=== PATIENT | male | born 1935 | race Caucasian/White ===

== ENCOUNTER 2016-12-09 14:03 | Emergency (ER) | payer MEDICARE ==
[2016-12-09 14:51] LABS: Basophils # (A) 0.1 k/uL (0-0.2); Basophils % (A) 1 %; CH 32.3; CHCM 35.8; Eosinophils # (A) 0.3 k/uL (0-0.7); Eosinophils % (A) 3 %; HCT 46.5 % (39.0-53.0); HDW 2.78; HGB 15.8 gm/dL (13.0-17.5); Luc # (Auto) 0.21; Luc % (Auto) 2; Lymphocytes # (A) 1.5 k/uL (1.0-4.8); Lymphocytes % (A) 16 %; MCH 30.8 pg (25.0-35.0); MCHC 33.9 g/dL (31.0-37.0); MCV 90.8 fL (80.0-100.0); Mean Platelet Volume 7.4; Monocytes # (A) 0.5 k/uL (0-1.0); Monocytes % (A) 5 %; Neutrophils # (A) 6.6 k/uL (1.3-7.7); Neutrophils % (A) 71 %; RBC 5.12 m/uL (4.30-5.90); RDW 14.8 % (11.5-15.5); WBC 9.3 k/uL (3.8-10.6)
--- NOTE | 2016-12-09 15:04 | ED ---
General Adult HPI - General Chief complaint: Urogenital Stated complaint: blood in urine-sent by [employer] Time Seen by Provider: 12/09/16 14:11 Source: patient, RN notes reviewed, old records reviewed Mode of arrival: ambulatory Limitations: no limitations - History of Present Illness Initial comments: 81-year-old male with history of hypertension and remote history of CVA presents with hematuria. Patient reports that over the past 12 hours he had significant hematuria and blood clots. He has had no trouble urinating. Denies significant pain. Does have some mild dysuria. Denies abdominal pain. Denies nausea vomiting or diarrhea. Patient has had intermittent hematuria over the last 1 year. He has been seen by urology for this. Normally his urine is just blood tinged and resolved spontaneously. Today there was more significant bleeding with clots. He was seen at urgent care and sent to the emergency department for further evaluation. Patient denies fever or chills. He is on aspirin and Plavix. - Related Data Home Medications Medication Instructions Recorded Confirmed Aspirin EC [Ecotrin] 81 mg PO DAILY 04/11/14 12/09/16 Clopidogrel [Plavix] 75 mg PO DAILY 04/11/14 12/09/16 Levothyroxine Sodium [Synthroid] 88 mcg PO DAILY 04/11/14 12/09/16 Losartan/Hydrochlorothiazide 1 tab PO DAILY 04/11/14 12/09/16 [Losartan-Hctz 100-25 mg Tab] amLODIPine [Norvasc] 5 mg PO DAILY 04/11/14 12/09/16 Allergies Allergy/AdvReac Type Severity Reaction Status Date / Time No Known Allergies Allergy Verified 12/09/16 14:40 Review of Systems ROS Statement: Those systems with pertinent positive or pertinent negative responses have been documented in the HPI. ROS Other: All systems not noted in ROS Statement are negative. Past Medical History Past Medical History: CVA/TIA, GERD/Reflux, Hypertension, Osteoarthritis (OA), Thyroid Disorder Additional Past Medical History / Comment(s): HX OF CVA-NO WEAKNESS OR PARALYSIS , LEFT INGUINAL HERNIA History of Any Multi-Drug Resistant Organisms: None Reported Past Surgical History: Hernia Repair Additional Past Surgical History / Comment(s): REJI CATARACTS, RT ING. HERNIA. HIATAL HERNIA REPAIR (03/14/2014). Past Anesthesia/Blood Transfusion Reactions: No Reported Reaction Past Psychological History: No Psychological Hx Reported Smoking Status: Never smoker Past Alcohol Use History: None Reported Past Drug Use History: None Reported - Past Family History Mother Family Medical History: Cancer Additional Family Medical History / Comment(s): THROAT Sister(s) Family Medical History: Cancer Additional Family Medical History / Comment(s): STOMACH CANCER General Exam Limitations: no limitations General appearance: alert, in no apparent distress Head exam: Present: atraumatic, normocephalic Eye exam: Present: normal appearance, PERRL ENT exam: Present: normal exam, mucous membranes moist Neck exam: Present: normal inspection. Absent: tenderness, meningismus Respiratory exam: Present: normal lung sounds bilaterally. Absent: respiratory distress Cardiovascular Exam: Present: regular rate, normal rhythm GI/Abdominal exam: Present: soft. Absent: distended, tenderness Extremities exam: Present: normal inspection, normal capillary refill. Absent: pedal edema Back exam: Present: normal inspection, full ROM Neurological exam: Present: alert, oriented X3, CN II-XII intact. Absent: motor sensory deficit Psychiatric exam: Present: normal affect, normal mood Skin exam: Present: warm, dry, intact. Absent: cyanosis, diaphoretic Course Vital Signs 12/09/16 12/09/16 14:07 15:25 Temperature 97.0 F L 97.5 F L Pulse Rate 63 62 Respiratory 18 18 Rate Blood Pressure 189/92 174/84 O2 Sat by Pulse 98 97 Oximetry - Reevaluation(s) Reevaluation #1: 12/09/16 15:43 Patient remains asymptomatic on emergency department. Continues to have blood tinged urine, no clots in his urine. Medical Decision Making - Medical Decision Making 81-year-old male presenting with hematuria. Patient did report having significant amount of blood clot seizure. No difficulty voiding. Laboratory studies reveal stable hemoglobin, normal kidney function. Ultrasound is obtained as previous CT showed probable renal cyst. This is confirmed on ultrasound, there is additional nonobstructing kidney stone. Patient has no pain. Vital signs are stable. He will follow-up with his urologist as an outpatient. Diagnosis: Renal cyst, renal stone, hematuria - Lab Data Result diagrams: 12/09/16 14:30 12/09/16 14:30 Lab Results 12/09/16 12/09/16 12/09/16 Range/Units 14:23 14:30 14:30 WBC 9.3 (3.8-10.6) k/uL RBC 5.12 (4.30-5.90) m/uL Hgb 15.8 (13.0-17.5) gm/dL Hct 46.5 (39.0-53.0) % MCV 90.8 (80.0-100.0) fL MCH 30.8 (25.0-35.0) pg MCHC 33.9 (31.0-37.0) g/dL RDW 14.8 (11.5-15.5) % Plt Count 276 (150-450) k/uL Neutrophils % 71 % Lymphocytes % 16 % Monocytes % 5 % Eosinophils % 3 % Basophils % 1 % Neutrophils # 6.6 (1.3-7.7) k/uL Lymphocytes # 1.5 (1.0-4.8) k/uL Monocytes # 0.5 (0-1.0) k/uL Eosinophils # 0.3 (0-0.7) k/uL Basophils # 0.1 (0-0.2) k/uL PT (9.0-12.0) sec INR (<1.2) APTT (22.0-30.0) sec Sodium (137-145) mmol/L Potassium (3.5-5.1) mmol/L Chloride (98-107) mmol/L Carbon Dioxide (22-30) mmol/L Anion Gap mmol/L BUN (9-20) mg/dL Creatinine (0.66-1.25) mg/dL Est GFR (MDRD) Af Amer (>60 ml/min/1.73 sqM) Est GFR (MDRD) Non-Af (>60 ml/min/1.73 sqM) Glucose (74-99) mg/dL Calcium (8.4-10.2) mg/dL Total Bilirubin (0.2-1.3) mg/dL AST (17-59) U/L ALT (21-72) U/L Alkaline Phosphatase (38-126) U/L Total Protein (6.3-8.2) g/dL Albumin (3.5-5.0) g/dL Urine Color Red Urine Appearance Cloudy (Clear) Urine pH 7.0 (5.0-8.0) Ur Specific [place] 1.009 (1.001-1.035) Urine Protein 2+ H (Negative) Urine Glucose (UA) Negative (Negative) Urine Ketones Negative (Negative) Urine Blood Large H (Negative) Urine Nitrite Negative (Negative) Urine Bilirubin Negative (Negative) Urine Urobilinogen <2.0 (<2.0) mg/dL Ur Leukocyte Esterase Moderate H (Negative) Urine RBC >182 H (0-5) /hpf Urine WBC 20 H (0-5) /hpf Blood Type A Positive Blood Type Recheck CABO Indicated Antibody Screen NEGATIVE Spec Expiration Date 12/12/2016 - 232912/09/16 12/09/16 Range/Units 14:30 14:30 WBC (3.8-10.6) k/uL RBC (4.30-5.90) m/uL Hgb (13.0-17.5) gm/dL Hct (39.0-53.0) % MCV (80.0-100.0) fL MCH (25.0-35.0) pg MCHC (31.0-37.0) g/dL RDW (11.5-15.5) % Plt Count (150-450) k/uL Neutrophils % % Lymphocytes % % Monocytes % % Eosinophils % % Basophils % % Neutrophils # (1.3-7.7) k/uL Lymphocytes # (1.0-4.8) k/uL Monocytes # (0-1.0) k/uL Eosinophils # (0-0.7) k/uL Basophils # (0-0.2) k/uL PT 10.8 (9.0-12.0) sec INR 1.1 (<1.2) APTT 26.1 (22.0-30.0) sec Sodium 140 (137-145) mmol/L Potassium 4.0 (3.5-5.1) mmol/L Chloride 104 (98-107) mmol/L Carbon Dioxide 25 (22-30) mmol/L Anion Gap 11 mmol/L BUN 13 (9-20) mg/dL Creatinine 0.79 (0.66-1.25) mg/dL Est GFR (MDRD) Af Amer >60 (>60 ml/min/1.73 sqM) Est GFR (MDRD) Non-Af >60 (>60 ml/min/1.73 sqM) Glucose 82 (74-99) mg/dL Calcium 9.3 (8.4-10.2) mg/dL Total Bilirubin 0.7 (0.2-1.3) mg/dL AST 36 (17-59) U/L ALT 29 (21-72) U/L Alkaline Phosphatase 59 (38-126) U/L Total Protein 7.3 (6.3-8.2) g/dL Albumin 4.5 (3.5-5.0) g/dL Urine Color Urine Appearance (Clear) Urine pH (5.0-8.0) Ur Specific [place] (1.001-1.035) Urine Protein (Negative) Urine Glucose (UA) (Negative) Urine Ketones (Negative) Urine Blood (Negative) Urine Nitrite (Negative) Urine Bilirubin (Negative) Urine Urobilinogen (<2.0) mg/dL Ur Leukocyte Esterase (Negative) Urine RBC (0-5) /hpf Urine WBC (0-5) /hpf Blood Type Blood Type Recheck Antibody Screen Spec Expiration Date Disposition Clinical Impression: Hematuria, Renal cyst Disposition: HOME SELF-CARE Condition: Stable Instructions: Hematuria (ED) Referrals: Rock Bryant III, MD [Primary Care Provider] - 1-2 days Papa Whelan MD [STAFF PHYSICIAN] - 1-2 days Time of Disposition: 15:46
[2016-12-09 15:06] LABS: INR 1.1 (<1.2); Partial Thromboplastin Time 26.1 sec (22.0-30.0); Prothrombin Time 10.8 sec (9.0-12.0)
[2016-12-09 15:07] LABS: ALT 29 U/L (21-72); AST 36 U/L (17-59); Alkaline Phosphatase 59 U/L (38-126); Anion Gap 11 mmol/L; Blood Urea Nitrogen 13 mg/dL (9-20); Calcium 9.3 mg/dL (8.4-10.2); Carbon Dioxide 25 mmol/L (22-30); Chloride 104 mmol/L (98-107); Glucose 82 mg/dL (74-99); Non-African American GFR(MDRD) >60 (>60 ml/min/1.73 sqM); Sodium 140 mmol/L (137-145); Total Bilirubin 0.7 mg/dL (0.2-1.3); Total Protein 7.3 g/dL (6.3-8.2)
[2016-12-09 15:12] LABS: Appearance,Urine Cloudy (Clear); Bilirubin,Urine Negative (Negative); Glucose,Urine (UA) Negative (Negative); Ketones,Urine Negative (Negative); Leukocyte Esterase,Urine Moderate (Negative); Nitrite,Urine Negative (Negative); Particle Count 23870; Protein,Urine 2+ (Negative); RBC,Urine >182 /hpf (0-5); Specific Gravity,Urine 1.009 (1.001-1.035); UA Billing (MACRO vs. MICRO) MICRO; Urobilinogen,Urine <2.0 mg/dL (<2.0); WBC,Urine 20 /hpf (0-5)
--- NOTE | 2016-12-09 15:34 | US ---
EXAMINATION TYPE: US kidneys/renal and bladder DATE OF EXAM: 12/09/2016 COMPARISON: NONE CLINICAL HISTORY: Pain, significant macrohematuria, with clots. EXAM MEASUREMENTS: Right Kidney: 11.3 x 5.3 x 5.0 cm Left Kidney: 11.7 x 5.5 x 5.1 cm Right Kidney: No hydronephrosis or masses seen Left Kidney: echogenic foci, nonobstructing renal stone, measuring 0.8 x 0.6cm, probable cyst measur ing 2.1 x 3.1 x 2.7cm Bladder: wnl IMPRESSION: 1. obstructing left renal stone. 2. Left renal cyst, probably simple. Follow-up can be performed.
[2016-12-09 16:01] VITALS: BP 145/66; PULSE 80; RESP 20; TEMP 98.2
== END 2016-12-09 16:01 | disposition home or self-care (01) ==
LOC: EC 14:03
DX: N28.1 Cyst of kidney, acquired (principal); N20.0 Calculus of kidney; I10 Essential (primary) hypertension; M19.90 Unspecified osteoarthritis, unspecified site; E07.9 Disorder of thyroid, unspecified; Z86.73 Personal history of transient ischemic attack (TIA), and cerebral infarction without residual deficits; Z79.02 Long term (current) use of antithrombotics/antiplatelets; Z79.82 Long term (current) use of aspirin; Z79.899 Other long term (current) drug therapy
CPT/HCPCS: 36415; 76770; 80053; 81001; 85025; 85610; 85730; 86850; 86900; 86901; 87086; 99284

== ENCOUNTER 2017-02-12 12:38 | Inpatient (IN) | payer MEDICARE ==
[2017-02-12] MEDS ORDERED: SODIUM CHLORIDE 0.9% 1,000 ML IV STA (13:02)
[2017-02-12] MEDS ORDERED: DILTIAZEM 125 MG in SODIUM CHLORIDE 0.9% 100 ML IV STA (13:04)
--- NOTE | 2017-02-12 13:06 | ED ---
General Adult HPI - General Chief complaint: Neuro Symptoms/Deficit Stated complaint: Numbness in Legs, Headache Time Seen by Provider: 02/12/17 12:50 Source: patient, RN notes reviewed Mode of arrival: wheelchair Limitations: no limitations - History of Present Illness Initial comments: This is a 81-year-old male with a history of CVA in the past who states he developed a frontal headache today and it was achy and radiated down to the back was head neck and bilateral leg numbness and felt wobbly when he try to walk he notices diastolic blood pressure was 140 he also notices heart rate was 140 he has no history of A. fib or palpitations. He denies any fevers chills nausea vomiting sweats any blurry vision. No focal weakness. He was noted upon arrival to have what appeared to be atrial fibrillation with a rapid ventricular response the patient states this is new to him. - Related Data Home Medications Medication Instructions Recorded Confirmed Aspirin EC [Ecotrin] 162 mg PO HS 04/11/14 02/12/17 Clopidogrel [Plavix] 75 mg PO DAILY 04/11/14 02/12/17 amLODIPine [Norvasc] 5 mg PO DAILY 04/11/14 02/12/17 Aspirin 325 mg PO ONCE 02/12/17 02/12/17 Levothyroxine Sodium [Synthroid] 100 mcg PO DAILY 02/12/17 02/12/17 Allergies Allergy/AdvReac Type Severity Reaction Status Date / Time No Known Allergies Allergy Verified 02/12/17 13:53 Review of Systems ROS Statement: Those systems with pertinent positive or pertinent negative responses have been documented in the HPI. ROS Other: All systems not noted in ROS Statement are negative. Past Medical History Past Medical History: CVA/TIA, GERD/Reflux, Hypertension, Osteoarthritis (OA), Thyroid Disorder Additional Past Medical History / Comment(s): HX OF CVA-NO WEAKNESS OR PARALYSIS , LEFT INGUINAL HERNIA History of Any Multi-Drug Resistant Organisms: None Reported Past Surgical History: Hernia Repair Additional Past Surgical History / Comment(s): REJI CATARACTS, RT ING. HERNIA. HIATAL HERNIA REPAIR (03/14/2014). Past Anesthesia/Blood Transfusion Reactions: No Reported Reaction Past Psychological History: No Psychological Hx Reported Smoking Status: Never smoker Past Alcohol Use History: None Reported Past Drug Use History: None Reported - Past Family History Mother Family Medical History: Cancer Additional Family Medical History / Comment(s): THROAT Sister(s) Family Medical History: Cancer Additional Family Medical History / Comment(s): STOMACH CANCER General Exam - General Exam Comments Initial Comments: This is a well-developed well-nourished awake alert oriented 3 male Limitations: no limitations General appearance: alert, in no apparent distress Head exam: Present: atraumatic, normocephalic, normal inspection Eye exam: Present: normal appearance, PERRL, EOMI. Absent: scleral icterus, conjunctival injection, periorbital swelling ENT exam: Present: normal exam, mucous membranes moist Neck exam: Present: normal inspection. Absent: tenderness, meningismus, lymphadenopathy Respiratory exam: Present: normal lung sounds bilaterally. Absent: respiratory distress, wheezes, rales, rhonchi, stridor Cardiovascular Exam: Present: tachycardia, irregular rhythm, normal heart sounds. Absent: systolic murmur, diastolic murmur, rubs, gallop, clicks GI/Abdominal exam: Present: soft, normal bowel sounds. Absent: distended, tenderness, guarding, rebound, rigid Extremities exam: Present: normal inspection, full ROM, normal capillary refill. Absent: tenderness, pedal edema, joint swelling, calf tenderness Back exam: Present: normal inspection Neurological exam: Present: alert, oriented X3, CN II-XII intact Psychiatric exam: Present: normal affect, normal mood Skin exam: Present: warm, dry, intact, normal color. Absent: rash Course Vital Signs 02/12/17 02/12/17 02/12/17 12:41 13:16 13:58 Temperature 96.9 F L Pulse Rate 64 135 H Pulse Rate [ 140 H Radial] Respiratory 18 20 Rate Blood Pressure 134/90 159/86 O2 Sat by Pulse 97 94 L Oximetry - Reevaluation(s) Reevaluation #1: 02/12/17 14:14 Evaluation patient finds him unchanged he denies any more headache he denies actually feeling any palpitations also heart rate still variable. EKG Findings - EKG Results: EKG: interpreted by GLORIA (Atrial fibrillation with rapid ventricular response rate of 128 QRS 120 daily since QTC at 284/414 left exodeviation poor R-wave progression nonspecific ST T-wave configuration.) Medical Decision Making - Medical Decision Making I did discuss [employer] the patient and his daughter as well as with Dr. Barton. Patient be admitted for evaluation of new onset atrial fibrillation. He will be anticoagulated. He is on a Cardizem drip. - Lab Data Result diagrams: 02/12/17 13:00 02/12/17 13:00 Lab Results 02/12/17 02/12/17 02/12/17 Range/Units 13:00 13:00 13:00 WBC 10.8 H (3.8-10.6) k/uL RBC 5.28 (4.30-5.90) m/uL Hgb 15.9 (13.0-17.5) gm/dL Hct 48.9 (39.0-53.0) % MCV 92.7 (80.0-100.0) fL MCH 30.1 (25.0-35.0) pg MCHC 32.4 (31.0-37.0) g/dL RDW 15.4 (11.5-15.5) % Plt Count 305 (150-450) k/uL Neutrophils % 66 % Lymphocytes % 22 % Monocytes % 7 % Eosinophils % 2 % Basophils % 1 % Neutrophils # 7.2 (1.3-7.7) k/uL Lymphocytes # 2.4 (1.0-4.8) k/uL Monocytes # 0.8 (0-1.0) k/uL Eosinophils # 0.2 (0-0.7) k/uL Basophils # 0.1 (0-0.2) k/uL PT (9.0-12.0) sec INR (<1.2) APTT (22.0-30.0) sec Sodium 143 (137-145) mmol/L Potassium 3.6 (3.5-5.1) mmol/L Chloride 104 (98-107) mmol/L Carbon Dioxide 27 (22-30) mmol/L Anion Gap 12 mmol/L BUN 23 H (9-20) mg/dL Creatinine 0.85 (0.66-1.25) mg/dL Est GFR (MDRD) Af Amer >60 (>60 ml/min/1.73 sqM) Est GFR (MDRD) Non-Af >60 (>60 ml/min/1.73 sqM) Glucose 85 (74-99) mg/dL POC Glucose (mg/dL) (75-99) mg/dL POC Glu Receiving Operator ID Calcium 9.7 (8.4-10.2) mg/dL Magnesium 1.9 (1.6-2.3) mg/dL Total Bilirubin 0.8 (0.2-1.3) mg/dL AST 39 (17-59) U/L ALT 30 (21-72) U/L Alkaline Phosphatase 58 (38-126) U/L Total Creatine Kinase 153 (55-170) U/L CK-MB (CK-2) 4.6 H* (0.0-2.4) ng/mL CK-MB (CK-2) Rel Index 3.0 Troponin I <0.012 (0.000-0.034) ng/mL Total Protein 7.7 (6.3-8.2) g/dL Albumin 4.4 (3.5-5.0) g/dL TSH 2.660 (0.465-4.680) mIU/L 02/12/17 02/12/17 Range/Units 13:00 13:04 WBC (3.8-10.6) k/uL RBC (4.30-5.90) m/uL Hgb (13.0-17.5) gm/dL Hct (39.0-53.0) % MCV (80.0-100.0) fL MCH (25.0-35.0) pg MCHC (31.0-37.0) g/dL RDW (11.5-15.5) % Plt Count (150-450) k/uL Neutrophils % % Lymphocytes % % Monocytes % % Eosinophils % % Basophils % % Neutrophils # (1.3-7.7) k/uL Lymphocytes # (1.0-4.8) k/uL Monocytes # (0-1.0) k/uL Eosinophils # (0-0.7) k/uL Basophils # (0-0.2) k/uL PT 11.2 (9.0-12.0) sec INR 1.1 (<1.2) APTT 25.2 (22.0-30.0) sec Sodium (137-145) mmol/L Potassium (3.5-5.1) mmol/L Chloride (98-107) mmol/L Carbon Dioxide (22-30) mmol/L Anion Gap mmol/L BUN (9-20) mg/dL Creatinine (0.66-1.25) mg/dL Est GFR (MDRD) Af Amer (>60 ml/min/1.73 sqM) Est GFR (MDRD) Non-Af (>60 ml/min/1.73 sqM) Glucose (74-99) mg/dL POC Glucose (mg/dL) 82 (75-99) mg/dL POC Glu Receiving Operator ID Tessa Alvarez Calcium (8.4-10.2) mg/dL Magnesium (1.6-2.3) mg/dL Total Bilirubin (0.2-1.3) mg/dL AST (17-59) U/L ALT (21-72) U/L Alkaline Phosphatase (38-126) U/L Total Creatine Kinase (55-170) U/L CK-MB (CK-2) (0.0-2.4) ng/mL CK-MB (CK-2) Rel Index Troponin I (0.000-0.034) ng/mL Total Protein (6.3-8.2) g/dL Albumin (3.5-5.0) g/dL TSH (0.465-4.680) mIU/L - Radiology Data Radiology results: report reviewed (I did review the imaging and reports no acute findings.), image reviewed Critical Care Time Critical Care Time: Yes Critical Care Time: 33 minutes of critical care time which includes initial presentation with history physical labs x-rays reevaluation patient response to therapy discuss with the patient family members discussion with the admitting physician. Neck mentation the above order writing. Disposition Clinical Impression: Rapid atrial fibrillation, Weakness Disposition: ADMITTED IP TO THIS [facility] Condition: Stable Referrals: Rock Bryant III, MD [Primary Care Provider] - 1-2 days
[2017-02-12 13:08] LABS: Glucose,Whole Blood 82 mg/dL (75-99)
[2017-02-12 13:23] LABS: Basophils # (A) 0.1 k/uL (0-0.2); Basophils % (A) 1 %; CH 30.6; CHCM 33.3; Eosinophils # (A) 0.2 k/uL (0-0.7); Eosinophils % (A) 2 %; HCT 48.9 % (39.0-53.0); HDW 2.52; HGB 15.9 gm/dL (13.0-17.5); Luc # (Auto) 0.17; Luc % (Auto) 2; Lymphocytes # (A) 2.4 k/uL (1.0-4.8); Lymphocytes % (A) 22 %; MCH 30.1 pg (25.0-35.0); MCHC 32.4 g/dL (31.0-37.0); MCV 92.7 fL (80.0-100.0); Mean Platelet Volume 7.2; Monocytes # (A) 0.8 k/uL (0-1.0); Monocytes % (A) 7 %; Neutrophils # (A) 7.2 k/uL (1.3-7.7); Neutrophils % (A) 66 %; RBC 5.28 m/uL (4.30-5.90); RDW 15.4 % (11.5-15.5); WBC 10.8 k/uL (3.8-10.6); WBC (Perox) 10.38
--- NOTE | 2017-02-12 13:23 | XR ---
EXAMINATION TYPE: XR chest 2V DATE OF EXAM: 02/12/2017 COMPARISON: 08/04/2011 INDICATION: Dysrhythmia numbness in legs headache with history of CVA TECHNIQUE: Frontal and lateral views of the chest are obtained. FINDINGS: The heart size is normal. The pulmonary vasculature is normal. The lungs are clear. IMPRESSION: 1. No acute pulmonary process.
[2017-02-12 13:30] LABS: INR 1.1 (<1.2); Partial Thromboplastin Time 25.2 sec (22.0-30.0); Prothrombin Time 11.2 sec (9.0-12.0)
[2017-02-12 13:31] LABS: ALT 30 U/L (21-72); AST 39 U/L (17-59); Alkaline Phosphatase 58 U/L (38-126); Anion Gap 12 mmol/L; Blood Urea Nitrogen 23 mg/dL (9-20); Calcium 9.7 mg/dL (8.4-10.2); Carbon Dioxide 27 mmol/L (22-30); Chloride 104 mmol/L (98-107); Glucose 85 mg/dL (74-99); Magnesium 1.9 mg/dL (1.6-2.3); Non-African American GFR(MDRD) >60 (>60 ml/min/1.73 sqM); Potassium 3.6 mmol/L (3.5-5.1); Sodium 143 mmol/L (137-145); Total Bilirubin 0.8 mg/dL (0.2-1.3); Total Protein 7.7 g/dL (6.3-8.2)
[2017-02-12 13:45] LABS: Creatine Kinase 153 U/L (55-170)
--- NOTE | 2017-02-12 13:45 | CT ---
EXAMINATION TYPE: CT brain wo con DATE OF EXAM: 02/12/2017 COMPARISON: 08/04/2011 HISTORY: Patient complains of headache. CT DLP: 782.6 mGycm. Automated Exposure Control for Dose Reduction was Utilized. TECHNIQUE: CT scan of the head is performed without contrast. FINDINGS: There is no acute intracranial hemorrhage or midline shift identified. There is diffuse v entricular and sulcal prominence consistent with diffuse age-related cerebral atrophy. There is low- attenuation in the periventricular white matter consistent with chronic small vessel ischemic change. The globes are intact and the visualized sinuses are clear. IMPRESSION: No acute intracranial hemorrhage or midline shift. There is diffuse age-related cerebra l atrophy and chronic small vessel ischemic change noted.
[2017-02-12 13:57] LABS: Troponin I <0.012 ng/mL (0.000-0.034)
[2017-02-12 14:00] LABS: Creatine Kinase MB 4.6 ng/mL (0.0-2.4)
[2017-02-12] MEDS ORDERED: NALOXONE 0.4 MG/ML 1 ML VIAL IV PRN (14:17)
[2017-02-12] MEDS ORDERED: HEPARIN SODIUM,PORCINE 5,000 UNIT/ML 1 ML VIAL IV ONE (14:47)
[2017-02-12] MEDS ORDERED: HEPARIN SODIUM,PORCINE/D5W PMX 25,000 UNIT in DEXTROSE/WATER 1 500ML.BAG IV SCH (15:00)
[2017-02-12] MEDS: SODIUM CHLORIDE 0.9% 1,000 ML IV SCH (15:17)
[2017-02-12] MEDS ORDERED: ASPIRIN 81 MG PO SCH (21:00)
--- NOTE | 2017-02-13 00:08 | P.HPIM ---
History of Present Illness H&P Date: 02/12/17 Chief Complaint: Headache and bilateral numbness in the legs Patient is a 81-year-old male with a known history of CVA with no residual weakness, hypothyroidism, hypertension and GERD came to the hospital with complaints of frontal headache today and it was achy and radiated down to the back was head neck and bilateral leg numbness and felt wobbly when he try to walk. he notices diastolic blood pressure was 140 he also notices heart rate was 140. he has no history of A. fib or palpitations. He denies any fevers chills nausea vomiting sweats any blurry vision. No focal weakness. He was noted upon arrival to have what appeared to be atrial fibrillation with a rapid ventricular response the patient states this is new to him. No complaints of chest pain or short of breath. Patient denied any palpitations. Denied any dizziness. Patient felt some imbalance. Patient follows with Dr. Norton and had EKG and echocardiogram done about 4 months back Chest x-ray showed no acute coronary process EKG showed atrial fibrillation with rapid ventricular rate Troponin [address] head showed no acute intracranial process. age related atrophic changes. Review of Systems Constitutional: Patient denies any fever or chills . No generalized weakness or weight loss. Abdomen: Patient denied nausea vomiting and diarrhea and abdominal pain. Cardiovascular: Patient denies any chest pain or short of breath no palpitations. Respiratory: patient denied any cough is from production. No shortness of breath Neurologic: Patient did have headache and numbness of the legs and imbalance Musculoskeletal: Patient denies any complaints of joint swelling or deformity. Skin: Negative Psychiatric: Negative Endocrine: No heat or cold intolerance. No recent weight gain. Genitourinary: No dysuria or hematuria. All other 14 point ROS negative except the above Past Medical History Past Medical History: CVA/TIA, GERD/Reflux, Hypertension, Myocardial Infarction ([place]), Osteoarthritis (OA), Pneumonia, Thyroid Disorder Additional Past Medical History / Comment(s): 02-12-17 new onset afib,pt is rt side dominant,past tia, reji ing hernias(had sx), palpitations,bronchitis, fall from truck few years ago"injured cord in neck and had large scalp laceration". Last Myocardial Infarction Date:: unk History of Any Multi-Drug Resistant Organisms: None Reported Past Surgical History: Hernia Repair, Tonsillectomy Additional Past Surgical History / Comment(s): REJI CATARACTS, reji ING. HERNIA. HIATAL HERNIA REPAIR (03/14/2014).skin cancer (basal and squamous cell), colonoscopy, reji carpal tunnel release, rt upper thigh inury has plastic insert. Past Anesthesia/Blood Transfusion Reactions: No Reported Reaction Smoking Status: Never smoker - Past Family History Mother Family Medical History: Cancer Additional Family Medical History / Comment(s): THROAT Sister(s) Family Medical History: Cancer Additional Family Medical History / Comment(s): STOMACH CANCER Medications and Allergies Home Medications Medication Instructions Recorded Confirmed Type Aspirin EC [Ecotrin] 162 mg PO HS 04/11/14 02/12/17 History Clopidogrel [Plavix] 75 mg PO DAILY 04/11/14 02/12/17 History amLODIPine [Norvasc] 5 mg PO DAILY 04/11/14 02/12/17 History Aspirin 325 mg PO ONCE 02/12/17 02/12/17 History Levothyroxine Sodium [Synthroid] 100 mcg PO DAILY 02/12/17 02/12/17 History Allergies Allergy/AdvReac Type Severity Reaction Status Date / Time No Known Allergies Allergy Verified 02/12/17 13:53 Physical Exam Vitals: Vital Signs Temp Pulse Pulse Resp BP BP Pulse Ox 02/12/17 16:00 97.0 F L 85 18 135/77 95 02/12/17 15:37 97.6 F 02/12/17 15:18 99 18 114/75 95 02/12/17 14:59 96 18 104/75 95 02/12/17 13:58 135 H 20 159/86 94 L 02/12/17 13:16 140 H 02/12/17 12:41 96.9 F L 64 18 134/90 97 Intake and Output 02/12/17 02/12/17 02/12/17 06:59 14:59 22:59 Intake Total 100 Balance 100 Intake: Amount of Fluid Infused ( 100 ml) Other: Weight 81.647 kg Patient Weight 02/13/17 06:59 Weight 81.647 kg PHYSICAL EXAMINATION: Patient is lying in the bed comfortably, no acute distress, awake alert and oriented.. HEENT: Normocephalic. Neck is supple. Pupils reactive. Nostrils clear. Oral cavity is moist. Ears reveal no drainage. Neck reveals no JVD, carotid bruits, or thyromegaly. CHEST EXAMINATION: Trachea is central. Symmetrical expansion. Lung vickers clear to auscultation and percussion. CARDIAC: Normal S1, S2 with no gallops. No murmurs ABDOMEN: Soft. Bowel sounds normal. No organomegaly. No abdominal bruits. Extremities: reveal no edema. No clubbing or cyanosis Neurologically awake, alert, oriented x3 with well-coordinated movements. No focal deficits noted Skin: No rash or skin lesions. Psychiatric: Operative. Nonsuicidal Musculoskeletal: No joint swelling or deformity. Normal range of motion. Results CBC & Chem 7: 02/12/17 13:00 02/12/17 13:00 Labs: Abnormal Lab Results - Last 24 Hours (Table) 02/12/17 02/12/17 02/12/17 Range/Units 13:00 13:00 13:00 WBC 10.8 H (3.8-10.6) k/uL BUN 23 H (9-20) mg/dL CK-MB (CK-2) 4.6 H* (0.0-2.4) ng/mL Assessment and Plan Assessment: #1 new onset atrial fibrillation with rapid ventricular rate. #2 history of CVA with no residual weakness. #3 hypertension, # 4 hyperlipidemia #5 hypothyroidism Plan: Patient will be continued on Cardizem drip and also on heparin IV. We will continue the telemetry monitoring. James aquino was consulted. Will continue with aspirin and possibly stop Plavix and follow closely. Further recommendations based on the clinical course. Time with Patient: Greater than 30
[2017-02-13] MEDS: LEVOTHYROXINE 100 MCG TAB PO SCH (06:17)
[2017-02-13] MEDS: amLODIPine 5 MG TAB PO SCH (08:56)
[2017-02-13] MEDS ORDERED: CLOPIDOGREL 75 MG TAB PO SCH (09:00)
[2017-02-13] MEDS: SODIUM CHLORIDE 0.9% 1,000 ML IV SCH (11:05)
[2017-02-13] MEDS: METOPROLOL TARTRATE 12.5 MG TAB PO SCH ×2 (11:25→20:53)
[2017-02-13] MEDS: APIXABAN 2.5 MG TABLET PO SCH ×2 (11:25→20:53)
[2017-02-13] MEDS ORDERED: PROPAFENONE 225 MG TAB PO STA (11:46)
--- NOTE | 2017-02-13 13:14 | CONS ---
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 He sees Dr. Norton in the outpatient setting. He does not have any history of obstructive CAD and in fact, a cardiac cath a few years ago revealed no evidence of any significant CAD. He has a normal ejection fraction that was performed as recently as November of this year. This gentleman apparently had an episode of what he describes as a splitting headache and felt some throbbing in his head and he also felt somewhat dizzy and lightheaded. The frontal headache seemed to be bothering him quite a bit and then he took his blood pressure was found to have a higher diastolic number and his heart rate was in the 140s and he came into the hospital. After arrival, he was found to be in atrial fibrillation at a rate of nearly 130 per minute with underlying IVCD and with this, he was placed on a Cardizem drip and converted to sinus rhythm but has been going back and forth. However, he is asymptomatic with the rate coming down. Denies any chest pain, stable shortness of breath with activity. He has no symptoms at the time of my evaluation. On examination, he had some irregular rhythm and he is back in atrial fib at a rate of 90-100 per minute. PAST MEDICAL HISTORY: 1. Hypertension. 2. Hypercholesterolemia. 3. No obstructive CAD based on a cardiac cath in 2009. 4. Echocardiogram from November of this year revealed ejection fraction of 55% with left atrial enlargement and moderate aortic regurgitation with mildly elevated PA pressures. This echo was performed in our office. MEDICATIONS: At home include aspirin 162 mg daily. Clopidogrel 75 mg daily, Norvasc 5 mg daily and levothyroxine 100 mcg daily. ALLERGIES: None. This patient about 2 months ago developed some hematuria, went and saw his primary care physician, Dr. Bryant and subsequently went on to be evaluated by Dr. Whelan who performed a cystoscopy and told him that there were some cysts in the bladder but no evidence of any other issues. He stopped Plavix and was only taking aspirin for a while. 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 PHYSICAL EXAMINATION: Blood pressure is 130/70, pulse rate is about 90, irregular. HEENT: Unremarkable. Fundus was not examined by me. Neck is supple. There is no JVD. I do not hear any carotid bruit. There is no thyromegaly. Heart exam reveals S1, S2 with irregularity in rhythm. There is a short systolic murmur audible at the base of the heart. A soft diastolic murmur is also audible. Lungs revealed decent air entry. Abdomen is soft, nontender. Lower extremities reveal palpable pulses. No edema. Central nervous system is grossly within normal limits. EKG on arrival revealed atrial fib, rapid rate, nonspecific IVCD and isolated PVCs. IMPRESSION: 1. Paroxysmal symptomatic atrial fibrillation. 2. Hypertension. 3. Hyperlipidemia. 4. Previous history of cerebrovascular accident in good recovery. 5. History of bladder cysts and hematuria 2 months ago. RECOMMENDATIONS: After due discussion I am recommending that we will use Eliquis, but in view of his bladder cyst and hematuria, I will go at a lower dose of 2.5 mg b.i.d. I will use beta essence for rate control. Given the fact he has no significant CAD, we will try a high dose of Rythmol of 400 mg to see if he will convert to sinus rhythm. If he is back in sinus rhythm, we will let him go home this evening or if the rate is controlled, he can be discharged. I discussed my thoughts in detail with the patient. Thank you very much for the consult. CAN / JAYLEN: [id number] /
--- NOTE | 2017-02-13 22:32 | P.PN ---
Subjective Progress Note Date: 02/13/17 Principal diagnosis: Atrial fibrillation with rapid ventricular rate Patient is a 81-year-old male with a known history of CVA with no residual weakness, hypothyroidism, hypertension and GERD came to the hospital with complaints of frontal headache today and it was achy and radiated down to the back was head neck and bilateral leg numbness and felt wobbly when he try to walk. he notices diastolic blood pressure was 140 he also notices heart rate was 140. he has no history of A. fib or palpitations. He denies any fevers chills nausea vomiting sweats any blurry vision. No focal weakness. He was noted upon arrival to have what appeared to be atrial fibrillation with a rapid ventricular response the patient states this is new to him. No complaints of chest pain or short of breath. Patient denied any palpitations. Denied any dizziness. Patient felt some imbalance. Patient follows with Dr. Norton and had EKG and echocardiogram done about 4 months back Chest x-ray showed no acute coronary process EKG showed atrial fibrillation with rapid ventricular rate Troponin [address] head showed no acute intracranial process. age related atrophic changes. 02/13/2017 Patient denied any complaints of chest pain or shortness of breath. Patient is going back and forth of atrial fibrillation. Patient was started on propafenone as per cardiology recommendations. Otherwise patient will be recorded on beta essence and anticoagulation. No other acute overnight issues. Current medications reviewed. Objective - Vital Signs Vital signs: Vital Signs Temp 97.2 F L 02/13/17 16:00 Pulse 71 02/13/17 16:00 Resp 18 02/13/17 16:00 BP 120/71 02/13/17 16:00 Pulse Ox 97 02/13/17 16:00 Intake & Output 02/13/17 02/13/17 02/14/17 06:59 18:59 06:59 Intake Total 511.15 827 Output Total 500 100 Balance . 727 Weight 83.1 kg Intake: Intake, IV Titration 111.15 125 Amount Diltiazem 125 mg In 25 Sodium Chloride 0.9% 100 ml @ 5 MG/HR 5 mls/hr IV .Q24H [facility] Rx#:[id number] Heparin Sodium,Porcine/ 111.15 D5w Pmx 25,000 unit In Dextrose/Water 1 500ml. bag @ 12 UNITS/KG/HR 19. 59 mls/hr IV .Q24H [facility] Rx #:[id number] Sodium Chloride 0.9% 1, 100 000 ml @ 20 mls/hr IV . Q24H [facility] Rx#:[id number] Oral 400 702 Output: Urine 500 100 Other: # Voids 1 1 - Exam PHYSICAL EXAMINATION: Patient is lying in the bed comfortably, no acute distress, awake alert and oriented.. HEENT: Normocephalic. Neck is supple. Pupils reactive. Nostrils clear. Oral cavity is moist. Ears reveal no drainage. Neck reveals no JVD, carotid bruits, or thyromegaly. CHEST EXAMINATION: Trachea is central. Symmetrical expansion. Lung vickers clear to auscultation and percussion. CARDIAC: Normal S1, S2 with no gallops. No murmurs ABDOMEN: Soft. Bowel sounds normal. No organomegaly. No abdominal bruits. Extremities: reveal no edema. No clubbing or cyanosis Neurologically awake, alert, oriented x3 with well-coordinated movements. No focal deficits noted Skin: No rash or skin lesions. Psychiatric: Cooperative. Nonsuicidal Musculoskeletal: No joint swelling or deformity. Normal range of motion. - Labs CBC & Chem 7: 02/12/17 13:00 02/12/17 13:00 Labs: Abnormal Lab Results - Last 24 Hours (Table) 02/13/17 Range/Units 03:24 APTT 48.6 H (22.0-30.0) sec Assessment and Plan Assessment: #1 new onset atrial fibrillation with rapid ventricular rate. Paroxysmal #2 history of CVA with no residual weakness. #3 hypertension, # 4 hyperlipidemia #5 hypothyroidism Plan: Patient is currently off Cardizem drip. Patient was started on propafenone for chemical conversion. Started on anticoagulation in the form of eliquis. Cardiology is following. Discontinued aspirin and Plavix.. Further recommendations based on the clinical course.
[2017-02-14] MEDS: LEVOTHYROXINE 100 MCG TAB PO SCH (06:23)
[2017-02-14] MEDS: METOPROLOL TARTRATE 12.5 MG TAB PO SCH (08:13)
[2017-02-14] MEDS: APIXABAN 2.5 MG TABLET PO SCH (08:13)
[2017-02-14] MEDS: amLODIPine 5 MG TAB PO SCH (08:13)
[2017-02-14] MEDS: SODIUM CHLORIDE 0.9% 1,000 ML IV SCH (08:14)
[2017-02-14] MEDS ORDERED: APIXABAN 2.5 MG TABLET PO ONE (10:00)
[2017-02-14] MEDS ORDERED: METOPROLOL TARTRATE 12.5 MG TAB PO ONE (10:00)
--- NOTE | 2017-02-14 12:47 | PN ---
PROGRESS NOTE Mr. Singleton remains in atrial fib. Rate control is suboptimal. Did not sleep well. Complains of feeling tired. I will increase beta essence for rate control. I tried Rythmol without success. Will give him 150 mg t.i.d. of Rythmol, increase Lopressor and continue Eliquis, but at a higher dose of 5 mg b.i.d. He has not had any hematuria. His rate control is optimal. He can be discharged today. Otherwise, hopefully tomorrow. MMODL / IJN: [id number] /
[2017-02-14] MEDS: PROPAFENONE 150 MG TAB PO SCH ×2 (15:16→20:23)
[2017-02-14] MEDS: METOPROLOL TARTRATE 50 MG TAB PO SCH (20:23)
[2017-02-14] MEDS: APIXABAN 5 MG TAB PO SCH (20:23)
--- NOTE | 2017-02-14 21:47 | P.PN ---
Subjective Progress Note Date: 02/14/17 Principal diagnosis: Atrial fibrillation with rapid ventricular rate Patient is a 81-year-old male with a known history of CVA with no residual weakness, hypothyroidism, hypertension and GERD came to the hospital with complaints of frontal headache today and it was achy and radiated down to the back was head neck and bilateral leg numbness and felt wobbly when he try to walk. he notices diastolic blood pressure was 140 he also notices heart rate was 140. he has no history of A. fib or palpitations. He denies any fevers chills nausea vomiting sweats any blurry vision. No focal weakness. He was noted upon arrival to have what appeared to be atrial fibrillation with a rapid ventricular response the patient states this is new to him. No complaints of chest pain or short of breath. Patient denied any palpitations. Denied any dizziness. Patient felt some imbalance. Patient follows with Dr. Norton and had EKG and echocardiogram done about 4 months back Chest x-ray showed no acute coronary process EKG showed atrial fibrillation with rapid ventricular rate Troponin [address] head showed no acute intracranial process. age related atrophic changes. 02/13/2017 Patient denied any complaints of chest pain or shortness of breath. Patient is going back and forth of atrial fibrillation. Patient was started on propafenone as per cardiology recommendations. Otherwise patient will be recorded on beta essence and anticoagulation. No other acute overnight issues. 02/14/2017 Patient denied any complaints of chest pain or shortness of breath. Heart rate is still elevated. Beta essence dose has been increased today. Otherwise patient denied any nausea vomiting or abdominal pain. No fever no chills. No other acute overnight issues. Current medications reviewed. Objective - Vital Signs Vital signs: Vital Signs Temp 97.1 F L 02/14/17 16:00 Pulse 104 H 02/14/17 16:00 Resp 18 02/14/17 16:00 BP 132/83 02/14/17 16:00 Pulse Ox 97 02/14/17 16:00 Intake & Output 02/14/17 02/14/17 02/15/17 06:59 18:59 06:59 Intake Total 100 804 Output Total 125 Balance -25 804 Weight 83.6 kg Intake: Oral 100 804 Output: Urine 125 Other: # Voids 1 2 - Exam PHYSICAL EXAMINATION: Patient is lying in the bed comfortably, no acute distress, awake alert and oriented.. HEENT: Normocephalic. Neck is supple. Pupils reactive. Nostrils clear. Oral cavity is moist. Ears reveal no drainage. Neck reveals no JVD, carotid bruits, or thyromegaly. CHEST EXAMINATION: Trachea is central. Symmetrical expansion. Lung vickers clear to auscultation and percussion. CARDIAC: Normal S1, S2 with no gallops. No murmurs ABDOMEN: Soft. Bowel sounds normal. No organomegaly. No abdominal bruits. Extremities: reveal no edema. No clubbing or cyanosis Neurologically awake, alert, oriented x3 with well-coordinated movements. No focal deficits noted Skin: No rash or skin lesions. Psychiatric: Cooperative. Nonsuicidal Musculoskeletal: No joint swelling or deformity. Normal range of motion. - Labs CBC & Chem 7: 02/12/17 13:00 02/12/17 13:00 Assessment and Plan Assessment: #1 new onset atrial fibrillation with rapid ventricular rate. Paroxysmal #2 history of CVA with no residual weakness. #3 hypertension, # 4 hyperlipidemia #5 hypothyroidism Plan: Patient is currently off Cardizem drip. Patient was started on propafenone for chemical conversion. Started on anticoagulation in the form of eliquis. Increase beta essence dose to better controlled heart rate. Cardiology is following. Discontinued aspirin and Plavix.. Further recommendations based on the clinical course.
[2017-02-15] MEDS ORDERED: MELATONIN 3 MG TABLET PO PRN (00:41)
[2017-02-15] MEDS: LEVOTHYROXINE 100 MCG TAB PO SCH (06:08)
[2017-02-15] MEDS: PROPAFENONE 150 MG TAB PO SCH (08:39)
[2017-02-15] MEDS: amLODIPine 5 MG TAB PO SCH (08:39)
[2017-02-15] MEDS: SODIUM CHLORIDE 0.9% 1,000 ML IV SCH (08:40)
[2017-02-15] MEDS: METOPROLOL TARTRATE 50 MG TAB PO SCH (08:40)
[2017-02-15] MEDS: APIXABAN 5 MG TAB PO SCH (08:40)
[2017-02-15] MEDS ORDERED: hydrALAZINE HCL 25 MG TAB PO SCH (10:30)
[2017-02-15] MEDS ORDERED: AMIODARONE 200 MG TAB PO SCH (10:30)
[2017-02-15 11:00] VITALS: RESP 18
[2017-02-15 13:52] VITALS: BP 123/81; PULSE 109; TEMP 96.8
--- NOTE | 2017-02-15 14:33 | P.PN ---
Subjective Progress Note Date: 02/15/17 This is an 81-year-old gentleman with history of hypertension, hypothyroidism, prior CVA, who follows with Dr. Gao in the outpatient setting. Patient presented to the hospital with symptoms of dizziness and lightheaded with associated headache. He was found to be in atrial fibrillation with a rapid ventricular response. He was seen in consultation by Dr. Duke Sears over the weekend and initiated on Rythmol. Continues to be in atrial fibrillation with intermittent moderately rapid ventricular response. He is quite eager to be discharged home, he is currently on Eliquis for anticoagulation. Patient did undergo cardiac catheterization a few years ago with no evidence of coronary artery disease, he has a normal ejection fraction by echo performed in November. Objective - Vital Signs Vital signs: Vital Signs Temp 96.8 F L 02/15/17 12:00 Pulse 109 H 02/15/17 12:00 Resp 18 02/15/17 12:00 BP 123/81 02/15/17 12:00 Pulse Ox 97 02/15/17 12:00 Intake & Output 02/14/17 02/15/17 02/15/17 18:59 06:59 18:59 Intake Total 804 120 100 Output Total 250 Balance 804 -130 100 Weight 83.5 kg Intake: Oral 804 120 100 Output: Urine 250 Other: Voiding Method Toilet Toilet # Voids 2 - Exam PHYSICAL EXAMINATION: HEENT: Head is atraumatic, normocephalic. Pupils equal, round. Neck is supple. There is no elevated jugular venous pressure. HEART EXAMINATION: Heart S1 and S2 irregularly irregular a systolic murmur is heard. CHEST EXAMINATION: Lungs are clear to auscultation and precussion. No chest wall tenderness is noted on palpation or with deep breathing. ABDOMEN: Soft, nontender. Bowel sounds are heard. No organomegaly noted. EXTREMITIES: 2+ peripheral pulses with no evidence of peripheral edema and no calf tenderness noted. NEUROLOGIC patient is awake, alert and oriented -3. . - Labs CBC & Chem 7: 02/12/17 13:00 02/12/17 13:00 Assessment and Plan Plan: Assessment and Plan #1 atrial fibrillation with rapid ventricular response, paroxysmal #2 hypertension #3 hyperlipidemia #4 prior CVA # 5 history of bladder cyst with temperature in 2 months ago Plan We will discontinue the patient's Norvasc, discontinue Rythmol, continue metoprolol tartrate 50 mg one tablet by mouth twice a day. We will also start the patient on amiodarone 400 mg one tablet by mouth twice a day continue that dose for one week then decrease to 200 3 times a day, for one week then we will decrease to 200 twice a day. We will also add hydralazine 25 mg one tablet by mouth twice a day to his medication regime and continue his Eliquis. A follow- up appointment will be made with Dr. Norton in the office post discharge. DNP note has been reviewed, I agree with a documented findings and plan of care. Patient was seen and examined.
--- NOTE | 2017-02-15 23:28 | P.DS ---
Providers Date of admission: 02/12/17 14:24 Expected date of discharge: 02/15/17 Attending physician: Srikanth Barton Consults: 02/12/17 14:18 Consult Physician Routine Consulting Provider: Paulie Lemons Consult Reason/Comments: New-onset rapid atrial fibrillation Do you want consulting provider notified?: Yes Primary care physician: Rock [facility] Hospital Course: Discharge diagnosis #1 new onset atrial fibrillation with rapid ventricular rate. Paroxysmal #2 history of CVA with no residual weakness. #3 hypertension, # 4 hyperlipidemia #5 hypothyroidism Hospital course Patient is a 81-year-old male with a known history of CVA with no residual weakness, hypothyroidism, hypertension and GERD came to the hospital with complaints of frontal headache today and it was achy and radiated down to the back was head neck and bilateral leg numbness and felt wobbly when he try to walk. he notices diastolic blood pressure was 140 he also notices heart rate was 140. he has no history of A. fib or palpitations. He denies any fevers chills nausea vomiting sweats any blurry vision. No focal weakness. He was noted upon arrival to have what appeared to be atrial fibrillation with a rapid ventricular response the patient states this is new to him. No complaints of chest pain or short of breath. Patient denied any palpitations. Denied any dizziness. Patient felt some imbalance. Patient follows with Dr. Norton and had EKG and echocardiogram done about 4 months back Chest x-ray showed no acute coronary process EKG showed atrial fibrillation with rapid ventricular rate Troponin [address] head showed no acute intracranial process. age related atrophic changes. 02/13/2017 Patient denied any complaints of chest pain or shortness of breath. Patient is going back and forth of atrial fibrillation. Patient was started on propafenone as per cardiology recommendations. Otherwise patient will be recorded on beta essence and anticoagulation. No other acute overnight issues. 02/14/2017 Patient denied any complaints of chest pain or shortness of breath. Heart rate is still elevated. Beta essence dose has been increased today. Otherwise patient denied any nausea vomiting or abdominal pain. No fever no chills. No other acute overnight issues. 02/15/2017 Patient denied any new complaints today. Patient was started on amiodarone and propafenone has been discontinued. Patient is being discharged home today. Beta essence dose increased for better heart rate control Patient was on Cardizem drip. Patient was started on propafenone for chemical conversion. But patient was still having paroxysmal A. fib. Patient was started on amiodarone and increase dose of beta essence. Started on anticoagulation in the form of eliquis. Cardiology followed the patient. Otherwise patient is to be discharged home and follow-up as an outpatient in the cardiology clinic as well as primary care physician in next 3-5 days. Patient is stable to be discharged home. Discharge physical examination was done Patient Condition at Discharge: Stable Plan - Discharge Summary Discharge Rx Participant: No New Discharge Prescriptions: New Amiodarone [Cordarone] 400 mg PO BID #120 tab Apixaban [Eliquis] 5 mg PO BID #60 tab hydrALAZINE HCL [Apresoline] 25 mg PO BID #60 tab Metoprolol Tartrate [Lopressor] 50 mg PO BID #60 tab Continue Levothyroxine Sodium [Synthroid] 100 mcg PO DAILY Discontinued Aspirin EC [Ecotrin] 162 mg PO HS amLODIPine [Norvasc] 5 mg PO DAILY Clopidogrel [Plavix] 75 mg PO DAILY Aspirin 325 mg PO ONCE Discharge Medication List Levothyroxine Sodium [Synthroid] 100 mcg PO DAILY 02/12/17 [History] Amiodarone [Cordarone] 400 mg PO BID #120 tab 02/15/17 [Rx] Apixaban [Eliquis] 5 mg PO BID #60 tab 02/15/17 [Rx] Metoprolol Tartrate [Lopressor] 50 mg PO BID #60 tab 02/15/17 [Rx] hydrALAZINE HCL [Apresoline] 25 mg PO BID #60 tab 02/15/17 [Rx] Follow up Appointment(s)/Referral(s): Rock Bryant III, MD [Primary Care Provider] - 02/17/17 11:00 am Chidi Norton MD [STAFF PHYSICIAN] - 03/02/17 11:00 am Patient Instructions/Handouts: A-fib (Atrial Fibrillation) (DC) Activity/Diet/Wound Care/Special Instructions: Pt has 30 day free supply of eliquis filled in [facility]-pts copay will be $122/month- pt instructed to 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 Discharge Disposition: HOME SELF-CARE
== END 2017-02-15 16:24 | disposition home or self-care (01) | DRG 310 ==
LOC: EC 12:38 → 6SEL 14:24
PROVIDERS: ADMIT Internal Medicine; ATTEND Internal Medicine
DX: I48.0 Paroxysmal atrial fibrillation (principal); I11.9 Hypertensive heart disease without heart failure; I35.1 Nonrheumatic aortic (valve) insufficiency; E03.9 Hypothyroidism, unspecified; E78.00 Pure hypercholesterolemia, unspecified; E78.5 Hyperlipidemia, unspecified; I25.2 Old myocardial infarction; K21.9 Gastro-esophageal reflux disease without esophagitis; Z79.01 Long term (current) use of anticoagulants; Z79.02 Long term (current) use of antithrombotics/antiplatelets; Z79.82 Long term (current) use of aspirin; Z79.899 Other long term (current) drug therapy; Z80.0 Family history of malignant neoplasm of digestive organs; Z85.828 Personal history of other malignant neoplasm of skin; Z86.73 Personal history of transient ischemic attack (TIA), and cerebral infarction without residual deficits
CPT/HCPCS: 36415; 70450; 71020; 80053; 82550; 82553; 83735; 84443; 84484; 85025; 85610; 85730; 93005; 96365; 96366; 96368; 96376; 99291

== ENCOUNTER 2018-05-06 11:19 | Inpatient (IN) | payer MEDICARE ==
[2018-05-06] MEDS ORDERED: SODIUM CHLORIDE 0.9% 500 ML 500 ML IV STA (11:44)
[2018-05-06] MEDS ORDERED: HEPARIN SODIUM,PORCINE 5,000 UNIT/ML 1 ML VIAL IV ONE (11:47)
[2018-05-06] MEDS ORDERED: HEPARIN SODIUM,PORCINE 5,000 UNIT/ML 1 ML VIAL IV PRN (11:47)
--- NOTE | 2018-05-06 11:52 | ED ---
General Adult HPI - General Chief complaint: Shortness of Breath Stated complaint: poss cva, poss chf Time Seen by Provider: 05/06/18 11:34 Source: patient, family Mode of arrival: wheelchair Limitations: no limitations, physical limitation - Related Data Home Medications Medication Instructions Recorded Confirmed Levothyroxine Sodium [Synthroid] 100 mcg PO DAILY 02/12/17 05/06/18 Aspirin EC [Ecotrin Low Dose] 81 mg PO DAILY 05/06/18 05/06/18 Atenolol [Tenormin] 12.5 mg PO DAILY 05/06/18 05/06/18 Clopidogrel [Plavix] 75 mg PO DAILY 05/06/18 05/06/18 DULoxetine HCL [Cymbalta] 20 mg PO DAILY 05/06/18 05/06/18 Losartan/Hydrochlorothiazide 1 tab PO DAILY 05/06/18 05/06/18 [Losartan-Hctz 100-25 mg Tab] Multivitamins, Thera [Multivitamin 1 tab PO DAILY 05/06/18 05/06/18 (formulary)] Polyethylene Glycol 3350 [Miralax] 17 gm PO DAILY PRN 05/06/18 05/06/18 Pregabalin [Lyrica] 50 mg PO HS 05/06/18 05/06/18 Rivaroxaban [Xarelto] 20 mg PO DAILY 05/06/18 05/06/18 amLODIPine [Norvasc] 5 mg PO DAILY 05/06/18 05/06/18 Allergies Allergy/AdvReac Type Severity Reaction Status Date / Time No Known Allergies Allergy Verified 05/06/18 12:22 Review of Systems ROS Statement: Those systems with pertinent positive or pertinent negative responses have been documented in the HPI. ROS Other: All systems not noted in ROS Statement are negative. Past Medical History Past Medical History: CVA/TIA, GERD/Reflux, Hypertension, Myocardial Infarction ([place]), Osteoarthritis (OA), Pneumonia, Thyroid Disorder Additional Past Medical History / Comment(s): 02-12-17 new onset afib,pt is rt side dominant,past tia, reji ing hernias(had sx), palpitations,bronchitis, fall from truck few years ago"injured cord in neck and had large scalp laceration". Last Myocardial Infarction Date:: unk History of Any Multi-Drug Resistant Organisms: None Reported Past Surgical History: Hernia Repair, Tonsillectomy Additional Past Surgical History / Comment(s): REJI CATARACTS, reji ING. HERNIA. HIATAL HERNIA REPAIR (03/14/2014).skin cancer (basal and squamous cell), colonoscopy, reji carpal tunnel release, rt upper thigh inury has plastic insert. Past Anesthesia/Blood Transfusion Reactions: No Reported Reaction Past Psychological History: No Psychological Hx Reported Smoking Status: Never smoker Past Alcohol Use History: None Reported Past Drug Use History: None Reported - Past Family History Mother Family Medical History: Cancer Additional Family Medical History / Comment(s): THROAT Sister(s) Family Medical History: Cancer Additional Family Medical History / Comment(s): STOMACH CANCER General Exam Limitations: no limitations, physical limitation Course Vital Signs 05/06/18 05/06/18 05/06/18 11:24 11:42 11:45 Temperature 97.7 F Pulse Rate 103 H 103 H Respiratory 22 22 20 Rate Blood Pressure 112/72 109/92 O2 Sat by Pulse 98 97 Oximetry 05/06/18 12:40 Temperature Pulse Rate 100 Respiratory 22 Rate Blood Pressure 122/89 O2 Sat by Pulse 96 Oximetry Medical Decision Making - Medical Decision Making Dictation was produced using [employer] dictation software. please excuse any grammatical, word or spelling errors. Chief Complaint: 82-year-old male presents with structure for PCP to come to the emergency department for A. fib. History of Present Illness: Seen at his primary care doctor's office yesterday. Patient was complaining of several days of generalized weakness. Patient was seen here in the emergency department several months ago where he was diagnosed with atrial fibrillation. Patient was anticoagulated. He took a request for approximately 3 days however he stopped. As the medication was too expensive. He seen his PCP is office yesterday and they wanted him to come to the emergency department for A. fib without any anticoagulation. Patient states he' s feels generally weak. He was given 1 dose of Xarelto yesterday and went home. Patient did not want come to the emergency department because he didn't feel he needed to. He received multiple calls from his PCPs office to come to the emergency department. Finally he decided to come in. Patient states he feels generalized weakness for the past several days. Denies any nausea vomiting. No chest pain. No asymmetrical neuro deficits. The ROS documented in this emergency department record has been reviewed and confirmed by me. Those systems with pertinent positive or negative responses have been documented in the HPI. All other systems are other negative and/or noncontributory. PHYSICAL EXAM: General Impression: Alert and oriented x3, not in acute distress HEENT: Normocephalic atraumatic, extra-ocular movements intact, pupils equal and reactive to light bilaterally, mucous membranes moist. Cardiovascular: Irregularly irregular rhythm Chest: Lungs clear to auscultation bilaterally, no rhonchi, no wheeze, no rales Abdomen: Bowel sounds present, abdomen soft, non-tender, non-distended, no organomegaly Musculoskeletal: Pulses present and equal in all extremities, no peripheral edema Motor: no focal deficits noted Neurological: CN II-XII grossly intact, no focal motor or sensory deficits noted Skin: Intact with no visualized rashes Psych: Normal affect and mood ED course: 82-year-old male presents with atrial fibrillation not on anticoagulation. As upon arrival shows heart rate of 103. Rest of vital signs within acceptable limits. Patient was diagnosed with A. fib several years ago however has not been eliquis due to cost. Patient did recent CVA dose of Xarelto yesterday. Patient started on heparin drip.Laboratory evaluation obtained. CBC, coag panel, metabolic panel is unremarkable. Cardiac enzymes negative. BNP is 1900. Patient reevaluated and found to be in stable condition. Patient be started on his home beta essence medication. Cardiology consultation. EKG interpretation: Ventricular rate 124, A. fib with RVR, QRS 1:30, QTC 474. No TN prolongation, no QTC prolongation, no ST or T-wave changes noted. - Lab Data Result diagrams: 05/06/18 11:43 05/06/18 11:43 Lab Results 05/06/18 05/06/18 05/06/18 Range/Units 11:32 11:43 11:43 WBC 8.1 (3.8-10.6) k/uL RBC 4.70 (4.30-5.90) m/uL Hgb 14.4 (13.0-17.5) gm/dL Hct 43.9 (39.0-53.0) % MCV 93.5 (80.0-100.0) fL MCH 30.7 (25.0-35.0) pg MCHC 32.8 (31.0-37.0) g/dL RDW 14.6 (11.5-15.5) % Plt Count 268 (150-450) k/uL Neutrophils % 76 % Lymphocytes % 14 % Monocytes % 5 % Eosinophils % 3 % Basophils % 1 % Neutrophils # 6.2 (1.3-7.7) k/uL Lymphocytes # 1.2 (1.0-4.8) k/uL Monocytes # 0.4 (0-1.0) k/uL Eosinophils # 0.2 (0-0.7) k/uL Basophils # 0.1 (0-0.2) k/uL PT (9.0-12.0) sec INR (<1.2) APTT (22.0-30.0) sec Sodium (137-145) mmol/L Potassium (3.5-5.1) mmol/L Chloride (98-107) mmol/L Carbon Dioxide (22-30) mmol/L Anion Gap mmol/L BUN (9-20) mg/dL Creatinine (0.66-1.25) mg/dL Est GFR (CKD-EPI)AfAm (>60 ml/min/1.73 sqM) Est GFR (CKD-EPI)NonAf (>60 ml/min/1.73 sqM) Glucose (74-99) mg/dL POC Glucose (mg/dL) 155 H (75-99) mg/dL POC Glu Facility Operations Manager Manav Donato Calcium (8.4-10.2) mg/dL Magnesium (1.6-2.3) mg/dL Total Bilirubin (0.2-1.3) mg/dL AST (17-59) U/L ALT (21-72) U/L Alkaline Phosphatase (38-126) U/L Total Creatine Kinase 151 (55-170) U/L CK-MB (CK-2) 4.1 H (0.0-2.4) ng/mL CK-MB (CK-2) Rel Index 2.7 Troponin I 0.012 (0.000-0.034) ng/mL NT-Pro-B Natriuret Pep pg/mL Total Protein (6.3-8.2) g/dL Albumin (3.5-5.0) g/dL 05/06/18 05/06/18 05/06/18 Range/Units 11:43 11:43 11:43 WBC (3.8-10.6) k/uL RBC (4.30-5.90) m/uL Hgb (13.0-17.5) gm/dL Hct (39.0-53.0) % MCV (80.0-100.0) fL MCH (25.0-35.0) pg MCHC (31.0-37.0) g/dL RDW (11.5-15.5) % Plt Count (150-450) k/uL Neutrophils % % Lymphocytes % % Monocytes % % Eosinophils % % Basophils % % Neutrophils # (1.3-7.7) k/uL Lymphocytes # (1.0-4.8) k/uL Monocytes # (0-1.0) k/uL Eosinophils # (0-0.7) k/uL Basophils # (0-0.2) k/uL PT 15.1 H (9.0-12.0) sec INR 1.5 H (<1.2) APTT 36.0 H (22.0-30.0) sec Sodium 138 (137-145) mmol/L Potassium 4.0 (3.5-5.1) mmol/L Chloride 104 (98-107) mmol/L Carbon Dioxide 25 (22-30) mmol/L Anion Gap 9 mmol/L BUN 18 (9-20) mg/dL Creatinine 0.97 (0.66-1.25) mg/dL Est GFR (CKD-EPI)AfAm 84 (>60 ml/min/1.73 sqM) Est GFR (CKD-EPI)NonAf 73 (>60 ml/min/1.73 sqM) Glucose 152 H (74-99) mg/dL POC Glucose (mg/dL) (75-99) mg/dL POC Glu Facility Operations Manager ID Calcium 9.0 (8.4-10.2) mg/dL Magnesium 1.8 (1.6-2.3) mg/dL Total Bilirubin 1.3 (0.2-1.3) mg/dL AST 41 (17-59) U/L ALT 24 (21-72) U/L Alkaline Phosphatase 51 (38-126) U/L Total Creatine Kinase (55-170) U/L CK-MB (CK-2) (0.0-2.4) ng/mL CK-MB (CK-2) Rel Index Troponin I (0.000-0.034) ng/mL NT-Pro-B Natriuret Pep 1900 pg/mL Total Protein 6.8 (6.3-8.2) g/dL Albumin 4.0 (3.5-5.0) g/dL Disposition Clinical Impression: Afib Disposition: ADMITTED IP TO THIS HOSP Condition: Fair Referrals: Rock Bryant III, MD [Primary Care Provider] - 1-2 days Decision Time: 12:57
[2018-05-06] MEDS: HEPARIN SOD,PORK IN 0.45% NACL 25,000 UNIT in 0.45% NACL 1 250ML.BAG IV SCH (12:00)
--- NOTE | 2018-05-06 12:02 | XR ---
EXAMINATION TYPE: XR chest 2V DATE OF EXAM: 05/06/2018 COMPARISON: 02/12/2017 HISTORY: 82-year-old male difficulty breathing TECHNIQUE: AP and lateral views FINDINGS: Heart mildly enlarged, increased from 02/12/2017. Redemonstrated is elongation/ectasia of the thoraci c aorta. Diffuse interstitial prominence. Some strandy atelectasis at the lung bases. Trace effusions difficult to exclude on the lateral view. IMPRESSION: Cardiomegaly and interstitial changes, correlate for possible mild pulmonary vascular congestion. Tra ce effusions difficult to exclude.
[2018-05-06 12:03] LABS: Basophils # (A) 0.1 k/uL (0-0.2); Basophils % (A) 1 %; Eosinophils # (A) 0.2 k/uL (0-0.7); Eosinophils % (A) 3 %; HCT 43.9 % (39.0-53.0); HGB 14.4 gm/dL (13.0-17.5); Lymphocytes # (A) 1.2 k/uL (1.0-4.8); Lymphocytes % (A) 14 %; MCH 30.7 pg (25.0-35.0); MCHC 32.8 g/dL (31.0-37.0); MCV 93.5 fL (80.0-100.0); Mean Platelet Volume 7.4; Monocytes # (A) 0.4 k/uL (0-1.0); Monocytes % (A) 5 %; Neutrophils # (A) 6.2 k/uL (1.3-7.7); Neutrophils % (A) 76 %; Platelet Count 268 k/uL (150-450); RDW 14.6 % (11.5-15.5); WBC 8.1 k/uL (3.8-10.6)
[2018-05-06 12:12] LABS: Magnesium 1.8 mg/dL (1.6-2.3); Total Bilirubin 1.3 mg/dL (0.2-1.3); Total Protein 6.8 g/dL (6.3-8.2)
[2018-05-06 12:17] LABS: INR 1.5 (<1.2); Prothrombin Time 15.1 sec (9.0-12.0)
[2018-05-06 12:44] LABS: Creatine Kinase MB 4.1 ng/mL (0.0-2.4); Troponin I 0.012 ng/mL (0.000-0.034)
[2018-05-06 12:49] LABS: Glucose,Whole Blood 155 mg/dL (75-99)
[2018-05-06] MEDS ORDERED: NALOXONE 0.4 MG/ML 1 ML VIAL IV PRN (12:57)
[2018-05-06 14:55] VITALS: BMI 27.6
[2018-05-06] MEDS ORDERED: POLYETHYLENE GLYCOL 3350 17 GM POWD.PACK PO PRN (15:29)
--- NOTE | 2018-05-06 15:43 | P.HPIM ---
History of Present Illness 82-year-old pleasant gentleman the came to ER with compensative lightheadedness chest pressure like sensation palpitations and fatigue. Patient has these symptoms going on for about a week or more patient was once asked to go to ER and didn't come to year. Patient was seen in Dr. Bryant his primary care physician's office, he advised patient to go to ER for atrial fibrillation at the patient is inclined to go to the ER because of which he was given a free coupon for prescription of Xarelto and atenolol and was subsequently sent home. As patient is not feeling well in his overall clinical condition continued to worsen patient came to ER. Patient is in atrial fibrillation rapid ventricular rate. Patient was started on IV heparin for anti-correlation was held. In the past patient was given Eliquis and he was unable to afford it because of which he stopped taking it. Patient denied any history of coronary artery disease denied any history of congestive heart failure patient denied any orthopnea proximal nocturnal dyspnea. Patient does have hypothyroidism does take levothyroxine will obtain TSH. Labetalol 12.5 mg which will be discontinued and will be started on 20 mg of metoprolol as his blood pressure is borderline and if her heart rate is not controlled patient was started on Cardizem intravenous at that time. Review of Systems REVIEW OF SYSTEMS: CONSTITUTIONAL: No fever. HEENT: No recent visual problems or hearing problems. Denied any sore throat. CARDIOVASCULAR: No orthopnea, PND, no palpitations, no syncope. PULMONARY: No shortness of breath, no cough, no hemoptysis. GASTROINTESTINAL: No diarrhea, no nausea, no vomiting, no abdominal pain. NEUROLOGICAL: No headaches, no weakness, no numbness. HEMATOLOGICAL: Denies any bleeding or petechiae. GENITOURINARY: Denies any burning micturition, frequency, or urgency. MUSCULOSKELETAL/RHEUMATOLOGICAL: Denies any joint pain, swelling, or any muscle pain. ENDOCRINE: Denies any polyuria or polydipsia. The rest of the 14-point review of systems is negative. Past Medical History Past Medical History: Atrial Fibrillation, Cancer, CVA/TIA, GERD/Reflux, Hypertension, Myocardial Infarction ([place]), Osteoarthritis (OA), Pneumonia, Thyroid Disorder Additional Past Medical History / Comment(s): TIA possible CVA per pt, TN-per EKG, bronchitis, hypothyroid, past fall with cervical spinal cord injury and scalp injury, skin cancer with removals Last Myocardial Infarction Date:: unk History of Any Multi-Drug Resistant Organisms: None Reported Past Surgical History: Hernia Repair, Orthopedic Surgery, Tonsillectomy Additional Past Surgical History / Comment(s): Bilateral cataract removal, arely inguinal hernia repair, hiatal hernia surgery, 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 Past Anesthesia/Blood Transfusion Reactions: No Reported Reaction Smoking Status: Never smoker - Past Family History Father Family Medical History: Liver Disease Additional Family Medical History / Comment(s): Father was a drinker and had liver cirrhosis from which he of at the age of 52yrs. Mother Family Medical History: Cancer Additional Family Medical History / Comment(s): Mother had throat cancer and of this at the age of 87yrs. Sister(s) Family Medical History: Cancer Additional Family Medical History / Comment(s): STOMACH CANCER Medications and Allergies Home Medications Medication Instructions Recorded Confirmed Type Levothyroxine Sodium [Synthroid] 100 mcg PO DAILY 02/12/17 05/06/18 History Aspirin EC [Ecotrin Low Dose] 81 mg PO DAILY 05/06/18 05/06/18 History Atenolol [Tenormin] 12.5 mg PO DAILY 05/06/18 05/06/18 History Clopidogrel [Plavix] 75 mg PO DAILY 05/06/18 05/06/18 History DULoxetine HCL [Cymbalta] 20 mg PO DAILY 05/06/18 05/06/18 History Losartan/Hydrochlorothiazide 1 tab PO DAILY 05/06/18 05/06/18 History [Losartan-Hctz 100-25 mg Tab] Multivitamins, Thera [Multivitamin 1 tab PO DAILY 05/06/18 05/06/18 History (formulary)] Polyethylene Glycol 3350 [Miralax] 17 gm PO DAILY PRN 05/06/18 05/06/18 History Pregabalin [Lyrica] 50 mg PO HS 05/06/18 05/06/18 History Rivaroxaban [Xarelto] 20 mg PO DAILY 05/06/18 05/06/18 History amLODIPine [Norvasc] 5 mg PO DAILY 05/06/18 05/06/18 History Allergies Allergy/AdvReac Type Severity Reaction Status Date / Time No Known Allergies Allergy Verified 05/06/18 12:22 Physical Exam Vitals: Vital Signs Temp Pulse Resp BP Pulse Ox 05/06/18 15:09 97.9 F 112 H 22 112/58 96 05/06/18 13:43 112 H 20 05/06/18 12:40 100 22 122/89 96 05/06/18 11:45 103 H 20 109/92 97 05/06/18 11:42 22 05/06/18 11:24 97.7 F 103 H 22 112/72 98 Intake and Output 05/06/18 05/06/18 05/06/18 06:59 14:59 22:59 Other: Weight 87.271 kg PHYSICAL EXAMINATION: GENERAL: The patient is alert and oriented x3, not in any acute distress. Well developed, well nourished. HEENT: Pupils are round and equally reacting to light. EOMI. No scleral icterus. No conjunctival pallor. Normocephalic, atraumatic. No pharyngeal erythema. No thyromegaly. CARDIOVASCULAR: S1 and S2 present. No murmurs, rubs, or gallops. Irregularly irregular rhythm PULMONARY: Chest is clear to auscultation, no wheezing or crackles. ABDOMEN: Soft, nontender, nondistended, normoactive bowel sounds. No palpable organomegaly. MUSCULOSKELETAL: No joint swelling or deformity. EXTREMITIES: No cyanosis, clubbing, or pedal edema. NEUROLOGICAL: Gross neurological examination did not reveal any focal deficits. SKIN: No rashes. Results CBC & Chem 7: 05/06/18 11:43 05/06/18 11:43 Labs: Abnormal Lab Results - Last 24 Hours (Table) 05/06/18 05/06/18 05/06/18 Range/Units 11:32 11:43 11:43 PT (9.0-12.0) sec INR (<1.2) APTT (22.0-30.0) sec Glucose 152 H (74-99) mg/dL POC Glucose (mg/dL) 155 H (75-99) mg/dL CK-MB (CK-2) 4.1 H (0.0-2.4) ng/mL 05/06/18 Range/Units 11:43 PT 15.1 H (9.0-12.0) sec INR 1.5 H (<1.2) APTT 36.0 H (22.0-30.0) sec Glucose (74-99) mg/dL POC Glucose (mg/dL) (75-99) mg/dL CK-MB (CK-2) (0.0-2.4) ng/mL Thrombosis Risk Factor Assmnt - Choose All That Apply Any of the Below Risk Factors Present?: Yes Each Factor Represents 1 point: Obesity (BMI >25) Other Risk Factors: Yes Each Risk Factor Represents 2 Points: Malignancy Each Risk Factor Represents 3 Points: Age 75 years or older Other congenital or acquired thrombophilia - If yes, enter type in comment: No Thrombosis Risk Factor Assessment Total Risk Factor Score: 6 Thrombosis Risk Factor Assessment Level: High Risk Assessment and Plan Plan: -Atrial fibrillation with rapid ventricular rate: Beta essence as mentioned above hold off on atenolol, patient was started on metoprolol, continue with IV heparin, will check co-pay for both Eliquis and Xarelto tomorrow. Echocardiogram Will be obtained and cardiology was consulted chest pressure is secondary to atrial fibrillation fatigue and lightheadedness is secondary to atrial fibrillation. Patient doesn't have any history of coronary artery disease may not require antiplatelet therapy. -History of cerebrovascular accident in the past -Hypertension patient bit hypotensive, hold off on other antidepressants medications. -Gastroesophageal reflux disease -Hypothyroidism continue with levothyroxine will obtain TSH
[2018-05-06] MEDS ORDERED: METOPROLOL TARTRATE 50 MG TAB PO STA (16:12)
[2018-05-06] MEDS: METOPROLOL TARTRATE 25 MG TAB PO SCH ×2 (16:17→21:27)
[2018-05-06] MEDS: SODIUM CHLORIDE 0.9% 1,000 ML IV SCH (18:26)
[2018-05-06] MEDS: PREGABALIN 50 MG CAP PO SCH (21:27)
[2018-05-07] MEDS: LEVOTHYROXINE 100 MCG TAB PO SCH (06:20)
--- NOTE | 2018-05-07 08:14 | P.CRDCN ---
History of Present Illness Consult date: 05/07/18 Requesting physician: Nereyda Guzmán Consult reason: atrial fibrillation Chief complaint: Weakness, shortness of breath History of present illness: This is a pleasant 82-year-old gentleman with history of hypertension , hypothyroidism, paroxysmal atrial fibrillation, prior CVA, nonobstructive coronary artery disease by prior cardiac catheterization performed in 2009, presents to the hospital on this occasion with symptoms of progressive weakness with associated lightheadedness, abdominal discomfort, and shortness of breath. Patient states he's also been noticing intermittent chest pressure and heaviness. Patient has a known history of paroxysmal atrial fibrillation, he states that he had not been taking his Eliquis regularly because he felt that most of the symptoms were secondary to that. He also states that because of the cost of the Eliquis he did not want to take it. Patient then was recently seen in his primary care doctor's office, he was started on xarelto and states that he took one dose prior to admission here. His main complaint this morning at the time of my examination assessment feels quite short of breath. Chest x-ray on admission shows cardiomegaly and interstitial changes, correlate for possible mild pulmonary vascular congestion. Trace effusions or difficulty. EKG shows atrial fibrillation with a left bundle-branch block pattern. Subsequent EKG shows atrial fibrillation with moderately rapid ventricular response. Blood pressure 125/80 with a heart rate in the 90s, 91% on 2 L of oxygen. White blood cell count 8.1, hemoglobin 14.4, platelet count 268. Sodium 138, potassium 4.0, BUN 18 and creatinine 0.9. Troponin 0.012, BNP level 1900, magnesium 1.8. TSH 4.1 Past Medical History Past Medical History: Atrial Fibrillation, Cancer, CVA/TIA, GERD/Reflux, Hypertension, Myocardial Infarction (OR), Osteoarthritis (OA), Pneumonia, Thyroid Disorder Additional Past Medical History / Comment(s): TIA possible CVA per pt, OR-per EKG, bronchitis, hypothyroid, past fall with cervical spinal cord injury and scalp injury, skin cancer with removals Last Myocardial Infarction Date:: unk History of Any Multi-Drug Resistant Organisms: None Reported Past Surgical History: Hernia Repair, Orthopedic Surgery, Tonsillectomy Additional Past Surgical History / Comment(s): Bilateral cataract removal, arely inguinal hernia repair, hiatal hernia surgery, 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 Past Anesthesia/Blood Transfusion Reactions: No Reported Reaction Smoking Status: Never smoker - Past Family History Father Family Medical History: Liver Disease Additional Family Medical History / Comment(s): Father was a drinker and had liver cirrhosis from which he of at the age of 52yrs. Mother Family Medical History: Cancer Additional Family Medical History / Comment(s): Mother had throat cancer and of this at the age of 87yrs. Sister(s) Family Medical History: Cancer Additional Family Medical History / Comment(s): STOMACH CANCER Medications and Allergies Home Medications Medication Instructions Recorded Confirmed Type Levothyroxine Sodium [Synthroid] 100 mcg PO DAILY 02/12/17 05/06/18 History Aspirin EC [Ecotrin Low Dose] 81 mg PO DAILY 05/06/18 05/06/18 History Atenolol [Tenormin] 12.5 mg PO DAILY 05/06/18 05/06/18 History Clopidogrel [Plavix] 75 mg PO DAILY 05/06/18 05/06/18 History DULoxetine HCL [Cymbalta] 20 mg PO DAILY 05/06/18 05/06/18 History Losartan/Hydrochlorothiazide 1 tab PO DAILY 05/06/18 05/06/18 History [Losartan-Hctz 100-25 mg Tab] Multivitamins, Thera [Multivitamin 1 tab PO DAILY 05/06/18 05/06/18 History (formulary)] Polyethylene Glycol 3350 [Miralax] 17 gm PO DAILY PRN 05/06/18 05/06/18 History Pregabalin [Lyrica] 50 mg PO HS 05/06/18 05/06/18 History Rivaroxaban [Xarelto] 20 mg PO DAILY 05/06/18 05/06/18 History amLODIPine [Norvasc] 5 mg PO DAILY 05/06/18 05/06/18 History Allergies Allergy/AdvReac Type Severity Reaction Status Date / Time No Known Allergies Allergy Verified 05/06/18 12:22 Physical Exam Vitals: Vital Signs Temp Pulse Pulse Resp BP BP Pulse Ox 05/07/18 03:50 97.5 F L 96 18 125/85 91 L 05/07/18 00:00 111 H 20 136/91 93 L 05/06/18 20:00 98.1 F 129 H 18 133/99 98 05/06/18 18:30 97.5 F L 98 20 134/89 98 05/06/18 16:18 112 H 20 117/90 98 05/06/18 15:09 97.9 F 112 H 22 112/58 96 05/06/18 13:43 112 H 20 05/06/18 12:40 100 22 122/89 96 05/06/18 11:45 103 H 20 109/92 97 05/06/18 11:42 22 05/06/18 11:24 97.7 F 103 H 22 112/72 98 Intake and Output 05/06/18 05/07/18 05/07/18 22:59 06:59 14:59 Intake Total 675.757 600 Balance 675.757 600 Intake: Intake, IV Titration 75.757 Amount Heparin Sod,Pork in 0.45% 75.757 NaCl 25,000 unit In 0.45 % NaCl 1 250ml.bag @ 11. 45 UNITS/KG/HR 9.99 mls/ hr IV .Q24H [facility] Rx#: [id number] Oral 600 Blood Product 600 Other: Voiding Method Urinal Urinal PHYSICAL EXAMINATION: GENERAL: 82-year-old gentleman in no acute distress at the time of my examination HEENT: Head is atraumatic, normocephalic. Pupils equal, round. Sclera anicteric. Conjunctiva are clear. Mucous membranes of the mouth are moist. Neck is supple. There is elevated jugular venous pressure. No carotid bruit is heard. HEART EXAMINATION: Heart S1 and S2 irregularly irregular a systolic murmur is heard. CHEST EXAMINATION: Lungs reveal rales to bilateral bases with diminished air entry to the bases. ABDOMEN: Soft, nontender. Bowel sounds are heard. No organomegaly noted. EXTREMITIES: 2+ peripheral pulses with trace evidence of peripheral edema and no calf tenderness noted. NEUROLOGIC patient is awake, alert and oriented 3 . . Results 05/06/18 11:43 05/06/18 11:43 Cardiac Enzymes 05/06/18 05/06/18 Range/Units 11:43 11:43 AST 41 (17-59) U/L CK-MB (CK-2) 4.1 H (0.0-2.4) ng/mL Troponin I 0.012 (0.000-0.034) ng/mL Coagulation 05/06/18 05/06/18 05/07/18 Range/Units 11:43 18:32 00:46 PT 15.1 H (9.0-12.0) sec APTT 36.0 H 78.3 H 58.5 H (22.0-30.0) sec CBC 05/06/18 Range/Units 11:43 WBC 8.1 (3.8-10.6) k/uL RBC 4.70 (4.30-5.90) m/uL Hgb 14.4 (13.0-17.5) gm/dL Hct 43.9 (39.0-53.0) % Plt Count 268 (150-450) k/uL Comprehensive Metabolic Panel 05/06/18 Range/Units 11:43 Sodium 138 (137-145) mmol/L Potassium 4.0 (3.5-5.1) mmol/L Chloride 104 (98-107) mmol/L Carbon Dioxide 25 (22-30) mmol/L BUN 18 (9-20) mg/dL Creatinine 0.97 (0.66-1.25) mg/dL Glucose 152 H (74-99) mg/dL Calcium 9.0 (8.4-10.2) mg/dL AST 41 (17-59) U/L ALT 24 (21-72) U/L Alkaline Phosphatase 51 (38-126) U/L Total Protein 6.8 (6.3-8.2) g/dL Albumin 4.0 (3.5-5.0) g/dL Current Medications Generic Name Dose Route Start Last Admin Trade Name Freq PRN Reason Stop Dose Admin Clopidogrel Bisulfate 75 mg 05/07/18 09:00 Plavix PO DAILY [facility] Duloxetine HCl 20 mg 05/07/18 09:00 Cymbalta PO DAILY [facility] Heparin Sodium (Porcine) 0 unit 05/06/18 11:47 Heparin IV PER PROTOCOL PRN Low PTT Protocol Heparin Sodium/Sodium Chloride 250 mls @ 9.99 mls/hr 05/06/18 12:00 05/06/18 19:35 25,000 unit/ Sodium Chloride IV 9.45 units/kg/hr .Q24H [facility] 8.24 mls/hr Titration Protocol 11.45 UNITS/KG/HR Sodium Chloride 1,000 mls @ 20 mls/hr 05/06/18 13:00 05/06/18 18:26 Saline 0.9% IV 20 mls/hr .Q24H [facility] Administration Levothyroxine Sodium 100 mcg 05/07/18 06:30 05/07/18 06:20 Synthroid PO 100 mcg DAILY@0630 [facility] Administration Metoprolol Tartrate 25 mg 05/06/18 15:31 05/06/18 21:27 Lopressor PO 25 mg BID [facility] Administration Naloxone HCl 0.2 mg 05/06/18 12:57 Narcan IV Q2M PRN Opioid Reversal Pantoprazole Sodium 40 mg 05/07/18 09:00 Protonix IV DAILY [facility] Polyethylene Glycol 17 gm 05/06/18 15:29 Miralax PO DAILY PRN Constipation Pregabalin 50 mg 05/06/18 21:00 05/06/18 21:27 Lyrica PO 50 mg HS [facility] Administration Intake and Output 05/06/18 05/07/18 05/07/18 22:59 06:59 14:59 Intake Total 675.757 600 Balance 675.757 600 Intake: Intake, IV Titration 75.757 Amount Heparin Sod,Pork in 0.45% 75.757 NaCl 25,000 unit In 0.45 % NaCl 1 250ml.bag @ 11. 45 UNITS/KG/HR 9.99 mls/ hr IV .Q24H [facility] Rx#: [id number] Oral 600 Blood Product 600 Other: Voiding Method Urinal Urinal 05/06/18 11:43 05/06/18 11:43 EKG Interpretations (text) EKG shows atrial fibrillation with moderately rapid ventricular response Assessment and Plan Plan: Assessment and plan #1 atrial fibrillation with rapid ventricular response, paroxysmal, patient has a known history of atrial fibrillation. He did stop taking his Eliquis at home and was recently started on xarelto. #2 shortness of breath, secondary to A. fib with RVR, mild congestive heart failure, LV function unknown. Could be exacerbated by A. fib. #3 hypertension #4 hyperlipidemia #5 prior CVA #6 nonobstructive coronary artery disease by prior cardiac catheterization performed 9 years ago. Plan Patient is currently on IV heparin, we will have case management look into his coverage for one of the newer anticoagulants, in the meantime we will continue metoprolol. Initiate IV Lasix. Monitor intake and output along with daily weights and daily lytes BUN and creatinine. Echocardiogram with Doppler study. Resume losartan. Further recommendations to follow. DNP note has been reviewed, I agree with a documented findings and plan of care. Patient was seen and examined.
[2018-05-07 08:25] LABS: HCT 44.8 % (39.0-53.0); HGB 14.4 gm/dL (13.0-17.5); MCH 31.2 pg (25.0-35.0); MCHC 32.1 g/dL (31.0-37.0); MCV 97.2 fL (80.0-100.0); Mean Platelet Volume 6.9; Platelet Count 255 k/uL (150-450); RBC 4.61 m/uL (4.30-5.90); RDW 14.6 % (11.5-15.5); WBC 6.5 k/uL (3.8-10.6)
[2018-05-07 08:32] LABS: Calcium 8.9 mg/dL (8.4-10.2); Magnesium 1.8 mg/dL (1.6-2.3)
[2018-05-07] MEDS: METOPROLOL TARTRATE 25 MG TAB PO SCH (08:43)
[2018-05-07] MEDS: DULoxetine HCL 20 MG CAPSULE.DR PO SCH (08:44)
[2018-05-07] MEDS ORDERED: PANTOPRAZOLE 40 MG/10 ML VIAL IV SCH (09:00)
[2018-05-07] MEDS ORDERED: ATENOLOL 12.5 MG TAB PO SCH (09:00)
[2018-05-07] MEDS ORDERED: CLOPIDOGREL 75 MG TAB PO SCH (09:00)
[2018-05-07] MEDS: FUROSEMIDE 10 MG/ML 2 ML VIAL IV SCH ×2 (10:29→19:38)
--- NOTE | 2018-05-07 10:37 | P.PN ---
Subjective 82-year-old gentleman was admitted with the atrial fibrillation with rapid and regular rate patient does have crackles on exam chest x-ray showing pulmonary edema patient was started on IV Lasix which will be continued. Constitutional: Denied any fatigue denied any fever. Cardio vascular: denied any chest pain, palpitations Gastrointestinal denied any nausea vomiting Pulmonary: Denied any shortness of breath cough Neurologic denied any new focal deficits All inpatient medications were reviewed and appropriate changes in these medications as dictated in the interval history and assessment and plan. Objective - Vital Signs Vital signs: Vital Signs Temp 97.5 F L 05/07/18 03:50 Pulse 65 05/07/18 08:00 Resp 20 05/07/18 08:00 BP 135/90 05/07/18 08:00 Pulse Ox 96 05/07/18 08:00 Intake & Output 05/06/18 05/07/18 05/07/18 18:59 06:59 18:59 Intake Total 1275.757 Balance 1275.757 Weight 87.271 kg Intake: Intake, IV Titration 75.757 Amount Heparin Sod,Pork in 0.45% 75.757 NaCl 25,000 unit In 0.45 % NaCl 1 250ml.bag @ 11. 45 UNITS/KG/HR 9.99 mls/ hr IV .Q24H [facility] Rx#: [id number] Oral 600 Blood Product 600 Other: Voiding Method Urinal - Exam PHYSICAL EXAMINATION: GENERAL: The patient is alert and oriented x3, not in any acute distress. Well developed, well nourished. HEENT: Pupils are round and equally reacting to light. EOMI. No scleral icterus. No conjunctival pallor. Normocephalic, atraumatic. No pharyngeal erythema. No thyromegaly. CARDIOVASCULAR: S1 and S2 present. No murmurs, rubs, or gallops. Elevated JVD PULMONARY: She does have bibasilar crackles ABDOMEN: Soft, nontender, nondistended, normoactive bowel sounds. No palpable organomegaly. MUSCULOSKELETAL: No joint swelling or deformity. EXTREMITIES: No cyanosis, clubbing, or pedal edema. NEUROLOGICAL: Gross neurological examination did not reveal any focal deficits. SKIN: No rashes. - Labs CBC & Chem 7: 05/07/18 06:55 05/07/18 06:55 Labs: Abnormal Lab Results - Last 24 Hours (Table) 05/06/18 05/06/18 05/06/18 Range/Units 11:32 11:43 11:43 PT (9.0-12.0) sec INR (<1.2) APTT (22.0-30.0) sec BUN (9-20) mg/dL Glucose 152 H (74-99) mg/dL POC Glucose (mg/dL) 155 H (75-99) mg/dL CK-MB (CK-2) 4.1 H (0.0-2.4) ng/mL 05/06/18 05/06/18 05/07/18 Range/Units 11:43 18:32 00:46 PT 15.1 H (9.0-12.0) sec INR 1.5 H (<1.2) APTT 36.0 H 78.3 H 58.5 H (22.0-30.0) sec BUN (9-20) mg/dL Glucose (74-99) mg/dL POC Glucose (mg/dL) (75-99) mg/dL CK-MB (CK-2) (0.0-2.4) ng/mL 05/07/18 Range/Units 06:55 PT (9.0-12.0) sec INR (<1.2) APTT (22.0-30.0) sec BUN 21 H (9-20) mg/dL Glucose (74-99) mg/dL POC Glucose (mg/dL) (75-99) mg/dL CK-MB (CK-2) (0.0-2.4) ng/mL Assessment and Plan Plan: -Atrial fibrillation with rapid ventricular rate: Beta essence as mentioned above hold off on atenolol, patient was started on metoprolol, continue with IV heparin, will check co-pay for both Eliquis and Xarelto today. Echocardiogram Will be obtained and cardiology was consulted chest pressure is secondary to atrial fibrillation fatigue and lightheadedness is secondary to atrial fibrillation. Patient doesn't have any history of coronary artery disease may not require antiplatelet therapy. Patient's symptoms completely resolved at this time -congestive heart failure: Ejection fraction is unknown patient is is in acute exacerbation of pulmonary edema can related to atrial fibrillation -History of cerebrovascular accident in the past -Hypertension patient bit hypotensive, hold off on other antidepressants medications. -Gastroesophageal reflux disease -Hypothyroidism continue with levothyroxine, TSH is within normal limits
--- NOTE | 2018-05-07 16:07 | ECHOF ---
Referral Reason:chf MEASUREMENTS -------- HEIGHT: 180.3 cm WEIGHT: 87.1 kg BP: RVIDd: 2.5 cm (< 3.3) IVSd: 1.6 cm (0.6 - 1.1) LVIDd: 4.6 cm (3.9 - 5.3) LVPWd: 1.6 cm (0.6 - 1.1) IVSs: 2.4 cm LVIDs: 2.0 cm LVPWs: 2.3 cm LAESV Index (A-L): 36.15 ml/m Ao Diam: 2.8 cm (2.0 - 3.7) AV Cusp: 1.7 cm (1.5 - 2.6) LA Diam: 4.0 cm (2.7 - 3.8) MV EXCURSION: 14.924 mm (> 18.000) MV EF SLOPE: 59 mm/s (70 - 150) EPSS: 0.9 cm AR PHT: 720 ms RAP: 5.00 mmHg RVSP: 29.78 mmHg FINDINGS -------- Atrial fibrillation. This was a technically adequate study. The left ventricular size is normal. There is moderate concentric left ventricular hypertrophy. T here is mild global hypokinesis of LV . Overall left ventricular systolic function is mildly impair ed with, an EF between 45 - 50 %. The right ventricle is normal in size. LA is moderately dilated 34-39 ml/m2 The right atrium is normal in size. Aortic valve is trileaflet and is mildly thickened. There is mild aortic regurgitation. Mild mitral annular calcification present. [id number] mitral regurgitation is present. Mild tricuspid regurgitation present. There is no evidence of pulmonary hypertension. The right v entricular systolic pressure, as measured by Doppler, is 29.78mmHg. There is no pulmonic regurgitation present. The aortic root size is normal. Normal inferior vena cava with normal inspiratory collapse consistent with estimated right atrial pre ssure of 5 mmHg. There is no pericardial effusion. CONCLUSIONS -------- 1. Atrial fibrillation. 2. This was a technically adequate study. 3. The left ventricular size is normal. 4. There is moderate concentric left ventricular hypertrophy. 5. There is mild global hypokinesis of LV . 6. Overall left ventricular systolic function is mildly impaired with, an EF between 45 - 50 %. 7. LA is moderately dilated 34-39 ml/m2 8. Aortic valve is trileaflet and is mildly thickened. 9. There is mild aortic regurgitation. 10. Mild mitral annular calcification present. 11. Ubtj-ug-mbshlzhl mitral regurgitation is present. 12. Mild tricuspid regurgitation present. 13. There is no evidence of pulmonary hypertension. 14. The aortic root size is normal. 15. Normal inferior vena cava with normal inspiratory collapse consistent with estimated right atrial pressure of 5 mmHg. 16. There is no pericardial effusion. FOOT PIECE ASSEMBLER: Fatimah Vuong RDCS
[2018-05-07] MEDS ORDERED: ACETAMINOPHEN TAB 325 MG TAB PO PRN (17:09)
[2018-05-07] MEDS: HEPARIN SOD,PORK IN 0.45% NACL 25,000 UNIT in 0.45% NACL 1 250ML.BAG IV SCH (17:10)
[2018-05-07] MEDS: ACETAMINOPHEN TAB 325 MG TAB PO PRN ×2 (17:33→22:34)
[2018-05-07] MEDS: SODIUM CHLORIDE 0.9% 1,000 ML IV SCH (19:38)
[2018-05-07] MEDS: METOPROLOL TARTRATE 50 MG TAB PO SCH (19:38)
[2018-05-07] MEDS: PREGABALIN 50 MG CAP PO SCH (19:39)
[2018-05-08 03:41] VITALS: RESP 20
[2018-05-08] MEDS: LEVOTHYROXINE 100 MCG TAB PO SCH (05:37)
[2018-05-08 07:33] LABS: Calcium 8.8 mg/dL (8.4-10.2); Potassium 3.7 mmol/L (3.5-5.1)
[2018-05-08] MEDS: METOPROLOL TARTRATE 50 MG TAB PO SCH (08:14)
[2018-05-08] MEDS: DULoxetine HCL 20 MG CAPSULE.DR PO SCH (08:15)
[2018-05-08] MEDS: FUROSEMIDE 10 MG/ML 2 ML VIAL IV SCH (08:15)
[2018-05-08] MEDS ORDERED: PANTOPRAZOLE 40 MG TABLET PO SCH (09:00)
[2018-05-08] MEDS ORDERED: POTASSIUM CHLORIDE ER 20 MEQ TAB.ER PO STA (09:13)
--- NOTE | 2018-05-08 10:09 | P.DS ---
Providers Date of admission: 05/06/18 12:57 Attending physician: Nereyda Guzmán Consults: 05/06/18 12:51 Consult Physician Routine Consulting Provider: Shawn Sears Consult Reason/Comments: afib rvr Do you want consulting provider notified?: Yes Primary care physician: Rock Kevin [facility] Course: 82-year-old gentleman was admitted with the atrial fibrillation with rapid and regular rate patient does have crackles on exam chest x-ray showing pulmonary edema patient was started on IV Lasix which will be continued. 05/08/2018 Patient's CHF is better on clinical exam patient had EF of 45-50%. Patient will be discharged on low-dose of lisinopril Lasix metoprolol and patient will continue Xarelto which was given by his primary care physician and will give him 1 more month of free Xeralto, after that patient is willing to pay co-pay of $120 for either Eliquis or Xarelto. PHYSICAL EXAMINATION: GENERAL: The patient is alert and oriented x3, not in any acute distress. Well developed, well nourished. HEENT: Pupils are round and equally reacting to light. EOMI. No scleral icterus. No conjunctival pallor. Normocephalic, atraumatic. No pharyngeal erythema. No thyromegaly. CARDIOVASCULAR: S1 and S2 present. No murmurs, rubs, or gallops. PULMONARY: Chest is clear to auscultation, no wheezing or crackles. ABDOMEN: Soft, nontender, nondistended, normoactive bowel sounds. No palpable organomegaly. MUSCULOSKELETAL: No joint swelling or deformity. EXTREMITIES: No cyanosis, clubbing, or pedal edema. NEUROLOGICAL: Gross neurological examination did not reveal any focal deficits. SKIN: No rashes. Assessment and Plan Plan: -Atrial fibrillation with rapid ventricular rate: presently rate controlled -congestive heart failure: Edi systolic dysfunction with acute exacerbation he of around 45-50% -History of cerebrovascular accident in the past -Hypertension patient bit hypotensive, hold off on other antidepressants medications. -Gastroesophageal reflux disease -Hypothyroidism continue with levothyroxine, TSH is within normal limits Patient Condition at Discharge: Fair Plan - Discharge Summary Discharge Rx Participant: No New Discharge Prescriptions: New Metoprolol Tartrate [Lopressor] 50 mg PO BID #60 tab Furosemide [Lasix] 20 mg PO BID #60 tab Lisinopril [Zestril] 5 mg PO DAILY #30 tab Potassium Chloride 10 meq PO DAILY #30 capsule.er Continue Levothyroxine Sodium [Synthroid] 100 mcg PO DAILY Multivitamins, Thera [Multivitamin (formulary)] 1 tab PO DAILY Polyethylene Glycol 3350 [Miralax] 17 gm PO DAILY PRN PRN Reason: Constipation Pregabalin [Lyrica] 50 mg PO HS Rivaroxaban [Xarelto] 20 mg PO DAILY DULoxetine HCL [Cymbalta] 20 mg PO DAILY Discontinued amLODIPine [Norvasc] 5 mg PO DAILY Aspirin EC [Ecotrin Low Dose] 81 mg PO DAILY Clopidogrel [Plavix] 75 mg PO DAILY Losartan/Hydrochlorothiazide [Losartan-Hctz 100-25 mg Tab] 1 tab PO DAILY Atenolol [Tenormin] 12.5 mg PO DAILY Discharge Medication List Levothyroxine Sodium [Synthroid] 100 mcg PO DAILY 02/12/17 [History] DULoxetine HCL [Cymbalta] 20 mg PO DAILY 05/06/18 [History] Multivitamins, Thera [Multivitamin (formulary)] 1 tab PO DAILY 05/06/18 [History ] Polyethylene Glycol 3350 [Miralax] 17 gm PO DAILY PRN 05/06/18 [History] Pregabalin [Lyrica] 50 mg PO HS 05/06/18 [History] Rivaroxaban [Xarelto] 20 mg PO DAILY 05/06/18 [History] Metoprolol Tartrate [Lopressor] 50 mg PO BID #60 tab 05/07/18 [Rx] Furosemide [Lasix] 20 mg PO BID #60 tab 05/08/18 [Rx] Lisinopril [Zestril] 5 mg PO DAILY #30 tab 05/08/18 [Rx] Potassium Chloride 10 meq PO DAILY #30 capsule.er 05/08/18 [Rx] Follow up Appointment(s)/Referral(s): Rock Bryant III, MD [Primary Care Provider] - 3 Days Activity/Diet/Wound Care/Special Instructions: free 30 day supply of xarelto filled in [facility], pts copay before his deductible is met will be $117/mo Discharge Disposition: HOME SELF-CARE
[2018-05-08 11:54] VITALS: BP 132/87; PULSE 85; TEMP 96.9
[2018-05-08] MEDS ORDERED: RIVAROXABAN 20 MG TAB PO STA (12:14)
--- NOTE | 2018-05-08 13:14 | P.PN ---
Subjective Progress Note Date: 05/08/18 Principal diagnosis: Atrial fibrillation with RVR This pleasant 82-year-old gentleman with a history of hypertension, hypothyroidism, paroxysmal atrial fibrillation, prior CVA, nonobstructive coronary artery disease by prior cardiac catheterization performed in 2009. Patient presented to the emergency department on this occasion with symptoms of progressive weakness with associated lightheadedness, abdominal discomfort and shortness of breath. He had also been noticing intermittent chest pressure and heaviness. He has a known history of paroxysmal atrial fibrillation and recently was not taking his anticoagulant regularly because he felt that most of the symptoms were secondary to that. Also was having issues with contrast of the Eliquis. Sensory on admission showed cardiomegaly with interstitial changes. EKG showed atrial fibrillation with left bundle branch block pattern. With subsequent EKG showing atrial fibrillation with moderately rapid ventricular response. He was started on IV heparin and was found to be average for Xarelto. He has been up ambulating without any issues morning. Vital signs are stable. 2-D echo with Doppler showed mild global hypokinesis of the LV, mildly impaired LV systolic function with an ejection fraction between 45-50 %, mild AR, [id number] MR and mild TR. Objective - Vital Signs Vital signs: Vital Signs Temp 96.9 F L 05/08/18 11:52 Pulse 85 05/08/18 11:52 Resp 20 05/08/18 11:52 BP 132/87 05/08/18 11:52 Pulse Ox 92 L 05/08/18 11:52 Intake & Output 05/07/18 05/08/18 05/08/18 18:59 06:59 18:59 Intake Total 829.843 180 Output Total 225 300 Balance 604.843 -120 Weight 86.9 kg Intake: IV 65.6 Heparin Sod,Pork in 0.45% 65.6 NaCl 25,000 unit In 0.45 % NaCl 1 250ml.bag @ 11. 45 UNITS/KG/HR 9.99 mls/ hr IV .Q24H [facility] Rx#: [id number] Intake, IV Titration 334.243 Amount Heparin Sod,Pork in 0.45% 174.243 NaCl 25,000 unit In 0.45 % NaCl 1 250ml.bag @ 11. 45 UNITS/KG/HR 9.99 mls/ hr IV .Q24H [facility] Rx#: [id number] Sodium Chloride 0.9% 1, 160 000 ml @ 20 mls/hr IV . Q24H [facility] Rx#:[id number] Oral 430 180 Output: Urine 225 300 Other: Voiding Method Urinal # Voids 1 1 - Exam GENERAL: 82-year-old gentleman in no acute distress at the time of my examination HEENT: Head is atraumatic, normocephalic. Pupils equal, round. Sclera anicteric. Conjunctiva are clear. Mucous membranes of the mouth are moist. Neck is supple. There is elevated jugular venous pressure. No carotid bruit is heard. HEART EXAMINATION: Heart S1 and S2 irregularly irregular a systolic murmur is heard. CHEST EXAMINATION: Lungs are clear to auscultate with diminished air entry bilateral bases. ABDOMEN: Soft, nontender. Bowel sounds are heard. No organomegaly noted. EXTREMITIES: 2+ peripheral pulses with no evidence of peripheral edema and no calf tenderness noted. NEUROLOGIC patient is awake, alert and oriented 3 . - Labs CBC & Chem 7: 05/07/18 06:55 05/08/18 06:43 Labs: Abnormal Lab Results - Last 24 Hours (Table) 05/08/18 05/08/18 Range/Units 01:33 06:43 APTT 47.9 H (22.0-30.0) sec BUN 22 H (9-20) mg/dL Glucose 114 H (74-99) mg/dL Assessment and Plan Assessment: #1 paroxysmal atrial fibrillation #2 shortness of breath, secondary to atrial fibrillation with rapid ventricular response, mild acute systolic congestive heart failure with mildly Impaired LV systolic function with ejection fraction of 45-50%, likely exacerbated by atrial fibrillation #3 hypertension #4 hyperlipidemia #5 prior CVA #6 nonobstructive coronary artery disease Plan: From cardiology's perspective, we will start the patient on Xarelto. Patient is stable for discharge home today. He will follow-up as an outpatient with his primary hydrostatic tubing tester. CLEANING SUPERVISOR note has been reviewed, I agree with a documented findings and plan of care. Patient was seen and examined.
== END 2018-05-08 13:30 | disposition home or self-care (01) | DRG 308 ==
LOC: EC 11:19 → 3SCARD 12:57
PROVIDERS: ADMIT Internal Medicine; ATTEND Internal Medicine
DX: I48.0 Paroxysmal atrial fibrillation (principal); I50.21 Acute systolic (congestive) heart failure; I11.0 Hypertensive heart disease with heart failure; I95.9 Hypotension, unspecified; I44.7 Left bundle-branch block, unspecified; E03.9 Hypothyroidism, unspecified; I25.10 Atherosclerotic heart disease of native coronary artery without angina pectoris; E78.5 Hyperlipidemia, unspecified; I25.2 Old myocardial infarction; K21.9 Gastro-esophageal reflux disease without esophagitis; M19.90 Unspecified osteoarthritis, unspecified site; Z79.82 Long term (current) use of aspirin; Z79.02 Long term (current) use of antithrombotics/antiplatelets; Z79.890 Hormone replacement therapy; Z79.01 Long term (current) use of anticoagulants; Z79.899 Other long term (current) drug therapy; Z86.73 Personal history of transient ischemic attack (TIA), and cerebral infarction without residual deficits; Z91.81 History of falling; Z87.01 Personal history of pneumonia (recurrent); Z87.828 Personal history of other (healed) physical injury and trauma; Z98.42 Cataract extraction status, left eye; Z98.41 Cataract extraction status, right eye; Z98.890 Other specified postprocedural states; Z85.828 Personal history of other malignant neoplasm of skin; Z80.0 Family history of malignant neoplasm of digestive organs; Z80.8 Family history of malignant neoplasm of other organs or systems; Z83.79 Family history of other diseases of the digestive system; Z81.1 Family history of alcohol abuse and dependence
CPT/HCPCS: 36415; 71046; 80048; 80053; 82550; 82553; 83735; 83880; 84443; 84484; 85025; 85027; 85610; 85730; 93005; 93306; 96365; 96366; 96376; 99285

== ENCOUNTER 2018-05-15 00:12 | Inpatient (IN) | payer MEDICARE ==
[2018-05-15 00:27] LABS: Glucose,Whole Blood 116 mg/dL (75-99)
[2018-05-15] MEDS ORDERED: DILTIAZEM DRIP BOLUS FROM BAG 1 MG SOLN IV ONE (00:29)
[2018-05-15] MEDS ORDERED: DILTIAZEM 125 MG in SODIUM CHLORIDE 0.9% 100 ML IV SCH (00:30)
--- NOTE | 2018-05-15 00:36 | ED ---
SOB HPI - General Chief Complaint: Chest Pain Stated Complaint: Weakness, Chest Pain Time Seen by Provider: 05/15/18 00:22 Source: family Mode of arrival: wheelchair Limitations: altered mental status, physical limitation - History of Present Illness Initial Comments: This patient is an 82-year-old man presenting with complaint of dyspnea as well as chest pressure. The patient states that symptoms have been going on since she left the hospital on Wednesday. He had been admitted in for similar symptoms a couple of days prior. Patient states that he been told that his atrial fibrillation had been the cause. He had been discharged and started new of anticoagulant, he has been taking the Xarelto as directed. I in addition to the above symptoms, he has noted some blood in the urine. Patient denies any bloody or tarry stools MD Complaint: shortness of breath, chest pain Onset/Timin -: days(s) Severity: moderate Quality: other (Pressure) Consistency: constant Improves With: nothing Worsens With: nothing Known History Of: congestive heart failure, other (Atrial fibrillation) Associated Symptoms: other (Leg swelling, hematuria) Treatments Prior to Arrival: none - Related Data Home Oxygen Therapy: No Home Medications Medication Instructions Recorded Confirmed Levothyroxine Sodium [Synthroid] 100 mcg PO DAILY 02/12/17 05/06/18 DULoxetine HCL [Cymbalta] 20 mg PO DAILY 05/06/18 05/06/18 Multivitamins, Thera [Multivitamin 1 tab PO DAILY 05/06/18 05/06/18 (formulary)] Polyethylene Glycol 3350 [Miralax] 17 gm PO DAILY PRN 05/06/18 05/06/18 Pregabalin [Lyrica] 50 mg PO HS 05/06/18 05/06/18 Rivaroxaban [Xarelto] 20 mg PO DAILY 05/06/18 05/06/18 Previous Rx's Medication Instructions Recorded Metoprolol Tartrate [Lopressor] 50 mg PO BID #60 tab 05/07/18 Furosemide [Lasix] 20 mg PO BID #60 tab 05/08/18 Lisinopril [Zestril] 5 mg PO DAILY #30 tab 05/08/18 Potassium Chloride 10 meq PO DAILY #30 capsule.er 05/08/18 Allergies Allergy/AdvReac Type Severity Reaction Status Date / Time No Known Allergies Allergy Verified 05/15/18 00:24 Review of Systems ROS Statement: Those systems with pertinent positive or pertinent negative responses have been documented in the HPI. ROS Other: All systems not noted in ROS Statement are negative. Constitutional: Reports: weakness (Generalized). Denies: fever, chills Respiratory: Reports: cough (Nonproductive), dyspnea. Denies: hemoptysis Cardiovascular: Reports: chest pain, palpitations, orthopnea, edema. Denies: syncope Gastrointestinal: Denies: abdominal pain, vomiting, diarrhea, melena, hematochezia Genitourinary: Reports: hematuria. Denies: dysuria, frequency Musculoskeletal: Denies: back pain Skin: Denies: rash Neurological: Denies: headache, weakness, numbness Past Medical History Past Medical History: Atrial Fibrillation, Cancer, CVA/TIA, GERD/Reflux, Hypertension, Myocardial Infarction (NV), Osteoarthritis (OA), Pneumonia, Thyroid Disorder Additional Past Medical History / Comment(s): TIA possible CVA per pt, NV-per EKG, bronchitis, hypothyroid, past fall with cervical spinal cord injury and scalp injury, skin cancer with removals Last Myocardial Infarction Date:: unk History of Any Multi-Drug Resistant Organisms: None Reported Past Surgical History: Hernia Repair, Orthopedic Surgery, Tonsillectomy Additional Past Surgical History / Comment(s): Bilateral cataract removal, arely inguinal hernia repair, hiatal hernia surgery, 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 Past Anesthesia/Blood Transfusion Reactions: No Reported Reaction Past Psychological History: No Psychological Hx Reported Smoking Status: Never smoker Past Alcohol Use History: None Reported Past Drug Use History: None Reported - Past Family History Father Family Medical History: Liver Disease Additional Family Medical History / Comment(s): Father was a drinker and had liver cirrhosis from which he of at the age of 52yrs. Mother Family Medical History: Cancer Additional Family Medical History / Comment(s): Mother had throat cancer and of this at the age of 87yrs. Sister(s) Family Medical History: Cancer Additional Family Medical History / Comment(s): STOMACH CANCER General Exam Limitations: altered mental status, physical limitation General appearance: alert, in distress (Patient in mild respiratory distress) Head exam: Present: atraumatic, normocephalic Eye exam: Present: normal appearance. Absent: scleral icterus, conjunctival injection ENT exam: Present: normal oropharynx Neck exam: Present: normal inspection Respiratory exam: Present: respiratory distress, rales (Bilateral bases). Absent: wheezes, rhonchi, stridor Cardiovascular Exam: Present: tachycardia, irregular rhythm, normal heart sounds. Absent: systolic murmur, diastolic murmur, rubs, gallop GI/Abdominal exam: Present: soft. Absent: distended, tenderness, guarding, rebound, mass Extremities exam: Present: normal inspection, normal capillary refill, pedal edema (Patient has mild edema at the ankles bilaterally). Absent: calf tenderness Back exam: Present: normal inspection. Absent: CVA tenderness (R), CVA tenderness (L) Neurological exam: Present: alert Skin exam: Present: warm, dry, intact, normal color Course Vital Signs 05/15/18 05/15/18 05/15/18 00:18 00:26 00:37 Temperature 97.5 F L Pulse Rate 101 H 115 H Respiratory 22 22 Rate Blood Pressure 151/131 152/129 O2 Sat by Pulse 86 L 98 96 Oximetry 05/15/18 05/15/18 01:05 01:30 Temperature Pulse Rate 70 84 Respiratory 20 20 Rate Blood Pressure 124/112 130/118 O2 Sat by Pulse 99 96 Oximetry Medical Decision Making - Lab Data Result diagrams: 05/15/18 00:20 05/15/18 00:20 Lab Results 05/15/18 05/15/18 05/15/18 Range/Units 00:20 00:20 00:20 WBC 7.5 (3.8-10.6) k/uL RBC 4.93 (4.30-5.90) m/uL Hgb 15.3 (13.0-17.5) gm/dL Hct 47.8 (39.0-53.0) % MCV 97.0 (80.0-100.0) fL MCH 31.1 (25.0-35.0) pg MCHC 32.0 (31.0-37.0) g/dL RDW 15.0 (11.5-15.5) % Plt Count 250 (150-450) k/uL Neutrophils % 67 % Lymphocytes % 19 % Monocytes % 7 % Eosinophils % 3 % Basophils % 2 % Neutrophils # 5.1 (1.3-7.7) k/uL Lymphocytes # 1.5 (1.0-4.8) k/uL Monocytes # 0.5 (0-1.0) k/uL Eosinophils # 0.2 (0-0.7) k/uL Basophils # 0.1 (0-0.2) k/uL PT (9.0-12.0) sec INR (<1.2) APTT (22.0-30.0) sec Sodium 139 (137-145) mmol/L Potassium 4.4 (3.5-5.1) mmol/L Chloride 105 (98-107) mmol/L Carbon Dioxide 21 L (22-30) mmol/L Anion Gap 13 mmol/L BUN 26 H (9-20) mg/dL Creatinine 1.18 (0.66-1.25) mg/dL Est GFR (CKD-EPI)AfAm 66 (>60 ml/min/1.73 sqM) Est GFR (CKD-EPI)NonAf 57 (>60 ml/min/1.73 sqM) Glucose 119 H (74-99) mg/dL POC Glucose (mg/dL) (75-99) mg/dL POC Glu Quality Assurance Intern ID Calcium 9.2 (8.4-10.2) mg/dL Magnesium 2.2 (1.6-2.3) mg/dL Total Bilirubin 0.9 (0.2-1.3) mg/dL AST 48 (17-59) U/L ALT 28 (21-72) U/L Alkaline Phosphatase 57 (38-126) U/L Total Creatine Kinase 126 (55-170) U/L CK-MB (CK-2) 4.7 H (0.0-2.4) ng/mL CK-MB (CK-2) Rel Index 3.7 Troponin I <0.012 (0.000-0.034) ng/mL NT-Pro-B Natriuret Pep pg/mL Total Protein 7.1 (6.3-8.2) g/dL Albumin 4.2 (3.5-5.0) g/dL 05/15/18 05/15/18 05/15/18 Range/Units 00:20 00:20 00:23 WBC (3.8-10.6) k/uL RBC (4.30-5.90) m/uL Hgb (13.0-17.5) gm/dL Hct (39.0-53.0) % MCV (80.0-100.0) fL MCH (25.0-35.0) pg MCHC (31.0-37.0) g/dL RDW (11.5-15.5) % Plt Count (150-450) k/uL Neutrophils % % Lymphocytes % % Monocytes % % Eosinophils % % Basophils % % Neutrophils # (1.3-7.7) k/uL Lymphocytes # (1.0-4.8) k/uL Monocytes # (0-1.0) k/uL Eosinophils # (0-0.7) k/uL Basophils # (0-0.2) k/uL PT 16.1 H (9.0-12.0) sec INR 1.6 H (<1.2) APTT 34.1 H (22.0-30.0) sec Sodium (137-145) mmol/L Potassium (3.5-5.1) mmol/L Chloride (98-107) mmol/L Carbon Dioxide (22-30) mmol/L Anion Gap mmol/L BUN (9-20) mg/dL Creatinine (0.66-1.25) mg/dL Est GFR (CKD-EPI)AfAm (>60 ml/min/1.73 sqM) Est GFR (CKD-EPI)NonAf (>60 ml/min/1.73 sqM) Glucose (74-99) mg/dL POC Glucose (mg/dL) 116 H (75-99) mg/dL POC Glu Quality Assurance Intern ID Kayli Walls Calcium (8.4-10.2) mg/dL Magnesium (1.6-2.3) mg/dL Total Bilirubin (0.2-1.3) mg/dL AST (17-59) U/L ALT (21-72) U/L Alkaline Phosphatase (38-126) U/L Total Creatine Kinase (55-170) U/L CK-MB (CK-2) (0.0-2.4) ng/mL CK-MB (CK-2) Rel Index Troponin I (0.000-0.034) ng/mL NT-Pro-B Natriuret Pep 3600 pg/mL Total Protein (6.3-8.2) g/dL Albumin (3.5-5.0) g/dL - EKG Data -: EKG Interpreted by Me EKG shows normal: axis (Left axis deviation), intervals (QRS duration 130 ms, prolonged. QTc 511 ms.), QRS complexes (ALLERGIES left bundle-branch block pattern which appears old.) Rate: tachycardia (Rate approximately 108 bpm) When compared to previous EKG there are: other (Similar previous EKG) Interpretation: other (Underlying rhythm appears to be atrial fibrillation.) Critical Care Time Critical Care Time: Yes (35 minutes) Disposition Clinical Impression: Rapid atrial fibrillation, Acute exacerbation of CHF (congestive heart failure) Disposition: ADMITTED IP TO THIS [facility] Condition: Serious Referrals: Rock Bryant III, MD [Primary Care Provider] - 1-2 days
[2018-05-15 01:10] LABS: Albumin 4.2 g/dL (3.5-5.0); Calcium 9.2 mg/dL (8.4-10.2); Magnesium 2.2 mg/dL (1.6-2.3); Potassium 4.4 mmol/L (3.5-5.1); Total Bilirubin 0.9 mg/dL (0.2-1.3); Total Protein 7.1 g/dL (6.3-8.2)
--- NOTE | 2018-05-15 01:13 | XR ---
EXAM: XR Chest, 1 View CLINICAL HISTORY: ITS.REASON XR Reason: dyspnea TECHNIQUE: Frontal view of the chest. COMPARISON: Chest x-ray 05/06/18 IMPRESSION: Cardiomegaly. Increased patchy opacities in the lower lobes bilaterally, likely representing worsening edema. There is also underlying bibasilar atelectasis.
[2018-05-15 01:20] LABS: INR 1.6 (<1.2); Partial Thromboplastin Time 34.1 sec (22.0-30.0); Prothrombin Time 16.1 sec (9.0-12.0)
[2018-05-15] MEDS ORDERED: NITROGLYCERIN-D5W PMX 50 MG in DEXTROSE/WATER 1 250ML.BAG IV ONE (01:20)
[2018-05-15] MEDS ORDERED: FUROSEMIDE 10 MG/ML 4 ML VIAL IV STA (01:21)
[2018-05-15] MEDS ORDERED: MORPHINE SULFATE 4 MG/ML SYRINGE IV STA (01:25)
[2018-05-15 01:28] LABS: Creatine Kinase 126 U/L (55-170)
[2018-05-15 01:42] LABS: Creatine Kinase MB 4.7 ng/mL (0.0-2.4); Troponin I <0.012 ng/mL (0.000-0.034)
[2018-05-15 01:45] LABS: Basophils # (A) 0.1 k/uL (0-0.2); Basophils % (A) 2 %; Eosinophils # (A) 0.2 k/uL (0-0.7); Eosinophils % (A) 3 %; HCT 47.8 % (39.0-53.0); HGB 15.3 gm/dL (13.0-17.5); Lymphocytes # (A) 1.5 k/uL (1.0-4.8); Lymphocytes % (A) 19 %; MCH 31.1 pg (25.0-35.0); Mean Platelet Volume 7.2; Monocytes # (A) 0.5 k/uL (0-1.0); Monocytes % (A) 7 %; Neutrophils # (A) 5.1 k/uL (1.3-7.7); Neutrophils % (A) 67 %; Platelet Count 250 k/uL (150-450); RBC 4.93 m/uL (4.30-5.90); WBC 7.5 k/uL (3.8-10.6)
[2018-05-15] MEDS ORDERED: POLYETHYLENE GLYCOL 3350 17 GM POWD.PACK PO PRN (02:50)
[2018-05-15 03:24] LABS: Appearance,Urine Cloudy (Clear); Bacteria,Urine Rare /hpf; Bilirubin,Urine Negative (Negative); Blood,Urine Large (Negative); Budding Yeast,Urine Many /hpf; Color,Urine Light Red; Glucose,Urine (UA) Negative (Negative); Hyaline Casts,Urine 15 /lpf (0-2); Ketones,Urine Negative (Negative); Leukocyte Esterase,Urine Negative (Negative); Mucus,Urine Occasional /hpf; Nitrite,Urine Negative (Negative); PH, Urine 5.5 (5.0-8.0); Protein,Urine 1+ (Negative); RBC,Urine >182 /hpf (0-5); Specific Gravity,Urine 1.013 (1.001-1.035); Urobilinogen,Urine <2.0 mg/dL (<2.0); WBC,Urine 5 /hpf (0-5)
[2018-05-15 03:59] VITALS: BMI 27.3
[2018-05-15] MEDS: NITROGLYCERIN OINT 1 INCH/GM PACKET TOPICAL SCH ×4 (04:03→23:06)
[2018-05-15] MEDS ORDERED: ACETAMINOPHEN TAB 325 MG TAB PO PRN (04:08)
[2018-05-15] MEDS: LEVOTHYROXINE 100 MCG TAB PO SCH (06:24)
[2018-05-15 07:44] LABS: Creatine Kinase MB 3.4 ng/mL (0.0-2.4); Troponin I <0.012 ng/mL (0.000-0.034)
[2018-05-15] MEDS: METOPROLOL TARTRATE 50 MG TAB PO SCH ×2 (09:38→19:58)
[2018-05-15] MEDS: POTASSIUM CHLORIDE ER 10 MEQ TAB.ER.PRT PO SCH (09:39)
[2018-05-15] MEDS: DULoxetine HCL 20 MG CAPSULE.DR PO SCH (09:39)
[2018-05-15] MEDS: MULTIVITAMINS, THERA 1 EACH TAB PO SCH (09:39)
[2018-05-15] MEDS: LISINOPRIL 5 MG TAB PO SCH (09:39)
[2018-05-15] MEDS: FUROSEMIDE 10 MG/ML 2 ML VIAL IV SCH ×2 (09:39→19:59)
[2018-05-15] MEDS: RIVAROXABAN 20 MG TAB PO SCH (09:42)
--- NOTE | 2018-05-15 11:31 | P.CRDCN ---
History of Present Illness Consult date: 05/15/18 Requesting physician: Arsen Vega Reason for Consult (text): Judi. 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 Was recently discharged from the hospital at which time he was admitted with atrial fibrillation with rapid ventricular response. He presented to the hospital this admission with complaints of worsening shortness of breath, orthopnea and lower extremity edema. He also noticed some abdominal distention. On presentation EKG showed atrial fibrillation with a heart rate of 108. Chest x-ray showed cardiomegaly with increased patchy opacities in the lower lobes bilaterally, likely representing worsening edema as well as underlying bibasilar atelectasis. The patient's NT proBNP was 3600 and was previously 1900 and last admission. Other labs show potassium of 4.4, BUN 26, creatinine 1.18 and troponins negative 2. In speaking with the patient, he admits to not taking his second daily dose of Lasix and was therefore only taking 20 mg daily. He says he was taking all of his other medications as prescribed. His blood pressure has been elevated this admission. He has been a Cardizem drip at 5 mg an hour with currently controlled heart rate in the 70s and 80s. He is currently on Lasix 20 mg IV twice a day, lisinopril 5 mg by mouth daily, metoprolol tartrate 50 mg by mouth twice a day and Xarelto. Overall, patient is feeling somewhat better. He is breathing easier and has noticed improvement in his edema and abdominal distention. Past Medical History Past Medical History: Atrial Fibrillation, Cancer, CVA/TIA, GERD/Reflux, Hypertension, Myocardial Infarction (ID), Osteoarthritis (OA), Pneumonia, Thyroid Disorder Additional Past Medical History / Comment(s): TIA possible CVA per pt, ID-per EKG, bronchitis, hypothyroid, past fall with cervical spinal cord injury and scalp injury, skin cancer with removals Last Myocardial Infarction Date:: unk History of Any Multi-Drug Resistant Organisms: None Reported Past Surgical History: Hernia Repair, Orthopedic Surgery, Tonsillectomy Additional Past Surgical History / Comment(s): Bilateral cataract removal, arely inguinal hernia repair, hiatal hernia surgery, 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 Past Anesthesia/Blood Transfusion Reactions: No Reported Reaction Past Psychological History: No Psychological Hx Reported Additional Psychological History / Comment(s): Pt states he has been using a cane the past week. Pt lives w/ in single level home that has 2 porch steps. Has life alert necklace. 1 pet dog. no medical equipment, no home care services. no service. 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 Smoking Status: Never smoker Past Alcohol Use History: None Reported Past Drug Use History: None Reported - Past Family History Father Family Medical History: Liver Disease Additional Family Medical History / Comment(s): Father was a drinker and had liver cirrhosis from which he of at the age of 52yrs. Mother Family Medical History: Cancer Additional Family Medical History / Comment(s): Mother had throat cancer and of this at the age of 87yrs. Sister(s) Family Medical History: Cancer Additional Family Medical History / Comment(s): STOMACH CANCER Medications and Allergies Home Medications Medication Instructions Recorded Confirmed Type Levothyroxine Sodium [Synthroid] 100 mcg PO DAILY 02/12/17 05/15/18 History DULoxetine HCL [Cymbalta] 20 mg PO DAILY 05/06/18 05/15/18 History Multivitamins, Thera [Multivitamin 1 tab PO DAILY 05/06/18 05/15/18 History (formulary)] Polyethylene Glycol 3350 [Miralax] 17 gm PO DAILY PRN 05/06/18 05/15/18 History Pregabalin [Lyrica] 50 mg PO HS 05/06/18 05/15/18 History Rivaroxaban [Xarelto] 20 mg PO DAILY 05/06/18 05/15/18 History Metoprolol Tartrate [Lopressor] 50 mg PO BID #60 tab 05/07/18 05/15/18 Rx Furosemide [Lasix] 20 mg PO BID #60 tab 05/08/18 05/15/18 Rx Lisinopril [Zestril] 5 mg PO DAILY #30 tab 05/08/18 05/15/18 Rx Potassium Chloride 10 meq PO DAILY #30 capsule.er 05/08/18 05/15/18 Rx Allergies Allergy/AdvReac Type Severity Reaction Status Date / Time No Known Allergies Allergy Verified 05/15/18 08:20 Physical Exam Vitals: Vital Signs Temp Pulse Pulse Resp BP BP Pulse Ox 05/15/18 07:49 97.5 F L 104 H 20 132/89 96 05/15/18 06:13 136/91 05/15/18 04:00 100 18 163/106 05/15/18 03:20 97.4 F L 85 18 149/109 94 L 05/15/18 03:16 97.4 F L 85 18 149/109 94 L 05/15/18 03:02 97.5 F L 124 H 22 194/120 93 L 05/15/18 02:00 87 18 149/109 95 05/15/18 01:30 84 20 130/118 96 05/15/18 01:05 70 20 124/112 99 05/15/18 00:37 115 H 22 152/129 96 05/15/18 00:26 98 05/15/18 00:18 97.5 F L 101 H 22 151/131 86 L Intake and Output 05/14/18 05/15/18 05/15/18 22:59 06:59 14:59 Intake Total 360 Output Total 1225 200 Balance -1225 160 Intake: Oral 360 Output: Urine 1225 200 Other: Voiding Method Urinal Urinal Weight 86.863 kg PHYSICAL EXAMINATION: HEENT: [Head is atraumatic, normocephalic. Pupils equal, round. Neck is supple. There is no elevated jugular venous pressure.] HEART EXAMINATION: [Heart sounds irregularly irregular, S1 and S2 with a systolic murmur.] CHEST EXAMINATION:[ Lungs reveal faint crackles at bilateral bases. No chest wall tenderness is noted on palpation or with deep breathing.] ABDOMEN: [ Soft, nontender. Bowel sounds are heard. No organomegaly noted]. EXTREMITIES:[ 2+ peripheral pulses with evidence of trace to 1+ peripheral edema and no calf tenderness noted]. NEUROLOGIC [patient is awake, alert and oriented x3.] . Results 05/15/18 00:20 05/15/18 00:20 Cardiac Enzymes 05/15/18 05/15/18 05/15/18 Range/Units 00:20 00:20 05:55 AST 48 (17-59) U/L CK-MB (CK-2) 4.7 H 3.4 H (0.0-2.4) ng/mL Troponin I <0.012 <0.012 (0.000-0.034) ng/mL Coagulation 05/15/18 Range/Units 00:20 PT 16.1 H (9.0-12.0) sec APTT 34.1 H (22.0-30.0) sec CBC 05/15/18 Range/Units 00:20 WBC 7.5 (3.8-10.6) k/uL RBC 4.93 (4.30-5.90) m/uL Hgb 15.3 (13.0-17.5) gm/dL Hct 47.8 (39.0-53.0) % Plt Count 250 (150-450) k/uL Comprehensive Metabolic Panel 05/15/18 Range/Units 00:20 Sodium 139 (137-145) mmol/L Potassium 4.4 (3.5-5.1) mmol/L Chloride 105 (98-107) mmol/L Carbon Dioxide 21 L (22-30) mmol/L BUN 26 H (9-20) mg/dL Creatinine 1.18 (0.66-1.25) mg/dL Glucose 119 H (74-99) mg/dL Calcium 9.2 (8.4-10.2) mg/dL AST 48 (17-59) U/L ALT 28 (21-72) U/L Alkaline Phosphatase 57 (38-126) U/L Total Protein 7.1 (6.3-8.2) g/dL Albumin 4.2 (3.5-5.0) g/dL Current Medications Generic Name Dose Route Start Last Admin Trade Name Freq PRN Reason Stop Dose Admin Acetaminophen 650 mg 05/15/18 04:08 05/15/18 04:17 Tylenol Tab PO 650 mg Q6HR PRN Administration Fever and/ or Pain Duloxetine HCl 20 mg 05/15/18 09:00 05/15/18 09:39 Cymbalta PO 20 mg DAILY GLENNA Administration Furosemide 20 mg 05/15/18 09:00 05/15/18 09:39 Lasix IV 20 mg BID GLENNA Administration Diltiazem HCl 125 mg/ Sodium 125 mls @ 5 mls/hr 05/15/18 00:30 05/15/18 00:53 Chloride IV 5 mg/hr .Q24H GLENNA 5 mls/hr Administration 5 MG/HR Levothyroxine Sodium 100 mcg 05/15/18 06:30 05/15/18 06:24 Synthroid PO 100 mcg DAILY@0630 GLENNA Administration Lisinopril 5 mg 05/15/18 09:00 05/15/18 09:39 Zestril PO 5 mg DAILY GLENNA Administration Metoprolol Tartrate 50 mg 05/15/18 09:00 05/15/18 09:38 Lopressor PO 50 mg BID GLENNA Administration Multivitamins 1 each 05/15/18 12:00 05/15/18 09:39 Theragran PO 1 each DAILY@1200 GLENNA Administration Nitroglycerin 0.5 inch 05/15/18 06:00 05/15/18 04:03 Nitro-Bid Oint TOPICAL 0.5 inch Q6HR GLENNA Administration Polyethylene Glycol 17 gm 05/15/18 02:50 Miralax PO DAILY PRN Constipation Potassium Chloride 10 meq 05/15/18 09:00 05/15/18 09:39 K-Dur 10 PO 10 meq DAILY GLENNA Administration Pregabalin 50 mg 05/15/18 21:00 Lyrica PO HS GLENNA Rivaroxaban 20 mg 05/15/18 09:00 05/15/18 09:42 Xarelto PO 20 mg DAILY GLENNA Administration Sodium Chloride 10 ml 05/15/18 09:00 05/15/18 09:40 Saline Flush IV 10 ml BID GLENNA Administration Intake and Output 05/14/18 05/15/18 05/15/18 22:59 06:59 14:59 Intake Total 360 Output Total 1225 200 Balance -1225 160 Intake: Oral 360 Output: Urine 1225 200 Other: Voiding Method Urinal Urinal Weight 86.863 kg 05/15/18 00:20 05/15/18 00:20 Assessment and Plan Assessment: #1 acute on chronic systolic congestive heart failure #2 persistent atrial fibrillation with poorly controlled ventricular response #3 hypertension #4 hyperlipidemia #5 hypothyroidism, recent TSH normal #6 prior CVA #7 nonobstructive CAD by catheterization performed 9 years ago Plan: From cardiology's perspective, we will discontinue IV cardizem drip. Continue IV lasix for 24 hours. Monitor renal function, electrolytes, daily weights and intake & output. Further recommendations to follow. 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 Patient was seen and examined.
--- NOTE | 2018-05-15 11:42 | P.HPIM ---
History of Present Illness Chief Complaint: Chest pain and shortness of breath This is a very pleasant 82-year-old gentleman past medical history significant for hypertension, hypothyroidism, A. fib on anti-coagulation comes into the ER for above-mentioned complaints. The patient says that last night he suddenly started having heaviness in the chest and was not able to breathe. He does came into the ER for further urology management. Patient otherwise does not complain of any racing heart, no cough, no abdominal pain, no nausea and vomiting, no diarrhea no constipation, no tingling numbness of any of the extremities, and additional rest. Patient was recently discharged from the hospital after been admitted for A. fib. He was on anticoagulation. Next ER course-his temperature was 97.5 pulse 101 blood pressure 151/131 and he was satting 86% on room air. Labwork was done which showed WBC 7.5 hemoglobin 15.3 platelets 250 INR 1.6 sodium 139 potassium 4.4 bun 26 creatinine 1.18 GFR 57 troponin 0.012 chest x-rays done showed worsening pulmonary edema. Patient was thus admitted to the hospitalist service for further evaluation and management. Review of Systems All systems: negative Past Medical History Past Medical History: Atrial Fibrillation, Cancer, CVA/TIA, GERD/Reflux, Hypertension, Myocardial Infarction (AK), Osteoarthritis (OA), Pneumonia, Thyroid Disorder Additional Past Medical History / Comment(s): TIA possible CVA per pt, AK-per EKG, bronchitis, hypothyroid, past fall with cervical spinal cord injury and scalp injury, skin cancer with removals Last Myocardial Infarction Date:: unk History of Any Multi-Drug Resistant Organisms: None Reported Past Surgical History: Hernia Repair, Orthopedic Surgery, Tonsillectomy Additional Past Surgical History / Comment(s): Bilateral cataract removal, arely inguinal hernia repair, hiatal hernia surgery, 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 Past Anesthesia/Blood Transfusion Reactions: No Reported Reaction Past Psychological History: No Psychological Hx Reported Additional Psychological History / Comment(s): Pt states he has been using a cane the past week. Pt lives w/ in single level home that has 2 porch steps. Has life alert necklace. 1 pet dog. no medical equipment, no home care services. no service. 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 Smoking Status: Never smoker Past Alcohol Use History: None Reported Past Drug Use History: None Reported - Past Family History Father Family Medical History: Liver Disease Additional Family Medical History / Comment(s): Father was a drinker and had liver cirrhosis from which he of at the age of 52yrs. Mother Family Medical History: Cancer Additional Family Medical History / Comment(s): Mother had throat cancer and of this at the age of 87yrs. Sister(s) Family Medical History: Cancer Additional Family Medical History / Comment(s): STOMACH CANCER Medications and Allergies Home Medications Medication Instructions Recorded Confirmed Type Levothyroxine Sodium [Synthroid] 100 mcg PO DAILY 02/12/17 05/15/18 History DULoxetine HCL [Cymbalta] 20 mg PO DAILY 05/06/18 05/15/18 History Multivitamins, Thera [Multivitamin 1 tab PO DAILY 05/06/18 05/15/18 History (formulary)] Polyethylene Glycol 3350 [Miralax] 17 gm PO DAILY PRN 05/06/18 05/15/18 History Pregabalin [Lyrica] 50 mg PO HS 05/06/18 05/15/18 History Rivaroxaban [Xarelto] 20 mg PO DAILY 05/06/18 05/15/18 History Metoprolol Tartrate [Lopressor] 50 mg PO BID #60 tab 05/07/18 05/15/18 Rx Furosemide [Lasix] 20 mg PO BID #60 tab 05/08/18 05/15/18 Rx Lisinopril [Zestril] 5 mg PO DAILY #30 tab 05/08/18 05/15/18 Rx Potassium Chloride 10 meq PO DAILY #30 capsule.er 05/08/18 05/15/18 Rx Allergies Allergy/AdvReac Type Severity Reaction Status Date / Time No Known Allergies Allergy Verified 05/15/18 08:20 Physical Exam Vitals: Vital Signs Temp Pulse Pulse Resp BP BP Pulse Ox 05/15/18 07:49 97.5 F L 104 H 20 132/89 96 05/15/18 06:13 136/91 05/15/18 04:00 100 18 163/106 05/15/18 03:20 97.4 F L 85 18 149/109 94 L 05/15/18 03:16 97.4 F L 85 18 149/109 94 L 05/15/18 03:02 97.5 F L 124 H 22 194/120 93 L 05/15/18 02:00 87 18 149/109 95 05/15/18 01:30 84 20 130/118 96 05/15/18 01:05 70 20 124/112 99 05/15/18 00:37 115 H 22 152/129 96 05/15/18 00:26 98 05/15/18 00:18 97.5 F L 101 H 22 151/131 86 L Intake and Output 05/14/18 05/15/18 05/15/18 22:59 06:59 14:59 Intake Total 360 Output Total 1225 200 Balance -1225 160 Intake: Oral 360 Output: Urine 1225 200 Other: Voiding Method Urinal Urinal Weight 86.863 kg On exam, alert and oriented x3. HEENT: Conjunctivae normal. eyes normal. NECK: No JVD. No thyroid enlargement. No LNs CARDIOVASCULAR: S1, S2 muffled. No murmur RESPIRATION: Breath sounds diminished in the bases. No rhonchi or crackles. No bronchial breathing. ABDOMEN: Soft, nontender . No guarding. no masses palpable. No ascites, No hepatosplenomegaly.Bowel sounds heard. LEGS: Trace pitting edema NERVOUS SYSTEM: Cranial N 2-12 grossly normal. Moves all 4 limbs. No focal deficits. No sensory deficit. No signs of cerebellar dysfucntion. Skin: no ulcer no rash Results CBC & Chem 7: 05/15/18 00:20 05/15/18 00:20 Labs: Abnormal Lab Results - Last 24 Hours (Table) 05/15/18 05/15/18 05/15/18 Range/Units 00:20 00:20 00:20 PT 16.1 H (9.0-12.0) sec INR 1.6 H (<1.2) APTT 34.1 H (22.0-30.0) sec Carbon Dioxide 21 L (22-30) mmol/L BUN 26 H (9-20) mg/dL Glucose 119 H (74-99) mg/dL POC Glucose (mg/dL) (75-99) mg/dL CK-MB (CK-2) 4.7 H (0.0-2.4) ng/mL Urine Protein (Negative) Urine Blood (Negative) Urine RBC (0-5) /hpf Urine Bacteria (None) /hpf Hyaline Casts (0-2) /lpf Urine Mucus (None) /hpf Urine Yeast (Budding) (None) /hpf 05/15/18 05/15/18 05/15/18 Range/Units 00:23 01:59 05:55 PT (9.0-12.0) sec INR (<1.2) APTT (22.0-30.0) sec Carbon Dioxide (22-30) mmol/L BUN (9-20) mg/dL Glucose (74-99) mg/dL POC Glucose (mg/dL) 116 H (75-99) mg/dL CK-MB (CK-2) 3.4 H (0.0-2.4) ng/mL Urine Protein 1+ H (Negative) Urine Blood Large H (Negative) Urine RBC >182 H (0-5) /hpf Urine Bacteria Rare H (None) /hpf Hyaline Casts 15 H (0-2) /lpf Urine Mucus Occasional H (None) /hpf Urine Yeast (Budding) Many H (None) /hpf Thrombosis Risk Factor Assmnt - Choose All That Apply Any of the Below Risk Factors Present?: Yes Each Factor Represents 1 point: Medical pt on bed rest, Obesity (BMI >25), Swollen legs (current) Other Risk Factors: Yes Each Risk Factor Represents 3 Points: Age 75 years or older Other congenital or acquired thrombophilia - If yes, enter type in comment: No Thrombosis Risk Factor Assessment Total Risk Factor Score: 6 Thrombosis Risk Factor Assessment Level: High Risk Assessment and Plan Plan: Assessment - Chest pain need to rule out the cause - Acute systolic CHF exacerbation - A. fib with RVR - History of hypertension - History of hyperlipidemia - History of CAD. Plan - Patient is admitted to [facility] with telemetry - We'll continue the patient's home medications - We'll continue the Lasix IV - Cardizem for DC'd - DVT and GI prophylaxis - We'll order for lab work in the morning - Expected length of stay: 2 midnights - Patient is full code Time with Patient: Greater than 30
[2018-05-15 16:40] LABS: Creatine Kinase MB 3.3 ng/mL (0.0-2.4); Troponin I <0.012 ng/mL (0.000-0.034)
[2018-05-15] MEDS ORDERED: PREGABALIN 50 MG CAP PO SCH (21:00)
[2018-05-16 06:14] VITALS: RESP 16
[2018-05-16 06:37] LABS: HCT 45.2 % (39.0-53.0); HGB 14.5 gm/dL (13.0-17.5); MCH 30.5 pg (25.0-35.0); MCV 95.4 fL (80.0-100.0); Mean Platelet Volume 7.3; Platelet Count 241 k/uL (150-450); RBC 4.74 m/uL (4.30-5.90); RDW 14.7 % (11.5-15.5); WBC 7.5 k/uL (3.8-10.6)
[2018-05-16] MEDS: LEVOTHYROXINE 100 MCG TAB PO SCH (06:37)
[2018-05-16] MEDS: NITROGLYCERIN OINT 1 INCH/GM PACKET TOPICAL SCH ×2 (06:39→11:59)
[2018-05-16 06:45] LABS: Calcium 9.1 mg/dL (8.4-10.2)
[2018-05-16] MEDS: METOPROLOL TARTRATE 50 MG TAB PO SCH (08:09)
[2018-05-16] MEDS: FUROSEMIDE 10 MG/ML 2 ML VIAL IV SCH (08:09)
[2018-05-16] MEDS: POTASSIUM CHLORIDE ER 10 MEQ TAB.ER.PRT PO SCH (08:09)
[2018-05-16] MEDS: RIVAROXABAN 20 MG TAB PO SCH (08:09)
[2018-05-16] MEDS: LISINOPRIL 5 MG TAB PO SCH (08:09)
[2018-05-16] MEDS: DULoxetine HCL 20 MG CAPSULE.DR PO SCH (08:09)
--- NOTE | 2018-05-16 09:13 | P.PN ---
Subjective This is a pleasant 82 years old male with past medical history of GERD, hypertension, coronary artery disease, hypothyroidism, atrial fibrillation on anticoagulation. He presents with signs symptoms of acute systolic congestive heart failure. Patient is on diuretics since been followed by cardiology team. Also patient complains from recurrent hematuria. He had hematuria on presentation but no dysuria. Patient states that he has history of hematuria and his he has been evaluated by his urologist Dr. Whelan, discussed visit was about 4-5 months ago when he had the hematuria, workup revealed cysts in his bladder as per patient and he is supposed to go see Dr. Whelan this coming week but he is not sure which day of the week his appointment is and he will check it out. However patient states that his hematuria is improving now and his urine is pink-colored only. Patient follow up with his outbound sales professional Dr. Norton as an outpatient. Patient is with no leukocytosis. And his BMP was unremarkable. He is euvolemic currently compared to on admission Objective - Vital Signs Vital signs: Vital Signs Temp 97.4 F L 05/16/18 07:47 Pulse 118 H 05/16/18 07:47 Resp 16 05/16/18 07:47 BP 131/105 05/16/18 07:47 Pulse Ox 95 05/16/18 07:47 Intake & Output 05/15/18 05/16/18 05/16/18 18:59 06:59 18:59 Intake Total 720 240 Output Total 200 200 Balance 520 -200 240 Weight 84.9 kg Intake: Oral 720 240 Output: Urine 200 200 Other: Voiding Method Urinal Toilet # Voids 1 - Exam GENERAL: The patient is alert and oriented x3, not in any acute distress. Well developed, well nourished. HEENT: Pupils are round and equally reacting to light. EOMI. No scleral icterus. No conjunctival pallor. Normocephalic, atraumatic. No pharyngeal erythema. No thyromegaly. CARDIOVASCULAR: S1 and S2 present. No murmurs, rubs, or gallops. -PULMONARY: Chest is clear to auscultation, no wheezing . Bilateral basal crepitation, more in the right side. ABDOMEN: Soft, nontender, nondistended, normoactive bowel sounds. No palpable organomegaly. MUSCULOSKELETAL: No joint swelling or deformity. EXTREMITIES: No cyanosis, clubbing, or pedal edema. NEUROLOGICAL: Gross neurological examination did not reveal any focal deficits. SKIN: No rashes. - Labs CBC & Chem 7: 05/16/18 05:37 05/16/18 05:37 Labs: Abnormal Lab Results - Last 24 Hours (Table) 05/15/18 05/16/18 Range/Units 15:03 05:37 Carbon Dioxide 33 H (22-30) mmol/L BUN 24 H (9-20) mg/dL CK-MB (CK-2) 3.3 H (0.0-2.4) ng/mL Assessment and Plan Assessment: Acute systolic congestive heart failure History of recurrent hematuria. Patient supposed to follow up with his urologist Dr. Whelan upon discharge History of chronic atrial fibrillation on anticoagulation. Rate is controlled History of coronary artery disease. History of CVA/TIA History of GERD Essential hypertension History of hypothyroidism Plan: This is a pleasant 82 years old male who presents with heart failure. Continue with diuretic. Cardiology following the patient. Patient fluid status is improving towards more euvolemic.Labs and medication were reviewed.. Continue same treatment. Continue with symptomatic treatment. Resume home medication. Monitor lytes and vitals. DVT and GI prophylaxis. Further recommendations of the clinical course of the patient DVT prophylaxis: xarelto GI Prophylaxis: Pepcid PT/OT: Pending Prognosis is guarded
[2018-05-16 10:58] VITALS: TEMP 97.6
[2018-05-16] MEDS: MULTIVITAMINS, THERA 1 EACH TAB PO SCH (11:59)
--- NOTE | 2018-05-16 15:29 | P.PN ---
Subjective Progress Note Date: 05/16/18 This is a pleasant 82-year-old gentleman with history of hypertension, hypothyroidism, persistent atrial fibrillation, prior CVA, nonobstructive CAD by prior cardiac catheterization performed in 2009. Was recently discharged from the hospital at which time he was admitted with atrial fibrillation with rapid ventricular response. He presented to the hospital this admission with complaints of worsening shortness of breath, orthopnea and lower extremity edema. Patient was seen and examined this morning, continues to be in atrial fibrillation with a controlled ventricular response. He is quite eager to be discharged home today as he has a at home who needs him to care for her. From our perspective he should be able to be discharged home. We'll make him a follow-up appointment to see Dr. Gao in the office post discharge. Objective - Vital Signs Vital signs: Vital Signs Temp 97.6 F 05/16/18 10:56 Pulse 112 H 05/16/18 10:56 Resp 16 05/16/18 10:56 BP 136/100 05/16/18 10:56 Pulse Ox 97 05/16/18 10:56 Intake & Output 05/15/18 05/16/18 05/16/18 18:59 06:59 18:59 Intake Total 720 480 Output Total 200 200 Balance 520 -200 480 Weight 84.9 kg Intake: Oral 720 480 Output: Urine 200 200 Other: Voiding Method Urinal Toilet # Voids 1 - Exam PHYSICAL EXAMINATION: HEENT: [Head is atraumatic, normocephalic. Pupils equal, round. Neck is supple. There is no elevated jugular venous pressure.] HEART EXAMINATION: [Heart sounds irregularly irregular, S1 and S2 with a systolic murmur.] CHEST EXAMINATION:[ Lungs reveal faint crackles at bilateral bases. No chest wall tenderness is noted on palpation or with deep breathing.] ABDOMEN: [ Soft, nontender. Bowel sounds are heard. No organomegaly noted]. EXTREMITIES:[ 2+ peripheral pulses with evidence of trace to 1+ peripheral edema and no calf tenderness noted]. NEUROLOGIC [patient is awake, alert and oriented x3.] . - Labs CBC & Chem 7: 05/16/18 05:37 05/16/18 05:37 Labs: Abnormal Lab Results - Last 24 Hours (Table) 05/15/18 05/16/18 Range/Units 15:03 05:37 Carbon Dioxide 33 H (22-30) mmol/L BUN 24 H (9-20) mg/dL CK-MB (CK-2) 3.3 H (0.0-2.4) ng/mL Assessment and Plan Plan: Assessment: #1 acute on chronic systolic congestive heart failure #2 persistent atrial fibrillation with poorly controlled ventricular response #3 hypertension #4 hyperlipidemia #5 hypothyroidism, recent TSH normal #6 prior CVA #7 nonobstructive CAD by catheterization performed 9 years ago Plan We will discontinue the IV Lasix, change advisor to oral diuretics. From our perspective he may be able to be discharged once cleared by primary. We'll make a follow-up appointment for him to see Dr. Gao in the office post discharge. DNP note has been reviewed, I agree with a documented findings and plan of care. Patient was seen and examined.
[2018-05-16] MEDS ORDERED: FUROSEMIDE 20 MG TAB PO SCH (16:00)
[2018-05-16 17:43] VITALS: BP 138/98; PULSE 108
[2018-05-16] MEDS ORDERED: FAMOTIDINE 20 MG/2 ML VIAL IV SCH (21:00)
[2018-05-16] MEDS ORDERED: FAMOTIDINE 20 MG TAB PO SCH (21:00)
== END 2018-05-16 18:15 | disposition home or self-care (01) | DRG 292 ==
LOC: EC 00:12 → 3SCARD 02:53
PROVIDERS: ADMIT Hospitalist; ATTEND Hospitalist
DX: I11.0 Hypertensive heart disease with heart failure (principal); I48.1 Persistent atrial fibrillation; J98.11 Atelectasis; N02.9 Recurrent and persistent hematuria with unspecified morphologic changes; E03.9 Hypothyroidism, unspecified; E78.5 Hyperlipidemia, unspecified; I25.10 Atherosclerotic heart disease of native coronary artery without angina pectoris; I25.2 Old myocardial infarction; I48.2 Chronic atrial fibrillation; I50.23 Acute on chronic systolic (congestive) heart failure; K21.9 Gastro-esophageal reflux disease without esophagitis; Z79.01 Long term (current) use of anticoagulants; Z79.890 Hormone replacement therapy; Z79.899 Other long term (current) drug therapy; Z80.0 Family history of malignant neoplasm of digestive organs; Z80.8 Family history of malignant neoplasm of other organs or systems; Z85.828 Personal history of other malignant neoplasm of skin; Z86.73 Personal history of transient ischemic attack (TIA), and cerebral infarction without residual deficits; Z98.42 Cataract extraction status, left eye; Z98.41 Cataract extraction status, right eye
CPT/HCPCS: 36415; 71045; 80048; 80053; 81001; 82550; 82553; 83735; 83880; 84484; 85025; 85027; 85610; 85730; 93005; 96365; 96366; 96374; 96375; 96376; 99291

== ENCOUNTER 2018-05-19 00:04 | Inpatient (IN) | payer MEDICARE ==
[2018-05-19] MEDS ORDERED: FUROSEMIDE 10 MG/ML 4 ML VIAL IV STA ×2 (00:52→11:13)
[2018-05-19] MEDS ORDERED: NITROGLYCERIN OINT 1 INCH/GM PACKET TOPICAL STA (00:52)
--- NOTE | 2018-05-19 00:59 | ED ---
SOB HPI - General Chief Complaint: Shortness of Breath Stated Complaint: Chest Pain/ZEFERINO/CHF Time Seen by Provider: 05/19/18 00:15 Source: patient Mode of arrival: wheelchair Limitations: no limitations - History of Present Illness Initial Comments: This patient is an 82-year-old man who presents to be evaluated for dyspnea. Patient relates she had been in the hospital over the weekend and was released on Wednesday, after an episode of atrial fibrillation with rapid rate. Patient states that he had done well for approximately one day and then over the course of today has had shortness of breath. Patient relates that he was supposed to have an appointment in the morning with his physician to arrange home oxygen. MD Complaint: shortness of breath Onset/Timin -: days(s) Severity: moderate Consistency: constant Improves With: nothing Worsens With: lying flat, exertion Known History Of: congestive heart failure Treatments Prior to Arrival: none - Related Data Home Oxygen Therapy: No Home Medications Medication Instructions Recorded Confirmed Levothyroxine Sodium [Synthroid] 100 mcg PO DAILY 02/12/17 05/19/18 Multivitamins, Thera [Multivitamin 1 tab PO DAILY 05/06/18 05/19/18 (formulary)] Rivaroxaban [Xarelto] 20 mg PO DAILY 05/06/18 05/19/18 Previous Rx's Medication Instructions Recorded Metoprolol Tartrate [Lopressor] 50 mg PO BID #60 tab 05/07/18 Potassium Chloride 10 meq PO DAILY #30 capsule.er 05/08/18 Famotidine [Pepcid] 20 mg PO BID #60 tab 05/16/18 DULoxetine HCL [Cymbalta] 20 mg PO DAILY capsule. 05/24/18 Furosemide [Lasix] 40 mg PO BID@0900,1600 #60 tab 05/24/18 Nitroglycerin Sl Tabs [Nitrostat] 0.4 mg SUBLINGUAL Q5M PRN tab 05/24/18 Sacubitril/Valsartan [Entresto 24 1 each PO BID #60 tablet 05/24/18 mg-26 mg Tablet] Allergies Allergy/AdvReac Type Severity Reaction Status Date / Time No Known Allergies Allergy Verified 05/19/18 08:39 Review of Systems ROS Statement: Those systems with pertinent positive or pertinent negative responses have been documented in the HPI. ROS Other: All systems not noted in ROS Statement are negative. Constitutional: Reports: weakness (Generalized). Denies: fever, chills Respiratory: Reports: dyspnea. Denies: cough, wheezes, hemoptysis Cardiovascular: Reports: dyspnea on exertion, orthopnea. 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 Past Anesthesia/Blood Transfusion Reactions: No Reported Reaction Past Psychological History: No Psychological Hx Reported Smoking Status: Never smoker Past Alcohol Use History: None Reported Past Drug Use History: None Reported - Past Family History Father Family Medical History: Liver Disease Additional Family Medical History / Comment(s): Father was a drinker and had liver cirrhosis from which he of at the age of 52yrs. Mother Family Medical History: Cancer Additional Family Medical History / Comment(s): Mother had throat cancer and of this at the age of 87yrs. Sister(s) Family Medical History: Cancer Additional Family Medical History / Comment(s): STOMACH CANCER General Exam Limitations: no limitations General appearance: alert, in no apparent distress Head exam: Present: atraumatic, normocephalic Eye exam: Present: normal appearance ENT exam: Present: normal oropharynx Respiratory exam: Present: normal lung sounds bilaterally. Absent: respiratory distress, wheezes, rales, rhonchi, stridor Cardiovascular Exam: Present: regular rate (Heart rate 96 of my exam), irregular rhythm, normal heart sounds. Absent: systolic murmur, diastolic murmur, rubs, gallop GI/Abdominal exam: Present: soft. Absent: distended, tenderness, guarding, rebound, mass Extremities exam: Present: normal inspection, normal capillary refill. Absent: pedal edema, calf tenderness Back exam: Present: normal inspection. Absent: CVA tenderness (R), CVA tenderness (L) Neurological exam: Present: alert Skin exam: Present: warm, dry, intact, normal color. Absent: rash Course Vital Signs 05/19/18 05/19/18 05/19/18 00:15 02:41 03:34 Temperature 98.2 F Pulse Rate 46 L 109 H 110 H Respiratory 20 18 18 Rate Blood Pressure 123/82 131/102 108/89 O2 Sat by Pulse 97 98 98 Oximetry Medical Decision Making - Medical Decision Making This patient is an 82-year-old man presenting with dyspnea. He continues to have atrial fibrillation with periods in which his heart rate goes to the high 130s and he becomes very dyspneic with a respiratory rate approaching 30. Given the vital signs are patient is given Cardizem bolus and IV Cardizem and admitted to have rate control. - Lab Data Result diagrams: 05/20/18 06:04 05/23/18 14:27 Lab Results 05/19/18 05/19/18 05/19/18 Range/Units 01:00 01:00 01:00 WBC 7.4 (3.8-10.6) k/uL RBC 4.82 (4.30-5.90) m/uL Hgb 15.0 (13.0-17.5) gm/dL Hct 46.0 (39.0-53.0) % MCV 95.4 (80.0-100.0) fL MCH 31.1 (25.0-35.0) pg MCHC 32.6 (31.0-37.0) g/dL RDW 14.8 (11.5-15.5) % Plt Count 232 (150-450) k/uL Neutrophils % 73 % Lymphocytes % 17 % Monocytes % 6 % Eosinophils % 2 % Basophils % 1 % Neutrophils # 5.4 (1.3-7.7) k/uL Lymphocytes # 1.3 (1.0-4.8) k/uL Monocytes # 0.4 (0-1.0) k/uL Eosinophils # 0.2 (0-0.7) k/uL Basophils # 0.1 (0-0.2) k/uL PT (9.0-12.0) sec INR (<1.2) APTT (22.0-30.0) sec Sodium 137 (137-145) mmol/L Potassium 3.8 (3.5-5.1) mmol/L Chloride 100 (98-107) mmol/L Carbon Dioxide 26 (22-30) mmol/L Anion Gap 11 mmol/L BUN 23 H (9-20) mg/dL Creatinine 0.95 (0.66-1.25) mg/dL Est GFR (CKD-EPI)AfAm 86 (>60 ml/min/1.73 sqM) Est GFR (CKD-EPI)NonAf 75 (>60 ml/min/1.73 sqM) Glucose 135 H (74-99) mg/dL Calcium 9.1 (8.4-10.2) mg/dL Total Bilirubin 1.5 H (0.2-1.3) mg/dL AST 54 (17-59) U/L ALT 35 (21-72) U/L Alkaline Phosphatase 52 (38-126) U/L Total Creatine Kinase 95 (55-170) U/L CK-MB (CK-2) 4.1 H (0.0-2.4) ng/mL CK-MB (CK-2) Rel Index 4.3 Troponin I <0.012 (0.000-0.034) ng/mL NT-Pro-B Natriuret Pep pg/mL Total Protein 6.7 (6.3-8.2) g/dL Albumin 3.8 (3.5-5.0) g/dL Triglycerides (<150) mg/dL Cholesterol (<200) mg/dL LDL Cholesterol, Calc (0-99) mg/dL HDL Cholesterol (40-60) mg/dL Urine Color Urine Appearance (Clear) Urine pH (5.0-8.0) Ur Specific [place] (1.001-1.035) Urine Protein (Negative) Urine Glucose (UA) (Negative) Urine Ketones (Negative) Urine Blood (Negative) Urine Nitrite (Negative) Urine Bilirubin (Negative) Urine Urobilinogen (<2.0) mg/dL Ur Leukocyte Esterase (Negative) Urine RBC (0-5) /hpf Urine WBC (0-5) /hpf 05/19/18 05/19/18 05/19/18 Range/Units 01:00 01:00 02:21 WBC (3.8-10.6) k/uL RBC (4.30-5.90) m/uL Hgb (13.0-17.5) gm/dL Hct (39.0-53.0) % MCV (80.0-100.0) fL MCH (25.0-35.0) pg MCHC (31.0-37.0) g/dL RDW (11.5-15.5) % Plt Count (150-450) k/uL Neutrophils % % Lymphocytes % % Monocytes % % Eosinophils % % Basophils % % Neutrophils # (1.3-7.7) k/uL Lymphocytes # (1.0-4.8) k/uL Monocytes # (0-1.0) k/uL Eosinophils # (0-0.7) k/uL Basophils # (0-0.2) k/uL PT 18.4 H (9.0-12.0) sec INR 1.9 H (<1.2) APTT 37.1 H (22.0-30.0) sec Sodium (137-145) mmol/L Potassium (3.5-5.1) mmol/L Chloride (98-107) mmol/L Carbon Dioxide (22-30) mmol/L Anion Gap mmol/L BUN (9-20) mg/dL Creatinine (0.66-1.25) mg/dL Est GFR (CKD-EPI)AfAm (>60 ml/min/1.73 sqM) Est GFR (CKD-EPI)NonAf (>60 ml/min/1.73 sqM) Glucose (74-99) mg/dL Calcium (8.4-10.2) mg/dL Total Bilirubin (0.2-1.3) mg/dL AST (17-59) U/L ALT (21-72) U/L Alkaline Phosphatase (38-126) U/L Total Creatine Kinase (55-170) U/L CK-MB (CK-2) (0.0-2.4) ng/mL CK-MB (CK-2) Rel Index Troponin I (0.000-0.034) ng/mL NT-Pro-B Natriuret Pep 4300 pg/mL Total Protein (6.3-8.2) g/dL Albumin (3.5-5.0) g/dL Triglycerides (<150) mg/dL Cholesterol (<200) mg/dL LDL Cholesterol, Calc (0-99) mg/dL HDL Cholesterol (40-60) mg/dL Urine Color Red Urine Appearance Clear (Clear) Urine pH 6.0 (5.0-8.0) Ur Specific [place] 1.014 (1.001-1.035) Urine Protein 1+ H (Negative) Urine Glucose (UA) Negative (Negative) Urine Ketones Negative (Negative) Urine Blood Large H (Negative) Urine Nitrite Negative (Negative) Urine Bilirubin Negative (Negative) Urine Urobilinogen <2.0 (<2.0) mg/dL Ur Leukocyte Esterase Trace H (Negative) Urine RBC >182 H (0-5) /hpf Urine WBC >182 H (0-5) /hpf 05/19/18 05/19/18 05/20/18 Range/Units 06:12 13:57 06:04 WBC (3.8-10.6) k/uL RBC (4.30-5.90) m/uL Hgb (13.0-17.5) gm/dL Hct (39.0-53.0) % MCV (80.0-100.0) fL MCH (25.0-35.0) pg MCHC (31.0-37.0) g/dL RDW (11.5-15.5) % Plt Count (150-450) k/uL Neutrophils % % Lymphocytes % % Monocytes % % Eosinophils % % Basophils % % Neutrophils # (1.3-7.7) k/uL Lymphocytes # (1.0-4.8) k/uL Monocytes # (0-1.0) k/uL Eosinophils # (0-0.7) k/uL Basophils # (0-0.2) k/uL PT (9.0-12.0) sec INR (<1.2) APTT (22.0-30.0) sec Sodium 138 (137-145) mmol/L Potassium 3.9 (3.5-5.1) mmol/L Chloride 97 L (98-107) mmol/L Carbon Dioxide 30 (22-30) mmol/L Anion Gap 11 mmol/L BUN 21 H (9-20) mg/dL Creatinine 1.02 (0.66-1.25) mg/dL Est GFR (CKD-EPI)AfAm 79 (>60 ml/min/1.73 sqM) Est GFR (CKD-EPI)NonAf 68 (>60 ml/min/1.73 sqM) Glucose 108 H (74-99) mg/dL Calcium 9.3 (8.4-10.2) mg/dL Total Bilirubin 1.6 H (0.2-1.3) mg/dL AST 55 (17-59) U/L ALT 36 (21-72) U/L Alkaline Phosphatase 54 (38-126) U/L Total Creatine Kinase 83 99 (55-170) U/L CK-MB (CK-2) 3.4 H 3.6 H (0.0-2.4) ng/mL CK-MB (CK-2) Rel Index 4.1 3.6 Troponin I <0.012 <0.012 (0.000-0.034) ng/mL NT-Pro-B Natriuret Pep pg/mL Total Protein 7.1 (6.3-8.2) g/dL Albumin 4.1 (3.5-5.0) g/dL Triglycerides 93 (<150) mg/dL Cholesterol 109 (<200) mg/dL LDL Cholesterol, Calc 63 (0-99) mg/dL HDL Cholesterol 27 L (40-60) mg/dL Urine Color Urine Appearance (Clear) Urine pH (5.0-8.0) Ur Specific [place] (1.001-1.035) Urine Protein (Negative) Urine Glucose (UA) (Negative) Urine Ketones (Negative) Urine Blood (Negative) Urine Nitrite (Negative) Urine Bilirubin (Negative) Urine Urobilinogen (<2.0) mg/dL Ur Leukocyte Esterase (Negative) Urine RBC (0-5) /hpf Urine WBC (0-5) /hpf 05/20/18 Range/Units 06:04 WBC 9.8 (3.8-10.6) k/uL RBC 5.11 (4.30-5.90) m/uL Hgb 15.9 (13.0-17.5) gm/dL Hct 48.7 (39.0-53.0) % MCV 95.3 (80.0-100.0) fL MCH 31.1 (25.0-35.0) pg MCHC 32.6 (31.0-37.0) g/dL RDW 14.7 (11.5-15.5) % Plt Count 259 (150-450) k/uL Neutrophils % 73 % Lymphocytes % 17 % Monocytes % 6 % Eosinophils % 2 % Basophils % 1 % Neutrophils # 7.1 (1.3-7.7) k/uL Lymphocytes # 1.7 (1.0-4.8) k/uL Monocytes # 0.6 (0-1.0) k/uL Eosinophils # 0.2 (0-0.7) k/uL Basophils # 0.1 (0-0.2) k/uL PT (9.0-12.0) sec INR (<1.2) APTT (22.0-30.0) sec Sodium (137-145) mmol/L Potassium (3.5-5.1) mmol/L Chloride (98-107) mmol/L Carbon Dioxide (22-30) mmol/L Anion Gap mmol/L BUN (9-20) mg/dL Creatinine (0.66-1.25) mg/dL Est GFR (CKD-EPI)AfAm (>60 ml/min/1.73 sqM) Est GFR (CKD-EPI)NonAf (>60 ml/min/1.73 sqM) Glucose (74-99) mg/dL Calcium (8.4-10.2) mg/dL Total Bilirubin (0.2-1.3) mg/dL AST (17-59) U/L ALT (21-72) U/L Alkaline Phosphatase (38-126) U/L Total Creatine Kinase (55-170) U/L CK-MB (CK-2) (0.0-2.4) ng/mL CK-MB (CK-2) Rel Index Troponin I (0.000-0.034) ng/mL NT-Pro-B Natriuret Pep pg/mL Total Protein (6.3-8.2) g/dL Albumin (3.5-5.0) g/dL Triglycerides (<150) mg/dL Cholesterol (<200) mg/dL LDL Cholesterol, Calc (0-99) mg/dL HDL Cholesterol (40-60) mg/dL Urine Color Urine Appearance (Clear) Urine pH (5.0-8.0) Ur Specific [place] (1.001-1.035) Urine Protein (Negative) Urine Glucose (UA) (Negative) Urine Ketones (Negative) Urine Blood (Negative) Urine Nitrite (Negative) Urine Bilirubin (Negative) Urine Urobilinogen (<2.0) mg/dL Ur Leukocyte Esterase (Negative) Urine RBC (0-5) /hpf Urine WBC (0-5) /hpf - EKG Data -: EKG Interpreted by Or EKG shows normal: axis (Left axis deviation), intervals (QRS duration 126 ms, consistent with left bundle branch block. QTC 494 ms, normal), QRS complexes ( Left bundle branch Block pattern) Interpretation: other (There is atrial fibrillation with a rate of approximately 93 bpm) Critical Care Time Critical Care Time: Yes (30 minutes) Disposition Clinical Impression: Rapid atrial fibrillation, Weakness Disposition: ADMITTED IP TO THIS [facility] Condition: Stable Is patient prescribed a controlled substance at d/c from ED?: No
[2018-05-19 01:12] LABS: Basophils # (A) 0.1 k/uL (0-0.2); Basophils % (A) 1 %; Eosinophils # (A) 0.2 k/uL (0-0.7); Eosinophils % (A) 2 %; Lymphocytes # (A) 1.3 k/uL (1.0-4.8); Lymphocytes % (A) 17 %; MCH 31.1 pg (25.0-35.0); MCHC 32.6 g/dL (31.0-37.0); MCV 95.4 fL (80.0-100.0); Mean Platelet Volume 7.4; Monocytes # (A) 0.4 k/uL (0-1.0); Monocytes % (A) 6 %; Neutrophils # (A) 5.4 k/uL (1.3-7.7); Neutrophils % (A) 73 %; Platelet Count 232 k/uL (150-450); RBC 4.82 m/uL (4.30-5.90); RDW 14.8 % (11.5-15.5); WBC 7.4 k/uL (3.8-10.6)
[2018-05-19 01:20] LABS: INR 1.9 (<1.2); Partial Thromboplastin Time 37.1 sec (22.0-30.0); Prothrombin Time 18.4 sec (9.0-12.0)
[2018-05-19 01:21] LABS: Albumin 3.8 g/dL (3.5-5.0); Calcium 9.1 mg/dL (8.4-10.2); Potassium 3.8 mmol/L (3.5-5.1); Total Bilirubin 1.5 mg/dL (0.2-1.3); Total Protein 6.7 g/dL (6.3-8.2)
--- NOTE | 2018-05-19 01:33 | XR ---
EXAM: XR Chest, 1 View CLINICAL HISTORY: ITS.REASON XR Reason: dyspnea TECHNIQUE: Frontal view of the chest. COMPARISON: Chest radiograph on 05/06/2018 FINDINGS: Hardware: None. Lungs/pleura: Bibasilar opacities may represent atelectasis versus pneumonia. Possible small left pleural effusion. Stable mild elevation of the right hemidiaphragm. Pulmonary vasculature congestion. Heart/mediastinum: Stable mild enlargement of the cardiac silhouette. Soft tissues: Unremarkable. Bones: No acute fracture. Degenerative changes of the acromioclavicular joints and spine. Upper abdomen: Normal. IMPRESSION: Bibasilar opacities may represent atelectasis versus pneumonia. Possible small left pleural effusion. Pulmonary vasculature congestion.
[2018-05-19 01:35] LABS: Creatine Kinase 95 U/L (55-170)
[2018-05-19 01:48] LABS: Creatine Kinase MB 4.1 ng/mL (0.0-2.4); Troponin I <0.012 ng/mL (0.000-0.034)
[2018-05-19] MEDS ORDERED: HYDROcodone/APAP 5-325MG 1 EACH TAB PO STA (02:22)
[2018-05-19 02:36] LABS: Appearance,Urine Clear (Clear); Bilirubin,Urine Negative (Negative); Blood,Urine Large (Negative); Color,Urine Red; Glucose,Urine (UA) Negative (Negative); Ketones,Urine Negative (Negative); Leukocyte Esterase,Urine Trace (Negative); Nitrite,Urine Negative (Negative); Protein,Urine 1+ (Negative); RBC,Urine >182 /hpf (0-5); Specific Gravity,Urine 1.014 (1.001-1.035); Urobilinogen,Urine <2.0 mg/dL (<2.0); WBC,Urine >182 /hpf (0-5)
[2018-05-19] MEDS ORDERED: LISINOPRIL 2.5 MG TAB PO STA (02:56)
[2018-05-19] MEDS ORDERED: METOPROLOL TARTRATE 50 MG TAB PO STA (02:56)
[2018-05-19] MEDS ORDERED: NITROGLYCERIN SL TABS 0.4 MG TAB SUBLINGUAL PRN (04:15)
[2018-05-19] MEDS ORDERED: DILTIAZEM DRIP BOLUS FROM BAG 1 MG SOLN IV ONE (04:17)
[2018-05-19] MEDS ORDERED: DILTIAZEM 125 MG in SODIUM CHLORIDE 0.9% 100 ML IV SCH (04:30)
[2018-05-19] MEDS: LEVOTHYROXINE 100 MCG TAB PO SCH (05:27)
[2018-05-19 06:53] LABS: Creatine Kinase 83 U/L (55-170)
[2018-05-19 07:06] LABS: Creatine Kinase MB 3.4 ng/mL (0.0-2.4); Troponin I <0.012 ng/mL (0.000-0.034)
[2018-05-19] MEDS: POTASSIUM CHLORIDE ER 10 MEQ TAB.ER.PRT PO SCH (09:09)
[2018-05-19] MEDS: METOPROLOL TARTRATE 50 MG TAB PO SCH ×2 (09:09→20:42)
[2018-05-19] MEDS: FAMOTIDINE 20 MG TAB PO SCH ×2 (09:09→20:41)
[2018-05-19] MEDS: FUROSEMIDE 20 MG TAB PO SCH ×2 (09:09→20:41)
[2018-05-19] MEDS: DULoxetine HCL 20 MG CAPSULE.DR PO SCH (09:09)
[2018-05-19] MEDS: LISINOPRIL 5 MG TAB PO SCH (09:09)
[2018-05-19] MEDS: RIVAROXABAN 20 MG TAB PO SCH (11:15)
[2018-05-19] MEDS: MULTIVITAMINS, THERA 1 EACH TAB PO SCH (11:15)
--- NOTE | 2018-05-19 11:18 | P.HPIM ---
History of Present Illness this is a pleasant 82 years old male with past medical history of atrial fibrillation, TIA with possible stroke, coronary artery disease, GERD, hypertension, hypothyroidism,status post cervical spinal cord injury secondary to a fall.has been admitted recently and discharge few days ago for atrial fibrillation with rapid ventricular rateafter his been evaluated by aviation electrician.this time patient presents with dyspnea of 2 days' duration with same problem of atrial fibrillation with RVR going as high as 130s as per documentation with respect rate approaching 30. Patient was started already on Cardizem. Also patient complaining of frombilateral leg swelling. He has pain all over his legs abdomen some chest pressure and headache but no back pain. Patient starting diet well with no diarrhea or change in bowel habits. No nausea vomiting. Abdominal examination is benign with no tenderness. Patient however still complaining from hematuria and he supposed to follow up with Dr. Whelan next week. Vitas looks stable. CBC and BMP were unremarkable. Bilirubin is 1.5.urine analysis is suspicious for infection. Your urine culture is sent.chest x-ray showing bilateral vascular congestion and possible small left pleural effusion. Bilateral basilar opacity, suspicious for atelectasis versus pneumonia.aviation electrician team has been consulted in the emergency room. Review of Systems CONSTITUTIONAL: No fever, no malaise, no fatigue. HEENT: No recent visual problems or hearing problems. Denied any sore throat. CARDIOVASCULAR: No orthopnea, PND, no palpitations, no syncope. PULMONARY: No shortness of breath, no cough, no hemoptysis. GASTROINTESTINAL: No diarrhea, no nausea, no vomiting, no abdominal pain. Normoactive bowel sounds. NEUROLOGICAL: No headaches, no weakness, no numbness. HEMATOLOGICAL: Denies any bleeding or petechiae. GENITOURINARY: Denies any burning micturition, frequency, or urgency. MUSCULOSKELETAL/RHEUMATOLOGICAL: Denies any joint pain, swelling, or any muscle pain. ENDOCRINE: Denies any polyuria or polydipsia. Past Medical History Past Medical History: Atrial Fibrillation, Cancer, CVA/TIA, GERD/Reflux, Hypertension, Myocardial Infarction (CT), Osteoarthritis (OA), Pneumonia, Thyroid Disorder Additional Past Medical History / Comment(s): TIA possible CVA per pt, CT-per EKG, bronchitis, hypothyroid, past fall with cervical spinal cord injury and scalp injury, skin cancer with removals Last Myocardial Infarction Date:: unk History of Any Multi-Drug Resistant Organisms: None Reported Past Surgical History: Hernia Repair, Orthopedic Surgery, Tonsillectomy Additional Past Surgical History / Comment(s): Bilateral cataract removal, arely inguinal hernia repair, hiatal hernia surgery, 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 Past Anesthesia/Blood Transfusion Reactions: No Reported Reaction Past Psychological History: No Psychological Hx Reported Smoking Status: Never smoker Past Alcohol Use History: None Reported Past Drug Use History: None Reported - Past Family History Father Family Medical History: Liver Disease Additional Family Medical History / Comment(s): Father was a drinker and had liver cirrhosis from which he of at the age of 52yrs. Mother Family Medical History: Cancer Additional Family Medical History / Comment(s): Mother had throat cancer and of this at the age of 87yrs. Sister(s) Family Medical History: Cancer Additional Family Medical History / Comment(s): STOMACH CANCER Medications and Allergies Home Medications Medication Instructions Recorded Confirmed Type Levothyroxine Sodium [Synthroid] 100 mcg PO DAILY 02/12/17 05/19/18 History Multivitamins, Thera [Multivitamin 1 tab PO DAILY 05/06/18 05/19/18 History (formulary)] Rivaroxaban [Xarelto] 20 mg PO DAILY 05/06/18 05/19/18 History Metoprolol Tartrate [Lopressor] 50 mg PO BID #60 tab 05/07/18 05/19/18 Rx Furosemide [Lasix] 20 mg PO BID #60 tab 05/08/18 05/19/18 Rx Lisinopril [Zestril] 5 mg PO DAILY #30 tab 05/08/18 05/19/18 Rx Potassium Chloride 10 meq PO DAILY #30 capsule.er 05/08/18 05/19/18 Rx Famotidine [Pepcid] 20 mg PO BID #60 tab 05/16/18 05/19/18 Rx Allergies Allergy/AdvReac Type Severity Reaction Status Date / Time No Known Allergies Allergy Verified 05/19/18 08:39 Physical Exam Vitals: Vital Signs Temp Pulse Pulse Resp BP BP Pulse Ox 05/19/18 05:47 98 F 84 18 125/91 94 L 05/19/18 05:04 98.2 F 85 18 138/89 98 05/19/18 03:34 110 H 18 108/89 98 05/19/18 02:41 109 H 18 131/102 98 05/19/18 00:15 98.2 F 46 L 20 123/82 97 Intake and Output 05/18/18 05/19/18 05/19/18 22:59 06:59 14:59 Intake Total 5 Output Total 600 Balance -595 Intake: IV 5 Diltiazem 125 mg In 5 Sodium Chloride 0.9% 100 ml @ 5 MG/HR 5 mls/hr IV .Q24H [facility] Rx#:[id number] Output: Urine 600 Other: Voiding Method Toilet Weight 86.8 kg GENERAL: The patient is alert and oriented x3, not in any acute distress. Well developed, well nourished. HEENT: Pupils are round and equally reacting to light. EOMI. No scleral icterus. No conjunctival pallor. Normocephalic, atraumatic. No pharyngeal erythema. No thyromegaly. CARDIOVASCULAR: S1 and S2 present. No murmurs, rubs, or gallops. -PULMONARY: Chest is clear to auscultation, bilateral basal crackles. ABDOMEN: Soft, nontender, nondistended, normoactive bowel sounds. No palpable organomegaly. MUSCULOSKELETAL: No joint swelling or deformity. EXTREMITIES: No cyanosis, clubbing, or pedal edema. NEUROLOGICAL: Gross neurological examination did not reveal any focal deficits. SKIN: No rashes. Results CBC & Chem 7: 05/19/18 01:00 05/19/18 01:00 Labs: Abnormal Lab Results - Last 24 Hours (Table) 05/19/18 05/19/18 05/19/18 Range/Units 01:00 01:00 01:00 PT 18.4 H (9.0-12.0) sec INR 1.9 H (<1.2) APTT 37.1 H (22.0-30.0) sec BUN 23 H (9-20) mg/dL Glucose 135 H (74-99) mg/dL Total Bilirubin 1.5 H (0.2-1.3) mg/dL CK-MB (CK-2) 4.1 H (0.0-2.4) ng/mL Urine Protein (Negative) Urine Blood (Negative) Ur Leukocyte Esterase (Negative) Urine RBC (0-5) /hpf Urine WBC (0-5) /hpf 05/19/18 05/19/18 Range/Units 02:21 06:12 PT (9.0-12.0) sec INR (<1.2) APTT (22.0-30.0) sec BUN (9-20) mg/dL Glucose (74-99) mg/dL Total Bilirubin (0.2-1.3) mg/dL CK-MB (CK-2) 3.4 H (0.0-2.4) ng/mL Urine Protein 1+ H (Negative) Urine Blood Large H (Negative) Ur Leukocyte Esterase Trace H (Negative) Urine RBC >182 H (0-5) /hpf Urine WBC >182 H (0-5) /hpf Thrombosis Risk Factor Assmnt - Choose All That Apply Any of the Below Risk Factors Present?: Yes Each Factor Represents 1 point: Obesity (BMI >25), Swollen legs (current) Each Risk Factor Represents 3 Points: Age 75 years or older Thrombosis Risk Factor Assessment Total Risk Factor Score: 5 Thrombosis Risk Factor Assessment Level: High Risk Assessment and Plan Assessment: possible Acute systolic congestive heart failure History of recurrent hematuria. Patient supposed to follow up with his urologist Dr. Whelan upon discharge recurrent chronic atrial fibrillation with RVR, on anticoagulation. Rate is controlled myalgia with dry cough. History of coronary artery disease. History of CVA/TIA History of GERD Essential hypertension History of hypothyroidism Plan: This is a pleasant 82 years old male who presents with heart failure A. fib with RVR. Continue with diuretic. Cardiology R consulted and will be following the patient. also check influenza, pain management, will call Dr. Whelan his urologist for his hematuria. .Labs and medication were reviewed.. Continue same treatment. Continue with symptomatic treatment. Resume home medication. Monitor lytes and vitals. DVT and GI prophylaxis. Further recommendations of the clinical course of the patient DVT prophylaxis: xarelto GI Prophylaxis: Pepcid Prognosis is guarded
--- NOTE | 2018-05-19 11:20 | P.CRDCN ---
History of Present Illness Consult date: 05/19/18 Requesting physician: Jaspal E Sheet Consult reason: shortness of breath Chief complaint: Shortness of breath History of present illness: Oliver is a pleasant 82-year-old gentleman with known history of hypertension, hypothyroidism, persistent chronic atrial fibrillation, prior CVA , nonobstructive CAD by prior cardiac catheterization performed in 2009. This is the third admission for the patient within the past month, was admitted with atrial fibrillation and mild congestive cardiac failure. He again comes to the hospital on this occasion with symptoms of shortness of breath with lower extremity edema. Patient does live at home with his who has had a prior stroke. Chest x-ray on admission here shows some bibasilar opacities which may represent atelectasis versus pneumonia. Possible small left pleural effusion, pulmonary vascular congestion. EKG on arrival here showed atrial fibrillation with a moderately rapid ventricular response, heart rate in the 90s. Blood pressure on arrival here 108/80, heart rate in the 80s, white blood cell count is normal, hemoglobin 15, platelet count 232. INR 1.9, sodium 137, potassium 3.8, BUN 23, creatinine 0.9. Magnesium level 2.2, total bilirubin 1.5. Troponins were negative 3. BNP level 4300. At the time of my examination this morning, he is complaining of some mild shortness of breath. Currently on IV Cardizem drip at 5 mg per hour. We will discontinue the IV Cardizem drip today. Give the patient another dose of IV Lasix now. Past Medical History Past Medical History: Atrial Fibrillation, Cancer, CVA/TIA, GERD/Reflux, Hypertension, Myocardial Infarction ([place]), Osteoarthritis ([place]), Pneumonia, Thyroid Disorder Additional Past Medical History / Comment(s): TIA possible CVA per pt, [place]-per EKG, bronchitis, hypothyroid, past fall with cervical spinal cord injury and scalp injury, skin cancer with removals Last Myocardial Infarction Date:: unk History of Any Multi-Drug Resistant Organisms: None Reported Past Surgical History: Hernia Repair, Orthopedic Surgery, Tonsillectomy Additional Past Surgical History / Comment(s): Bilateral cataract removal, arely inguinal hernia repair, hiatal hernia surgery, 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 Past Anesthesia/Blood Transfusion Reactions: No Reported Reaction Past Psychological History: No Psychological Hx Reported Smoking Status: Never smoker Past Alcohol Use History: None Reported Past Drug Use History: None Reported - Past Family History Father Family Medical History: Liver Disease Additional Family Medical History / Comment(s): Father was a drinker and had liver cirrhosis from which he of at the age of 52yrs. Mother Family Medical History: Cancer Additional Family Medical History / Comment(s): Mother had throat cancer and of this at the age of 87yrs. Sister(s) Family Medical History: Cancer Additional Family Medical History / Comment(s): STOMACH CANCER Medications and Allergies Home Medications Medication Instructions Recorded Confirmed Type Levothyroxine Sodium [Synthroid] 100 mcg PO DAILY 02/12/17 05/19/18 History Multivitamins, Thera [Multivitamin 1 tab PO DAILY 05/06/18 05/19/18 History (formulary)] Rivaroxaban [Xarelto] 20 mg PO DAILY 05/06/18 05/19/18 History Metoprolol Tartrate [Lopressor] 50 mg PO BID #60 tab 05/07/18 05/19/18 Rx Furosemide [Lasix] 20 mg PO BID #60 tab 05/08/18 05/19/18 Rx Lisinopril [Zestril] 5 mg PO DAILY #30 tab 05/08/18 05/19/18 Rx Potassium Chloride 10 meq PO DAILY #30 capsule.er 05/08/18 05/19/18 Rx Famotidine [Pepcid] 20 mg PO BID #60 tab 05/16/18 05/19/18 Rx Allergies Allergy/AdvReac Type Severity Reaction Status Date / Time No Known Allergies Allergy Verified 05/19/18 08:39 Physical Exam Vitals: Vital Signs Temp Pulse Pulse Resp BP BP Pulse Ox 05/19/18 05:47 98 F 84 18 125/91 94 L 05/19/18 05:04 98.2 F 85 18 138/89 98 05/19/18 03:34 110 H 18 108/89 98 05/19/18 02:41 109 H 18 131/102 98 05/19/18 00:15 98.2 F 46 L 20 123/82 97 Intake and Output 05/18/18 05/19/18 05/19/18 22:59 06:59 14:59 Intake Total 5 Output Total 600 Balance -595 Intake: IV 5 Diltiazem 125 mg In 5 Sodium Chloride 0.9% 100 ml @ 5 MG/HR 5 mls/hr IV .Q24H [facility] Rx#:[id number] Output: Urine 600 Other: Voiding Method Toilet Weight 86.8 kg PHYSICAL EXAMINATION: HEENT: [Head is atraumatic, normocephalic. Pupils equal, round. Neck is supple. There is no elevated jugular venous pressure.] HEART EXAMINATION: [Heart sounds irregularly irregular, S1 and S2 with a systolic murmur.] CHEST EXAMINATION:[ Lungs reveal faint crackles at bilateral bases. No chest wall tenderness is noted on palpation or with deep breathing.] ABDOMEN: [ Soft, nontender. Bowel sounds are heard. No organomegaly noted]. EXTREMITIES:[ 2+ peripheral pulses with evidence of 1+ peripheral edema and no calf tenderness noted]. NEUROLOGIC [patient is awake, alert and oriented x3.] Results 05/19/18 01:00 05/19/18 01:00 Cardiac Enzymes 05/19/18 05/19/18 05/19/18 Range/Units 01:00 01:00 06:12 AST 54 (17-59) U/L CK-MB (CK-2) 4.1 H 3.4 H (0.0-2.4) ng/mL Troponin I <0.012 <0.012 (0.000-0.034) ng/mL Coagulation 05/19/18 Range/Units 01:00 PT 18.4 H (9.0-12.0) sec APTT 37.1 H (22.0-30.0) sec CBC 05/19/18 Range/Units 01:00 WBC 7.4 (3.8-10.6) k/uL RBC 4.82 (4.30-5.90) m/uL Hgb 15.0 (13.0-17.5) gm/dL Hct 46.0 (39.0-53.0) % Plt Count 232 (150-450) k/uL Comprehensive Metabolic Panel 05/19/18 Range/Units 01:00 Sodium 137 (137-145) mmol/L Potassium 3.8 (3.5-5.1) mmol/L Chloride 100 (98-107) mmol/L Carbon Dioxide 26 (22-30) mmol/L BUN 23 H (9-20) mg/dL Creatinine 0.95 (0.66-1.25) mg/dL Glucose 135 H (74-99) mg/dL Calcium 9.1 (8.4-10.2) mg/dL AST 54 (17-59) U/L ALT 35 (21-72) U/L Alkaline Phosphatase 52 (38-126) U/L Total Protein 6.7 (6.3-8.2) g/dL Albumin 3.8 (3.5-5.0) g/dL Current Medications Generic Name Dose Route Start Last Admin Trade Name Freq PRN Reason Stop Dose Admin Duloxetine HCl 20 mg 05/19/18 09:00 05/19/18 09:09 Cymbalta PO 20 mg DAILY [facility] Administration Famotidine 20 mg 05/19/18 09:00 05/19/18 09:09 Pepcid PO 20 mg BID [facility] Administration Furosemide 20 mg 05/19/18 09:00 05/19/18 09:09 Lasix PO 20 mg BID [facility] Administration Diltiazem HCl 125 mg/ Sodium 125 mls @ 5 mls/hr 05/19/18 04:30 05/19/18 04:27 Chloride IV 5 mg/hr .Q24H [facility] 5 mls/hr Administration 5 MG/HR Levothyroxine Sodium 100 mcg 05/19/18 06:30 05/19/18 05:27 Synthroid PO 100 mcg DAILY@0630 [facility] Administration Lisinopril 5 mg 05/19/18 09:00 05/19/18 09:09 Zestril PO 5 mg DAILY [facility] Administration Metoprolol Tartrate 50 mg 05/19/18 09:00 05/19/18 09:09 Lopressor PO 50 mg BID [facility] Administration Multivitamins 1 each 05/19/18 12:00 Theragran PO DAILY@1200 [facility] Nitroglycerin 0.4 mg 05/19/18 04:15 Nitrostat SUBLINGUAL Q5M PRN Chest Pain Polyethylene Glycol 17 gm 05/19/18 04:17 Miralax PO DAILY PRN Constipation Potassium Chloride 10 meq 05/19/18 09:00 05/19/18 09:09 K-Dur 10 PO 10 meq DAILY [facility] Administration Pregabalin 50 mg 05/19/18 21:00 Lyrica PO HS [facility] Rivaroxaban 20 mg 05/19/18 09:00 Xarelto PO DAILY [facility] Intake and Output 05/18/18 05/19/18 05/19/18 22:59 06:59 14:59 Intake Total 5 Output Total 600 Balance -595 Intake: IV 5 Diltiazem 125 mg In 5 Sodium Chloride 0.9% 100 ml @ 5 MG/HR 5 mls/hr IV .Q24H [facility] Rx#:[id number] Output: Urine 600 Other: Voiding Method Toilet Weight 86.8 kg 05/19/18 01:00 05/19/18 01:00 EKG Interpretations (text) EKG shows atrial fibrillation with moderately rapid ventricular response Assessment and Plan Plan: Assessment: #1 acute on chronic systolic congestive heart failure #2 persistent atrial fibrillation with mildly rapid ventricular response #3 hypertension #4 hyperlipidemia #5 hypothyroidism, recent TSH normal #6 prior CVA #7 nonobstructive CAD by catheterization performed 9 years ago Plan Patient just recently underwent an echocardiogram with Doppler study on May 07 which revealed an ejection fraction of 45-50% with mild to moderate mitral regurg we'll discontinue the IV Cardizem, and beta essence 50 mg twice a day, increase the dose of Lasix 40 mg by mouth twice a day at home and give the patient an additional IV dose. Further recommendations to follow. DNP note has been reviewed, I agree with a documented findings and plan of care. Patient was seen and examined.
[2018-05-19 14:39] LABS: Creatine Kinase 99 U/L (55-170)
[2018-05-19 14:52] LABS: Creatine Kinase MB 3.6 ng/mL (0.0-2.4); Troponin I <0.012 ng/mL (0.000-0.034)
[2018-05-19] MEDS: FUROSEMIDE 40 MG TAB PO SCH (18:02)
[2018-05-19] MEDS: PREGABALIN 50 MG CAP PO SCH (20:42)
[2018-05-20] MEDS: LEVOTHYROXINE 100 MCG TAB PO SCH (06:13)
[2018-05-20 06:53] LABS: Basophils # (A) 0.1 k/uL (0-0.2); Basophils % (A) 1 %; Eosinophils # (A) 0.2 k/uL (0-0.7); Eosinophils % (A) 2 %; HCT 48.7 % (39.0-53.0); HGB 15.9 gm/dL (13.0-17.5); Lymphocytes # (A) 1.7 k/uL (1.0-4.8); Lymphocytes % (A) 17 %; MCH 31.1 pg (25.0-35.0); MCHC 32.6 g/dL (31.0-37.0); MCV 95.3 fL (80.0-100.0); Mean Platelet Volume 6.9; Monocytes # (A) 0.6 k/uL (0-1.0); Monocytes % (A) 6 %; Neutrophils # (A) 7.1 k/uL (1.3-7.7); Neutrophils % (A) 73 %; Platelet Count 259 k/uL (150-450); RBC 5.11 m/uL (4.30-5.90); RDW 14.7 % (11.5-15.5); WBC 9.8 k/uL (3.8-10.6)
[2018-05-20 07:08] LABS: Albumin 4.1 g/dL (3.5-5.0); Calcium 9.3 mg/dL (8.4-10.2); Potassium 3.9 mmol/L (3.5-5.1); Total Bilirubin 1.6 mg/dL (0.2-1.3); Total Protein 7.1 g/dL (6.3-8.2)
[2018-05-20] MEDS: RIVAROXABAN 20 MG TAB PO SCH (08:13)
[2018-05-20] MEDS: FAMOTIDINE 20 MG TAB PO SCH ×2 (08:13→20:39)
[2018-05-20] MEDS: DULoxetine HCL 20 MG CAPSULE.DR PO SCH (08:13)
[2018-05-20] MEDS: FUROSEMIDE 40 MG TAB PO SCH ×2 (08:14→15:44)
[2018-05-20] MEDS: LISINOPRIL 5 MG TAB PO SCH (08:14)
[2018-05-20] MEDS: POTASSIUM CHLORIDE ER 10 MEQ TAB.ER.PRT PO SCH (08:14)
[2018-05-20] MEDS: MULTIVITAMINS, THERA 1 EACH TAB PO SCH (08:14)
[2018-05-20] MEDS: METOPROLOL TARTRATE 50 MG TAB PO SCH ×2 (08:14→20:39)
--- NOTE | 2018-05-20 11:47 | P.PN ---
Subjective this is a pleasant 82 years old male with past medical history of atrial fibrillation, TIA with possible stroke, coronary artery disease, GERD, hypertension, hypothyroidism,status post cervical spinal cord injury secondary to a fall.has been admitted recently and discharge few days ago for atrial fibrillation with rapid ventricular rateafter his been evaluated by program supervisor.this time patient presents with dyspnea of 2 days' duration with same problem of atrial fibrillation with RVR going as high as 130s as per documentation with respect rate approaching 30. Patient was started already on Cardizem. Also patient complaining of frombilateral leg swelling. He has pain all over his legs abdomen some chest pressure and headache but no back pain. Patient starting diet well with no diarrhea or change in bowel habits. No nausea vomiting. Abdominal examination is benign with no tenderness. Patient however still complaining from hematuria and he supposed to follow up with Dr. Whelan next week. Vitas looks stable. CBC and BMP were unremarkable. Bilirubin is 1.5.urine analysis is suspicious for infection. Your urine culture is sent.chest x-ray showing bilateral vascular congestion and possible small left pleural effusion. Bilateral basilar opacity, suspicious for atelectasis versus pneumonia.program supervisor team has been consulted in the emergency room. 05/20/2018 Patient continued to have dyspnea, he has difficulty finishing his sentences due to breathing difficulty. He has bilateral leg swelling. Blood pressure 143 /94 and dressed of Vitoss looks stable. Labs looked unremarkable including BMP and liver enzymes. Bilirubin 1.6. Patient still have T colored urine hematuria urine culture has been sent. Consult has been placed for urologist. Patient remains on Lasix and xarelto. Cardiology consult is appreciated CONSTITUTIONAL: No fever, no malaise, no fatigue. HEENT: No recent visual problems or hearing problems. Denied any sore throat. CARDIOVASCULAR: No orthopnea, PND, no palpitations, no syncope. PULMONARY: No shortness of breath, no cough, no hemoptysis. GASTROINTESTINAL: No diarrhea, no nausea, no vomiting, no abdominal pain. Normoactive bowel sounds. NEUROLOGICAL: No headaches, no weakness, no numbness. HEMATOLOGICAL: Denies any bleeding or petechiae. GENITOURINARY: Denies any burning micturition, frequency, or urgency. MUSCULOSKELETAL/RHEUMATOLOGICAL: Denies any joint pain, swelling, or any muscle pain. ENDOCRINE: Denies any polyuria or polydipsia. Medication: Cymbalta, Pepcid, Lasix, Synthroid, lisinopril, Lopressor, multivitamin, nitroglycerin, MiraLAX, potassium chloride, Lyrica, Xarelto. Objective - Vital Signs Vital signs: Vital Signs Temp 97.6 F 05/20/18 07:45 Pulse 80 05/20/18 07:45 Resp 18 05/20/18 07:45 BP 143/94 05/20/18 07:45 Pulse Ox 96 05/20/18 07:45 Intake & Output 05/19/18 05/20/18 05/20/18 18:59 06:59 18:59 Intake Total 20 280 Output Total 150 1050 Balance -150 -1030 280 Weight 82 kg Intake: IV 20 0.9% NS 10 mL FLUSH 20 Oral 280 Output: Urine 150 1050 Other: Voiding Method Toilet Toilet Toilet # Voids 2 - Exam GENERAL: The patient is alert and oriented x3, not in any acute distress. Well developed, well nourished. HEENT: Pupils are round and equally reacting to light. EOMI. No scleral icterus. No conjunctival pallor. Normocephalic, atraumatic. No pharyngeal erythema. No thyromegaly. CARDIOVASCULAR: S1 and S2 present. No murmurs, rubs, or gallops. -PULMONARY: Chest is clear to auscultation, bilateral basal crackles. ABDOMEN: Soft, nontender, nondistended, normoactive bowel sounds. No palpable organomegaly. MUSCULOSKELETAL: No joint swelling or deformity. EXTREMITIES: No cyanosis, clubbing, or pedal edema. NEUROLOGICAL: Gross neurological examination did not reveal any focal deficits. SKIN: No rashes. - Labs CBC & Chem 7: 05/20/18 06:04 05/20/18 06:04 Labs: Abnormal Lab Results - Last 24 Hours (Table) 05/19/18 05/20/18 Range/Units 13:57 06:04 Chloride 97 L (98-107) mmol/L BUN 21 H (9-20) mg/dL Glucose 108 H (74-99) mg/dL Total Bilirubin 1.6 H (0.2-1.3) mg/dL CK-MB (CK-2) 3.6 H (0.0-2.4) ng/mL HDL Cholesterol 27 L (40-60) mg/dL Microbiology - Last 24 Hours (Table) 05/19/18 14:45 Urine Culture - Preliminary Urine,Voided Assessment and Plan Assessment: possible Acute systolic congestive heart failure History of recurrent hematuria. Patient supposed to follow up with his urologist Dr. Whelan upon discharge recurrent chronic atrial fibrillation with RVR, on anticoagulation. Rate is controlled myalgia with dry cough. History of coronary artery disease. History of CVA/TIA History of GERD Essential hypertension History of hypothyroidism Plan: This is a pleasant 82 years old male who presents with heart failure A. fib with RVR. Continue with diuretic. Cardiology R consulted and will be following the patient. also check influenza, pain management, will call Dr. Whelan his urologist for his hematuria. .Labs and medication were reviewed.. Continue same treatment. Continue with symptomatic treatment. Resume home medication. Monitor lytes and vitals. DVT and GI prophylaxis. Further recommendations of the clinical course of the patient DVT prophylaxis: xarelto GI Prophylaxis: Pepcid Prognosis is guarded
--- NOTE | 2018-05-20 14:45 | PN ---
PROGRESS NOTE Mr. Singleton is an 82-year-old male who presented with symptoms of progressive dyspnea. He has a known history of atrial fibrillation, mild coronary artery disease, prior history of stroke. The patient is feeling better today. His breathing is better. He is denying any symptoms of chest pain. He denies any dizziness or palpitation. He denies any nausea. He feels stronger there. He continues to be at this time on Duloxetine, Pepcid, Lasix 40 mg orally twice a day, lisinopril 5 mg daily, metoprolol tartrate 50 mg twice a day, Xarelto 20 mg daily. PHYSICAL EXAMINATION: Blood pressure 145/90 with a heart in 90s. LUNGS: Clear. Heart irregularly irregular S1, S2. No S3 with systolic murmur. ABDOMEN: Soft, nontender. EXTREMITIES: Trace edema. He has lost 4 kg since admission. His BUN and creatinine today are 21 and 1.02, potassium 3.9. Hemoglobin of 15.9. IMPRESSION: 1. Congestive heart failure, improved. 2. Chronic persistent atrial fibrillation anticoagulated. 3. Hypertension. 4. Hyperlipidemia. 5. History of stroke. RECOMMENDATIONS: From the cardiac standpoint, we will continue present therapy. He has a known history of mildly impaired left ventricular systolic function. His ventricular response is stable. He will continue on the oral diuretic. If he is stable, I would expect he may be able to be discharged home in the next 24 to 48 hours. We will continue to follow his renal function. MMODL / IJN: [id number] /
[2018-05-20] MEDS: PREGABALIN 50 MG CAP PO SCH (20:39)
[2018-05-20] MEDS: POLYETHYLENE GLYCOL 3350 17 GM POWD.PACK PO PRN (20:54)
[2018-05-21 06:30] LABS: Albumin 3.6 g/dL (3.5-5.0); Bilirubin, Delta 0.2 mg/dL (0.0-0.2); Bilirubin,Unconjugated 0.8 mg/dL (0.0-1.1); Potassium 3.7 mmol/L (3.5-5.1); Total Protein 6.4 g/dL (6.3-8.2)
[2018-05-21] MEDS: LEVOTHYROXINE 100 MCG TAB PO SCH (06:31)
[2018-05-21] MEDS: METOPROLOL TARTRATE 50 MG TAB PO SCH ×2 (07:48→20:14)
[2018-05-21] MEDS: FAMOTIDINE 20 MG TAB PO SCH ×2 (07:48→20:14)
[2018-05-21] MEDS: RIVAROXABAN 20 MG TAB PO SCH (07:48)
[2018-05-21] MEDS: POTASSIUM CHLORIDE ER 10 MEQ TAB.ER.PRT PO SCH (07:48)
[2018-05-21] MEDS: LISINOPRIL 5 MG TAB PO SCH (07:48)
[2018-05-21] MEDS: DULoxetine HCL 20 MG CAPSULE.DR PO SCH (07:48)
[2018-05-21] MEDS: FUROSEMIDE 40 MG TAB PO SCH ×2 (07:49→16:09)
--- NOTE | 2018-05-21 09:48 | P.GSCN ---
History of Present Illness Consult date: 05/21/18 Reason for Consult: Gross hematuria Requesting physician: Jaspal E Sheet History of present illness: The patient is an 82-year-old white male who has been in and out of the hospital this month with atrial fibrillation. He reports a 2 week history of gross painless hematuria, which she states is improving. He previously experienced significant urinary frequency, which is also improving. He was evaluated by Dr. Whelan in 2017 for hematuria. That evaluation consisted of a computed tomography scan, which revealed bilateral simple renal cysts, and urine cytology, which was negative. Cystoscopy showed evidence of BPH, which was presumed to be the source of the bleeding. Review of Systems - Constitutional Denies chills, Denies fever - Gastrointestinal Denies nausea, Denies vomiting - Genitourinary Reports hematuria, Reports urinary frequency, Denies dysuria, Denies flank pain Past Medical History Past Medical History: Atrial Fibrillation, Cancer, CVA/TIA, GERD/Reflux, Hypertension, Myocardial Infarction ([place]), Osteoarthritis ([place]), Pneumonia, Thyroid Disorder Additional Past Medical History / Comment(s): TIA possible CVA per pt, [place]-per EKG, bronchitis, hypothyroid, past fall with cervical spinal cord injury and scalp injury, skin cancer with removals Last Myocardial Infarction Date:: unk History of Any Multi-Drug Resistant Organisms: None Reported Past Surgical History: Hernia Repair, Orthopedic Surgery, Tonsillectomy Additional Past Surgical History / Comment(s): Bilateral cataract removal, arely inguinal hernia repair, hiatal hernia surgery, 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 Past Anesthesia/Blood Transfusion Reactions: No Reported Reaction Past Psychological History: No Psychological Hx Reported Smoking Status: Never smoker Past Alcohol Use History: None Reported Past Drug Use History: None Reported - Past Family History Father Family Medical History: Liver Disease Additional Family Medical History / Comment(s): Father was a drinker and had liver cirrhosis from which he of at the age of 52yrs. Mother Family Medical History: Cancer Additional Family Medical History / Comment(s): Mother had throat cancer and of this at the age of 87yrs. Sister(s) Family Medical History: Cancer Additional Family Medical History / Comment(s): STOMACH CANCER Medications and Allergies Home Medications Medication Instructions Recorded Confirmed Type Levothyroxine Sodium [Synthroid] 100 mcg PO DAILY 02/12/17 05/19/18 History Multivitamins, Thera [Multivitamin 1 tab PO DAILY 05/06/18 05/19/18 History (formulary)] Rivaroxaban [Xarelto] 20 mg PO DAILY 05/06/18 05/19/18 History Metoprolol Tartrate [Lopressor] 50 mg PO BID #60 tab 05/07/18 05/19/18 Rx Furosemide [Lasix] 20 mg PO BID #60 tab 05/08/18 05/19/18 Rx Lisinopril [Zestril] 5 mg PO DAILY #30 tab 05/08/18 05/19/18 Rx Potassium Chloride 10 meq PO DAILY #30 capsule.er 05/08/18 05/19/18 Rx Famotidine [Pepcid] 20 mg PO BID #60 tab 05/16/18 05/19/18 Rx Allergies Allergy/AdvReac Type Severity Reaction Status Date / Time No Known Allergies Allergy Verified 05/19/18 08:39 Surgical - Exam Vital Signs Temp Pulse Resp BP Pulse Ox 98.2 F 46 L 20 123/82 97 05/19/18 00:15 05/19/18 00:15 05/19/18 00:15 05/19/18 00:15 05/19/18 00:15 - General well developed, well nourished, no distress - Respiratory normal respiratory effort - Abdomen Abdomen: soft, non tender, no guarding, no rigid, no rebound - Genitourinary normal penis with no external lesions, testicles non-tender - Rectum Rectum: normal sphincter tone, no masses, other (Prostate mildly enlarged and smooth) - Psychiatric oriented to time, oriented to person, oriented to place, speech is normal, memory intact Results - Labs 05/20/18 06:04 05/21/18 05:58 Abnormal Lab Results - Last 24 Hours (Table) 05/21/18 Range/Units 05:58 Carbon Dioxide 31 H (22-30) mmol/L BUN 24 H (9-20) mg/dL Glucose 111 H (74-99) mg/dL Microbiology - Last 24 Hours (Table) 05/19/18 14:45 Urine Culture - Final Urine,Voided Diabetes panel 05/21/18 Range/Units 05:58 Sodium 138 (137-145) mmol/L Potassium 3.7 (3.5-5.1) mmol/L Chloride 98 (98-107) mmol/L Carbon Dioxide 31 H (22-30) mmol/L BUN 24 H (9-20) mg/dL Creatinine 1.01 (0.66-1.25) mg/dL Glucose 111 H (74-99) mg/dL Calcium 9.0 (8.4-10.2) mg/dL AST 49 (17-59) U/L ALT 38 (21-72) U/L Alkaline Phosphatase 48 (38-126) U/L Total Protein 6.4 (6.3-8.2) g/dL Albumin 3.6 (3.5-5.0) g/dL Calcium panel 05/21/18 Range/Units 05:58 Calcium 9.0 (8.4-10.2) mg/dL Albumin 3.6 (3.5-5.0) g/dL Pituitary panel 05/21/18 Range/Units 05:58 Sodium 138 (137-145) mmol/L Potassium 3.7 (3.5-5.1) mmol/L Chloride 98 (98-107) mmol/L Carbon Dioxide 31 H (22-30) mmol/L BUN 24 H (9-20) mg/dL Creatinine 1.01 (0.66-1.25) mg/dL Glucose 111 H (74-99) mg/dL Calcium 9.0 (8.4-10.2) mg/dL Adrenal panel 05/21/18 Range/Units 05:58 Sodium 138 (137-145) mmol/L Potassium 3.7 (3.5-5.1) mmol/L Chloride 98 (98-107) mmol/L Carbon Dioxide 31 H (22-30) mmol/L BUN 24 H (9-20) mg/dL Creatinine 1.01 (0.66-1.25) mg/dL Glucose 111 H (74-99) mg/dL Calcium 9.0 (8.4-10.2) mg/dL Total Bilirubin 1.0 (0.2-1.3) mg/dL AST 49 (17-59) U/L ALT 38 (21-72) U/L Alkaline Phosphatase 48 (38-126) U/L Total Protein 6.4 (6.3-8.2) g/dL Albumin 3.6 (3.5-5.0) g/dL Assessment and Plan (1) Gross hematuria Current Visit: Yes Status: Acute Code(s): R31.0 - GROSS HEMATURIA SNOMED Code(s): 056556637 Plan: The cause of Mr. Singleton's recurrent gross painless hematuria is unclear. As stated, evaluation in 2017 suggested that BPH was the source of the hematuria. This is of course exacerbated by the fact that he takes anticoagulants. In view of the urinary frequency, bladder scan will be utilized to check a postvoid residual. Assuming this is normal, Mr. Singleton can be discharged home from a urologic standpoint and follow up with Dr. Whelan later this month, as he has an appointment already scheduled. Please notify me if I can be of any further assistance.
--- NOTE | 2018-05-21 12:28 | P.PN ---
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 This is the third admission for the patient within the past month, was admitted with atrial fibrillation and mild congestive cardiac failure. He again comes to the hospital on this occasion with symptoms of shortness of breath with lower extremity edema. Patient does live at home with his who has had a prior stroke. Chest x-ray on admission here shows some bibasilar opacities which may represent atelectasis versus pneumonia. Possible small left pleural effusion, pulmonary vascular congestion. EKG on arrival here showed atrial fibrillation with a moderately rapid ventricular response, heart rate in the 90s. Blood pressure on arrival here 108/80, heart rate in the 80s, white blood cell count is normal, hemoglobin 15, platelet count 232. INR 1.9, sodium 137, potassium 3.8, BUN 23, creatinine 0.9. Magnesium level 2.2, total bilirubin 1.5. Troponins were negative 3. BNP level 4300. At the time of my examination this morning, he is complaining of some mild shortness of breath. Currently on IV Cardizem drip at 5 mg per hour. We will discontinue the IV Cardizem drip today. Give the patient another dose of IV Lasix now. 05/21/2018 Patient was seen and examined this morning, overall he is feeling better, his breathing is stable. We will discontinue his lisinopril, start the patient on Entresto from tomorrow evening. Patient is currently on oral diuretics. Blood pressure 132/80 this morning with a heart rate in the 80s. Objective - Vital Signs Vital signs: Vital Signs Temp 96.7 F L 05/21/18 08:00 Pulse 85 05/21/18 08:00 Resp 20 05/21/18 08:00 BP 147/100 05/21/18 08:00 Pulse Ox 96 05/21/18 08:00 Intake & Output 05/20/18 05/21/18 05/21/18 18:59 06:59 18:59 Intake Total 760 325 240 Output Total 300 Balance 760 25 240 Weight 81.5 kg Intake: Oral 760 325 240 Output: Urine 300 Other: Voiding Method Toilet Toilet Toilet # Voids 3 1 - Exam PHYSICAL EXAMINATION: HEENT: [Head is atraumatic, normocephalic. Pupils equal, round. Neck is supple. There is no elevated jugular venous pressure.] HEART EXAMINATION: [Heart sounds irregularly irregular, S1 and S2 with a systolic murmur.] CHEST EXAMINATION:[ Lungs reveal faint crackles at bilateral bases. No chest wall tenderness is noted on palpation or with deep breathing.] ABDOMEN: [ Soft, nontender. Bowel sounds are heard. No organomegaly noted]. EXTREMITIES:[ 2+ peripheral pulses with evidence of trace peripheral edema and no calf tenderness noted]. NEUROLOGIC [patient is awake, alert and oriented x3.] - Labs CBC & Chem 7: 05/20/18 06:04 05/21/18 05:58 Labs: Abnormal Lab Results - Last 24 Hours (Table) 05/21/18 Range/Units 05:58 Carbon Dioxide 31 H (22-30) mmol/L BUN 24 H (9-20) mg/dL Glucose 111 H (74-99) mg/dL Microbiology - Last 24 Hours (Table) 05/19/18 14:45 Urine Culture - Final Urine,Voided Assessment and Plan Plan: Assessment: #1 acute on chronic systolic congestive heart failure #2 persistent atrial fibrillation with mildly rapid ventricular response #3 hypertension #4 hyperlipidemia #5 hypothyroidism, recent TSH normal #6 prior CVA #7 nonobstructive CAD by catheterization performed 9 years ago Plan We will discontinue the LAMBERT inhibitor, from tomorrow evening start the patient on Entresto. Continue the rest of his medications. DNP note has been reviewed, I agree with a documented findings and plan of care. Patient was seen and examined.
--- NOTE | 2018-05-21 14:47 | XR ---
EXAMINATION TYPE: XR chest 2V DATE OF EXAM: 05/21/2018 COMPARISON: 05/19/2018 HISTORY: Heart failure short of breath TECHNIQUE: Frontal and lateral views of the chest are obtained. FINDINGS: Heart size is normal. Thoracic aorta is atheromatous. There is no heart failure. There is slight blunting of the costophrenic angles. Bony thorax is intact. IMPRESSION: Very small pleural effusions. No heart failure seen. There is clearing of the pulmonary congestion compared to last exam.
--- NOTE | 2018-05-21 19:06 | P.PN ---
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 Patient was started already on Cardizem. Also patient complaining of frombilateral leg swelling. He has pain all over his legs abdomen some chest pressure and headache but no back pain. Patient starting diet well with no diarrhea or change in bowel habits. No nausea vomiting. Abdominal examination is benign with no tenderness. Patient however still complaining from hematuria and he supposed to follow up with Dr. Whelan next week. Vitas looks stable. CBC and BMP were unremarkable. Bilirubin is 1.5.urine analysis is suspicious for infection. Your urine culture is sent.chest x-ray showing bilateral vascular congestion and possible small left pleural effusion. Bilateral basilar opacity, suspicious for atelectasis versus pneumonia.middleware administrator team has been consulted in the emergency room. 05/20/2018 Patient continued to have dyspnea, he has difficulty finishing his sentences due to breathing difficulty. He has bilateral leg swelling. Blood pressure 143 /94 and dressed of Vitoss looks stable. Labs looked unremarkable including BMP and liver enzymes. Bilirubin 1.6. Patient still have T colored urine hematuria urine culture has been sent. Consult has been placed for urologist. Patient remains on Lasix and xarelto. Cardiology consult is appreciated and they switch his lisinopril and replace it with Entresto. Continue with Lasix 05/21/2018 Patient remains in the cartilage team are following him closely CONSTITUTIONAL: No fever, no malaise, no fatigue. HEENT: No recent visual problems or hearing problems. Denied any sore throat. CARDIOVASCULAR: No orthopnea, PND, no palpitations, no syncope. PULMONARY: No shortness of breath, no cough, no hemoptysis. GASTROINTESTINAL: No diarrhea, no nausea, no vomiting, no abdominal pain. Normoactive bowel sounds. NEUROLOGICAL: No headaches, no weakness, no numbness. HEMATOLOGICAL: Denies any bleeding or petechiae. GENITOURINARY: Denies any burning micturition, frequency, or urgency. MUSCULOSKELETAL/RHEUMATOLOGICAL: Denies any joint pain, swelling, or any muscle pain. ENDOCRINE: Denies any polyuria or polydipsia. Medication: Cymbalta, Pepcid, Lasix, Synthroid, lisinopril, Lopressor, multivitamin, nitroglycerin, MiraLAX, potassium chloride, Lyrica, Xarelto. Objective - Vital Signs Vital signs: Vital Signs Temp 96.5 F L 05/21/18 16:00 Pulse 80 05/21/18 16:00 Resp 20 05/21/18 16:00 BP 135/100 05/21/18 16:00 Pulse Ox 97 05/21/18 16:00 Intake & Output 05/21/18 05/21/18 05/22/18 06:59 18:59 06:59 Intake Total 325 460 Output Total 300 Balance 25 460 Weight 81.5 kg Intake: Oral 325 460 Output: Urine 300 Other: Voiding Method Toilet Toilet # Voids 1 3 - Exam GENERAL: The patient is alert and oriented x3, not in any acute distress. Well developed, well nourished. HEENT: Pupils are round and equally reacting to light. EOMI. No scleral icterus. No conjunctival pallor. Normocephalic, atraumatic. No pharyngeal erythema. No thyromegaly. CARDIOVASCULAR: S1 and S2 present. No murmurs, rubs, or gallops. -PULMONARY: Chest is clear to auscultation, bilateral basal crackles. ABDOMEN: Soft, nontender, nondistended, normoactive bowel sounds. No palpable organomegaly. MUSCULOSKELETAL: No joint swelling or deformity. EXTREMITIES: No cyanosis, clubbing, or pedal edema. NEUROLOGICAL: Gross neurological examination did not reveal any focal deficits. SKIN: No rashes. - Labs CBC & Chem 7: 05/20/18 06:04 05/21/18 05:58 Labs: Abnormal Lab Results - Last 24 Hours (Table) 05/21/18 Range/Units 05:58 Carbon Dioxide 31 H (22-30) mmol/L BUN 24 H (9-20) mg/dL Glucose 111 H (74-99) mg/dL Microbiology - Last 24 Hours (Table) 05/19/18 14:45 Urine Culture - Final Urine,Voided Assessment and Plan Assessment: possible Acute systolic congestive heart failure History of recurrent hematuria. Patient supposed to follow up with his urologist Dr. Whelan upon discharge recurrent chronic atrial fibrillation with RVR, on anticoagulation. Rate is controlled myalgia with dry cough. History of coronary artery disease. History of CVA/TIA History of GERD Essential hypertension History of hypothyroidism Plan: This is a pleasant 82 years old male who presents with heart failure A. fib with RVR. Continue with diuretic. Cardiology R consulted and will be following the patient. also check influenza, pain management, will call Dr. Whelan his urologist for his hematuria. .Labs and medication were reviewed.. Continue same treatment. Continue with symptomatic treatment. Resume home medication. Monitor lytes and vitals. DVT and GI prophylaxis. Further recommendations of the clinical course of the patient DVT prophylaxis: xarelto GI Prophylaxis: Pepcid Prognosis is guarded
[2018-05-21] MEDS: PREGABALIN 50 MG CAP PO SCH (20:14)
[2018-05-21] MEDS: POLYETHYLENE GLYCOL 3350 17 GM POWD.PACK PO PRN (20:14)
[2018-05-22] MEDS: LEVOTHYROXINE 100 MCG TAB PO SCH (06:35)
[2018-05-22] MEDS: POTASSIUM CHLORIDE ER 10 MEQ TAB.ER.PRT PO SCH (08:28)
[2018-05-22] MEDS: METOPROLOL TARTRATE 50 MG TAB PO SCH ×2 (08:28→22:15)
[2018-05-22] MEDS: RIVAROXABAN 20 MG TAB PO SCH (08:28)
[2018-05-22] MEDS: FUROSEMIDE 40 MG TAB PO SCH ×2 (08:28→17:46)
[2018-05-22] MEDS: FAMOTIDINE 20 MG TAB PO SCH ×2 (08:28→22:18)
[2018-05-22] MEDS: DULoxetine HCL 20 MG CAPSULE.DR PO SCH (11:24)
[2018-05-22] MEDS ORDERED: BISACODYL 5 MG TABLET.DR PO PRN (16:34)
[2018-05-22] MEDS: SACUBITRIL/VALSARTAN 24 MG-26 MG TABLET PO SCH (22:15)
[2018-05-22] MEDS: ACETAMINOPHEN TAB 325 MG TAB PO PRN (22:15)
[2018-05-22] MEDS: PREGABALIN 50 MG CAP PO SCH (22:15)
--- NOTE | 2018-05-22 23:29 | P.PN ---
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 Patient was started already on Cardizem. Also patient complaining of frombilateral leg swelling. He has pain all over his legs abdomen some chest pressure and headache but no back pain. Patient starting diet well with no diarrhea or change in bowel habits. No nausea vomiting. Abdominal examination is benign with no tenderness. Patient however still complaining from hematuria and he supposed to follow up with Dr. Whelan next week. Vitas looks stable. CBC and BMP were unremarkable. Bilirubin is 1.5.urine analysis is suspicious for infection. Your urine culture is sent.chest x-ray showing bilateral vascular congestion and possible small left pleural effusion. Bilateral basilar opacity, suspicious for atelectasis versus pneumonia.tennis camp instructor team has been consulted in the emergency room. 05/20/2018 Patient continued to have dyspnea, he has difficulty finishing his sentences due to breathing difficulty. He has bilateral leg swelling. Blood pressure 143 /94 and dressed of Vitoss looks stable. Labs looked unremarkable including BMP and liver enzymes. Bilirubin 1.6. Patient still have T colored urine hematuria urine culture has been sent. Consult has been placed for urologist. Patient remains on Lasix and xarelto. Cardiology consult is appreciated and they switch his lisinopril and replace it with Entresto. Continue with Lasix 05/21/2018 Patient remains in the cartdiology team are following him closely 05/22/18 pt was started on Entresto and his lasix was increased from 20 mg to 40 mg BID, we will check BMP possible dc in 24/48 hours cardiology team are following him pt has less dyspnea and leg swelling CONSTITUTIONAL: No fever, no malaise, no fatigue. HEENT: No recent visual problems or hearing problems. Denied any sore throat. CARDIOVASCULAR: No orthopnea, PND, no palpitations, no syncope. PULMONARY: No shortness of breath, no cough, no hemoptysis. GASTROINTESTINAL: No diarrhea, no nausea, no vomiting, no abdominal pain. Normoactive bowel sounds. NEUROLOGICAL: No headaches, no weakness, no numbness. HEMATOLOGICAL: Denies any bleeding or petechiae. GENITOURINARY: Denies any burning micturition, frequency, or urgency. MUSCULOSKELETAL/RHEUMATOLOGICAL: Denies any joint pain, swelling, or any muscle pain. ENDOCRINE: Denies any polyuria or polydipsia. Medication: Cymbalta, Pepcid, Lasix, Synthroid, lisinopril, Lopressor, multivitamin, nitroglycerin, MiraLAX, potassium chloride, Lyrica, Xarelto. Objective - Vital Signs Vital signs: Vital Signs Temp 97.5 F L 05/22/18 16:00 Pulse 87 05/22/18 16:00 Resp 18 05/22/18 16:00 BP 129/98 05/22/18 16:00 Pulse Ox 95 05/22/18 16:00 Intake & Output 05/22/18 05/22/18 05/23/18 06:59 18:59 06:59 Intake Total 500 240 120 Balance 500 240 120 Weight 82.6 kg Intake: Oral 500 240 120 Other: Voiding Method Toilet Toilet # Voids 1 3 1 # Bowel Movements 0 - Exam GENERAL: The patient is alert and oriented x3, not in any acute distress. Well developed, well nourished. HEENT: Pupils are round and equally reacting to light. EOMI. No scleral icterus. No conjunctival pallor. Normocephalic, atraumatic. No pharyngeal erythema. No thyromegaly. CARDIOVASCULAR: S1 and S2 present. No murmurs, rubs, or gallops. -PULMONARY: Chest is clear to auscultation, bilateral basal crackles. ABDOMEN: Soft, nontender, nondistended, normoactive bowel sounds. No palpable organomegaly. MUSCULOSKELETAL: No joint swelling or deformity. EXTREMITIES: No cyanosis, clubbing, or pedal edema. NEUROLOGICAL: Gross neurological examination did not reveal any focal deficits. SKIN: No rashes. - Labs CBC & Chem 7: 05/20/18 06:04 05/21/18 05:58 Assessment and Plan Assessment: possible Acute systolic congestive heart failure History of recurrent hematuria. Patient supposed to follow up with his urologist Dr. Whelan upon discharge recurrent chronic atrial fibrillation with RVR, on anticoagulation. Rate is controlled myalgia with dry cough. History of coronary artery disease. History of CVA/TIA History of GERD Essential hypertension History of hypothyroidism Plan: This is a pleasant 82 years old male who presents with heart failure A. fib with RVR. Continue with diuretic. Cardiology R consulted and will be following the patient. also check influenza, pain management, will call Dr. Whelan his urologist for his hematuria. .Labs and medication were reviewed.. Continue same treatment. Continue with symptomatic treatment. Resume home medication. Monitor lytes and vitals. DVT and GI prophylaxis. Further recommendations of the clinical course of the patient DVT prophylaxis: xarelto GI Prophylaxis: Pepcid Prognosis is guarded
[2018-05-23] MEDS: LEVOTHYROXINE 100 MCG TAB PO SCH (07:01)
[2018-05-23] MEDS: SACUBITRIL/VALSARTAN 24 MG-26 MG TABLET PO SCH ×2 (08:41→22:07)
[2018-05-23] MEDS: DULoxetine HCL 20 MG CAPSULE.DR PO SCH (08:41)
[2018-05-23] MEDS: RIVAROXABAN 20 MG TAB PO SCH (08:41)
[2018-05-23] MEDS: FAMOTIDINE 20 MG TAB PO SCH ×2 (08:42→22:07)
[2018-05-23] MEDS: POTASSIUM CHLORIDE ER 10 MEQ TAB.ER.PRT PO SCH (08:42)
[2018-05-23] MEDS: FUROSEMIDE 40 MG TAB PO SCH ×2 (08:42→15:25)
[2018-05-23] MEDS: METOPROLOL TARTRATE 50 MG TAB PO SCH ×2 (08:42→22:07)
[2018-05-23 09:42] VITALS: RESP 18
--- NOTE | 2018-05-23 13:16 | P.PN ---
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 Patient was started already on Cardizem. Also patient complaining of frombilateral leg swelling. He has pain all over his legs abdomen some chest pressure and headache but no back pain. Patient starting diet well with no diarrhea or change in bowel habits. No nausea vomiting. Abdominal examination is benign with no tenderness. Patient however still complaining from hematuria and he supposed to follow up with Dr. Whelan next week. Vitas looks stable. CBC and BMP were unremarkable. Bilirubin is 1.5.urine analysis is suspicious for infection. Your urine culture is sent.chest x-ray showing bilateral vascular congestion and possible small left pleural effusion. Bilateral basilar opacity, suspicious for atelectasis versus pneumonia.clinical specialty rep team has been consulted in the emergency room. 05/20/2018 Patient continued to have dyspnea, he has difficulty finishing his sentences due to breathing difficulty. He has bilateral leg swelling. Blood pressure 143 /94 and dressed of Vitoss looks stable. Labs looked unremarkable including BMP and liver enzymes. Bilirubin 1.6. Patient still have T colored urine hematuria urine culture has been sent. Consult has been placed for urologist. Patient remains on Lasix and xarelto. Cardiology consult is appreciated and they switch his lisinopril and replace it with Entresto. Continue with Lasix 05/21/2018 Patient remains in the cartdiology team are following him closely 05/22/18 pt was started on Entresto and his lasix was increased from 20 mg to 40 mg BID, we will check BMP possible dc in 24/48 hours cardiology team are following him pt has less dyspnea and leg swelling 05/23/2018 Patient doing well at dressed with no dyspnea or pain. However he still didn't comment tachycardic at 130 bpm while with exertion. Cardiology team R following the patient and ingesting his medication. So discharge was held today. We'll check basic metabolic panel for him. Patient continue on Xarelto Discharge plan 24 hours Objective - Vital Signs Vital signs: Vital Signs Temp 97.6 F 05/23/18 12:00 Pulse 65 05/23/18 12:00 Resp 18 05/23/18 12:00 BP 106/73 05/23/18 12:00 Pulse Ox 100 05/23/18 12:00 Intake & Output 05/22/18 05/23/18 05/23/18 18:59 06:59 18:59 Intake Total 240 120 480 Output Total 600 0 Balance 240 -480 480 Weight 82.6 kg 81.8 kg Intake: Oral 240 120 480 Output: Urine 600 Stool 0 Other: Voiding Method Toilet Toilet Toilet # Voids 3 1 1 # Bowel Movements 0 0 - Exam GENERAL: The patient is alert and oriented x3, not in any acute distress. Well developed, well nourished. HEENT: Pupils are round and equally reacting to light. EOMI. No scleral icterus. No conjunctival pallor. Normocephalic, atraumatic. No pharyngeal erythema. No thyromegaly. CARDIOVASCULAR: S1 and S2 present. No murmurs, rubs, or gallops. -PULMONARY: Chest is clear to auscultation, bilateral basal crackles. ABDOMEN: Soft, nontender, nondistended, normoactive bowel sounds. No palpable organomegaly. MUSCULOSKELETAL: No joint swelling or deformity. EXTREMITIES: No cyanosis, clubbing, or pedal edema. NEUROLOGICAL: Gross neurological examination did not reveal any focal deficits. SKIN: No rashes. - Labs CBC & Chem 7: 05/20/18 06:04 05/21/18 05:58 Assessment and Plan Assessment: possible Acute systolic congestive heart failure History of recurrent hematuria. Patient supposed to follow up with his urologist Dr. Whelan upon discharge recurrent chronic atrial fibrillation with RVR, on anticoagulation. Rate is controlled myalgia with dry cough. History of coronary artery disease. History of CVA/TIA History of GERD Essential hypertension History of hypothyroidism Plan: This is a pleasant 82 years old male who presents with heart failure A. fib with RVR. Continue with diuretic. Cardiology R consulted and will be following the patient. also check influenza, pain management, will call Dr. Whelan his urologist for his hematuria. .Labs and medication were reviewed.. Continue same treatment. Continue with symptomatic treatment. Resume home medication. Monitor lytes and vitals. DVT and GI prophylaxis. Further recommendations of the clinical course of the patient DVT prophylaxis: xarelto GI Prophylaxis: Pepcid Prognosis is guarded
--- NOTE | 2018-05-23 15:06 | P.PN ---
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 This is the third admission for the patient within the past month, was admitted with atrial fibrillation and mild congestive cardiac failure. He again comes to the hospital on this occasion with symptoms of shortness of breath with lower extremity edema. Patient does live at home with his who has had a prior stroke. Chest x-ray on admission here shows some bibasilar opacities which may represent atelectasis versus pneumonia. Possible small left pleural effusion, pulmonary vascular congestion. EKG on arrival here showed atrial fibrillation with a moderately rapid ventricular response, heart rate in the 90s. Blood pressure on arrival here 108/80, heart rate in the 80s, white blood cell count is normal, hemoglobin 15, platelet count 232. INR 1.9, sodium 137, potassium 3.8, BUN 23, creatinine 0.9. Magnesium level 2.2, total bilirubin 1.5. Troponins were negative 3. BNP level 4300. At the time of my examination this morning, he is complaining of some mild shortness of breath. Currently on IV Cardizem drip at 5 mg per hour. We will discontinue the IV Cardizem drip today. Give the patient another dose of IV Lasix now. 05/21/2018 Patient was seen and examined this morning, overall he is feeling better, his breathing is stable. We will discontinue his lisinopril, start the patient on Entresto from tomorrow evening. Patient is currently on oral diuretics. Blood pressure 132/80 this morning with a heart rate in the 80s. 05/22/2018 Patient seen and examined this morning, overall doing well. Hemodynamically stable. Objective - Vital Signs Vital signs: Vital Signs Temp 97.6 F 05/23/18 12:00 Pulse 65 05/23/18 12:00 Resp 18 05/23/18 12:00 BP 106/73 05/23/18 12:00 Pulse Ox 100 05/23/18 12:00 Intake & Output 05/22/18 05/23/18 05/23/18 18:59 06:59 18:59 Intake Total 240 120 480 Output Total 600 0 Balance 240 -480 480 Weight 82.6 kg 81.8 kg Intake: Oral 240 120 480 Output: Urine 600 Stool 0 Other: Voiding Method Toilet Toilet Toilet # Voids 3 1 1 # Bowel Movements 0 0 - Exam PHYSICAL EXAMINATION: HEENT: [Head is atraumatic, normocephalic. Pupils equal, round. Neck is supple. There is no elevated jugular venous pressure.] HEART EXAMINATION: [Heart sounds irregularly irregular, S1 and S2 with a systolic murmur.] CHEST EXAMINATION:[ Lungs reveal faint crackles at bilateral bases. No chest wall tenderness is noted on palpation or with deep breathing.] ABDOMEN: [ Soft, nontender. Bowel sounds are heard. No organomegaly noted]. EXTREMITIES:[ 2+ peripheral pulses with evidence of trace peripheral edema and no calf tenderness noted]. NEUROLOGIC [patient is awake, alert and oriented x3.] - Labs CBC & Chem 7: 05/20/18 06:04 05/21/18 05:58 Assessment and Plan Plan: Assessment: #1 acute on chronic systolic congestive heart failure #2 persistent atrial fibrillation with mildly rapid ventricular response #3 hypertension #4 hyperlipidemia #5 hypothyroidism, recent TSH normal #6 prior CVA #7 nonobstructive CAD by catheterization performed 9 years ago Plan Patient will get his first dose of interest oh this evening, anticipating possible discharge home in the morning if stable. DNP note has been reviewed, I agree with a documented findings and plan of care. Patient was seen and examined.
[2018-05-23 15:13] LABS: Potassium 3.9 mmol/L (3.5-5.1)
--- NOTE | 2018-05-23 16:13 | P.PN ---
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 This is the third admission for the patient within the past month, was admitted with atrial fibrillation and mild congestive cardiac failure. He again comes to the hospital on this occasion with symptoms of shortness of breath with lower extremity edema. Patient does live at home with his who has had a prior stroke. Chest x-ray on admission here shows some bibasilar opacities which may represent atelectasis versus pneumonia. Possible small left pleural effusion, pulmonary vascular congestion. EKG on arrival here showed atrial fibrillation with a moderately rapid ventricular response, heart rate in the 90s. Blood pressure on arrival here 108/80, heart rate in the 80s, white blood cell count is normal, hemoglobin 15, platelet count 232. INR 1.9, sodium 137, potassium 3.8, BUN 23, creatinine 0.9. Magnesium level 2.2, total bilirubin 1.5. Troponins were negative 3. BNP level 4300. At the time of my examination this morning, he is complaining of some mild shortness of breath. Currently on IV Cardizem drip at 5 mg per hour. We will discontinue the IV Cardizem drip today. Give the patient another dose of IV Lasix now. 05/21/2018 Patient was seen and examined this morning, overall he is feeling better, his breathing is stable. We will discontinue his lisinopril, start the patient on Entresto from tomorrow evening. Patient is currently on oral diuretics. Blood pressure 132/80 this morning with a heart rate in the 80s. 05/22/2018 Patient seen and examined this morning, overall doing well. Hemodynamically stable. 03/22/2019 Patient seen and examined this morning, seems to be tolerating the Entresto well , blood pressure is stable. Anticipating discharge home today. Objective - Vital Signs Vital signs: Vital Signs Temp 96.7 F L 05/23/18 15:47 Pulse 60 05/23/18 15:57 Resp 18 05/23/18 15:57 BP 105/65 05/23/18 15:47 Pulse Ox 94 L 05/23/18 15:47 Intake & Output 05/22/18 05/23/1805/23/19 18:59 06:59 18:59 Intake Total 240 120 480 Output Total 600 0 Balance 240 -480 480 Weight 82.6 kg 81.8 kg Intake: Oral 240 120 480 Output: Urine 600 Stool 0 Other: Voiding Method Toilet Toilet Toilet # Voids 3 1 1 # Bowel Movements 0 0 - Exam PHYSICAL EXAMINATION: HEENT: [Head is atraumatic, normocephalic. Pupils equal, round. Neck is supple. There is no elevated jugular venous pressure.] HEART EXAMINATION: [Heart sounds irregularly irregular, S1 and S2 with a systolic murmur.] CHEST EXAMINATION:[ Lungs reveal faint crackles at bilateral bases. No chest wall tenderness is noted on palpation or with deep breathing.] ABDOMEN: [ Soft, nontender. Bowel sounds are heard. No organomegaly noted]. EXTREMITIES:[ 2+ peripheral pulses with evidence of trace peripheral edema and no calf tenderness noted]. NEUROLOGIC [patient is awake, alert and oriented x3.] - Labs CBC & Chem 7: 05/20/18 06:04 05/23/18 14:27 Labs: Abnormal Lab Results - Last 24 Hours (Table) 05/23/18 Range/Units 14:27 Chloride 97 L (98-107) mmol/L Carbon Dioxide 34 H (22-30) mmol/L BUN 22 H (9-20) mg/dL Glucose 132 H (74-99) mg/dL Assessment and Plan Plan: Assessment: #1 acute on chronic systolic congestive heart failure #2 persistent atrial fibrillation with mildly rapid ventricular response #3 hypertension #4 hyperlipidemia #5 hypothyroidism, recent TSH normal #6 prior CVA #7 nonobstructive CAD by catheterization performed 9 years ago Plan From cardiology's perspective, patient may be able to be discharged home once cleared by primary. We will make him a follow-up appointment in the office post discharge. DNP note has been reviewed, I agree with a documented findings and plan of care. Patient was seen and examined.
[2018-05-23] MEDS: PREGABALIN 50 MG CAP PO SCH (22:07)
[2018-05-24] MEDS: LEVOTHYROXINE 100 MCG TAB PO SCH (06:45)
[2018-05-24] MEDS: POTASSIUM CHLORIDE ER 10 MEQ TAB.ER.PRT PO SCH (08:41)
[2018-05-24] MEDS: FUROSEMIDE 40 MG TAB PO SCH (08:41)
[2018-05-24] MEDS: SACUBITRIL/VALSARTAN 24 MG-26 MG TABLET PO SCH (08:41)
[2018-05-24] MEDS: DULoxetine HCL 20 MG CAPSULE.DR PO SCH (08:41)
[2018-05-24] MEDS: RIVAROXABAN 20 MG TAB PO SCH (08:41)
[2018-05-24] MEDS: FAMOTIDINE 20 MG TAB PO SCH (08:42)
[2018-05-24] MEDS: METOPROLOL TARTRATE 50 MG TAB PO SCH (08:42)
[2018-05-24] MEDS: ACETAMINOPHEN TAB 325 MG TAB PO PRN (10:01)
[2018-05-24 10:07] VITALS: BP 123/79; PULSE 116; TEMP 97
== END 2018-05-24 10:08 | disposition home or self-care (01) | DRG 292 ==
LOC: EC 00:04 → 3SCARD 04:31 → OBSVTOIN 05-20 14:10
PROVIDERS: ADMIT Hospitalist; ATTEND Hospitalist
DX: I11.0 Hypertensive heart disease with heart failure (principal); I48.1 Persistent atrial fibrillation; N02.9 Recurrent and persistent hematuria with unspecified morphologic changes; I50.23 Acute on chronic systolic (congestive) heart failure; E03.9 Hypothyroidism, unspecified; E78.5 Hyperlipidemia, unspecified; I25.10 Atherosclerotic heart disease of native coronary artery without angina pectoris; I25.2 Old myocardial infarction; K21.9 Gastro-esophageal reflux disease without esophagitis; N40.1 Benign prostatic hyperplasia with lower urinary tract symptoms; M19.90 Unspecified osteoarthritis, unspecified site; Z79.01 Long term (current) use of anticoagulants; Z79.890 Hormone replacement therapy; Z79.899 Other long term (current) drug therapy; Z85.828 Personal history of other malignant neoplasm of skin; Z86.73 Personal history of transient ischemic attack (TIA), and cerebral infarction without residual deficits; Z87.01 Personal history of pneumonia (recurrent); Z98.42 Cataract extraction status, left eye; Z98.41 Cataract extraction status, right eye; Z96.1 Presence of intraocular lens; Z80.0 Family history of malignant neoplasm of digestive organs; Z80.8 Family history of malignant neoplasm of other organs or systems; Z83.79 Family history of other diseases of the digestive system
CPT/HCPCS: 36415; 71045; 71046; 80048; 80053; 80061; 80076; 81001; 82550; 82553; 83880; 84484; 85025; 85610; 85730; 87086; 93005; 94760; 96365; 96375; 96376; 99285

== ENCOUNTER 2018-08-18 13:10 | Emergency (ER) | payer MEDICARE ==
--- NOTE | 2018-08-18 13:28 | ED ---
General Adult HPI - General Stated complaint: syncopal episode Time Seen by Provider: 08/18/18 13:12 Source: patient, EMS, RN notes reviewed, old records reviewed Mode of arrival: EMS - History of Present Illness Initial comments: 83-year-old male presents with suspected syncopal episode. Patient was outside doing some yard work, found by son on a bench unconscious. Patient recalls laying his head down on the bandage. Does not report any injury or pain complaints time my evaluation. He has history of cardiomyopathy currently evaluating implantable defibrillator. He is instructed to wear a LifeVest but has not been wearing this As he states it irritates his skin. Denies any preceding chest pain or palpitations. He is currently anticoagulated with history of atrial fibrillation. No nausea vomiting. No diarrhea. No fever or chills. No chest pain or dyspnea. Patient has no complaints time my evaluation. - Related Data Home Medications Medication Instructions Recorded Confirmed Levothyroxine Sodium [Synthroid] 100 mcg PO DAILY 02/12/17 08/18/18 Multivitamins, Thera [Multivitamin 1 tab PO DAILY 05/06/18 08/18/18 (formulary)] Rivaroxaban [Xarelto] 20 mg PO DAILY 05/06/18 08/18/18 Atorvastatin [Lipitor] 40 mg PO DAILY 08/18/18 08/18/18 Cholecalciferol [Vitamin D3 (25 5,000 unit PO DAILY 08/18/18 08/18/18 Mcg = 1000 Iu)] Clopidogrel Bisulfate [Plavix] 75 mg PO DAILY 08/18/18 08/18/18 Digoxin [Lanoxin] 125 mcg PO DAILY 08/18/18 08/18/18 Finasteride [Proscar] 5 mg PO DAILY 08/18/18 08/18/18 Furosemide [Lasix] 20 mg PO DAILY 08/18/18 08/18/18 Metoprolol Succinate (ER) [Toprol 100 mg PO DAILY 08/18/18 08/18/18 Xl] Pantoprazole [Protonix] 40 mg PO DAILY 08/18/18 08/18/18 Sacubitril/Valsartan [Entresto 24 1 tab PO BID 08/18/18 08/18/18 mg-26 mg Tablet] Tamsulosin HCl [Flomax] 0.4 mg PO DAILY 08/18/18 08/18/18 Ticagrelor [Brilinta] 90 mg PO BID 08/18/18 08/18/18 Triamcinolone 0.1% Cream [Kenalog 1 applic TOPICAL BID PRN 08/18/18 08/18/18 0.1% Cream] Allergies Allergy/AdvReac Type Severity Reaction Status Date / Time No Known Allergies Allergy Verified 08/18/18 14:12 Review of Systems ROS Statement: Those systems with pertinent positive or pertinent negative responses have been documented in the HPI. ROS Other: All systems not noted in ROS Statement are negative. Past Medical History Past Medical History: Atrial Fibrillation, Cancer, CVA/TIA, GERD/Reflux, Hypertension, Myocardial Infarction (ND), Osteoarthritis (OA), Thyroid Disorder Additional Past Medical History / Comment(s): TIA possible CVA per pt, ND-per EKG, bronchitis, hypothyroid, skin cancer with removals Last Myocardial Infarction Date:: unk History of Any Multi-Drug Resistant Organisms: None Reported Past Surgical History: Hernia Repair, Orthopedic Surgery, Tonsillectomy Additional Past Surgical History / Comment(s): Bilateral cataract removal, arely inguinal hernia repair, hiatal hernia surgery, 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 Past Anesthesia/Blood Transfusion Reactions: No Reported Reaction Past Psychological History: No Psychological Hx Reported Smoking Status: Never smoker Past Alcohol Use History: None Reported Past Drug Use History: None Reported - Past Family History Father Family Medical History: Liver Disease Additional Family Medical History / Comment(s): Father was a drinker and had liver cirrhosis from which he of at the age of 52yrs. Mother Family Medical History: Cancer Additional Family Medical History / Comment(s): Mother had throat cancer and of this at the age of 87yrs. Sister(s) Family Medical History: Cancer Additional Family Medical History / Comment(s): STOMACH CANCER General Exam General appearance: alert, in no apparent distress Head exam: Present: atraumatic, normocephalic Eye exam: Present: normal appearance, PERRL ENT exam: Present: normal exam Neck exam: Present: normal inspection. Absent: tenderness, meningismus Respiratory exam: Present: normal lung sounds bilaterally. Absent: respiratory distress, wheezes, rales Cardiovascular Exam: Present: regular rate, irregular rhythm GI/Abdominal exam: Present: soft. Absent: distended, tenderness, guarding Extremities exam: Present: normal inspection, normal capillary refill. Absent: pedal edema Neurological exam: Present: alert, oriented X3, CN II-XII intact. Absent: motor sensory deficit Psychiatric exam: Present: normal affect, normal mood Skin exam: Present: warm, dry, intact. Absent: cyanosis, diaphoretic Course Vital Signs 08/18/18 13:17 Temperature 97.4 F L Pulse Rate 62 Respiratory 18 Rate Blood Pressure 115/78 O2 Sat by Pulse 97 Oximetry EKG Findings - EKG Comments: EKG Findings:: EKG: Atrial fibrillation with PVC, rate of 73, left axis deviation, left bundle branch block, QRS duration 122, QTC 462 Medical Decision Making - Medical Decision Making 83-year-old male presenting with likely syncopal episode patient has significant cardiac history including cardiomyopathy and is been instructed to wear a LifeVest. He was not wearing this. He was awake and alert time my evaluation. He was in atrial fibrillation, stable vitals otherwise. Patient's has normal CBC, normal CMP, troponin is negative. Urinalysis is hemorrhagic patient states he has history of this and follows with urology. Chest x-ray is obtained, negative for acute cardiopulmonary disease, head CT negative for intracranial hemorrhage or mass effect. I did have a long discussion with the patient regarding his presentation and the need to wear his LifeVest. I prefers patient be discussed with cardiology to see however he declines. He will LifeVest on when he gets home. He is eager for discharge. His son and daughter at bedside and they are agreeable. - Lab Data Result diagrams: 08/18/18 13:25 08/18/18 13:25 Lab Results 08/18/18 08/18/18 08/18/18 Range/Units 13:25 13:25 13:25 WBC 7.2 (3.8-10.6) k/uL RBC 4.75 (4.30-5.90) m/uL Hgb 13.9 (13.0-17.5) gm/dL Hct 44.4 (39.0-53.0) % MCV 93.5 (80.0-100.0) fL MCH 29.2 (25.0-35.0) pg MCHC 31.3 (31.0-37.0) g/dL RDW 14.6 (11.5-15.5) % Plt Count 245 (150-450) k/uL Neutrophils % 70 % Lymphocytes % 17 % Monocytes % 6 % Eosinophils % 5 % Basophils % 1 % Neutrophils # 5.0 (1.3-7.7) k/uL Lymphocytes # 1.2 (1.0-4.8) k/uL Monocytes # 0.4 (0-1.0) k/uL Eosinophils # 0.3 (0-0.7) k/uL Basophils # 0.1 (0-0.2) k/uL PT 12.9 H (9.0-12.0) sec INR 1.3 H (<1.2) APTT 25.2 (22.0-30.0) sec Sodium 139 (137-145) mmol/L Potassium 3.9 (3.5-5.1) mmol/L Chloride 107 (98-107) mmol/L Carbon Dioxide 27 (22-30) mmol/L Anion Gap 5 mmol/L BUN 16 (9-20) mg/dL Creatinine 0.97 (0.66-1.25) mg/dL Est GFR (CKD-EPI)AfAm 84 (>60 ml/min/1.73 sqM) Est GFR (CKD-EPI)NonAf 73 (>60 ml/min/1.73 sqM) Glucose 122 H (74-99) mg/dL Calcium 8.8 (8.4-10.2) mg/dL Magnesium 1.8 (1.6-2.3) mg/dL Total Bilirubin 0.9 (0.2-1.3) mg/dL AST 38 (17-59) U/L ALT 21 (21-72) U/L Alkaline Phosphatase 47 (38-126) U/L Troponin I (0.000-0.034) ng/mL Total Protein 5.9 L (6.3-8.2) g/dL Albumin 3.4 L (3.5-5.0) g/dL Urine Color Urine Appearance (Clear) Urine pH (5.0-8.0) Ur Specific Chelsea (1.001-1.035) Urine Protein (Negative) Urine Glucose (UA) (Negative) Urine Ketones (Negative) Urine Blood (Negative) Urine Nitrite (Negative) Urine Bilirubin (Negative) Urine Urobilinogen (<2.0) mg/dL Ur Leukocyte Esterase (Negative) Urine RBC (0-5) /hpf Urine WBC (0-5) /hpf Urine Bacteria (None) /hpf Hyaline Casts (0-2) /lpf Urine Mucus (None) /hpf 08/18/18 08/18/18 Range/Units 13:25 14:32 WBC (3.8-10.6) k/uL RBC (4.30-5.90) m/uL Hgb (13.0-17.5) gm/dL Hct (39.0-53.0) % MCV (80.0-100.0) fL MCH (25.0-35.0) pg MCHC (31.0-37.0) g/dL RDW (11.5-15.5) % Plt Count (150-450) k/uL Neutrophils % % Lymphocytes % % Monocytes % % Eosinophils % % Basophils % % Neutrophils # (1.3-7.7) k/uL Lymphocytes # (1.0-4.8) k/uL Monocytes # (0-1.0) k/uL Eosinophils # (0-0.7) k/uL Basophils # (0-0.2) k/uL PT (9.0-12.0) sec INR (<1.2) APTT (22.0-30.0) sec Sodium (137-145) mmol/L Potassium (3.5-5.1) mmol/L Chloride (98-107) mmol/L Carbon Dioxide (22-30) mmol/L Anion Gap mmol/L BUN (9-20) mg/dL Creatinine (0.66-1.25) mg/dL Est GFR (CKD-EPI)AfAm (>60 ml/min/1.73 sqM) Est GFR (CKD-EPI)NonAf (>60 ml/min/1.73 sqM) Glucose (74-99) mg/dL Calcium (8.4-10.2) mg/dL Magnesium (1.6-2.3) mg/dL Total Bilirubin (0.2-1.3) mg/dL AST (17-59) U/L ALT (21-72) U/L Alkaline Phosphatase (38-126) U/L Troponin I <0.012 (0.000-0.034) ng/mL Total Protein (6.3-8.2) g/dL Albumin (3.5-5.0) g/dL Urine Color Dark Brown Urine Appearance Cloudy (Clear) Urine pH 5.5 (5.0-8.0) Ur Specific Chelsea 1.025 (1.001-1.035) Urine Protein 2+ H (Negative) Urine Glucose (UA) Negative (Negative) Urine Ketones Negative (Negative) Urine Blood Large H (Negative) Urine Nitrite Negative (Negative) Urine Bilirubin Negative (Negative) Urine Urobilinogen <2.0 (<2.0) mg/dL Ur Leukocyte Esterase Small H (Negative) Urine RBC >182 H (0-5) /hpf Urine WBC 11 H (0-5) /hpf Urine Bacteria Few H (None) /hpf Hyaline Casts 86 H (0-2) /lpf Urine Mucus Many H (None) /hpf Disposition Clinical Impression: Syncope Disposition: HOME SELF-CARE Condition: Fair Instructions (If sedation given, give patient instructions): Syncope (ED) Additional Instructions: 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
[2018-08-18 13:36] LABS: Basophils # (A) 0.1 k/uL (0-0.2); Basophils % (A) 1 %; Eosinophils # (A) 0.3 k/uL (0-0.7); Eosinophils % (A) 5 %; HCT 44.4 % (39.0-53.0); HGB 13.9 gm/dL (13.0-17.5); Lymphocytes # (A) 1.2 k/uL (1.0-4.8); Lymphocytes % (A) 17 %; MCH 29.2 pg (25.0-35.0); MCHC 31.3 g/dL (31.0-37.0); MCV 93.5 fL (80.0-100.0); Monocytes # (A) 0.4 k/uL (0-1.0); Monocytes % (A) 6 %; Neutrophils % (A) 70 %; Platelet Count 245 k/uL (150-450); RBC 4.75 m/uL (4.30-5.90); RDW 14.6 % (11.5-15.5); WBC 7.2 k/uL (3.8-10.6)
[2018-08-18 13:45] LABS: Albumin 3.4 g/dL (3.5-5.0); Calcium 8.8 mg/dL (8.4-10.2); Magnesium 1.8 mg/dL (1.6-2.3); Potassium 3.9 mmol/L (3.5-5.1); Total Bilirubin 0.9 mg/dL (0.2-1.3); Total Protein 5.9 g/dL (6.3-8.2)
[2018-08-18 13:51] LABS: INR 1.3 (<1.2); Partial Thromboplastin Time 25.2 sec (22.0-30.0); Prothrombin Time 12.9 sec (9.0-12.0)
--- NOTE | 2018-08-18 14:19 | XR ---
EXAMINATION TYPE: XR chest 2V DATE OF EXAM: 08/18/2018 COMPARISON: 05/21/2018 TECHNIQUE: Frontal view of the chest is submitted. HISTORY: Syncope FINDINGS: The lungs are clear and there is no pneumothorax, pleural effusion, or focal pneumonia. Arthropathy of the shoulders. No overt failure. IMPRESSION: 1. No acute process.
--- NOTE | 2018-08-18 14:59 | CT ---
EXAMINATION TYPE: CT brain wo con DATE OF EXAM: 08/18/2018 COMPARISON: 02/12/2017 HISTORY: 83-year-old male near syncopal episode today. Weakness and dizziness TECHNIQUE: Examination was done in axial plane without intravenous contrast. Coronal and sagittal r econstructions performed. CT DLP: 1099.4 mGycm Automated exposure control for dose reduction was used. FINDINGS: There is no evidence of acute intracranial hemorrhage, acute ischemic changes, mass, mass-effect, or extra-axial fluid collection. There is no effacement of cerebral sulci or basal subarachnoid cister ns. There is no hydrocephalus. There is no midline shift. Zuleta-white matter distinction is preserv ed. Mild to moderate generalized supratentorial volume loss. Moderate patchy and confluent white matter h ypodensities in both cerebral hemispheres. Minimal benign basal ganglionic calcifications. Assess for calcifications of the carotid siphons. Trace mucosal thickening ethmoid air cells. Mastoid air cells well pneumatized. IMPRESSION: Mild generalized atrophy in moderate changes of chronic small vessel ischemic disease. No acute intra cranial abnormality seen.
[2018-08-18 15:18] LABS: Appearance,Urine Cloudy (Clear); Bacteria,Urine Few /hpf; Bilirubin,Urine Negative (Negative); Blood,Urine Large (Negative); Color,Urine Dark Brown; Glucose,Urine (UA) Negative (Negative); Hyaline Casts,Urine 86 /lpf (0-2); Ketones,Urine Negative (Negative); Leukocyte Esterase,Urine Small (Negative); Mucus,Urine Many /hpf; Nitrite,Urine Negative (Negative); PH, Urine 5.5 (5.0-8.0); Protein,Urine 2+ (Negative); RBC,Urine >182 /hpf (0-5); Specific Gravity,Urine 1.025 (1.001-1.035); Urobilinogen,Urine <2.0 mg/dL (<2.0); WBC,Urine 11 /hpf (0-5)
[2018-08-18 16:25] VITALS: RESP 16; TEMP 98
[2018-08-18 16:26] VITALS: BP 143/96; PULSE 70
== END 2018-08-18 16:00 | disposition home or self-care (01) ==
LOC: EC 13:10
DX: R55 Syncope and collapse (principal); I48.91 Unspecified atrial fibrillation; K21.9 Gastro-esophageal reflux disease without esophagitis; I25.2 Old myocardial infarction; E03.9 Hypothyroidism, unspecified; I11.9 Hypertensive heart disease without heart failure; I43 Cardiomyopathy in diseases classified elsewhere; Z85.828 Personal history of other malignant neoplasm of skin; Z86.73 Personal history of transient ischemic attack (TIA), and cerebral infarction without residual deficits; Z95.810 Presence of automatic (implantable) cardiac defibrillator; Z53.29 Procedure and treatment not carried out because of patient's decision for other reasons; Z79.890 Hormone replacement therapy; Z79.01 Long term (current) use of anticoagulants; Z79.02 Long term (current) use of antithrombotics/antiplatelets; Z79.899 Other long term (current) drug therapy
CPT/HCPCS: 36415; 70450; 71046; 80053; 81001; 83735; 84484; 85025; 85610; 85730; 93005; 99285

== ENCOUNTER → 2018-10-14 | Outpatient (CLI) | payer MEDICARE ==
--- NOTE | 2018-10-14 15:53 | FL ---
EXAMINATION TYPE: FL barium swallow DATE OF EXAM: 10/14/2018 CLINICAL HISTORY: Gastroesophageal reflux disease. History of blood clots with coughing. History of N issan fundoplication is reported. TECHNIQUE: A double contrast esophagram is performed utilizing air and barium. Fluoroscopy time: 1 minute 21 seconds. Images: 16 FINDINGS: Esophagus appears somewhat patulous. No intraluminal or extramural defect is evident. At th e gastroesophageal junction there is a patulous appearance. The contrast stream then narrows through what is presumed to be the Hussain fundoplication. No significant hesitancy passing through this regio n is evident. IMPRESSION: 1. Patulous esophagus with a prior Hussain fundoplication. There is narrowing through the gastroesopha geal junction without significant hesitancy or stenosis.
== END | disposition home or self-care (01) ==
LOC: RADUSWWP 10:50
PROVIDERS: ATTEND Surgery
DX: K21.9 Gastro-esophageal reflux disease without esophagitis (principal)
CPT/HCPCS: 74220

== ENCOUNTER 2019-05-08 10:14 | Day surgery (SDC) | payer MEDICARE ==
[~2019-05-08 10:14] MED LIST: LACTATED RINGERS 1,000 ML IV SCH; LIDOCAINE 1% 20 ML VIAL (10MG/ML) FOR IV START INTRADERMA PRN
[2019-05-08 10:47] VITALS: TEMP 97.5
[2019-05-08] MEDS ORDERED: LIDOCAINE 1% INJ 10MG/ML (20 ML MDV) ONE (11:34)
[2019-05-08] MEDS ORDERED: PROPOFOL 10 MG/ML 20 ML VIAL IV ONE (11:34)
--- NOTE | 2019-05-08 11:38 | P.GSHP ---
History of Present Illness H&P Date: 05/08/19 Chief Complaint: Dysphagia, upper GI bleed This 83-year-old male who presents today for EGD. He's had issues with progressive dysphagia. He is also had a upper GI bleed right vomited up a clot. Past Medical History Past Medical History: Atrial Fibrillation, Cancer, CVA/TIA, GERD/Reflux, Hypertension, Myocardial Infarction (CT), Osteoarthritis (OA), Thyroid Disorder Additional Past Medical History / Comment(s): DYSPHAGIA. 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 Mother Family Medical History: Cancer Additional Family Medical History / Comment(s): Mother had throat cancer and of this at the age of 87yrs. Sister(s) Family Medical History: Cancer Additional Family Medical History / Comment(s): STOMACH CANCER Medications and Allergies Home Medications Medication Instructions Recorded Confirmed Type Levothyroxine Sodium [Synthroid] 100 mcg PO QAM 02/12/17 05/08/19 History Rivaroxaban [Xarelto] 20 mg PO DAILY 05/06/18 05/08/19 History Clopidogrel Bisulfate [Plavix] 75 mg PO DAILY 08/18/18 05/08/19 History Furosemide [Lasix] 20 mg PO DAILY PRN 08/18/18 05/08/19 History Sacubitril/Valsartan [Entresto 24 1 tab PO BID 08/18/18 05/08/19 History mg-26 mg Tablet] Triamcinolone 0.1% Cream [Kenalog 1 applic TOPICAL BID PRN 08/18/18 05/08/19 History 0.1% Cream] Metoprolol Succinate (ER) [Toprol 50 mg PO QAM 05/05/19 05/08/19 History XL] Allergies Allergy/AdvReac Type Severity Reaction Status Date / Time No Known Allergies Allergy Verified 05/08/19 10:40 Surgical - Exam Vital Signs Temp Pulse Resp BP Pulse Ox 97.5 F L 82 16 158/102 98 05/08/19 10:41 05/08/19 10:41 05/08/19 10:41 05/08/19 10:41 05/08/19 10:41 - General well developed, well nourished, no distress - Eyes PERRL - ENT normal pinna - Neck no masses - Respiratory normal expansion - Cardiovascular Rhythm: regular - Abdomen Abdomen: soft, non tender Assessment and Plan Assessment: GERD, upper GI bleed. We'll perform EGD.
--- NOTE | 2019-05-08 11:50 | P.OP ---
Date of Procedure: 05/08/19 Preoperative Diagnosis: Dysphagia Postoperative Diagnosis: Antral gastritis Possible slipped fundoplication Procedure(s) Performed: EGD Anesthesia: MAC Surgeon: Edwar Seymour Pathology: other (Antrum) Condition: stable Disposition: PACU Description of Procedure: Patient's placed on the endoscopy table lateral position. He received IV sedation. The gastroscope placed oropharynx passed in the esophagus and into the stomach. Scope was then placed through the pylorus. The first and second portion of the duodenum appeared normal. Scope was then brought back the antrum and this was mildly inflamed. A biopsies performed. Scope was unretroflexed. It appeared that the fundoplication wrap was just below the GE junction. Scope was then brought back and the proximal stomach was visualized. The GE junction was at 40 cm. The distal esophagus appeared normal. The proximal esophagus. Normal. Scope was withdrawn for patient.
[2019-05-08 12:08] VITALS: BP 155/97
[2019-05-08 12:20] VITALS: PULSE 93; RESP 18
== END 2019-05-08 13:06 | disposition home or self-care (01) ==
LOC: ORWHC2ENDO 10:14
PROVIDERS: ATTEND Surgery
DX: K29.50 Unspecified chronic gastritis without bleeding (principal); K92.2 Gastrointestinal hemorrhage, unspecified; R13.10 Dysphagia, unspecified; I10 Essential (primary) hypertension; E03.9 Hypothyroidism, unspecified; K21.9 Gastro-esophageal reflux disease without esophagitis; I48.91 Unspecified atrial fibrillation; Z86.73 Personal history of transient ischemic attack (TIA), and cerebral infarction without residual deficits; Z80.8 Family history of malignant neoplasm of other organs or systems; I25.2 Old myocardial infarction; M19.90 Unspecified osteoarthritis, unspecified site; Z85.828 Personal history of other malignant neoplasm of skin; Z98.42 Cataract extraction status, left eye; Z98.41 Cataract extraction status, right eye; Z79.01 Long term (current) use of anticoagulants; Z79.02 Long term (current) use of antithrombotics/antiplatelets; Z79.890 Hormone replacement therapy; Z79.899 Other long term (current) drug therapy
CPT/HCPCS: 88305; 43239; J2001; J2704

== ENCOUNTER → 2020-05-23 | Outpatient (CLI) | payer MEDICARE ==
--- NOTE | 2020-06-28 10:17 | EM ---
This is a report on 30 day event monitor and patient wore the monitor for only 16 days. Baseline EKG showed atrial fibrillation with average heart rate in the range of 80-90. Patient had occasional fast response with rates up to 140. Occasional PVCs are noted. No sustained ventricular arrhythmias are noted. No bloody episodes or pauses noted . No symptoms reported. Final impression #1. Baseline rhythm is atrial fibrillation with heart rate mostly in the range of 80-90 with occasional tachycardia episodes up to 138. #2. No bradyarrhythmias or pauses. #3. Occasional PVCs. #4. No symptoms reported MTDD
== END | disposition home or self-care (01) ==
LOC: RADECHMAIN 12:16
PROVIDERS: ATTEND Family Medicine
DX: I48.91 Unspecified atrial fibrillation (principal)
CPT/HCPCS: 93270

== ENCOUNTER → 2020-05-30 | Outpatient (CLI) | payer MEDICARE ==
--- NOTE | 2020-05-30 12:34 | ECHOF ---
Referral Reason:I42.0 cardiomyopathy MEASUREMENTS -------- HEIGHT: 177.8 cm WEIGHT: 77.1 kg BP: 119/79 RVIDd: 2.4 cm (< 3.3) IVSd: 1.5 cm (0.6 - 1.1) LVIDd: 4.7 cm (3.9 - 5.3) LVPWd: 1.5 cm (0.6 - 1.1) IVSs: 1.8 cm LVIDs: 3.9 cm LVPWs: 1.7 cm LA Diam: 4.6 cm (2.7 - 3.8) LAESV Index (A-L): 62.34 ml/m Ao Diam: 3.5 cm (2.0 - 3.7) AV Cusp: 1.5 cm (1.5 - 2.6) MV EXCURSION: 17.766 mm (> 18.000) MV EF SLOPE: 79 mm/s (70 - 150) EPSS: 1.1 cm AV maxP.96 mmHg AV meanP.13 mmHg AR PHT: 792 ms RAP: 5.00 mmHg RVSP: 27.95 mmHg FINDINGS -------- Atrial fibrillation. This was a technically good study. The left ventricular size is normal. There is moderate concentric left ventricular hypertrophy. O verall left ventricular systolic function is moderate-severely impaired with, an EF between 30 - 35 % . The right ventricle is normal in size. LA is severely dilated >40 ml/m2 The right atrium is normal in size. Interatrial and interventricular septum intact. There is mild to moderate aortic valve sclerosis. There is moderate aortic regurgitation. There i s mild aortic stenosis present. Peak/mean gradient across the Aortic Valve is 11.96mmHg / 6.13mmHg. The mitral valve leaflets are mildly thickened. Mild mitral annular calcification present. Mild m itral regurgitation is present. Mild tricuspid regurgitation present. Right ventricular systolic pressure is normal at < 35 mmHg. Trace/mild (physiologic) pulmonic regurgitation. The aortic root size is normal. Normal inferior vena cava with normal inspiratory collapse consistent with estimated right atrial pre ssure of 5 mmHg. There is no pericardial effusion. CONCLUSIONS -------- 1. The left ventricular size is normal. 2. There is moderate concentric left ventricular hypertrophy. 3. Overall left ventricular systolic function is moderate-severely impaired with, an EF between 30 - 35 %. 4. LA is severely dilated >40 ml/m2 5. There is mild to moderate aortic valve sclerosis. 6. There is moderate aortic regurgitation. 7. There is mild aortic stenosis present. 8. Peak/mean gradient across the Aortic Valve is 11.96mmHg / 6.13mmHg. 9. The mitral valve leaflets are mildly thickened. 10. Mild mitral annular calcification present. 11. Mild mitral regurgitation is present. 12. Mild tricuspid regurgitation present. 13. Trace/mild (physiologic) pulmonic regurgitation. 14. There is no pericardial effusion. CELLOPHANE WRAPPING EXAMINER: ARELIS Cary
== END | disposition home or self-care (01) ==
LOC: RADECHMAIN 11:24
PROVIDERS: ATTEND Internal Medicine
DX: I42.0 Dilated cardiomyopathy (principal); I48.91 Unspecified atrial fibrillation
CPT/HCPCS: 93306

== ENCOUNTER 2020-10-11 12:18 | Observation (INO) | payer MEDICARE ==
[2020-10-11] MEDS ORDERED: SODIUM CHLORIDE 0.9% 500 ML 500 ML IV STA (12:30)
--- NOTE | 2020-10-11 12:32 | ED ---
General Adult HPI - General Stated complaint: syncope Time Seen by Provider: 10/11/20 12:20 Source: patient, RN notes reviewed, old records reviewed - History of Present Illness Initial comments: This is an 85-year-old male who presents emergency department after having had 3 syncopal episodes in the doctor's office. Patient stated he felt dizzy in the office and then passed out and onto more other occasions he passed out as well. Patient came to feeling back to his baseline each time. Patient denies any headache patient denies any lightheadedness or dizziness currently. Patient denies any chest pain palpitations difficulty breathing shortness of breath per patient denies any recent fever chills or cough. Patient denies any history of anemia. Patient denies any black or bloody stools. Patient denies any edema to his legs. - Related Data Home Medications Medication Instructions Recorded Confirmed Levothyroxine Sodium [Synthroid] 100 mcg PO QAM 02/12/17 10/11/20 Sacubitril/Valsartan [Entresto 24 1 tab PO BID 08/18/18 10/11/20 mg-26 mg Tablet] Triamcinolone 0.1% Cream [Kenalog 1 applic TOPICAL BID PRN 08/18/18 10/11/20 0.1% Cream] Metoprolol Succinate (ER) [Toprol 50 mg PO Q48H 05/05/19 10/11/20 XL] Allergies Allergy/AdvReac Type Severity Reaction Status Date / Time No Known Allergies Allergy Verified 05/08/19 10:40 Review of Systems ROS Statement: Those systems with pertinent positive or pertinent negative responses have been documented in the HPI. ROS Other: All systems not noted in ROS Statement are negative. Past Medical History Past Medical History: Atrial Fibrillation, Cancer, CVA/TIA, GERD/Reflux, Hypertension, Myocardial Infarction ([place]), Osteoarthritis (OA), Thyroid Disorder Additional Past Medical History / Comment(s): DYSPHAGIA. TIA possible CVA per pt, [place]-per EKG, bronchitis, hypothyroid, skin cancer with removals Last Myocardial Infarction Date:: unk History of Any Multi-Drug Resistant Organisms: None Reported Past Surgical History: Hernia Repair, Orthopedic Surgery, Tonsillectomy Additional Past Surgical History / Comment(s): Bilateral cataract removal, arely inguinal hernia repair, hiatal hernia surgery, skin cancer (basal and squamous cell) removals, colonoscopy, arely carpal tunnel release, rt upper thigh inury has plastic INSERT UNDER SKIN Past Anesthesia/Blood Transfusion Reactions: No Reported Reaction Past Psychological History: No Psychological Hx Reported Past Alcohol Use History: None Reported Past Drug Use History: None Reported - Past Family History Father Family Medical History: Liver Disease Additional Family Medical History / Comment(s): Father was a drinker and had liver cirrhosis from which he of at the age of 52yrs. Mother Family Medical History: Cancer Additional Family Medical History / Comment(s): Mother had throat cancer and of this at the age of 87yrs. Sister(s) Family Medical History: Cancer Additional Family Medical History / Comment(s): STOMACH CANCER General Exam - General Exam Comments Initial Comments: GENERAL: Patient is well-developed and well-nourished. Patient is nontoxic and well- hydrated and is in no acute distress. ENT: Neck is soft and supple. No significant lymphadenopathy is noted. Oropharynx is clear. Moist mucous membranes. Neck has full range of motion without eliciting any pain. EYES: The sclera were anicteric and conjunctiva were pink and moist. Extraocular movements were intact and pupils were equal round and reactive to light. Eyelids were unremarkable. PULMONARY: Unlabored respirations. Good breath sounds bilaterally. No audible rales rhonchi or wheezing was noted. CARDIOVASCULAR: There is a regular rate and rhythm without any murmurs gallops or rubs. ABDOMEN: Soft and nontender with normal bowel sounds. SKIN: Skin is clear with no lesions or rashes and otherwise unremarkable. NEUROLOGIC: Patient is alert and oriented x3. Cranial nerves II through XII are grossly intact. Motor and sensory are also intact. Normal speech, volume and content. Symmetrical smile. MUSCULOSKELETAL: Normal extremities with adequate strength and full range of motion. No lower extremity swelling or edema. No calf tenderness. LYMPHATICS: No significant lymphadenopathy is noted PSYCHIATRIC: Normal psychiatric evaluation. 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 Patient's EKG shows no ST segment elevation or depression. Patient's left bundle branch block. Patient was asymptomatic while in the emergency department. Patient's chest x-ray showed no acute normalities. I spoke with Dr. Mccray she agreed to admit the patient admitted the patient I wrote admitting orders. - Lab Data Result diagrams: 10/11/20 12:50 10/11/20 12:50 Lab Results 10/11/20 10/11/20 10/11/20 Range/Units 12:50 12:50 12:50 WBC 6.4 (3.8-10.6) k/uL RBC 4.29 L (4.30-5.90) m/uL Hgb 11.7 L (13.0-17.5) gm/dL Hct 36.7 L (39.0-53.0) % MCV 85.6 (80.0-100.0) fL MCH 27.4 (25.0-35.0) pg MCHC 32.0 (31.0-37.0) g/dL RDW 16.0 H (11.5-15.5) % Plt Count 244 (150-450) k/uL MPV 7.3 Neutrophils % 76 % Lymphocytes % 10 % Monocytes % 7 % Eosinophils % 5 % Basophils % 2 % Neutrophils # 4.9 (1.3-7.7) k/uL Lymphocytes # 0.6 L (1.0-4.8) k/uL Monocytes # 0.4 (0-1.0) k/uL Eosinophils # 0.3 (0-0.7) k/uL Basophils # 0.1 (0-0.2) k/uL Hypochromasia Slight PT 11.4 (9.0-12.0) sec INR 1.1 (<1.2) APTT 21.7 L (22.0-30.0) sec Sodium 140 (137-145) mmol/L Potassium 3.7 (3.5-5.1) mmol/L Chloride 110 H (98-107) mmol/L Carbon Dioxide 23 (22-30) mmol/L Anion Gap 7 mmol/L BUN 18 (9-20) mg/dL Creatinine 0.77 (0.66-1.25) mg/dL Est GFR (CKD-EPI)AfAm >90 (>60 ml/min/1.73 sqM) Est GFR (CKD-EPI)NonAf 83 (>60 ml/min/1.73 sqM) Glucose 125 H (74-99) mg/dL Calcium 8.5 (8.4-10.2) mg/dL Magnesium 1.9 (1.6-2.3) mg/dL Total Bilirubin 0.4 (0.2-1.3) mg/dL AST 28 (17-59) U/L ALT 8 (4-49) U/L Alkaline Phosphatase 52 (38-126) U/L Total Protein 6.1 L (6.3-8.2) g/dL Albumin 3.3 L (3.5-5.0) g/dL Disposition Clinical Impression: Syncope and collapse Disposition: ADMITTED IP TO THIS HOSP Referrals: Rock Bryant III, MD [Primary Care Provider] - 1-2 days Time of Disposition: 14:14
[2020-10-11 13:08] LABS: Basophils # (A) 0.1 k/uL (0-0.2); Basophils % (A) 2 %; Eosinophils # (A) 0.3 k/uL (0-0.7); Eosinophils % (A) 5 %; HCT 36.7 % (39.0-53.0); HGB 11.7 gm/dL (13.0-17.5); Hypochromasia Slight; Lymphocytes # (A) 0.6 k/uL (1.0-4.8); Lymphocytes % (A) 10 %; MCH 27.4 pg (25.0-35.0); MCV 85.6 fL (80.0-100.0); Mean Platelet Volume 7.3; Monocytes # (A) 0.4 k/uL (0-1.0); Monocytes % (A) 7 %; Neutrophils # (A) 4.9 k/uL (1.3-7.7); Neutrophils % (A) 76 %; Platelet Count 244 k/uL (150-450); RBC 4.29 m/uL (4.30-5.90); WBC 6.4 k/uL (3.8-10.6)
[2020-10-11 13:25] LABS: ALT 8 U/L (4-49); AST 28 U/L (17-59); African American GFR (CKD) >90 (>60 ml/min/1.73 sqM); Albumin 3.3 g/dL (3.5-5.0); Alkaline Phosphatase 52 U/L (38-126); Anion Gap 7 mmol/L; Blood Urea Nitrogen 18 mg/dL (9-20); Calcium 8.5 mg/dL (8.4-10.2); Carbon Dioxide 23 mmol/L (22-30); Chloride 110 mmol/L (98-107); Glucose 125 mg/dL (74-99); Magnesium 1.9 mg/dL (1.6-2.3); Non-African American GFR(CKD) 83 (>60 ml/min/1.73 sqM); Potassium 3.7 mmol/L (3.5-5.1); Sodium 140 mmol/L (137-145); Total Bilirubin 0.4 mg/dL (0.2-1.3); Total Protein 6.1 g/dL (6.3-8.2)
[2020-10-11 13:29] LABS: INR 1.1 (<1.2); Prothrombin Time 11.4 sec (9.0-12.0)
--- NOTE | 2020-10-11 13:30 | XR ---
EXAMINATION TYPE: XR chest 2V DATE OF EXAM: 10/11/2020 COMPARISON: 08/18/18 HISTORY: Shortness of breath TECHNIQUE: Frontal and lateral views of the chest are obtained. FINDINGS: Scattered senescent parenchymal changes noted. Hyperinflation compatible with COPD. No evidence for infiltrate. No evidence for atelectasis. Heart size is stable. Mediastinal structures are stable and grossly unremarkable. No evidence for hilar prominence. Degenerative changes dorsal spine. IMPRESSION: 1. No evidence for acute pulmonary disease.
[2020-10-11 13:33] LABS: Partial Thromboplastin Time 21.7 sec (22.0-30.0)
[2020-10-11] MEDS ORDERED: NITROGLYCERIN SL TABS 0.4 MG TAB SUBLINGUAL PRN (14:15)
--- NOTE | 2020-10-11 14:45 | CT ---
EXAMINATION TYPE: CT brain wo con DATE OF EXAM: 10/11/2020 COMPARISON: 08/08/18 HISTORY: syncope CT DLP: 1054.[address] of the brain was performed. The ventricles, basal cisterns and sulci overlying the cerebral convexities demonstrate mild enlargem ent. There is no evidence for intracranial hemorrhage or sulcal effacement. There is decreased attenuation about the periventricular white matter and deep white matter of both c erebral hemispheres, compatible with chronic small vessel ischemia. Differential diagnosis does inclu de demyelination. No mass effects are seen.No midline shift. Osseous calvarium is intact. If symptoms persist consider MRI. IMPRESSION: 1. Age related atrophic and chronic small vessel ischemic change without acute intracranial process s een at this time.
[2020-10-11] MEDS ORDERED: polyethylene glycoL 3350 17 GM POWD.PACK PO PRN (17:51)
[2020-10-11] MEDS ORDERED: SENNOSIDES 8.6 MG TAB PO PRN (17:51)
[2020-10-11] MEDS ORDERED: DIGOXIN 125 MCG TAB PO PRN (17:51)
--- NOTE | 2020-10-11 17:55 | P.HPIM ---
History of Present Illness H&P Date: 10/11/20 Chief Complaint: Syncopal episodes 3 Mr. Gates is an 84-year-old male with a past medical history of atrial fibrillation, CVA/TIA, GERD, hypertension, osteoarthritis, hypothyroidism, skin cancer status post removal sent in from his doctor's office as he had 3 syncopal episodes. Patient states that he went to see his primary care physician Dr. Bryant in his office, they said he passed out 3 times. Patient states that he is not sure of what happened, his mentation is back to his baseline currently. Patient's family members at the bedside, states that recently patient is undergoing a lot of stress as he is taking care of his who has dementia. Patient mentions that he could not sleep well for the past 2-3 nights as he is stressed about his 's condition. Patient denies having any headaches, neck stiffness or fevers. He denied having any chest pain or palpitations. Patient denied any cough or difficulty in breathing. He denies having any abdominal p ain nausea, vomiting or diarrhea. Denies noticing any blood in his stools. Patient denied having any swelling of his lower extremities. Patient has history of atrial fibrillation and is on Eliquis for anticoagulation In the ER at the time of admission patient's vitals temperature 97.4, heart rate 83, irregularly irregular, blood pressure 120/78, saturating at 91% on 2 L of nasal cannula. On reviewing his labs white count of 6.4, hemoglobin 11.7, platelets 244. Sodium 140, pretension 3.7, chloride 110, bicarbonate 23, albumin 18, creatinine 0.77. Troponin less than 0.012 and albumin is 3.6. patient had a CAT scan of the head that was negative for any acute intracranial process. EKG showing atrial fibrillation with heart rate between 70s to 80s. Review of Systems REVIEW OF SYSTEMS: CONSTITUTIONAL: No fever, no malaise, no fatigue. HEENT: No headache, no neck stiffness, no blurring of vision CARDIOVASCULAR: no chest pain or palpitations PULMONARY: No cough or difficulty in breathing GASTROINTESTINAL: No Abdominal pain nausea vomiting or diarrhea NEUROLOGICAL: No weakness of extremities HEMATOLOGICAL: Denies any bleeding or petechiae. GENITOURINARY: Denies any burning micturition, frequency, or urgency. MUSCULOSKELETAL/RHEUMATOLOGICAL: Denies any joint pain, swelling, or any muscle pain. ENDOCRINE: Denies polyuria polydipsia or heat or cold intolerance The rest of the 14-point review of systems is negative. Past Medical History Past Medical History: Atrial Fibrillation, Cancer, CVA/TIA, GERD/Reflux, Hypertension, Myocardial Infarction ([place]), Osteoarthritis (OA), Thyroid Disorder Additional Past Medical History / Comment(s): DYSPHAGIA. TIA possible CVA per pt, [place]-per EKG, bronchitis, hypothyroid, skin cancer with removals Last Myocardial Infarction Date:: unk History of Any Multi-Drug Resistant Organisms: None Reported Past Surgical History: Hernia Repair, Orthopedic Surgery, Tonsillectomy Additional Past Surgical History / Comment(s): Bilateral cataract removal, arely inguinal hernia repair, hiatal hernia surgery, skin cancer (basal and squamous cell) removals, colonoscopy, arely carpal tunnel release, rt upper thigh inury has plastic INSERT UNDER SKIN Past Anesthesia/Blood Transfusion Reactions: No Reported Reaction Past Psychological History: No Psychological Hx Reported Past Alcohol Use History: None Reported Past Drug Use History: None Reported - Past Family History Father Family Medical History: Liver Disease Additional Family Medical History / Comment(s): Father was a drinker and had liver cirrhosis from which he of at the age of 52yrs. Mother Family Medical History: Cancer Additional Family Medical History / Comment(s): Mother had throat cancer and of this at the age of 87yrs. Sister(s) Family Medical History: Cancer Additional Family Medical History / Comment(s): STOMACH CANCER Medications and Allergies Home Medications Medication Instructions Recorded Confirmed Type Levothyroxine Sodium [Synthroid] 100 mcg PO QAM 02/12/17 10/11/20 History Sacubitril/Valsartan [Entresto 24 1 tab PO BID 08/18/18 10/11/20 History mg-26 mg Tablet] Triamcinolone 0.1% Cream [Kenalog 1 applic TOPICAL BID PRN 08/18/18 10/11/20 History 0.1% Cream] Metoprolol Succinate (ER) [Toprol 50 mg PO Q48H 05/05/19 10/11/20 History XL] Aspirin 324 mg PO DAILY PRN 10/11/20 10/11/20 History Cholecalciferol [Vitamin D3 (25 125 mcg PO DAILY 10/11/20 10/11/20 History Mcg = 1000 Iu)] Digoxin [Digitek] 125 mcg PO DAILY PRN 10/11/20 10/11/20 History Docusate [Colace] 100 mg PO Q12H PRN 10/11/20 10/11/20 History Finasteride [Proscar] 5 mg PO DAILY 10/11/20 10/11/20 History Fluticasone Propionate [Flonase 1 spray EA NOSTRIL BID 10/11/20 10/11/20 History Allergy Relief] Pantoprazole [Protonix] 40 mg PO DAILY 10/11/20 10/11/20 History Sennosides [Senna] 17.2 mg PO HS PRN 10/11/20 10/11/20 History bisacodyL [Dulcolax] 2.5 mg PO DAILY 10/11/20 10/11/20 History diphenhydrAMINE [Benadryl] 25 mg PO HS PRN 10/11/20 10/11/20 History polyethylene glycoL 3350 [Miralax] 17 gm PO DAILY PRN 10/11/20 10/11/20 History Allergies Allergy/AdvReac Type Severity Reaction Status Date / Time No Known Allergies Allergy Verified 05/08/19 10:40 Physical Exam Vitals: Vital Signs Temp Pulse Pulse Resp BP BP BP 10/11/20 15:18 85 18 151/102 10/11/20 13:36 82 18 132/84 10/11/20 12:30 82 18 108/66 103/75 10/11/20 12:21 97.6 F 18 104/76 BP Pulse Ox 10/11/20 15:18 100 10/11/20 13:36 98 10/11/20 12:30 104/77 10/11/20 12:21 Intake and Output 10/11/20 10/11/20 10/11/20 06:59 14:59 22:59 Other: Weight 77.111 kg PHYSICAL EXAMINATION: GENERAL: no acute distress. Elderly male lying in bed with family members at bedside HEENT: Pupils are round and equally reacting to light. EOMI. No scleral icterus. No conjunctival pallor. CARDIOVASCULAR: S1 and S2 present. Irregularly irregular PULMONARY: Bilateral breath sounds positive. Tenderness at the lower lung bases. No wheeze or crackles ABDOMEN: Soft,non -tender, normal bowel sounds. No guarding or rigidity. MUSCULOSKELETAL: No joint swelling or deformity. EXTREMITIES: No edema NEUROLOGICAL: Alert awake oriented 2-3 ,Gross neurological examination did not reveal any focal deficits. SKIN:No rash Results CBC & Chem 7: 10/11/20 12:50 10/11/20 12:50 Labs: Abnormal Lab Results - Last 24 Hours (Table) 10/11/20 10/11/20 10/11/20 Range/Units 12:50 12:50 12:50 RBC 4.29 L (4.30-5.90) m/uL Hgb 11.7 L (13.0-17.5) gm/dL Hct 36.7 L (39.0-53.0) % RDW 16.0 H (11.5-15.5) % Lymphocytes # 0.6 L (1.0-4.8) k/uL APTT 21.7 L (22.0-30.0) sec Chloride 110 H (98-107) mmol/L Glucose 125 H (74-99) mg/dL Total Protein 6.1 L (6.3-8.2) g/dL Albumin 3.3 L (3.5-5.0) g/dL Assessment and Plan Assessment: ASSESSMENT Syncopal episodes 3 Permanent Atrial fibrillation Hypertension Hyperlipidemia History of CVA Hypothyroidism Multiple joint osteoarthritis History of skin cancer status post removal Bilateral carpal tunnel release Bilateral cataract surgery Dysphagia Mild protein calorie malnutrition PLAN CT of the brain negative Orthostatics checked in the ED negative Continue with telemetry monitoring for history of atrial fibrillation and syncopal episode Will check for serial troponins and EKGs, cardiology consulted Restarted home medications including Eliquis he takes for anticoagulation Patient wants to be DO NOT RESUSCITATE Further recommendations to follow depending the progress of the patient
[2020-10-11] MEDS: FLUTICASONE 50MCG/SPRAY NASAL 16GM EA NOSTRIL SCH (20:56)
[2020-10-11] MEDS: APIXABAN 5 MG TAB PO SCH (20:56)
[2020-10-11] MEDS: SACUBITRIL/VALSARTAN 24 MG-26 MG TABLET PO SCH (20:56)
[2020-10-11] MEDS ORDERED: ACETAMINOPHEN TAB 325 MG TAB PO PRN (21:32)
[2020-10-11] MEDS ORDERED: HYDROcodone/APAP 5-325MG 1 EACH TAB PO PRN (23:31)
[2020-10-12] MEDS ORDERED: LEVOTHYROXINE 100 MCG TAB PO SCH (06:30)
[2020-10-12] MEDS ORDERED: PANTOPRAZOLE 40 MG TABLET PO SCH (07:30)
[2020-10-12] MEDS ORDERED: ARTIFICIAL TEARS-HYPROMELLOSE DROPS 15 ML BTL BOTH EYES PRN (08:35)
[2020-10-12] MEDS: SACUBITRIL/VALSARTAN 24 MG-26 MG TABLET PO SCH (08:43)
[2020-10-12] MEDS: FLUTICASONE 50MCG/SPRAY NASAL 16GM EA NOSTRIL SCH (08:43)
[2020-10-12] MEDS: APIXABAN 5 MG TAB PO SCH (08:43)
[2020-10-12] MEDS ORDERED: CHOLECALCIFEROL 25 MCG (1000 IU) TABLET PO SCH (09:00)
[2020-10-12] MEDS ORDERED: bisacodyL 5 MG TABLET.DR PO SCH (09:00)
[2020-10-12] MEDS ORDERED: ASPIRIN 325 MG TAB PO SCH (09:00)
[2020-10-12] MEDS ORDERED: METOPROLOL SUCCINATE (ER) 50 MG TAB.ER.24H PO SCH (09:00)
--- NOTE | 2020-10-12 09:50 | P.DS ---
Providers Date of admission: 10/11/20 14:17 Attending physician: Jonna Godwin Consults: 10/11/20 14:15 Consult Physician Urgent Consulting Provider: [facility] Consult Reason/Comments: Syncope Do you want consulting provider notified?: Yes Primary care physician: Rock Bryant [facility] Course: Chief Complaint: Syncopal episodes 3 Mr. Gates is an 84-year-old male with a past medical history of atrial fibrillation, CVA/TIA, GERD, hypertension, osteoarthritis, hypothyroidism, skin cancer status post removal sent in from his doctor's office as he had 3 syncopal episodes. Patient states that he went to see his primary care physician Dr. Bryant in his office, they said he passed out 3 times. Patient states that he is not sure of what happened, his mentation is back to his baseline currently. Patient's family members at the bedside, states that recently patient is undergoing a lot of stress as he is taking care of his who has dementia. Patient mentions that he could not sleep well for the past 2-3 nights as he is stressed about his 's condition. Patient denies having any headaches, neck stiffness or fevers. He denied having any chest pain or palpitations. Patient denied any cough or difficulty in breathing. He denies having any abdominal pain nausea, vomiting or diarrhea. Denies noticing any blood in his stools. Patient denied having any swelling of his lower extremities. Patient has history of atrial fibrillation and is on Eliquis for anticoagulation In the ER at the time of admission patient's vitals temperature 97.4, heart rate 83, irregularly irregular, blood pressure 120/78, saturating at 91% on 2 L of nasal cannula. On reviewing his labs white count of 6.4, hemoglobin 11.7, platelets 244. Sodium 140, pretension 3.7, chloride 110, bicarbonate 23, albumin 18, creatinine 0.77. Troponin less than 0.012 and albumin is 3.6. patient had a CAT scan of the head that was negative for any acute intracranial process. EKG showing atrial fibrillation with heart rate between 70s to 80s. 10/12/2020 All the workup is negative patient doesn't have any evidence of for several vascular accident although patient is already on aspirin and Eliquis. Patient has EF of around 30-35% AICD was discussed as an outpatient but the patient was not a candidate for AICD. Patient follows up with cardiology out of town. Patient need close follow-up with cardiology and may need M Holter monitor. Patient blood pressure is bit on the low normal side which is not unexpected for his EF of around 30-35%. Patient was evaluated by cardiology if cleared by cardiology patient will be discharged today patient need to take care of his who has advanced dementia and wanted to be discharged today. Patient is presently euvolemic not in any diuretic therapy patient is on Entresto for heart failure. PHYSICAL EXAMINATION: GENERAL: no acute distress. Elderly male lying in bed with family members at bedside HEENT: Pupils are round and equally reacting to light. EOMI. No scleral icterus. No conjunctival pallor. CARDIOVASCULAR: S1 and S2 present. Irregularly irregular PULMONARY: Bilateral breath sounds positive. Tenderness at the lower lung bases. No wheeze or crackles ABDOMEN: Soft,non -tender, normal bowel sounds. No guarding or rigidity. MUSCULOSKELETAL: No joint swelling or deformity. EXTREMITIES: No edema NEUROLOGICAL: Alert awake oriented 2-3 ,Gross neurological examination did not reveal any focal deficits. SKIN:No rash Assessment and Plan Assessment: Syncopal episodes 3 Permanent Atrial fibrillation Hypertension Hyperlipidemia History of CVA Hypothyroidism Multiple joint osteoarthritis History of skin cancer status post removal Bilateral carpal tunnel release Bilateral cataract surgery Dysphagia Mild protein calorie malnutrition PLAN CT of the brain negative Orthostatics checked in the ED negative Continue with telemetry monitoring for history of atrial fibrillation and syncopal episode Will check for serial troponins and EKGs, cardiology consulted Restarted home medications including Eliquis he takes for anticoagulation Patient wants to be DO NOT RESUSCITATE Plan - Discharge Summary Discharge Rx Participant: No New Discharge Prescriptions: No Action Levothyroxine Sodium [Synthroid] 100 mcg PO QAM Triamcinolone 0.1% Cream [Kenalog 0.1% Cream] 1 applic TOPICAL BID PRN PRN Reason: Itching Sacubitril/Valsartan [Entresto 24 mg-26 mg Tablet] 1 tab PO BID Metoprolol Succinate (ER) [Toprol XL] 50 mg PO Q48H bisacodyL [Dulcolax] 2.5 mg PO DAILY Cholecalciferol [Vitamin D3 (25 Mcg = 1000 Iu)] 125 mcg PO DAILY Sennosides [Senna] 17.2 mg PO HS PRN PRN Reason: Constipation Docusate [Colace] 100 mg PO Q12H PRN PRN Reason: Constipation polyethylene glycoL 3350 [Miralax] 17 gm PO DAILY PRN PRN Reason: Constipation diphenhydrAMINE [Benadryl] 25 mg PO HS PRN PRN Reason: Insomnia Fluticasone Propionate [Flonase Allergy Relief] 1 spray EA NOSTRIL BID Pantoprazole [Protonix] 40 mg PO DAILY Aspirin 324 mg PO DAILY PRN PRN Reason: Chest Pain Finasteride [Proscar] 5 mg PO DAILY Digoxin [Digitek] 125 mcg PO DAILY PRN PRN Reason: irregular pulse Discharge Medication List Levothyroxine Sodium [Synthroid] 100 mcg PO QAM 02/12/17 [History] Sacubitril/Valsartan [Entresto 24 mg-26 mg Tablet] 1 tab PO BID 08/18/18 [History] Triamcinolone 0.1% Cream [Kenalog 0.1% Cream] 1 applic TOPICAL BID PRN 08/18/18 [History] Metoprolol Succinate (ER) [Toprol XL] 50 mg PO Q48H 05/05/19 [History] Aspirin 324 mg PO DAILY PRN 10/11/20 [History] Cholecalciferol [Vitamin D3 (25 Mcg = 1000 Iu)] 125 mcg PO DAILY 10/11/20 [History] Digoxin [Digitek] 125 mcg PO DAILY PRN 10/11/20 [History] Docusate [Colace] 100 mg PO Q12H PRN 10/11/20 [History] Finasteride [Proscar] 5 mg PO DAILY 10/11/20 [History] Fluticasone Propionate [Flonase Allergy Relief] 1 spray EA NOSTRIL BID 10/11/20 [History] Pantoprazole [Protonix] 40 mg PO DAILY 10/11/20 [History] Sennosides [Senna] 17.2 mg PO HS PRN 10/11/20 [History] bisacodyL [Dulcolax] 2.5 mg PO DAILY 10/11/20 [History] diphenhydrAMINE [Benadryl] 25 mg PO HS PRN 10/11/20 [History] polyethylene glycoL 3350 [Miralax] 17 gm PO DAILY PRN 10/11/20 [History] Follow up Appointment(s)/Referral(s): Rock Bryant III, MD [Primary Care Provider] - 1-2 days Activity/Diet/Wound Care/Special Instructions: Call your flight service specialist on Wednesday. You need to be seen GEOFF by your flight service specialist.
--- NOTE | 2020-10-12 11:52 | P.CRDCN ---
History of Present Illness Consult date: 10/12/20 History of present illness: HISTORY OF PRESENT ILLNESS: This is a 85-year-old male with a past medical history significant for ischemic cardiomyopathy, coronary artery disease with previous stent placement approximately 2 years ago, and chronic persistent atrial fibrillation on anticoagulation with Eliquis. Patient follows with a church administrator in [facility]. We have been asked to see the patient in consultation for syncope. Patient examined at the bedside. 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 He states over the past 2-3 days he has not had any sleep whatsoever. He states yesterday he was at his primary care physician's office for a regular appointment. He states he was sitting in the exam room when he suddenly "went out". He states the doctor told him he had three episodes where he "stopped talking for a few seconds". The patient denies any chest pain or pressure. He denies shortness of breath. He has been up and ambulate in the room without any symptoms. Orthostatic blood pressures obtained reveal blood pressure sitting 135/71. Blood pressure supine 135/84. Blood pre ssure standing 114/69. Patient does have a known cardiomyopathy. He states his church administrator has been monitoring this. He states there has been some talk regarding an AICD but he was told that his "heart wasn't that bad yet". EKG reveals atrial fibrillation with controlled ventricular rate Chest xray no evidence for acute pulmonary disease Laboratory data: WBC 6.4. Hemoglobin 11.7. Platelet count 244. Sodium 140. Potassium 3.7. BUN 18. Creatinine 0.77. Magnesium 1.9. Troponin negative 3. Current home cardiac medications include digoxin 125mcg PRN, Entresto 24-26 BID, and metoprolol succinate 50 mg every 48 hours Most recent echocardiogram obtained in May 2020 reveals ejection fraction 30-35%, moderate aortic regurgitation, mild aortic stenosis, mild mitral regurgitation, and mild tricuspid regurgitation Patient had an event monitor in May 2020 revealing atrial fibrillation. Occasional tachycardia. No bradycardia arrhythmias or pauses. Occasional PVCs. REVIEW OF SYSTEMS: At the time of my exam: CONSTITUTIONAL: Denies fever or chills. HEENT: Denies blurred vision, vision changes, or eye pain. Denies hemoptysis CARDIOVASCULAR: Denies chest pain. Denies orthopnea. Denies PND. Denies palpitations RESPIRATORY: Denies shortness of breath. GASTROINTESTINAL: Denies abdominal pain. Denies nausea or vomiting. HEMATOLOGIC: Denies bleeding disorders. GENITOURINARY: Denies any blood in urine. SKIN: Denies pruitis. Denies rash. PHYSICAL EXAM: VITAL SIGNS: Reviewed. GENERAL: Well-developed in no acute distress. HEENT: Head is normocephalic. Pupils are equal, round. Sclerae anicteric. Mucous membranes of the mouth are moist. Neck supple. No JVD or thyromegaly LUNGS: Respirations even and unlabored. Lungs essentially clear to auscultation bilaterally. HEART: Irregular rate and rhythm. S1 and S2 heard. ABDOMEN: Soft. Nondistended. Nontender. EXTREMITIES: Normal range of motion. No clubbing or cyanosis. Peripheral pulses intact. No lower extremity edema NEUROLOGIC: Awake and alert. Oriented x 3. ASSESSMENT: Syncope Chronic persistent atrial fibrillation, on anticoagulation with Eliquis Coronary artery disease with previous stenting, 2 years ago per patient Ischemic cardiomyopathy, ejection fraction 30-35% PLAN: Orthostatics obtained and reviewed Telemetry does not reveal any significant bradycardia or AV block Patient is very anxious to be discharged home today to care for his with advanced dementia He is refusing to stay in the hospital for further cardiac workup of his syncope He may be discharged home today. Patient was instructed to call his primary church administrator and follow up with him within 1-2 days. Nurse practitioner note has been reviewed by physician. Signing provider agrees with the documented findings, assessment, and plan of care. Past Medical History Past Medical History: Atrial Fibrillation, Cancer, CVA/TIA, GERD/Reflux, Hypertension, Myocardial Infarction ([place]), Osteoarthritis (OA), Thyroid Disorder Additional Past Medical History / Comment(s): DYSPHAGIA. TIA possible CVA per pt, CT-per EKG, bronchitis, hypothyroid, skin cancer with removals Last Myocardial Infarction Date:: unk History of Any Multi-Drug Resistant Organisms: None Reported Past Surgical History: Hernia Repair, Orthopedic Surgery, Tonsillectomy Additional Past Surgical History / Comment(s): Bilateral cataract removal, arely inguinal hernia repair, hiatal hernia surgery, skin cancer (basal and squamous cell) removals, colonoscopy, arely carpal tunnel release, rt upper thigh inury has plastic INSERT UNDER SKIN Past Anesthesia/Blood Transfusion Reactions: No Reported Reaction Past Psychological History: No Psychological Hx Reported Past Alcohol Use History: None Reported Past Drug Use History: None Reported - Past Family History Father Family Medical History: Liver Disease Additional Family Medical History / Comment(s): Father was a drinker and had liver cirrhosis from which he of at the age of 52yrs. Mother Family Medical History: Cancer Additional Family Medical History / Comment(s): Mother had throat cancer and of this at the age of 87yrs. Sister(s) Family Medical History: Cancer Additional Family Medical History / Comment(s): STOMACH CANCER Medications and Allergies Home Medications Medication Instructions Recorded Confirmed Type Levothyroxine Sodium [Synthroid] 100 mcg PO QAM 02/12/17 10/11/20 History Sacubitril/Valsartan [Entresto 24 1 tab PO BID 08/18/18 10/11/20 History mg-26 mg Tablet] Triamcinolone 0.1% Cream [Kenalog 1 applic TOPICAL BID PRN 08/18/18 10/11/20 History 0.1% Cream] Metoprolol Succinate (ER) [Toprol 50 mg PO Q48H 05/05/19 10/11/20 History XL] Aspirin 324 mg PO DAILY PRN 10/11/20 10/11/20 History Cholecalciferol [Vitamin D3 (25 125 mcg PO DAILY 10/11/20 10/11/20 History Mcg = 1000 Iu)] Digoxin [Digitek] 125 mcg PO DAILY PRN 10/11/20 10/11/20 History Docusate [Colace] 100 mg PO Q12H PRN 10/11/20 10/11/20 History Finasteride [Proscar] 5 mg PO DAILY 10/11/20 10/11/20 History Fluticasone Propionate [Flonase 1 spray EA NOSTRIL BID 10/11/20 10/11/20 History Allergy Relief] Pantoprazole [Protonix] 40 mg PO DAILY 10/11/20 10/11/20 History Sennosides [Senna] 17.2 mg PO HS PRN 10/11/20 10/11/20 History bisacodyL [Dulcolax] 2.5 mg PO DAILY 10/11/20 10/11/20 History diphenhydrAMINE [Benadryl] 25 mg PO HS PRN 10/11/20 10/11/20 History polyethylene glycoL 3350 [Miralax] 17 gm PO DAILY PRN 10/11/20 10/11/20 History Allergies Allergy/AdvReac Type Severity Reaction Status Date / Time No Known Allergies Allergy Verified 05/08/19 10:40 Physical Exam Vitals: Vital Signs Temp Pulse Pulse Resp BP BP BP 10/12/20 03:21 97.3 F L 104 H 18 136/88 10/12/20 02:00 80 18 10/11/20 23:20 97.6 F 80 18 127/75 10/11/20 20:00 97.4 F L 81 18 135/71 114/69 10/11/20 16:40 98.0 F 80 16 132/60 10/11/20 16:04 98.0 F 88 18 128/96 10/11/20 15:18 85 18 151/102 10/11/20 13:36 82 18 132/84 10/11/20 12:30 82 18 108/66 103/75 10/11/20 12:21 97.6 F 18 104/76 BP Pulse Ox 10/12/20 03:21 98 10/12/20 02:00 10/11/20 23:20 97 10/11/20 20:00 135/84 97 10/11/20 16:40 98 10/11/20 16:04 98 10/11/20 15:18 100 10/11/20 13:36 98 10/11/20 12:30 104/77 10/11/20 12:21 Intake and Output 10/11/20 10/12/20 10/12/20 22:59 06:59 14:59 Intake Total 250 240 Balance 250 240 Intake: IV 10 0.9 10 Oral 240 240 Other: Voiding Method Toilet Toilet # Voids 1 2 Weight 77.111 kg 77 kg Results 10/11/20 12:50 10/11/20 12:50 Cardiac Enzymes 10/11/20 10/11/20 10/11/20 Range/Units 12:50 12:50 15:52 AST 28 (17-59) U/L Troponin I <0.012 <0.012 (0.000-0.034) ng/mL 10/11/20 Range/Units 19:09 AST (17-59) U/L Troponin I <0.012 (0.000-0.034) ng/mL Coagulation 10/11/20 Range/Units 12:50 PT 11.4 (9.0-12.0) sec APTT 21.7 L (22.0-30.0) sec CBC 10/11/20 Range/Units 12:50 WBC 6.4 (3.8-10.6) k/uL RBC 4.29 L (4.30-5.90) m/uL Hgb 11.7 L (13.0-17.5) gm/dL Hct 36.7 L (39.0-53.0) % Plt Count 244 (150-450) k/uL Comprehensive Metabolic Panel 10/11/20 Range/Units 12:50 Sodium 140 (137-145) mmol/L Potassium 3.7 (3.5-5.1) mmol/L Chloride 110 H (98-107) mmol/L Carbon Dioxide 23 (22-30) mmol/L BUN 18 (9-20) mg/dL Creatinine 0.77 (0.66-1.25) mg/dL Glucose 125 H (74-99) mg/dL Calcium 8.5 (8.4-10.2) mg/dL AST 28 (17-59) U/L ALT 8 (4-49) U/L Alkaline Phosphatase 52 (38-126) U/L Total Protein 6.1 L (6.3-8.2) g/dL Albumin 3.3 L (3.5-5.0) g/dL Current Medications Generic Name Dose Route Start Last Admin Trade Name Freq PRN Reason Stop Dose Admin Acetaminophen 325 mg 10/11/20 21:32 10/11/20 21:40 Acetaminophen Tab 325 Mg Tab PO 325 mg Q6HR PRN Administration Fever and/ or Pain Hydrocodone Bitart/Acetaminophen 1 each 10/11/20 23:31 Hydrocodone/Apap 5-325mg 1 Each Tab PO Q6HR PRN Pain Apixaban 5 mg 10/11/20 21:00 10/12/20 08:43 Apixaban 5 Mg Tab PO 5 mg BID GLENNA Administration Protocol Artificial Tears 2 drops 10/12/20 08:35 Artificial Tears-Hypromellose Drops 15 Ml Btl BOTH EYES QID PRN Dry Eye(s) Aspirin 325 mg 10/12/20 09:00 10/12/20 08:43 Aspirin 325 Mg Tab PO 325 mg DAILY GLENNA Administration Bisacodyl 2.5 mg 10/12/20 09:00 10/12/20 08:43 Bisacodyl 5 Mg Tablet.Dr PO 2.5 mg DAILY GLENNA Administration Cholecalciferol 125 mcg 10/12/20 09:00 10/12/20 08:43 Cholecalciferol 25 Mcg (1000 Iu) Tablet PO 125 mcg DAILY GLENNA Administration Digoxin 125 mcg 10/11/20 17:51 Digoxin 125 Mcg Tab PO DAILY PRN irregular pulse Fluticasone Propionate 1 spray 10/11/20 21:00 10/12/20 08:43 Fluticasone 50mcg/[place] Nasal 16gm EA NOSTRIL 1 spray BID GLENNA Administration Levothyroxine Sodium 100 mcg 10/12/20 06:30 10/12/20 06:30 Levothyroxine 100 Mcg Tab PO 100 mcg DAILY@0630 GLENNA Administration Metoprolol Succinate 50 mg 10/12/20 09:00 10/12/20 08:43 Metoprolol Succinate (Er) 50 Mg Tab.Er.24h PO 50 mg Q48H GLENNA Administration Nitroglycerin 0.4 mg 10/11/20 14:15 Nitroglycerin Sl Tabs 0.4 Mg Tab SUBLINGUAL Q5M PRN Chest Pain Pantoprazole Sodium 40 mg 10/12/20 07:30 10/12/20 06:30 Pantoprazole 40 Mg Tablet PO 40 mg [id number]-[id number] GLENNA Administration Polyethylene Glycol 17 gm 10/11/20 17:51 Polyethylene Glycol 3350 17 Gm Powd.Pack PO DAILY PRN Constipation Sacubitril/Valsartan 1 each 10/11/20 21:00 10/12/20 08:43 Sacubitril/Valsartan 24 Mg-26 Mg Tablet PO 1 each BID GLENNA Administration Senna 17.2 mg 10/11/20 17:51 Sennosides 8.6 Mg Tab PO HS PRN Constipation Intake and Output 10/11/20 10/12/20 10/12/20 22:59 06:59 14:59 Intake Total 250 240 Balance 250 240 Intake: IV 10 0.9 10 Oral 240 240 Other: Voiding Method Toilet Toilet # Voids 1 2 Weight 77.111 kg 77 kg 10/11/20 12:50 10/11/20 12:50
[2020-10-12 12:11] VITALS: BP 148/80; PULSE 67; RESP 16; TEMP 98
== END 2020-10-12 13:10 | disposition home or self-care (01) ==
LOC: EC 12:18 → 3SCARD 14:17
PROVIDERS: ADMIT Internal Medicine; ATTEND Internal Medicine
DX: R55 Syncope and collapse (principal); I48.21 Permanent atrial fibrillation; I10 Essential (primary) hypertension; E78.5 Hyperlipidemia, unspecified; I25.2 Old myocardial infarction; E03.9 Hypothyroidism, unspecified; M19.90 Unspecified osteoarthritis, unspecified site; G56.03 Carpal tunnel syndrome, bilateral upper limbs; R13.10 Dysphagia, unspecified; E44.1 Mild protein-calorie malnutrition; I25.10 Atherosclerotic heart disease of native coronary artery without angina pectoris; I25.5 Ischemic cardiomyopathy; I44.7 Left bundle-branch block, unspecified; K21.9 Gastro-esophageal reflux disease without esophagitis; K40.20 Bilateral inguinal hernia, without obstruction or gangrene, not specified as recurrent; K44.9 Diaphragmatic hernia without obstruction or gangrene; Z98.41 Cataract extraction status, right eye; Z98.42 Cataract extraction status, left eye; Z66 Do not resuscitate; Z79.01 Long term (current) use of anticoagulants; Z79.82 Long term (current) use of aspirin; Z79.890 Hormone replacement therapy; Z79.899 Other long term (current) drug therapy; Z86.73 Personal history of transient ischemic attack (TIA), and cerebral infarction without residual deficits; Z95.5 Presence of coronary angioplasty implant and graft; Z85.828 Personal history of other malignant neoplasm of skin; Z80.0 Family history of malignant neoplasm of digestive organs; Z80.8 Family history of malignant neoplasm of other organs or systems
CPT/HCPCS: 96360; 96361; 99285; 36415; 93005; 86900; 86901; 80053; 83735; 84484; 85025; 85610; 85730; 86850; 71046; 70450; G0378 ×2

== ENCOUNTER 2022-01-13 20:44 | Inpatient (IN) | payer MEDICARE ==
[2022-01-13] MEDS ORDERED: SODIUM CHLORIDE 0.9% 1,000 ML IV STA ×2 (21:30→23:26)
[2022-01-13] MEDS ORDERED: SODIUM CHLORIDE 0.9% 500 ML 500 ML IV STA (21:30)
[2022-01-13] MEDS ORDERED: cefTRIAXone IN SWFI 1,000 MG/10 ML SYRINGE IVP STA (21:31)
--- NOTE | 2022-01-13 21:31 | ED ---
Male Urogenital HPI - General Chief complaint: Urogenital Stated complaint: urogenital Time Seen by Provider: 01/13/22 21:30 Source: patient, family, RN notes reviewed, old records reviewed, Caregiver Mode of arrival: wheelchair Limitations: no limitations - History of Present Illness Initial comments: This is a 6-year-old male DF for evaluation patient has history of a fibrillation he is on [place]quist. Patient presents today for evaluation of significant blood blood clots in the urine, blood in his urine severe. Severe abdominal pain currently. Patient has mild nausea no vomiting. States this is the worst pain he has ever experienced MD Complaint: testicle pain, other (Inability urinary) -: hour(s) Location: penis, left testicle, abdomen Severity: severe Severity scale (1-10): 10 Quality: sharp Consistency: constant Improves with: none Worsens with: none Reports: urinary retention, blood in urine, nausea/vomiting - Related Data Home Medications Medication Instructions Recorded Confirmed Levothyroxine Sodium [Synthroid] 100 mcg PO QAM 02/12/17 10/11/20 Sacubitril/Valsartan [Entresto 24 1 tab PO BID 08/18/18 10/11/20 mg-26 mg Tablet] Triamcinolone 0.1% Cream [Kenalog 1 applic TOPICAL BID PRN 08/18/18 10/11/20 0.1% Cream] Metoprolol Succinate (ER) [Toprol 50 mg PO Q48H 05/05/19 10/11/20 XL] Aspirin 324 mg PO DAILY PRN 10/11/20 10/11/20 Cholecalciferol [Vitamin D3 (25 125 mcg PO DAILY 10/11/20 10/11/20 Mcg = 1000 Iu)] Digoxin [Digitek] 125 mcg PO DAILY PRN 10/11/20 10/11/20 Docusate [Colace] 100 mg PO Q12H PRN 10/11/20 10/11/20 Finasteride [Proscar] 5 mg PO DAILY 10/11/20 10/11/20 Fluticasone Propionate [Flonase 1 spray EA NOSTRIL BID 10/11/20 10/11/20 Allergy Relief] Pantoprazole [Protonix] 40 mg PO DAILY 10/11/20 10/11/20 Sennosides [Senna] 17.2 mg PO HS PRN 10/11/20 10/11/20 bisacodyL [Dulcolax] 2.5 mg PO DAILY 10/11/20 10/11/20 diphenhydrAMINE [Benadryl] 25 mg PO HS PRN 10/11/20 10/11/20 polyethylene glycoL 3350 [Miralax] 17 gm PO DAILY PRN 10/11/20 10/11/20 Allergies Allergy/AdvReac Type Severity Reaction Status Date / Time No Known Allergies Allergy Verified 05/08/19 10:40 Review of Systems ROS Statement: Those systems with pertinent positive or pertinent negative responses have been documented in the HPI. ROS Other: All systems not noted in ROS Statement are negative. Past Medical History Past Medical History: Atrial Fibrillation, Cancer, CVA/TIA, GERD/Reflux, Hypertension, Myocardial Infarction ([place]), Osteoarthritis (OA), Thyroid Disorder Additional Past Medical History / Comment(s): DYSPHAGIA. TIA possible CVA per pt, [place]-per EKG, bronchitis, hypothyroid, skin cancer with removals Last Myocardial Infarction Date:: unk History of Any Multi-Drug Resistant Organisms: None Reported Past Surgical History: Hernia Repair, Orthopedic Surgery, Tonsillectomy Additional Past Surgical History / Comment(s): Bilateral cataract removal, arely inguinal hernia repair, hiatal hernia surgery, skin cancer (basal and squamous cell) removals, colonoscopy, arely carpal tunnel release, rt upper thigh inury has plastic INSERT UNDER SKIN Past Anesthesia/Blood Transfusion Reactions: No Reported Reaction Past Psychological History: No Psychological Hx Reported Past Alcohol Use History: None Reported Past Drug Use History: None Reported - Past Family History Father Family Medical History: Liver Disease Additional Family Medical History / Comment(s): Father was a drinker and had liver cirrhosis from which he of at the age of 52yrs. Mother Family Medical History: Cancer Additional Family Medical History / Comment(s): Mother had throat cancer and of this at the age of 87yrs. Sister(s) Family Medical History: Cancer Additional Family Medical History / Comment(s): STOMACH CANCER General Exam Limitations: no limitations General appearance: alert, in no apparent distress, anxious Head exam: Present: atraumatic, normocephalic, normal inspection Eye exam: Present: normal appearance, PERRL, EOMI. Absent: scleral icterus, conjunctival injection, periorbital swelling ENT exam: Present: normal exam, mucous membranes moist Neck exam: Present: normal inspection. Absent: tenderness, meningismus, lymphadenopathy Respiratory exam: Present: normal lung sounds bilaterally. Absent: respiratory distress, wheezes, rales, rhonchi, stridor Cardiovascular Exam: Present: normal rhythm, tachycardia, normal heart sounds. Absent: systolic murmur, diastolic murmur, rubs, gallop, clicks GI/Abdominal exam: Present: distended, tenderness, guarding, normal bowel sounds. Absent: rebound, rigid Extremities exam: Present: normal inspection, full ROM, normal capillary refill. Absent: tenderness, pedal edema, joint swelling, calf tenderness Back exam: Present: normal inspection Neurological exam: Present: alert, oriented X3, CN II-XII intact Psychiatric exam: Present: normal affect, normal mood Skin exam: Present: warm, dry, intact, normal color. Absent: rash Course Vital Signs 01/13/22 21:01 Temperature 97.4 F L Pulse Rate 124 H Respiratory 22 Rate O2 Sat by Pulse 98 Oximetry - Reevaluation(s) Reevaluation #1: 01/13/22 23:23 Medical records reviewed Reevaluation #2: 01/13/22 23:23 Patient informed results questions answered Reevaluation #3: 01/13/22 23:23 Patient relief pain with Au placement - Consultations Consultation #1: spoke sosa busch for admission Medical Decision Making - Medical Decision Making 86 male DF for evaluation patient presents with significant urinary retention secondary to coagulopathy blood clots hematuria. Patient be admitted treated for urinary tract infection has fully catheter placed - Lab Data Result diagrams: 01/13/22 21:42 01/13/22 21:42 Lab Results 01/13/22 01/13/22 01/13/22 Range/Units 21:42 21:42 21:42 WBC 7.9 (3.8-10.6) k/uL RBC 4.75 (4.30-5.90) m/uL Hgb 12.8 L (13.0-17.5) gm/dL Hct 39.9 (39.0-53.0) % MCV 83.9 (80.0-100.0) fL MCH 26.9 (25.0-35.0) pg MCHC 32.1 (31.0-37.0) g/dL RDW 16.2 H (11.5-15.5) % Plt Count 255 (150-450) k/uL MPV 7.8 Neutrophils % 73 % Lymphocytes % 12 % Monocytes % 7 % Eosinophils % 5 % Basophils % 1 % Neutrophils # 5.8 (1.3-7.7) k/uL Lymphocytes # 1.0 (1.0-4.8) k/uL Monocytes # 0.6 (0-1.0) k/uL Eosinophils # 0.4 (0-0.7) k/uL Basophils # 0.1 (0-0.2) k/uL Hypochromasia Moderate Anisocytosis Slight PT 12.0 (9.0-12.0) sec INR 1.1 (<1.2) APTT 30.2 H (22.0-30.0) sec Sodium 137 (137-145) mmol/L Potassium 4.0 (3.5-5.1) mmol/L Chloride 102 (98-107) mmol/L Carbon Dioxide 22 (22-30) mmol/L Anion Gap 13 mmol/L BUN 14 (9-20) mg/dL Creatinine 0.77 (0.66-1.25) mg/dL Est GFR (CKD-EPI)AfAm >90 (>60 ml/min/1.73 sqM) Est GFR (CKD-EPI)NonAf 82 (>60 ml/min/1.73 sqM) Glucose 114 H (74-99) mg/dL Calcium 9.0 (8.4-10.2) mg/dL Phosphorus 2.9 (2.5-4.5) mg/dL Magnesium 2.0 (1.6-2.3) mg/dL Total Bilirubin 0.5 (0.2-1.3) mg/dL AST 38 (17-59) U/L ALT 14 (4-49) U/L Alkaline Phosphatase 55 (38-126) U/L Total Protein 7.0 (6.3-8.2) g/dL Albumin 4.2 (3.5-5.0) g/dL Disposition Clinical Impression: Afib, Coagulopathy, Urinary retention, UTI (urinary tract infection), Hematuria Disposition: ADMITTED IP TO THIS HOSP Condition: Good Is patient prescribed a controlled substance at d/c from ED?: No Referrals: Rock Bryant III, MD [Primary Care Provider] - 1-2 days Time of Disposition: 23:20
[2022-01-13 21:49] LABS: Anisocytosis Slight; Basophils # (A) 0.1 k/uL (0-0.2); Basophils % (A) 1 %; Eosinophils # (A) 0.4 k/uL (0-0.7); Eosinophils % (A) 5 %; HCT 39.9 % (39.0-53.0); HGB 12.8 gm/dL (13.0-17.5); Hypochromasia Moderate; Lymphocytes % (A) 12 %; MCH 26.9 pg (25.0-35.0); MCHC 32.1 g/dL (31.0-37.0); MCV 83.9 fL (80.0-100.0); Mean Platelet Volume 7.8; Monocytes # (A) 0.6 k/uL (0-1.0); Monocytes % (A) 7 %; Neutrophils # (A) 5.8 k/uL (1.3-7.7); Neutrophils % (A) 73 %; Platelet Count 255 k/uL (150-450); RBC 4.75 m/uL (4.30-5.90); RDW 16.2 % (11.5-15.5); WBC 7.9 k/uL (3.8-10.6)
[2022-01-13 22:05] LABS: ALT 14 U/L (4-49); AST 38 U/L (17-59); African American GFR (CKD) >90 (>60 ml/min/1.73 sqM); Albumin 4.2 g/dL (3.5-5.0); Alkaline Phosphatase 55 U/L (38-126); Anion Gap 13 mmol/L; Blood Urea Nitrogen 14 mg/dL (9-20); Carbon Dioxide 22 mmol/L (22-30); Chloride 102 mmol/L (98-107); Glucose 114 mg/dL (74-99); Non-African American GFR(CKD) 82 (>60 ml/min/1.73 sqM); Phosphorus 2.9 mg/dL (2.5-4.5); Sodium 137 mmol/L (137-145); Total Bilirubin 0.5 mg/dL (0.2-1.3)
[2022-01-13 22:15] LABS: INR 1.1 (<1.2); Partial Thromboplastin Time 30.2 sec (22.0-30.0)
[2022-01-13] MEDS ORDERED: NALOXONE 0.4 MG/ML 1 ML VIAL IV PRN (23:25)
[2022-01-13] MEDS ORDERED: ONDANSETRON 4 MG/2 ML VIAL IVP PRN (23:25)
[2022-01-14] MEDS: SODIUM CHLORIDE 0.9% 1,000 ML IV SCH ×5 (00:45→22:38)
[2022-01-14] MEDS: MORPHINE SULFATE 4 MG/ML SYRINGE IV PRN ×3 (03:21→19:36)
[2022-01-14 05:08] LABS: Anisocytosis Slight; Basophils # (A) 0.1 k/uL (0-0.2); Basophils % (A) 1 %; Eosinophils # (A) 0.3 k/uL (0-0.7); Eosinophils % (A) 3 %; HCT 39.3 % (39.0-53.0); Hypochromasia Marked; Lymphocytes # (A) 1.1 k/uL (1.0-4.8); Lymphocytes % (A) 12 %; MCH 26.5 pg (25.0-35.0); MCHC 30.4 g/dL (31.0-37.0); MCV 87.3 fL (80.0-100.0); Mean Platelet Volume 7.9; Monocytes # (A) 0.5 k/uL (0-1.0); Monocytes % (A) 6 %; Neutrophils # (A) 7.2 k/uL (1.3-7.7); Neutrophils % (A) 76 %; Platelet Count 268 k/uL (150-450); RBC 4.51 m/uL (4.30-5.90); RDW 16.6 % (11.5-15.5); WBC 9.4 k/uL (3.8-10.6)
[2022-01-14 05:17] LABS: ALT 13 U/L (4-49); AST 32 U/L (17-59); African American GFR (CKD) >90 (>60 ml/min/1.73 sqM); Alkaline Phosphatase 58 U/L (38-126); Anion Gap 12 mmol/L; Blood Urea Nitrogen 10 mg/dL (9-20); Calcium 8.5 mg/dL (8.4-10.2); Carbon Dioxide 22 mmol/L (22-30); Chloride 106 mmol/L (98-107); Glucose 121 mg/dL (74-99); Non-African American GFR(CKD) 85 (>60 ml/min/1.73 sqM); Potassium 3.8 mmol/L (3.5-5.1); Sodium 140 mmol/L (137-145); Total Bilirubin 0.5 mg/dL (0.2-1.3); Total Protein 6.7 g/dL (6.3-8.2)
[2022-01-14] MEDS ORDERED: METOPROLOL TARTRATE 25 MG TAB PO PRN (21:00)
[2022-01-14] MEDS: SACUBITRIL/VALSARTAN 24 MG-26 MG TABLET PO SCH (21:19)
[2022-01-14] MEDS ORDERED: DIGOXIN 125 MCG TAB PO PRN (22:26)
[2022-01-14] MEDS ORDERED: SENNOSIDES 8.6 MG TAB PO PRN (22:26)
[2022-01-14] MEDS ORDERED: ASPIRIN 81 MG PO PRN (22:26)
--- NOTE | 2022-01-14 22:51 | P.HPIM ---
History of Present Illness H&P Date: 01/14/22 Chief Complaint: Blood in the urine Patient is a 86-year-old male with a known history of persistent atrial fibrillation on anticoagulation with Eliquis, ischemic cardiomyopathy, history of ND, hypothyroidism and history of skin cancer removal presents to ER with complaints of lower abdominal pain and passing blood in the urine.. Patient has been having symptoms since yesterday and was unable to urinate. Patient was placed on Au catheter in the ER with relieving of pressure and pain. Otherwise patient denied any complaints of fever or chills. No nausea vomiting abdominal pain or diarrhea. Denied any recent constipation. No complaints of chest pain or shortness of breath. Patient does take finasteride at home. Laboratory showed WBC 7.9 hemoglobin 12.8 and platelets 255 Sodium 137 potassium 4.0 chloride 102 BUN 14 and creatinine 0.77 blood sugar is 114, liver enzymes are not elevated. Review of Systems Constitutional: Patient denies any fever or chills . no Generalized weakness. Abdomen: Patient denied any nausea or vomiting or abd. pain Cardiovascular: Patient denies any chest pain or short of breath no palpitations. Respiratory: patient denied any cough . no sputum production. No shortness of breath Neurologic: Patient denied any numbness or tingling headache. Musculoskeletal: Patient denies any complaints of joint swelling or deformity. Skin: Negative Psychiatric: Negative Endocrine: No heat or cold intolerance. No recent weight gain. Genitourinary: No dysuria. Patient does have lower abdominal pain and hemat uria.. All other 14 point ROS negative except the above Past Medical History Past Medical History: Atrial Fibrillation, Cancer, CVA/TIA, GERD/Reflux, Hypertension, Myocardial Infarction (ND), Osteoarthritis (OA), Thyroid Disorder Additional Past Medical History / Comment(s): DYSPHAGIA. TIA possible CVA per pt, ND-per EKG, bronchitis, hypothyroid, skin cancer with removals Last Myocardial Infarction Date:: unk History of Any Multi-Drug Resistant Organisms: None Reported Past Surgical History: Hernia Repair, Orthopedic Surgery, Tonsillectomy Additional Past Surgical History / Comment(s): Bilateral cataract removal, arely inguinal hernia repair, hiatal hernia surgery, skin cancer (basal and squamous cell) removals, colonoscopy, arely carpal tunnel release, rt upper thigh inury has plastic INSERT UNDER SKIN Past Anesthesia/Blood Transfusion Reactions: No Reported Reaction Past Psychological History: No Psychological Hx Reported Additional Psychological History / Comment(s): Pt states he has been using a cane the past week. Pt lives w/ in single level home that has 2 porch steps. Has life alert necklace. 1 pet dog. no medical equipment, no home care services. no service. 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 Smoking Status: Never smoker Past Alcohol Use History: None Reported Past Drug Use History: None Reported - Past Family History Father Family Medical History: Liver Disease Additional Family Medical History / Comment(s): Father was a drinker and had liver cirrhosis from which he of at the age of 52yrs. Mother Family Medical History: Cancer Additional Family Medical History / Comment(s): Mother had throat cancer and of this at the age of 87yrs. Sister(s) Family Medical History: Cancer Additional Family Medical History / Comment(s): STOMACH CANCER Medications and Allergies Home Medications Medication Instructions Recorded Confirmed Type Levothyroxine Sodium [Synthroid] 100 mcg PO QAM 02/12/17 01/14/22 History Sacubitril/Valsartan [Entresto 24 1 tab PO BID 08/18/18 01/14/22 History mg-26 mg Tablet] Triamcinolone 0.1% Cream [Kenalog 1 applic TOPICAL BID PRN 08/18/18 01/14/22 History 0.1% Cream] Aspirin 324 mg PO DAILY PRN 10/11/20 01/14/22 History Cholecalciferol [Vitamin D3 (25 125 mcg PO DAILY 10/11/20 01/14/22 History Mcg = 1000 Iu)] Digoxin [Digitek] 125 mcg PO DAILY PRN 10/11/20 01/14/22 History Docusate [Colace] 100 mg PO Q12H PRN 10/11/20 01/14/22 History Finasteride [Proscar] 5 mg PO DAILY 10/11/20 01/14/22 History Fluticasone Propionate [Flonase 1 spray EA NOSTRIL BID 10/11/20 01/14/22 History Allergy Relief] Pantoprazole [Protonix] 40 mg PO DAILY 10/11/20 01/14/22 History Sennosides [Senna] 17.2 mg PO HS PRN 10/11/20 01/14/22 History bisacodyL [Dulcolax] 2.5 mg PO DAILY PRN 10/11/20 01/14/22 History diphenhydrAMINE [Benadryl] 25 mg PO HS PRN 10/11/20 01/14/22 History polyethylene glycoL 3350 [Miralax] 17 gm PO DAILY PRN 10/11/20 01/14/22 History Apixaban [Eliquis] 5 mg PO BID 01/14/22 01/14/22 History Metoprolol Tartrate 25 mg PO BID PRN 01/14/22 01/14/22 History Allergies Allergy/AdvReac Type Severity Reaction Status Date / Time No Known Allergies Allergy Verified 01/14/22 10:20 Physical Exam Vitals: Vital Signs Temp Pulse Pulse Resp BP BP Pulse Ox 01/14/22 07:33 97.9 F 101 H 18 118/71 94 L 01/14/22 07:00 94 96 01/14/22 06:30 82 17 127/85 100 01/14/22 05:00 58 L 19 90/60 81 L 01/14/22 04:28 81 17 147/75 94 L 01/14/22 02:43 84 16 164/101 97 01/14/22 00:00 87 16 137/73 98 01/13/22 21:01 97.4 F L 124 H 22 98 Intake and Output 01/13/22 01/14/22 01/14/22 22:59 06:59 14:59 Output Total 800 Balance -800 Output: Urine 800 Other: Voiding Method Toilet Toilet Weight 77.111 kg 77.111 kg Results CBC & Chem 7: 01/14/22 04:29 01/14/22 04:29 Labs: Abnormal Lab Results - Last 24 Hours (Table) 01/13/22 01/13/22 01/13/22 Range/Units 21:42 21:42 21:42 Hgb 12.8 L (13.0-17.5) gm/dL MCHC (31.0-37.0) g/dL RDW 16.2 H (11.5-15.5) % APTT 30.2 H (22.0-30.0) sec Glucose 114 H (74-99) mg/dL 01/14/22 01/14/22 Range/Units 04:29 04:29 Hgb 12.0 L (13.0-17.5) gm/dL MCHC 30.4 L (31.0-37.0) g/dL RDW 16.6 H (11.5-15.5) % APTT (22.0-30.0) sec Glucose 121 H (74-99) mg/dL Thrombosis Risk Factor Assmnt - DVT/VTE Prophylaxis DVT/VTE Prophylaxis: Mechanical Prophylaxis ordered - Choose All That Apply Each Factor Represents 1 point: Varicose veins Each Risk Factor Represents 3 Points: Age 75 years or older Thrombosis Risk Factor Assessment Total Risk Factor Score: 4 Thrombosis Risk Factor Assessment Level: Moderate Risk Assessment and Plan Assessment: Acute hematuria and urinary retention. Status post Au catheter placement in the ER. Persistent atrial fibrillation on anticoagulation with Eliquis Ischemic cardiomyopathy ejection fraction 30 to 35% Hypothyroidism Osteoarthritis History of TIA History of skin cancer removed Coronary artery disease history of stent placement and history of ND DVT prophylaxis. SCDs due to hematuria. Plan: Patient will be continued on gentle IV hydration and monitor respiratory status closely. Patient is status post Au catheter placement with relief of pressure. Continue to hold Eliquis and urology was consulted for evaluation of hematuria. Monitor H&H. Follow-up UA and continue with ceftriaxone empirically. Patient was given a dose of ceftriaxone in the ER. Patient will be continued on home medications and follow-up closely. Prognosis is guarded. Time with Patient: Greater than 30
[2022-01-14 23:35] LABS: Appearance,Urine Cloudy (Clear); Bacteria,Urine Moderate /hpf; Bilirubin,Urine Negative (Negative); Blood,Urine Large (Negative); Color,Urine Red; Glucose,Urine (UA) Negative (Negative); Hyaline Casts,Urine 46 /lpf (0-2); Ketones,Urine Trace (Negative); Leukocyte Esterase,Urine Moderate (Negative); Mucus,Urine Moderate /hpf; Nitrite,Urine Negative (Negative); PH, Urine 5.5 (5.0-8.0); Protein,Urine 1+ (Negative); RBC,Urine >182 /hpf (0-5); Specific Gravity,Urine 1.015 (1.001-1.035); Squamous Epithelial Cell,Urine 2 /hpf (0-4); Urobilinogen,Urine <2.0 mg/dL (<2.0); WBC,Urine 29 /hpf (0-5)
[2022-01-15] MEDS: MORPHINE SULFATE 4 MG/ML SYRINGE IV PRN ×3 (03:48→21:54)
[2022-01-15] MEDS: LEVOTHYROXINE 100 MCG TAB PO SCH (06:10)
--- NOTE | 2022-01-15 08:42 | CT ---
EXAMINATION TYPE: CT brain wo con DATE OF EXAM: 01/15/2022 COMPARISON: 10/11/2020 HISTORY: 86-year-old male with pain after fall and hit head TECHNIQUE: Examination was done in axial plane without intravenous contrast. Coronal and sagittal r econstructions performed. CT DLP: 1156 mGycm Automated exposure control for dose reduction was used. FINDINGS: There is no evidence of acute intracranial hemorrhage, acute ischemic changes, mass, mass-effect, or extra-axial fluid collection. There is no effacement of cerebral sulci or basal subarachnoid cister ns. There is no hydrocephalus. There is no midline shift. Zuleta-white matter distinction is preserv ed. There is mild to moderate generalized supratentorial volume loss and patchy and confluent white matte r hypodensities in both cerebral hemispheres. Trace benign basal ganglionic calcifications on both si anisha. Scattered calcifications in the carotid siphons. Trace mucosal thickening ethmoid air cells. Mastoid air cells well pneumatized. The globes are intact. No calvarial fracture IMPRESSION: Mild to moderate generalized atrophy with patchy and confluent burden of chronic small vessel ischemi c disease. No acute intracranial abnormality seen.
[2022-01-15] MEDS ORDERED: bisacodyL 5 MG TABLET.DR PO PRN (09:00)
[2022-01-15 09:29] LABS: Basophils # (A) 0.08 X 10*3/uL (0.00-0.10); Eosinophils % (A) 2.5 %; HCT 33.1 % (39.6-50.0); HGB 9.9 g/dL (13.0-17.0); Immature Grans, Automated 0.3 %; Lymphocytes # (A) 0.78 X 10*3/uL (0.90-5.00); Lymphocytes % (A) 9.9 %; MCH 25.7 pg (27.0-32.0); MCHC 29.9 g/dL (32.0-37.0); Mean Platelet Volume 10.6 fL (9.5-12.2); Monocytes # (A) 0.78 X 10*3/uL (0.20-1.00); Monocytes % (A) 9.9 %; NRBC Per 100 WBC 0 /100 WBCS (0.0-0.0); Neutrophils # (A) 6.04 X 10*3/uL (1.80-7.70); Neutrophils % (A) 76.4 %; Platelet Count 215 X 10*3/uL (140-440); RBC 3.85 X 10*6/uL (4.40-5.60); RDW 17.7 % (11.5-14.5)
--- NOTE | 2022-01-15 09:45 | P.PN ---
Subjective Progress Note Date: 01/15/22 in hospital with gross hematuria. Has had some clots. The cath has been irrigated. A culture is pending An us was done today and the results are pending We will follow. Objective - Vital Signs Vital signs: Vital Signs Temp 97.8 F 01/15/22 05:00 Pulse 83 01/15/22 05:00 Resp 16 01/15/22 05:00 BP 130/84 01/15/22 05:00 Pulse Ox 91 L 01/15/22 05:00 FiO2 Intake & Output 01/14/22 01/15/22 01/15/22 18:59 06:59 18:59 Intake Total 590 Output Total 1100 600 Balance -1100 -10 Weight 77.111 kg Intake: Oral 590 Output: Urine 1100 600 Other: Voiding Method Toilet Indwelling Catheter - Labs CBC & Chem 7: 01/15/22 05:55 01/14/22 04:29 Labs: Abnormal Lab Results - Last 24 Hours (Table) 01/14/22 01/15/22 Range/Units 23:12 05:55 RBC 3.85 L (4.40-5.60) X 10*6/uL Hgb 9.9 L (13.0-17.0) g/dL Hct 33.1 L (39.6-50.0) % MCH 25.7 L (27.0-32.0) pg MCHC 29.9 L (32.0-37.0) g/dL RDW 17.7 H (11.5-14.5) % Lymphocytes # 0.78 L (0.90-5.00) X 10*3/uL Urine Protein 1+ H (Negative) Urine Ketones Trace H (Negative) Urine Blood Large H (Negative) Ur Leukocyte Esterase Moderate H (Negative) Urine RBC >182 H (0-5) /hpf Urine WBC 29 H (0-5) /hpf Urine Bacteria Moderate H (None) /hpf Hyaline Casts 46 H (0-2) /lpf Urine Mucus Moderate H (None) /hpf
[2022-01-15] MEDS: PANTOPRAZOLE 40 MG TABLET PO SCH (09:52)
[2022-01-15] MEDS: FINASTERIDE 5 MG TAB PO SCH (09:52)
[2022-01-15] MEDS: SACUBITRIL/VALSARTAN 24 MG-26 MG TABLET PO SCH ×2 (09:52→21:54)
--- NOTE | 2022-01-15 10:02 | US ---
EXAMINATION TYPE: US kidneys/renal and bladder DATE OF EXAM: 01/15/2022 COMPARISON: 12/09/2016 CLINICAL HISTORY: 86-year-old male gross hematuria FINDINGS: EXAM MEASUREMENTS: Right Kidney: 11.7 x 6.4 x 5.2 cm Left Kidney: 11.8 x 6.3 x 5.2 cm Vendor Analyst notes: *limitations due to large amount of overlying bowel content Right Kidney: cystic area = 1.5 x 1.3 x 1.5cm. Internal echoes could be artifact or debris. Left Kidney: cystic area = 2.7 x 2.3 x 2.7cm. Internal echoes could be artifact or debris. Dense echo genic focus lower pole = 0.8cm. No hydronephrosis on either side. Bladder: Vendor Analyst notes: Au Catheter. Lobulated debris versus solid component noted located godwin ng the posterior wall measuring up to 5.0 x 3.8 x 2.0 cm. IMPRESSION: 1. No hydronephrosis. 2. A couple cortical lesions within the kidneys measuring up to 2.7 cm, likely cysts. Internal echoes could be artifact or debris. 3. Nonobstructive 8 mm left renal stone. 4. Lobulated debris versus abnormal soft tissue along the posterior wall of the bladder measuring 5.0 x 3.8 x 2.0 cm. Correlate with urinalysis, urine cytology, and either ultrasound follow-up for direc t visualization as indicated.
[2022-01-15 10:10] LABS: African American GFR (CKD) 95.1 (60.0-200.0); Anion Gap 9.5 mmol/L (10.00-18.00); BUN/Creat Ratio 12.52 Ratio (12.00-20.00); Blood Urea Nitrogen 9.7 mg/dL (9.0-27.0); Calcium 8.1 mg/dL (8.7-10.3); Potassium 4.2 mmol/L (3.5-5.5)
[2022-01-15] MEDS: SODIUM CHLORIDE 0.9% 1,000 ML IV SCH ×2 (12:16→20:09)
--- NOTE | 2022-01-15 13:00 | XR ---
EXAMINATION TYPE: XR chest 1V DATE OF EXAM: 01/15/2022 COMPARISON: 10/11/2020 HISTORY: 86-year-old male follow-up CHF TECHNIQUE: Single frontal view of the chest is obtained. FINDINGS: Heart is moderately enlarged. Hyperinflation. Ectatic/tortuous thoracic aorta. No consolidation or pl eural effusion. IMPRESSION: Moderate cardiomegaly and COPD. No definite acute process.
[2022-01-15] MEDS: traMADol 50 MG TAB PO PRN (15:19)
[2022-01-15] MEDS ORDERED: SENNOSIDES 8.6 MG TAB PO PRN (16:27)
[2022-01-15] MEDS ORDERED: polyethylene glycoL 3350 17 GM POWD.PACK PO STA (16:27)
[2022-01-16] MEDS: LEVOTHYROXINE 100 MCG TAB PO SCH (06:14)
[2022-01-16 06:22] LABS: African American GFR (CKD) >90 (>60 ml/min/1.73 sqM); Anion Gap 6 mmol/L; Blood Urea Nitrogen 9 mg/dL (9-20); Calcium 8.1 mg/dL (8.4-10.2); Carbon Dioxide 24 mmol/L (22-30); Chloride 107 mmol/L (98-107); Glucose 90 mg/dL (74-99); Non-African American GFR(CKD) 86 (>60 ml/min/1.73 sqM); Potassium 3.9 mmol/L (3.5-5.1); Sodium 137 mmol/L (137-145)
--- NOTE | 2022-01-16 07:40 | P.PN ---
Subjective Progress Note Date: 01/16/22 The patient is in the hospital gross hematuria. The urine is inflamed. Urine cultures pending. Ultrasound shows normal upper tracts but debris or tumor in the bladder. The patient will need a cystoscopy at some point in time. There is definitely clot as I see clots coming through the catheter and the nursing staff reports having irrigated periodically. Objective - Vital Signs Vital signs: Vital Signs Temp 97.7 F 01/16/22 04:47 Pulse 85 01/16/22 04:47 Resp 15 01/16/22 04:47 BP 149/81 01/16/22 04:47 Pulse Ox 97 01/16/22 04:47 FiO2 Intake & Output 01/15/22 01/16/22 01/16/22 18:59 06:59 18:59 Output Total 800 1300 Balance -800 -1300 Output: Urine 800 1300 Other: Voiding Method Indwelling Catheter Indwelling Catheter - Labs CBC & Chem 7: 01/15/22 05:55 01/16/22 05:29 Labs: Abnormal Lab Results - Last 24 Hours (Table) 01/15/22 01/15/22 01/16/22 Range/Units 05:55 05:55 05:29 RBC 3.85 L (4.40-5.60) X 10*6/uL Hgb 9.9 L (13.0-17.0) g/dL Hct 33.1 L (39.6-50.0) % MCH 25.7 L (27.0-32.0) pg MCHC 29.9 L (32.0-37.0) g/dL RDW 17.7 H (11.5-14.5) % Lymphocytes # 0.78 L (0.90-5.00) X 10*3/uL Anion Gap 9.50 L (10.00-18.00) mmol/L Calcium 8.1 L 8.1 L (8.7-10.3) mg/dL Microbiology - Last 24 Hours (Table) 01/14/22 23:12 Urine Culture - Preliminary Urine,Voided
[2022-01-16] MEDS: PANTOPRAZOLE 40 MG TABLET PO SCH (08:52)
[2022-01-16] MEDS: SACUBITRIL/VALSARTAN 24 MG-26 MG TABLET PO SCH ×2 (08:52→20:11)
[2022-01-16] MEDS: MORPHINE SULFATE 4 MG/ML SYRINGE IV PRN ×3 (08:52→21:12)
[2022-01-16] MEDS: FINASTERIDE 5 MG TAB PO SCH (08:52)
[2022-01-16 09:12] LABS: Basophils # (A) 0.09 X 10*3/uL (0.00-0.10); Basophils % (A) 1.2 %; Eosinophils # (A) 0.39 X 10*3/uL (0.04-0.35); Eosinophils % (A) 5.3 %; HCT 33.5 % (39.6-50.0); HGB 10.1 g/dL (13.0-17.0); Immature Grans, Automated 0.3 %; Lymphocytes % (A) 14.9 %; MCH 25.8 pg (27.0-32.0); MCHC 30.1 g/dL (32.0-37.0); MCV 85.7 fL (80.0-97.0); Mean Platelet Volume 10.5 fL (9.5-12.2); Monocytes # (A) 0.87 X 10*3/uL (0.20-1.00); Monocytes % (A) 11.8 %; NRBC Per 100 WBC 0 /100 WBCS (0.0-0.0); Neutrophils % (A) 66.5 %; Platelet Count 213 X 10*3/uL (140-440); RBC 3.91 X 10*6/uL (4.40-5.60); RDW 17.5 % (11.5-14.5); WBC 7.37 X 10*3/uL (4.50-10.00)
[2022-01-16] MEDS: SODIUM CHLORIDE 0.9% 1,000 ML IV SCH ×2 (10:32→22:43)
[2022-01-16 18:08] VITALS: RESP 18
[2022-01-17] MEDS: MORPHINE SULFATE 4 MG/ML SYRINGE IV PRN (04:31)
[2022-01-17] MEDS: LEVOTHYROXINE 100 MCG TAB PO SCH (04:32)
[2022-01-17 05:37] VITALS: TEMP 97.6
[2022-01-17] MEDS: PANTOPRAZOLE 40 MG TABLET PO SCH (08:10)
[2022-01-17] MEDS: FINASTERIDE 5 MG TAB PO SCH (08:10)
[2022-01-17] MEDS: SACUBITRIL/VALSARTAN 24 MG-26 MG TABLET PO SCH (08:10)
[2022-01-17] MEDS: traMADol 50 MG TAB PO PRN ×2 (08:16→14:53)
[2022-01-17 08:54] LABS: Basophils # (A) 0.05 X 10*3/uL (0.00-0.10); Basophils % (A) 0.7 %; Eosinophils # (A) 0.29 X 10*3/uL (0.04-0.35); Eosinophils % (A) 4.1 %; HCT 31.4 % (39.6-50.0); HGB 9.8 g/dL (13.0-17.0); Immature Grans, Automated 0.3 %; Lymphocytes # (A) 1.01 X 10*3/uL (0.90-5.00); Lymphocytes % (A) 14.4 %; MCH 26.2 pg (27.0-32.0); MCHC 31.2 g/dL (32.0-37.0); Mean Platelet Volume 10.2 fL (9.5-12.2); Monocytes # (A) 0.73 X 10*3/uL (0.20-1.00); Monocytes % (A) 10.4 %; NRBC Per 100 WBC 0 /100 WBCS (0.0-0.0); Neutrophils % (A) 70.1 %; Platelet Count 231 X 10*3/uL (140-440); RBC 3.74 X 10*6/uL (4.40-5.60); RDW 17.6 % (11.5-14.5)
[2022-01-17 09:00] LABS: African American GFR (CKD) 95.6 (60.0-200.0); Anion Gap 9.3 mmol/L (10.00-18.00); BUN/Creat Ratio 10.1 Ratio (12.00-20.00); Blood Urea Nitrogen 7.7 mg/dL (9.0-27.0); Calcium 8.1 mg/dL (8.7-10.3); Carbon Dioxide 25.1 mmol/L (20.0-27.5); Non-African American GFR(CKD) 82.5 (60.0-200.0); Potassium 3.7 mmol/L (3.5-5.5)
--- NOTE | 2022-01-17 10:31 | P.PN ---
Subjective Progress Note Date: 01/17/22 the patient is in the hospital with gross hematuria and clot retention. His urine looked inflamed but the culture is negative. An ultrasound showed possible mass in the bladder. The urine has cleared. From a urologic standpoint I'll remove the catheter. He can be discharged home and should follow-up in the office for cystoscopy. Objective - Vital Signs Vital signs: Vital Signs Temp 97.6 F 01/17/22 05:00 Pulse 86 01/17/22 05:00 Resp 18 01/17/22 05:00 BP 138/84 01/17/22 05:00 Pulse Ox 96 01/17/22 05:00 FiO2 Intake & Output 01/16/22 01/17/22 01/17/22 18:59 06:59 18:59 Intake Total 640 Output Total 1000 1280 950 Balance -1000 -640 -950 Intake: Oral 640 Output: Urine 1000 1280 950 Other: Voiding Method Indwelling Catheter Indwelling Catheter - Labs CBC & Chem 7: 01/17/22 05:01 01/17/22 05:01 Labs: Abnormal Lab Results - Last 24 Hours (Table) 01/17/22 01/17/22 Range/Units 05:01 05:01 RBC 3.74 L (4.40-5.60) X 10*6/uL Hgb 9.8 L (13.0-17.0) g/dL Hct 31.4 L (39.6-50.0) % MCH 26.2 L (27.0-32.0) pg MCHC 31.2 L (32.0-37.0) g/dL RDW 17.6 H (11.5-14.5) % Anion Gap 9.30 L (10.00-18.00) mmol/L BUN 7.7 L (9.0-27.0) mg/dL BUN/Creatinine Ratio 10.10 L (12.00-20.00) Ratio Calcium 8.1 L (8.7-10.3) mg/dL Microbiology - Last 24 Hours (Table) 01/14/22 23:12 Urine Culture - Final Urine,Voided
[2022-01-17] MEDS: SODIUM CHLORIDE 0.9% 1,000 ML IV SCH (10:32)
[2022-01-17 12:08] VITALS: BP 170/97; PULSE 90
== END 2022-01-17 15:34 | disposition home or self-care (01) | DRG 696 ==
LOC: EC 20:44 → 5NMEDONC 23:25
PROVIDERS: ADMIT Hospitalist; ATTEND Hospitalist
DX: R31.0 Gross hematuria (principal); D68.9 Coagulation defect, unspecified; I48.19 Other persistent atrial fibrillation; R33.8 Other retention of urine; E03.9 Hypothyroidism, unspecified; N32.89 Other specified disorders of bladder; I10 Essential (primary) hypertension; K21.9 Gastro-esophageal reflux disease without esophagitis; I25.2 Old myocardial infarction; E07.9 Disorder of thyroid, unspecified; I25.10 Atherosclerotic heart disease of native coronary artery without angina pectoris; I25.5 Ischemic cardiomyopathy; M19.90 Unspecified osteoarthritis, unspecified site; N50.819 Testicular pain, unspecified; Z79.01 Long term (current) use of anticoagulants; Z79.82 Long term (current) use of aspirin; Z79.890 Hormone replacement therapy; Z79.899 Other long term (current) drug therapy; Z85.828 Personal history of other malignant neoplasm of skin; Z86.73 Personal history of transient ischemic attack (TIA), and cerebral infarction without residual deficits; Z95.5 Presence of coronary angioplasty implant and graft
CPT/HCPCS: 36415; 70450; 71045; 76770; 80048; 80053; 81001; 83735; 84100; 85025; 85610; 85730; 87086

== ENCOUNTER 2024-03-14 15:11 | Observation (INO) | payer MEDICARE ==
--- NOTE | 2024-03-14 16:17 | ED ---
GI Bleed HPI - General Chief complaint: GI Bleed Stated complaint: Constipation, urogenital issues, abd pain Time Seen by Provider: 03/14/24 15:30 Source: patient, RN notes reviewed Mode of arrival: wheelchair Limitations: no limitations - History of Present Illness Initial comments: This is a 88-year-old male with a history of atrial fibrillation on Eliquis, bladder cancer, hypertension, presenting to the emergency department with his grandson with chief complaint of urinary retention. States that he has been unable to urinate over the past 18 hours. Additionally patient states that he has been constipated over the past 2 days, when he attempted to use an at home suppository patient states that there was black stool released. States he has been feeling weak, fatigued, nauseous. He denies fevers, chills, chest pain, shortness of breath, difficulty breathing. - Related Data Home Medications Medication Instructions Recorded Confirmed Levothyroxine Sodium [Synthroid] 100 mcg PO DAILY 02/12/17 03/15/24 Sacubitril/Valsartan [Entresto 24 1 tab PO BID 08/18/18 03/15/24 mg-26 mg Tablet] Triamcinolone 0.1% Cream [Kenalog 1 applic TOPICAL BID 08/18/18 03/15/24 0.1% Cream] Cholecalciferol [Vitamin D3 (25 25 mcg PO DAILY 10/11/20 03/15/24 Mcg = 1000 Iu)] Digoxin [Digitek] 125 mcg PO DAILY 10/11/20 03/15/24 Finasteride [Proscar] 5 mg PO DAILY 10/11/20 03/15/24 Fluticasone Propionate [Flonase 1 spr EA NOSTRIL BID 10/11/20 03/15/24 Allergy Relief] Metoprolol Tartrate 12.5 mg PO BID 01/14/22 03/15/24 Apixaban [Eliquis] 5 mg PO BID 06/15/23 03/15/24 Ascorbic Acid [Vitamin C] 500 mg PO DAILY 03/15/24 03/15/24 Atorvastatin [Lipitor] 40 mg PO DAILY 03/15/24 03/15/24 Chlorhexidine Gluconate [Peridex] 15 ml MM BID 03/15/24 03/15/24 Cyanocobalamin (Vitamin B-12) 1,000 mcg PO DAILY 03/15/24 03/15/24 [Vitamin B-12] Famotidine 20 mg PO BID PRN 03/15/24 03/15/24 Pantoprazole [Protonix] 40 mg PO DAILY 03/15/24 03/15/24 Zinc Gluconate [Zinc] 50 mg PO DAILY 03/15/24 03/15/24 Allergies Allergy/AdvReac Type Severity Reaction Status Date / Time No Known Allergies Allergy Verified 03/15/24 12:15 Review of Systems ROS Statement: Those systems with pertinent positive or pertinent negative responses have been documented in the HPI. ROS Other: All systems not noted in ROS Statement are negative. Past Medical History Past Medical History: Atrial Fibrillation, Cancer, CVA/TIA, GERD/Reflux, Hypertension, Myocardial Infarction (OK), Osteoarthritis (OA), Thyroid Disorder Additional Past Medical History / Comment(s): DYSPHAGIA. 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 Mother Family Medical History: Cancer Additional Family Medical History / Comment(s): Mother had throat cancer and of this at the age of 87yrs. Sister(s) Family Medical History: Cancer Additional Family Medical History / Comment(s): STOMACH CANCER General Exam - General Exam Comments Initial Comments: Visual Physical Exam Vital signs reviewed General: Well-appearing, nontoxic, no acute distress. Head: Normocephalic, atraumatic Eyes: PERRLA, EOMI ENT: Airway patent Chest: Nonlabored breathing Skin: No visual rash, normal skin tone Neuro: Alert and oriented 3 Musculoskeletal: No gross abnormalities Limitations: no limitations General appearance: alert, in no apparent distress ENT exam: Present: normal exam, mucous membranes moist Neck exam: Present: normal inspection. Absent: tenderness, meningismus, lymphadenopathy Respiratory exam: Present: normal lung sounds bilaterally. Absent: respiratory distress, wheezes, rales, rhonchi, stridor Cardiovascular Exam: Present: normal rhythm, irregular rhythm, normal heart sounds. Absent: systolic murmur, diastolic murmur, rubs, gallop, clicks GI/Abdominal exam: Present: soft, tenderness (suprapubic), normal bowel sounds. Absent: distended, guarding, rebound, rigid Rectal exam: Present: normal rectal tone, heme (+) stool, black stool Extremities exam: Present: normal inspection, full ROM, normal capillary refill. Absent: tenderness, pedal edema, joint swelling, calf tenderness Back exam: Present: normal inspection Skin exam: Present: warm, dry, intact, normal color. Absent: rash Course Vital Signs 03/14/24 03/14/24 03/14/24 15:52 18:50 22:35 Temperature 97.5 F L 98.1 F Pulse Rate 99 88 108 H Respiratory 18 18 Rate Blood Pressure 162/105 189/116 165/143 O2 Sat by Pulse 98 97 Oximetry 03/14/24 03/14/24 03/14/24 22:57 22:59 23:10 Temperature Pulse Rate 108 H 90 92 Respiratory 18 Rate Blood Pressure 168/118 156/113 O2 Sat by Pulse 98 97 Oximetry 03/14/24 03/15/24 03/15/24 23:47 02:00 05:18 Temperature 97.8 F Pulse Rate 90 84 98 Respiratory 18 18 16 Rate Blood Pressure 147/101 158/101 143/93 O2 Sat by Pulse 98 96 95 Oximetry Medical Decision Making - Medical Decision Making Was pt. sent in by a medical professional or institution (, PA, SECURITY GUARDS DISPATCHER, urgent care, hospital, or [place] health care facility...) When possible be specific @ -No Did you speak to anyone other than the patient for history (EMS, parent, family, police, friend...)? What history was obtained from this source @ -Spoke to the patient's grandson at bedside who states the patient has a history of bladder cancer with mass of the right kidney however is no longer undergoing treatment due to patient's age. Did you review nursing and triage notes (agree or disagree)? Why? @ -I reviewed and agree with nursing and triage notes Were old charts reviewed (outside hosp., previous admission, EMS record, old EKG, old radiological studies, urgent care reports/EKG's, [place] health care facility records)? Report findings @ -I reviewed the patient's Emergency Department visit note from 2021 where he presented with abdominal pain and hematuria patient's ultrasound completed showed a mass in the bladder with outpatient follow-up for impending cystoscopy. Differential Diagnosis (chest pain, altered mental status, abdominal pain women, abdominal pain men, vaginal bleeding, weakness, fever, dyspnea, syncope, headache, dizziness, GI bleed, back pain, seizure, CVA, palpatations, mental health, musculoskeletal)? @ -Differential Abdominal Pain Men: Appendicitis, cholecystitis, diverticulosis, ischemic bowel, pancreatitis, hepatitis, UTI, gastroenteritis, AAA, incarcerated hernia, bowel obstruction, constipation, inflammatory bowel, hepatitis, peptic ulcer disease, splenic infarction, perforated viscus, testicular torsion, this is not meant to be an all-inclusive list EKG interpreted by me (3pts min.). @ -none X-rays interpreted by me (1pt min.). @ -None done CT interpreted by me (1pt min.). @ -None done U/S interpreted by me (1pt. min.). @ -None done What testing was considered but not performed or refused? (CT, X-rays, U/S, labs)? Why? @ -None What meds were considered but not given or refused? Why? @ -None Did you discuss the management of the patient with other professionals (professionals i.e. , PA, SECURITY GUARDS DISPATCHER, lab, RT, psych nurse, social media editor, return agent, teacher, surveillance dual rate officer, skilled nursing case manager)? Give summary @ -spoke with [facility] for admission, patient accepted with GI on consult. Was smoking cessation discussed for >3mins.? @ -No Was critical care preformed (if so, how long)? @ -No Were there social determinants of health that impacted care today? How? (Homelessness, low income, unemployed, alcoholism, drug addiction, transportation, low edu. Level, literacy, decrease access to med. care, care home, rehab)? @ -No Was there de-escalation of care discussed even if they declined (Discuss DNR or withdrawal of care, Hospice)? DNR status @ -No What co-morbidities impacted this encounter? (DM, HTN, Smoking, COPD, CAD, Cancer, CVA, ARF, Chemo, Hep., AIDS, mental health diagnosis, sleep apnea, morbid obesity)? @ -None Was patient admitted / discharged? Hospital course, mention meds given and route, prescriptions, significant lab abnormalities, going to OR and other pertinent info. @ -Admitted. 88-year-old male with urinary retention and GI bleed. Patient noted to have over 300 cc of urine and catheter is initiated. On evaluation patient states the pain is somewhat improved however still experiencing lower abdominal pain. Concern the patient is constipated and enema order is placed. There is relief of abdominal pain after enema however patient is still experiencing abdominal pain. CBC, CMP unremarkable, urinalysis unremarkable for infection, positive for blood. Stool occult blood positive. Patient will be mated to internal medicine with GI consult with concern for intractable abdominal pain and GI bleed. Discussed with Dr. Gongora Undiagnosed new problem with uncertain prognosis? @ -No Drug Therapy requiring intensive monitoring for toxicity (Heparin, Nitro, Insulin, Cardizem)? @ -No Were any procedures done? @ -No Diagnosis/symptom? @ -Intractable abdominal pain, urinary retention, GI bleed Acute, or Chronic, or Acute on Chronic? @ -acute Uncomplicated (without systemic symptoms) or Complicated (systemic symptoms)? @ -complicated Side effects of treatment? @ -No Exacerbation, Progression, or Severe Exacerbation? @ -No Poses a threat to life or bodily function? How? (Chest pain, USA, OK, pneumonia, PE, COPD, DKA, ARF, appy, cholecystitis, CVA, Diverticulitis, Homicidal, Suicidal, threat to staff... and all critical care pts) @ -No - Lab Data Result diagrams: 03/16/24 02:35 03/16/24 02:31 Lab Results 03/14/24 03/14/24 03/14/24 Range/Units 17:20 17:24 17:24 WBC 9.6 (3.8-10.6) k/uL RBC 4.83 (4.30-5.90) m/uL Hgb 15.8 (13.0-17.5) gm/dL Hct 46.9 (39.0-53.0) % MCV 97.2 (80.0-100.0) fL MCH 32.7 (25.0-35.0) pg MCHC 33.6 (31.0-37.0) g/dL RDW 13.9 (11.5-15.5) % Plt Count 221 (150-450) k/uL MPV 7.3 Neutrophils % 88 % Lymphocytes % 5 % Monocytes % 4 % Eosinophils % 2 % Basophils % 1 % Neutrophils # 8.4 H (1.3-7.7) k/uL Lymphocytes # 0.5 L (1.0-4.8) k/uL Monocytes # 0.4 (0-1.0) k/uL Eosinophils # 0.2 (0-0.7) k/uL Basophils # 0.1 (0-0.2) k/uL APTT 27.9 (22.0-30.0) sec Sodium (137-145) mmol/L Potassium (3.5-5.1) mmol/L Chloride (98-107) mmol/L Carbon Dioxide (22-30) mmol/L Anion Gap mmol/L BUN (9-20) mg/dL Creatinine (0.66-1.25) mg/dL Est GFR (CKD-EPI)AfAm (>60 ml/min/1.73 sqM) Est GFR (CKD-EPI)NonAf (>60 ml/min/1.73 sqM) Glucose (74-99) mg/dL Lactic Ac Sepsis Rflx Plasma Lactic Acid Pil[place] (0.7-2.0) mmol/L Calcium (8.4-10.2) mg/dL Magnesium (1.6-2.3) mg/dL Total Bilirubin (0.2-1.3) mg/dL AST (17-59) U/L ALT (4-49) U/L Alkaline Phosphatase (38-126) U/L Troponin I (0.000-0.034) ng/mL Total Protein (6.3-8.2) g/dL Albumin (3.5-5.0) g/dL Lipase (23-300) U/L Urine Color Urine Appearance (Clear) Urine pH (5.0-8.0) Ur Specific [place] (1.001-1.035) Urine Protein (Negative) Urine Glucose (UA) (Negative) Urine Ketones (Negative) Urine Blood (Negative) Urine Nitrite (Negative) Urine Bilirubin (Negative) Urine Urobilinogen (<2.0) mg/dL Ur Leukocyte Esterase (Negative) Urine RBC (0-5) /hpf Urine WBC (0-5) /hpf Urine Mucus (None) /hpf Stool Occult Blood (Negative) Blood Type A Positive Blood Type Recheck A Pos Bld Type Recheck Status No Antibody Screen NEGATIVE Spec Expiration Date 03/17/2024231903/14/24 03/14/24 03/14/24 Range/Units 17:24 17:24 17:24 WBC (3.8-10.6) k/uL RBC (4.30-5.90) m/uL Hgb (13.0-17.5) gm/dL Hct (39.0-53.0) % MCV (80.0-100.0) fL MCH (25.0-35.0) pg MCHC (31.0-37.0) g/dL RDW (11.5-15.5) % Plt Count (150-450) k/uL MPV Neutrophils % % Lymphocytes % % Monocytes % % Eosinophils % % Basophils % % Neutrophils # (1.3-7.7) k/uL Lymphocytes # (1.0-4.8) k/uL Monocytes # (0-1.0) k/uL Eosinophils # (0-0.7) k/uL Basophils # (0-0.2) k/uL APTT (22.0-30.0) sec Sodium 138 (137-145) mmol/L Potassium 4.2 (3.5-5.1) mmol/L Chloride 101 (98-107) mmol/L Carbon Dioxide 25 (22-30) mmol/L Anion Gap 12 mmol/L BUN 13 (9-20) mg/dL Creatinine 0.77 (0.66-1.25) mg/dL Est GFR (CKD-EPI)AfAm >90 (>60 ml/min/1.73 sqM) Est GFR (CKD-EPI)NonAf 81 (>60 ml/min/1.73 sqM) Glucose 127 H (74-99) mg/dL Lactic Ac Sepsis Rflx Plasma Lactic Acid Pil[place] 2.1 H* (0.7-2.0) mmol/L Calcium 9.2 (8.4-10.2) mg/dL Magnesium 2.0 (1.6-2.3) mg/dL Total Bilirubin 1.7 H (0.2-1.3) mg/dL AST 37 (17-59) U/L ALT 13 (4-49) U/L Alkaline Phosphatase 76 (38-126) U/L Troponin I 0.023 (0.000-0.034) ng/mL Total Protein 7.8 (6.3-8.2) g/dL Albumin 4.6 (3.5-5.0) g/dL Lipase 30 (23-300) U/L Urine Color Urine Appearance (Clear) Urine pH (5.0-8.0) Ur Specific [place] (1.001-1.035) Urine Protein (Negative) Urine Glucose (UA) (Negative) Urine Ketones (Negative) Urine Blood (Negative) Urine Nitrite (Negative) Urine Bilirubin (Negative) Urine Urobilinogen (<2.0) mg/dL Ur Leukocyte Esterase (Negative) Urine RBC (0-5) /hpf Urine WBC (0-5) /hpf Urine Mucus (None) /hpf Stool Occult Blood (Negative) Blood Type Blood Type Recheck Bld Type Recheck Status Antibody Screen Spec Expiration Date 03/14/24 03/14/24 03/14/24 Range/Units 18:02 19:16 20:10 WBC (3.8-10.6) k/uL RBC (4.30-5.90) m/uL Hgb (13.0-17.5) gm/dL Hct (39.0-53.0) % MCV (80.0-100.0) fL MCH (25.0-35.0) pg MCHC (31.0-37.0) g/dL RDW (11.5-15.5) % Plt Count (150-450) k/uL MPV Neutrophils % % Lymphocytes % % Monocytes % % Eosinophils % % Basophils % % Neutrophils # (1.3-7.7) k/uL Lymphocytes # (1.0-4.8) k/uL Monocytes # (0-1.0) k/uL Eosinophils # (0-0.7) k/uL Basophils # (0-0.2) k/uL APTT (22.0-30.0) sec Sodium (137-145) mmol/L Potassium (3.5-5.1) mmol/L Chloride (98-107) mmol/L Carbon Dioxide (22-30) mmol/L Anion Gap mmol/L BUN (9-20) mg/dL Creatinine (0.66-1.25) mg/dL Est GFR (CKD-EPI)AfAm (>60 ml/min/1.73 sqM) Est GFR (CKD-EPI)NonAf (>60 ml/min/1.73 sqM) Glucose (74-99) mg/dL Lactic Ac Sepsis Rflx Y Plasma Lactic Acid [place] (0.7-2.0) mmol/L Calcium (8.4-10.2) mg/dL Magnesium (1.6-2.3) mg/dL Total Bilirubin (0.2-1.3) mg/dL AST (17-59) U/L ALT (4-49) U/L Alkaline Phosphatase (38-126) U/L Troponin I (0.000-0.034) ng/mL Total Protein (6.3-8.2) g/dL Albumin (3.5-5.0) g/dL Lipase (23-300) U/L Urine Color Yellow Urine Appearance Clear (Clear) Urine pH 7.5 (5.0-8.0) Ur Specific [place] 1.016 (1.001-1.035) Urine Protein Trace H (Negative) Urine Glucose (UA) Negative (Negative) Urine Ketones Negative (Negative) Urine Blood Large H (Negative) Urine Nitrite Negative (Negative) Urine Bilirubin Negative (Negative) Urine Urobilinogen 2.0 (<2.0) mg/dL Ur Leukocyte Esterase Negative (Negative) Urine RBC >182 H (0-5) /hpf Urine WBC 2 (0-5) /hpf Urine Mucus Rare H (None) /hpf Stool Occult Blood Positive (Negative) Blood Type Blood Type Recheck Bld Type Recheck Status Antibody Screen Spec Expiration Date 03/14/24 03/14/24 Range/Units 20:32 21:09 WBC (3.8-10.6) k/uL RBC (4.30-5.90) m/uL Hgb (13.0-17.5) gm/dL Hct (39.0-53.0) % MCV (80.0-100.0) fL MCH (25.0-35.0) pg MCHC (31.0-37.0) g/dL RDW (11.5-15.5) % Plt Count (150-450) k/uL MPV Neutrophils % % Lymphocytes % % Monocytes % % Eosinophils % % Basophils % % Neutrophils # (1.3-7.7) k/uL Lymphocytes # (1.0-4.8) k/uL Monocytes # (0-1.0) k/uL Eosinophils # (0-0.7) k/uL Basophils # (0-0.2) k/uL APTT (22.0-30.0) sec Sodium (137-145) mmol/L Potassium (3.5-5.1) mmol/L Chloride (98-107) mmol/L Carbon Dioxide (22-30) mmol/L Anion Gap mmol/L BUN (9-20) mg/dL Creatinine (0.66-1.25) mg/dL Est GFR (CKD-EPI)AfAm (>60 ml/min/1.73 sqM) Est GFR (CKD-EPI)NonAf (>60 ml/min/1.73 sqM) Glucose (74-99) mg/dL Lactic Ac Sepsis Rflx Y Plasma Lactic Acid [place] 2.1 H* (0.7-2.0) mmol/L Calcium (8.4-10.2) mg/dL Magnesium (1.6-2.3) mg/dL Total Bilirubin (0.2-1.3) mg/dL AST (17-59) U/L ALT (4-49) U/L Alkaline Phosphatase (38-126) U/L Troponin I (0.000-0.034) ng/mL Total Protein (6.3-8.2) g/dL Albumin (3.5-5.0) g/dL Lipase (23-300) U/L Urine Color Urine Appearance (Clear) Urine pH (5.0-8.0) Ur Specific [place] (1.001-1.035) Urine Protein (Negative) Urine Glucose (UA) (Negative) Urine Ketones (Negative) Urine Blood (Negative) Urine Nitrite (Negative) Urine Bilirubin (Negative) Urine Urobilinogen (<2.0) mg/dL Ur Leukocyte Esterase (Negative) Urine RBC (0-5) /hpf Urine WBC (0-5) /hpf Urine Mucus (None) /hpf Stool Occult Blood (Negative) Blood Type Blood Type Recheck Bld Type Recheck Status Antibody Screen Spec Expiration Date Disposition Clinical Impression: Urinary retention, Abdominal pain, Positive occult stool blood test Disposition: ADMITTED IP TO THIS [facility] Condition: Stable Decision to Admit Reason: Admit from EC Decision Date: 03/14/24 Decision Time: 23:48
[2024-03-14 17:38] LABS: Basophils # (A) 0.1 k/uL (0-0.2); Basophils % (A) 1 %; Eosinophils # (A) 0.2 k/uL (0-0.7); Eosinophils % (A) 2 %; HCT 46.9 % (39.0-53.0); HGB 15.8 gm/dL (13.0-17.5); Lymphocytes # (A) 0.5 k/uL (1.0-4.8); Lymphocytes % (A) 5 %; MCH 32.7 pg (25.0-35.0); MCHC 33.6 g/dL (31.0-37.0); MCV 97.2 fL (80.0-100.0); Mean Platelet Volume 7.3; Monocytes # (A) 0.4 k/uL (0-1.0); Monocytes % (A) 4 %; Neutrophils # (A) 8.4 k/uL (1.3-7.7); Neutrophils % (A) 88 %; Platelet Count 221 k/uL (150-450); RBC 4.83 m/uL (4.30-5.90); RDW 13.9 % (11.5-15.5); WBC 9.6 k/uL (3.8-10.6)
[2024-03-14 17:51] LABS: ALT 13 U/L (4-49); African American GFR (CKD) >90 (>60 ml/min/1.73 sqM); Albumin 4.6 g/dL (3.5-5.0); Anion Gap 12 mmol/L; Blood Urea Nitrogen 13 mg/dL (9-20); Calcium 9.2 mg/dL (8.4-10.2); Carbon Dioxide 25 mmol/L (22-30); Chloride 101 mmol/L (98-107); Glucose 127 mg/dL (74-99); Lipase 30 U/L (23-300); Non-African American GFR(CKD) 81 (>60 ml/min/1.73 sqM); Sodium 138 mmol/L (137-145); Total Bilirubin 1.7 mg/dL (0.2-1.3)
[2024-03-14 18:01] LABS: AST 37 U/L (17-59); Alkaline Phosphatase 76 U/L (38-126); Potassium 4.2 mmol/L (3.5-5.1); Total Protein 7.8 g/dL (6.3-8.2)
[2024-03-14 19:31] LABS: Appearance,Urine Clear (Clear); Bilirubin,Urine Negative (Negative); Blood,Urine Large (Negative); Color,Urine Yellow; Glucose,Urine (UA) Negative (Negative); Ketones,Urine Negative (Negative); Leukocyte Esterase,Urine Negative (Negative); Mucus,Urine Rare /hpf; Nitrite,Urine Negative (Negative); PH, Urine 7.5 (5.0-8.0); Protein,Urine Trace (Negative); RBC,Urine >182 /hpf (0-5); Specific Gravity,Urine 1.016 (1.001-1.035); WBC,Urine 2 /hpf (0-5)
[2024-03-14] MEDS: KETOROLAC 15 MG/ML 1 ML VIAL IVP STA (21:49)
[2024-03-14] MEDS: NA PHOS,M-B/NA PHOS,DI-BA 133 ML ENEMA RECTAL STA (22:03)
[2024-03-14] MEDS: METOPROLOL TARTRATE 5 MG/5 ML VIAL IVP STA (22:46)
[2024-03-14] MEDS: HYDROmorphone 0.5 MG/0.5 ML SYRINGE IVP PRN (22:49)
[2024-03-14] MEDS: SODIUM CHLORIDE 0.9% 1,000 ML IV STA (23:36)
[2024-03-14] MEDS ORDERED: ONDANSETRON 4 MG/2 ML VIAL IVP PRN (23:43)
[2024-03-14] MEDS ORDERED: NALOXONE 0.4 MG/ML 1 ML VIAL IV PRN (23:43)
[2024-03-14] MEDS ORDERED: METOPROLOL TARTRATE 5 MG/5 ML VIAL IVP PRN (23:46)
[2024-03-15] MEDS: SODIUM CHLORIDE 0.9% 1,000 ML IV SCH (00:36)
[2024-03-15 03:27] LABS: ALT 11 U/L (4-49); AST 31 U/L (17-59); African American GFR (CKD) >90 (>60 ml/min/1.73 sqM); Alkaline Phosphatase 64 U/L (38-126); Anion Gap 10 mmol/L; Blood Urea Nitrogen 15 mg/dL (9-20); Calcium 8.5 mg/dL (8.4-10.2); Carbon Dioxide 24 mmol/L (22-30); Chloride 104 mmol/L (98-107); Glucose 113 mg/dL (74-99); Non-African American GFR(CKD) 82 (>60 ml/min/1.73 sqM); Potassium 4.4 mmol/L (3.5-5.1); Sodium 138 mmol/L (137-145); Total Bilirubin 1.6 mg/dL (0.2-1.3); Total Protein 6.8 g/dL (6.3-8.2)
[2024-03-15 03:43] LABS: Basophils % (A) 0 %; Eosinophils # (A) 0.1 k/uL (0-0.7); Eosinophils % (A) 0 %; HCT 44.4 % (39.0-53.0); HGB 14.4 gm/dL (13.0-17.5); Lymphocytes # (A) 0.9 k/uL (1.0-4.8); Lymphocytes % (A) 7 %; MCH 31.8 pg (25.0-35.0); MCHC 32.4 g/dL (31.0-37.0); MCV 98.3 fL (80.0-100.0); Mean Platelet Volume 7.7; Monocytes # (A) 0.7 k/uL (0-1.0); Monocytes % (A) 5 %; Neutrophils % (A) 86 %; Platelet Count 225 k/uL (150-450); RBC 4.52 m/uL (4.30-5.90); RDW 13.9 % (11.5-15.5); WBC 12.7 k/uL (3.8-10.6)
[2024-03-15] MEDS: ACETAMINOPHEN TAB 325 MG TAB PO PRN (12:06)
[2024-03-15] MEDS: PSYLLIUM HUSK 100% 6 GM PACKET PO SCH (12:30)
--- NOTE | 2024-03-15 12:43 | P.HPIM ---
History of Present Illness H&P Date: 03/15/24 History of present illness; Patient is a 88-year-old man with A-fib on Eliquis, hypertension, bladder cancer presenting with constipation and urinary retention. His symptoms began one week ago, he took Dulcolax which improved his symptoms for several days. Afterward his constipation worsened and he used suppository at home. He reports his stool appeared black, no blood in stool. He also states he has ongoing small amounts of hematuria. Typically without retention. He does seem confused as to when urinary retention began, chart states 18 hours before admission. He also states he has been feeling weak fatigued and nauseous. While in ER he had Au catheter inserted, which he subsequently pulled himself later. He had catheter reinserted. Today he is having frequent water diarrhea, non bloody, brown. He also had fall while standing in ER without trauma to head. He denies fever, chills, chest pain, and dyspnea. Labs completed in ER WBC 9.6, hemoglobin 15.8, APTT 27.9, sodium 138, potassium 4.2, bicarb 25, gap 12, BUN 13, creatinine 0.77, glucose 127, lactic acid venous 2.1, total bilirubin 1.7, troponin 0.023, lipase 30, UA positive for trace protein, blood large, urine RBC > 182, positive occult blood. Spoke with the ER physician, patient admission was accepted by internal medicine service for treatment. REVIEW OF SYSTEMS: Pertinent positives and negatives noted in HPI. PHYSICAL EXAMINATION: Vitals reviewed GENERAL: No acute distress. Well developed, well nourished. Au catheter HEENT: Pupils are round and equally reacting to light. EOMI. No scleral icterus. Normocephalic, atraumatic. CARDIOVASCULAR: S1 and S2 present. No murmurs, rubs, or gallops. PULMONARY: Chest is clear to auscultation, no wheezing, rhonchi, or crackles. ABDOMEN: Soft, nontender, nondistended, normoactive bowel sounds. No palpable organomegaly. MUSCULOSKELETAL: No apparent joint swelling and deformities. EXTREMITIES: No apparent cyanosis, clubbing, or pedal edema. NEUROLOGICAL: The patient is alert, Gross neurological examination did not reveal any focal deficits. SKIN: No apparent rashes. Assessment and plan Patient is a 88-year-old man with A-fib on Eliquis, hypertension, bladder cancer not receiving treatment presenting with constipation and urinary retention. #Urinary retention #Hematuria Au catheter inserted, reinserted - Traumatic self removal - resume home finasteride - consider beginning Flomax Urology consulted #Altered bowel function - continue NS @ 75cc/hr - begin metamucil - GI Consulted, will not pursue scope #Generalized weakness - PT/OT consulted - Fall precautions Chronic Medical Conditions # Essential hypertension - Resume home Tonny #Coronary artery disease #Afib - holding blood thinners - Resume home Statin - Resume home Metoprolol, Digoxin #Hypothyroidism - Resume home Synthroid #GERD - Resume home Pantoprazole, famotidine #BPH - Resume home meds F: IV Normal saline 75 mL/hr E: Replete as needed N: Heart healthy diet DVT ppx: holding due to hematuria Code status: Anticipated discharge place: Pending clinical course Anticipated discharge time: Tomorrow Dictation was produced using [employer] dictation software. Please excuse any grammatical, word or spelling errors. Past Medical History Past Medical History: Atrial Fibrillation, Cancer, CVA/TIA, GERD/Reflux, Hypertension, Myocardial Infarction ([place]), Osteoarthritis (OA), Thyroid Disorder Additional Past Medical History / Comment(s): DYSPHAGIA. TIA possible CVA per pt, [place]-per EKG, bronchitis, hypothyroid, skin cancer with removals Last Myocardial Infarction Date:: unk History of Any Multi-Drug Resistant Organisms: None Reported Past Surgical History: Hernia Repair, Orthopedic Surgery, Tonsillectomy Additional Past Surgical History / Comment(s): Bilateral cataract removal, arely inguinal hernia repair, hiatal hernia surgery, skin cancer (basal and squamous cell) removals, colonoscopy, arely carpal tunnel release, rt upper thigh inury has plastic INSERT UNDER SKIN Past Anesthesia/Blood Transfusion Reactions: No Reported Reaction Past Psychological History: No Psychological Hx Reported Smoking Status: Former smoker - Past Family History Father Family Medical History: Liver Disease Additional Family Medical History / Comment(s): Father was a drinker and had liver cirrhosis from which he of at the age of 52yrs. Mother Family Medical History: Cancer Additional Family Medical History / Comment(s): Mother had throat cancer and of this at the age of 87yrs. Sister(s) Family Medical History: Cancer Additional Family Medical History / Comment(s): STOMACH CANCER Medications and Allergies Home Medications Medication Instructions Recorded Confirmed Type Levothyroxine Sodium [Synthroid] 100 mcg PO QAM 02/12/17 07/05/23 History Sacubitril/Valsartan [Entresto 24 1 tab PO BID 08/18/18 07/05/23 History mg-26 mg Tablet] Triamcinolone 0.1% Cream [Kenalog 1 applic TOPICAL BID PRN 08/18/18 07/05/23 History 0.1% Cream] Cholecalciferol [Vitamin D3 (25 125 mcg PO DAILY 10/11/20 07/05/23 History Mcg = 1000 Iu)] Digoxin [Digitek] 125 mcg PO DAILY PRN 10/11/20 07/05/23 History Finasteride [Proscar] 5 mg PO DAILY 10/11/20 07/05/23 History Fluticasone Propionate [Flonase 1 spray EA NOSTRIL BID 10/11/20 07/05/23 History Allergy Relief] Metoprolol Tartrate 25 mg PO BID PRN 01/14/22 07/05/23 History Apixaban [Eliquis] 5 mg PO BID 06/15/23 07/05/23 History Ascorbic Acid [Vitamin C] 500 mg PO DAILY 03/15/24 03/15/24 History Atorvastatin [Lipitor] 40 mg PO DAILY 03/15/24 03/15/24 History Chlorhexidine Gluconate [Peridex] 15 ml MM BID 03/15/24 03/15/24 History Cyanocobalamin (Vitamin B-12) 1,000 mcg PO DAILY 03/15/24 03/15/24 History [Vitamin B-12] Famotidine 20 mg PO BID PRN 03/15/24 03/15/24 History Pantoprazole [Protonix] 40 mg PO DAILY 03/15/24 03/15/24 History Zinc Gluconate [Zinc] 50 mg PO DAILY 03/15/24 03/15/24 History Allergies Allergy/AdvReac Type Severity Reaction Status Date / Time No Known Allergies Allergy Verified 03/15/24 12:15 Physical Exam Vitals: Vital Signs Temp Pulse Resp BP Pulse Ox 03/15/24 05:18 97.8 F 98 16 143/93 95 03/15/24 02:00 84 18 158/101 96 03/14/24 23:47 90 18 147/101 98 03/14/24 23:10 92 156/113 97 03/14/24 22:59 90 18 98 03/14/24 22:57 108 H 168/118 03/14/24 22:35 108 H 165/143 03/14/24 18:50 98.1 F 88 18 189/116 97 03/14/24 15:52 97.5 F L 99 18 162/105 98 Intake and Output 03/14/24 03/15/24 03/15/24 22:59 06:59 14:59 Other: Weight 68.039 kg Results CBC & Chem 7: 03/15/24 02:44 03/15/24 02:44 Labs: Abnormal Lab Results - Last 24 Hours (Table) 03/14/24 03/14/24 03/14/24 Range/Units 17:24 17:24 17:24 WBC (3.8-10.6) k/uL Neutrophils # 8.4 H (1.3-7.7) k/uL Lymphocytes # 0.5 L (1.0-4.8) k/uL Glucose 127 H (74-99) mg/dL Plasma Lactic Acid Pilo 2.1 H* (0.7-2.0) mmol/L Total Bilirubin 1.7 H (0.2-1.3) mg/dL Urine Protein (Negative) Urine Blood (Negative) Urine RBC (0-5) /hpf Urine Mucus (None) /hpf 03/14/24 03/14/24 03/14/24 Range/Units 19:16 20:32 23:33 WBC (3.8-10.6) k/uL Neutrophils # (1.3-7.7) k/uL Lymphocytes # (1.0-4.8) k/uL Glucose (74-99) mg/dL Plasma Lactic Acid Pilo 2.1 H* 2.1 H* (0.7-2.0) mmol/L Total Bilirubin (0.2-1.3) mg/dL Urine Protein Trace H (Negative) Urine Blood Large H (Negative) Urine RBC >182 H (0-5) /hpf Urine Mucus Rare H (None) /hpf 03/15/24 03/15/24 Range/Units 02:44 02:44 WBC 12.7 H (3.8-10.6) k/uL Neutrophils # 11.0 H (1.3-7.7) k/uL Lymphocytes # 0.9 L (1.0-4.8) k/uL Glucose 113 H (74-99) mg/dL Plasma Lactic Acid Pilo (0.7-2.0) mmol/L Total Bilirubin 1.6 H (0.2-1.3) mg/dL Urine Protein (Negative) Urine Blood (Negative) Urine RBC (0-5) /hpf Urine Mucus (None) /hpf
--- NOTE | 2024-03-15 12:44 | P.CONS ---
History of Present Illness - Reason for Consult Consult date: 03/15/24 Positive fecal occult, GI bleed Requesting physician: Mehnaz Ramírez - Chief Complaint Urinary retention - History of Present Illness This a pleasant 88-year-old male with a medical history including bladder cancer, atrial fibrillation, cancer, CVA/TIA, GERD, hypertension, [place], osteoarthritis and thyroid disorder. Apparently patient was having urinary retention not able to void for 18 hours prior to coming into the emergency department. He was also constipated for several days and unable to have a bowel movement. He gave himself a enema and subsequently had large bowel movement which he states was black. He has had several more bowel movements since that time which he states were dark. He denies any bright red blood in his stool. He also has hematuria. Patient states with the last bowel movement he did have some pain in his rectum. Denies any abdominal pain, nausea or vomiting. Urology is on consultation. Gastroenterology got consulted for possible GI bleed. He denies any anticoagulation. WBC 12.7 hemoglobin 14.4 hematocrit 44 platelet count 225,000 sodium 138 potassium 4.4 BUN 15 creatinine 0.76 Review of Systems REVIEW OF SYSTEMS: CARDIOPULMONARY: No chest pain or shortness of breath. Gastrointestinal: No abdominal pain. No nausea or vomiting. No hematemesis, coffee-ground emesis. Patient reported black stool. GENITOURINARY: Urinary retention with hematuria. MUSCULOSKELETAL: Reports normal range of motion., Joint pain. SKIN: No rashes. No jaundice. ENDOCRINE: No chills, fevers. No excessive weight gain or loss. No polydipsia or polyuria. PSYCHIATRIC: Unremarkable. NEUROLOGY: No change in mental status. Denies dizziness, headache. ENT: Vision unremarkable. CONSTITUTIONAL: No recent weight loss. No fever, chills, night sweats. Past Medical History Past Medical History: Atrial Fibrillation, Cancer, CVA/TIA, GERD/Reflux, Hypertension, Myocardial Infarction ([place]), Osteoarthritis ([place]), Thyroid Disorder Additional Past Medical History / Comment(s): DYSPHAGIA. TIA possible CVA per pt, [place]-per EKG, bronchitis, hypothyroid, skin cancer with removals Last Myocardial Infarction Date:: unk History of Any Multi-Drug Resistant Organisms: None Reported Past Surgical History: Hernia Repair, Orthopedic Surgery, Tonsillectomy Additional Past Surgical History / Comment(s): Bilateral cataract removal, arely inguinal hernia repair, hiatal hernia surgery, skin cancer (basal and squamous cell) removals, colonoscopy, arely carpal tunnel release, rt upper thigh inury has plastic INSERT UNDER SKIN Past Anesthesia/Blood Transfusion Reactions: No Reported Reaction Past Psychological History: No Psychological Hx Reported Smoking Status: Former smoker - Past Family History Father Family Medical History: Liver Disease Additional Family Medical History / Comment(s): Father was a drinker and had liver cirrhosis from which he of at the age of 52yrs. Mother Family Medical History: Cancer Additional Family Medical History / Comment(s): Mother had throat cancer and of this at the age of 87yrs. Sister(s) Family Medical History: Cancer Additional Family Medical History / Comment(s): STOMACH CANCER Medications and Allergies Home Medications Medication Instructions Recorded Confirmed Type Levothyroxine Sodium [Synthroid] 100 mcg PO DAILY 02/12/17 03/15/24 History Sacubitril/Valsartan [Entresto 24 1 tab PO BID 08/18/18 03/15/24 History mg-26 mg Tablet] Triamcinolone 0.1% Cream [Kenalog 1 applic TOPICAL BID 08/18/18 03/15/24 History 0.1% Cream] Cholecalciferol [Vitamin D3 (25 25 mcg PO DAILY 10/11/20 03/15/24 History Mcg = 1000 Iu)] Digoxin [Digitek] 125 mcg PO DAILY 10/11/20 03/15/24 History Finasteride [Proscar] 5 mg PO DAILY 10/11/20 03/15/24 History Fluticasone Propionate [Flonase 1 spr EA NOSTRIL BID 10/11/20 03/15/24 History Allergy Relief] Metoprolol Tartrate 12.5 mg PO BID 01/14/22 03/15/24 History Apixaban [Eliquis] 5 mg PO BID 06/15/23 03/15/24 History Ascorbic Acid [Vitamin C] 500 mg PO DAILY 03/15/24 03/15/24 History Atorvastatin [Lipitor] 40 mg PO DAILY 03/15/24 03/15/24 History Chlorhexidine Gluconate [Peridex] 15 ml MM BID 03/15/24 03/15/24 History Cyanocobalamin (Vitamin B-12) 1,000 mcg PO DAILY 03/15/24 03/15/24 History [Vitamin B-12] Famotidine 20 mg PO BID PRN 03/15/24 03/15/24 History Pantoprazole [Protonix] 40 mg PO DAILY 03/15/24 03/15/24 History Zinc Gluconate [Zinc] 50 mg PO DAILY 03/15/24 03/15/24 History Allergies Allergy/AdvReac Type Severity Reaction Status Date / Time No Known Allergies Allergy Verified 03/15/24 12:15 Physical Exam Vitals: Vital Signs Temp Pulse Resp BP Pulse Ox 03/15/24 05:18 97.8 F 98 16 143/93 95 03/15/24 02:00 84 18 158/101 96 03/14/24 23:47 90 18 147/101 98 03/14/24 23:10 92 156/113 97 03/14/24 22:59 90 18 98 03/14/24 22:57 108 H 168/118 03/14/24 22:35 108 H 165/143 03/14/24 18:50 98.1 F 88 18 189/116 97 03/14/24 15:52 97.5 F L 99 18 162/105 98 Intake and Output 03/14/24 03/15/24 03/15/24 22:59 06:59 14:59 Other: Weight 68.039 kg General appearance: The patient is alert, oriented, appears in no acute distress. HET: Head is normocephalic and atraumatic. Conjunctiva pink. Sclera anicteric. Neck: Supple without lymphadenopathy. Trachea midline. Heart: Regular. Lungs: Equal expansion, normal respiratory effort. Abdomen: Soft, nontender, nondistended. Skin: No rashes. No jaundice. Extremities: Normal skin color and turgor. No pedal edema. Neurological: No focal deficits. Alert and oriented x3. Results CBC & Chem 7: 03/15/24 02:44 03/15/24 02:44 Labs: Abnormal Lab Results - Last 24 Hours (Table) 03/14/24 03/14/24 03/14/24 Range/Units 17:24 17:24 17:24 WBC (3.8-10.6) k/uL Neutrophils # 8.4 H (1.3-7.7) k/uL Lymphocytes # 0.5 L (1.0-4.8) k/uL Glucose 127 H (74-99) mg/dL Plasma Lactic Acid Pilo 2.1 H* (0.7-2.0) mmol/L Total Bilirubin 1.7 H (0.2-1.3) mg/dL Urine Protein (Negative) Urine Blood (Negative) Urine RBC (0-5) /hpf Urine Mucus (None) /hpf 03/14/24 03/14/24 03/14/24 Range/Units 19:16 20:32 23:33 WBC (3.8-10.6) k/uL Neutrophils # (1.3-7.7) k/uL Lymphocytes # (1.0-4.8) k/uL Glucose (74-99) mg/dL Plasma Lactic Acid Pilo 2.1 H* 2.1 H* (0.7-2.0) mmol/L Total Bilirubin (0.2-1.3) mg/dL Urine Protein Trace H (Negative) Urine Blood Large H (Negative) Urine RBC >182 H (0-5) /hpf Urine Mucus Rare H (None) /hpf 03/15/24 03/15/24 Range/Units 02:44 02:44 WBC 12.7 H (3.8-10.6) k/uL Neutrophils # 11.0 H (1.3-7.7) k/uL Lymphocytes # 0.9 L (1.0-4.8) k/uL Glucose 113 H (74-99) mg/dL Plasma Lactic Acid Pilo (0.7-2.0) mmol/L Total Bilirubin 1.6 H (0.2-1.3) mg/dL Urine Protein (Negative) Urine Blood (Negative) Urine RBC (0-5) /hpf Urine Mucus (None) /hpf Assessment and Plan Assessment: 1. Stool with positive occult blood. Patient's bowel movement today was normal, brown. Rectal pain likely from constipation and large hard stool, possible fissure versus hemorrhoid 2. Constipation 3. Urinary retention 4. Hematuria 5. Bladder cancer Plan: 1. Continue symptomatic and supportive care 2. Continue with workup and recommendations from urology 3. Patient with no evidence of melena. Dark stool likely secondary to constipation. Stable hemoglobin 4. No plans on endoscopic evaluation 5. No further workup indicated by gastroenterology Thank you for this consultation, patient is cleared by gastroenterology for discharge. Dr. Chava Norton I agree with the dictator's note, documented as a scribe by Estelle Peacock.
[2024-03-15] MEDS: TRIAMCINOLONE 0.1% CREAM 80 GM TUBE TOPICAL SCH (14:12)
[2024-03-15] MEDS: SACUBITRIL/VALSARTAN 24 MG-26 MG TABLET PO SCH (14:13)
[2024-03-15] MEDS: DIGOXIN 125 MCG TAB PO SCH (14:13)
[2024-03-15] MEDS: PANTOPRAZOLE 40 MG TABLET PO SCH (14:14)
[2024-03-15] MEDS: METOPROLOL TARTRATE 25 MG TAB PO SCH (14:14)
[2024-03-15] MEDS: FINASTERIDE 5 MG TAB PO SCH (14:14)
[2024-03-15] MEDS: LEVOTHYROXINE 100 MCG TAB PO SCH (14:15)
[2024-03-15] MEDS: ASCORBIC ACID 500 MG TAB PO SCH (14:15)
[2024-03-15] MEDS: ATORVASTATIN 40 MG TAB PO SCH (14:15)
[2024-03-15] MEDS: FAMOTIDINE 20 MG TAB PO PRN (14:15)
[2024-03-15] MEDS: CHLORHEXIDINE GLUCONATE 15 ML CUP MUCOUS MEM SCH (14:41)
--- NOTE | 2024-03-15 17:45 | P.GSCN ---
History of Present Illness Consult date: 03/15/24 Reason for Consult: This is an 88-year-old male that urology is consulted for urinary retention. Patient admitted to the hospital for possible GI bleed and urinary retention. He indicated that he has been also having difficulty with bowel movements and the onset of retention occurred following that. At baseline he denies any voiding dysfunction. No previous known history of urinary retention, kidney stones or recurrent UTIs Review of Systems - Constitutional Denies chills, Denies fever - EENT Ears, nose, mouth and throat: Denies dysphagia - Cardiovascular Denies chest pain, Denies shortness of breath - Respiratory Denies cough, Denies 7 - Gastrointestinal Reports as per HPI - Genitourinary Reports urinary retention, Denies flank pain, Denies hematuria - Integumentary Denies rash, Denies unusual bruising - Neurological Denies headaches, Denies syncope Past Medical History Past Medical History: Atrial Fibrillation, Cancer, CVA/TIA, GERD/Reflux, Hypertension, Myocardial Infarction ([place]), Osteoarthritis ([place]), Thyroid Disorder Additional Past Medical History / Comment(s): DYSPHAGIA. 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 Pt lives w/ in single level home that has 2 porch steps. Has life alert necklace. 1 pet dog. no medical equipment, no home care services. no service. 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 Smoking Status: Former smoker Past Alcohol Use History: None Reported Past Drug Use History: None Reported - Past Family History Father Family Medical History: Liver Disease Additional Family Medical History / Comment(s): Father was a drinker and had liver cirrhosis from which he of at the age of 52yrs. Mother Family Medical History: Cancer Additional Family Medical History / Comment(s): Mother had throat cancer and of this at the age of 87yrs. Sister(s) Family Medical History: Cancer Additional Family Medical History / Comment(s): STOMACH CANCER Medications and Allergies Home Medications Medication Instructions Recorded Confirmed Type Levothyroxine Sodium [Synthroid] 100 mcg PO DAILY 02/12/17 03/15/24 History Sacubitril/Valsartan [Entresto 24 1 tab PO BID 08/18/18 03/15/24 History mg-26 mg Tablet] Triamcinolone 0.1% Cream [Kenalog 1 applic TOPICAL BID 08/18/18 03/15/24 History 0.1% Cream] Cholecalciferol [Vitamin D3 (25 25 mcg PO DAILY 10/11/20 03/15/24 History Mcg = 1000 Iu)] Digoxin [Digitek] 125 mcg PO DAILY 10/11/20 03/15/24 History Finasteride [Proscar] 5 mg PO DAILY 10/11/20 03/15/24 History Fluticasone Propionate [Flonase 1 spr EA NOSTRIL BID 10/11/20 03/15/24 History Allergy Relief] Metoprolol Tartrate 12.5 mg PO BID 01/14/22 03/15/24 History Apixaban [Eliquis] 5 mg PO BID 06/15/23 03/15/24 History Ascorbic Acid [Vitamin C] 500 mg PO DAILY 03/15/24 03/15/24 History Atorvastatin [Lipitor] 40 mg PO DAILY 03/15/24 03/15/24 History Chlorhexidine Gluconate [Peridex] 15 ml MM BID 03/15/24 03/15/24 History Cyanocobalamin (Vitamin B-12) 1,000 mcg PO DAILY 03/15/24 03/15/24 History [Vitamin B-12] Famotidine 20 mg PO BID PRN 03/15/24 03/15/24 History Pantoprazole [Protonix] 40 mg PO DAILY 03/15/24 03/15/24 History Zinc Gluconate [Zinc] 50 mg PO DAILY 03/15/24 03/15/24 History Allergies Allergy/AdvReac Type Severity Reaction Status Date / Time No Known Allergies Allergy Verified 03/15/24 12:15 Surgical - Exam Vital Signs Temp Pulse Resp BP Pulse Ox 97.5 F L 99 18 162/105 98 03/14/24 15:52 03/14/24 15:52 03/14/24 15:52 03/14/24 15:52 03/14/24 15:52 - General no distress, no pain - Eyes normal ocular movement, no pale - ENT normal nares, normal mucosa - Respiratory normal expansion, normal respiratory effort - Abdomen Abdomen: soft, non tender - Psychiatric oriented to time, oriented to person, oriented to place Results - Labs 03/15/24 02:44 03/15/24 02:44 Abnormal Lab Results - Last 24 Hours (Table) 03/14/24 03/14/24 03/14/24 Range/Units 17:24 17:24 17:24 WBC (3.8-10.6) k/uL Neutrophils # 8.4 H (1.3-7.7) k/uL Lymphocytes # 0.5 L (1.0-4.8) k/uL Glucose 127 H (74-99) mg/dL Plasma Lactic Acid Pilo 2.1 H* (0.7-2.0) mmol/L Total Bilirubin 1.7 H (0.2-1.3) mg/dL Urine Protein (Negative) Urine Blood (Negative) Urine RBC (0-5) /hpf Urine Mucus (None) /hpf 03/14/24 03/14/24 03/14/24 Range/Units 19:16 20:32 23:33 WBC (3.8-10.6) k/uL Neutrophils # (1.3-7.7) k/uL Lymphocytes # (1.0-4.8) k/uL Glucose (74-99) mg/dL Plasma Lactic Acid Pilo 2.1 H* 2.1 H* (0.7-2.0) mmol/L Total Bilirubin (0.2-1.3) mg/dL Urine Protein Trace H (Negative) Urine Blood Large H (Negative) Urine RBC >182 H (0-5) /hpf Urine Mucus Rare H (None) /hpf 03/15/24 03/15/24 Range/Units 02:44 02:44 WBC 12.7 H (3.8-10.6) k/uL Neutrophils # 11.0 H (1.3-7.7) k/uL Lymphocytes # 0.9 L (1.0-4.8) k/uL Glucose 113 H (74-99) mg/dL Plasma Lactic Acid Pilo (0.7-2.0) mmol/L Total Bilirubin 1.6 H (0.2-1.3) mg/dL Urine Protein (Negative) Urine Blood (Negative) Urine RBC (0-5) /hpf Urine Mucus (None) /hpf Diabetes panel 03/14/24 03/15/24 Range/Units 17:24 02:44 Sodium 138 138 (137-145) mmol/L Potassium 4.2 4.4 (3.5-5.1) mmol/L Chloride 101 104 (98-107) mmol/L Carbon Dioxide 25 24 (22-30) mmol/L BUN 13 15 (9-20) mg/dL Creatinine 0.77 0.76 (0.66-1.25) mg/dL Glucose 127 H 113 H (74-99) mg/dL Calcium 9.2 8.5 (8.4-10.2) mg/dL AST 37 31 (17-59) U/L ALT 13 11 (4-49) U/L Alkaline Phosphatase 76 64 (38-126) U/L Total Protein 7.8 6.8 (6.3-8.2) g/dL Albumin 4.6 4.0 (3.5-5.0) g/dL Calcium panel 03/14/24 03/15/24 Range/Units 17:24 02:44 Calcium 9.2 8.5 (8.4-10.2) mg/dL Albumin 4.6 4.0 (3.5-5.0) g/dL Pituitary panel 03/14/24 03/15/24 Range/Units 17:24 02:44 Sodium 138 138 (137-145) mmol/L Potassium 4.2 4.4 (3.5-5.1) mmol/L Chloride 101 104 (98-107) mmol/L Carbon Dioxide 25 24 (22-30) mmol/L BUN 13 15 (9-20) mg/dL Creatinine 0.77 0.76 (0.66-1.25) mg/dL Glucose 127 H 113 H (74-99) mg/dL Calcium 9.2 8.5 (8.4-10.2) mg/dL Adrenal panel 03/14/24 03/15/24 Range/Units 17:24 02:44 Sodium 138 138 (137-145) mmol/L Potassium 4.2 4.4 (3.5-5.1) mmol/L Chloride 101 104 (98-107) mmol/L Carbon Dioxide 25 24 (22-30) mmol/L BUN 13 15 (9-20) mg/dL Creatinine 0.77 0.76 (0.66-1.25) mg/dL Glucose 127 H 113 H (74-99) mg/dL Calcium 9.2 8.5 (8.4-10.2) mg/dL Total Bilirubin 1.7 H 1.6 H (0.2-1.3) mg/dL AST 37 31 (17-59) U/L ALT 13 11 (4-49) U/L Alkaline Phosphatase 76 64 (38-126) U/L Total Protein 7.8 6.8 (6.3-8.2) g/dL Albumin 4.6 4.0 (3.5-5.0) g/dL Assessment and Plan Assessment: 88-year-old male admitted to the hospital for urinary retention. Au catheter was placed this morning in the ER. Patient also has been having constipation, he did receive an enema in the ER. -Will start Flomax, continue Flomax -Au catheter can be removed tomorrow in the morning, please check patient residual if less than 400 mL then no need for Au catheter
[2024-03-15] MEDS: TAMSULOSIN 0.4 MG CAP.ER.24H PO SCH (18:57)
[2024-03-15 20:34] LABS: Glucose,Whole Blood 92 mg/dL (70-110)
[2024-03-15 20:36] LABS: Glucose,Whole Blood 142 mg/dL (70-110)
[2024-03-16 03:26] LABS: Basophils % (A) 1 %; Eosinophils # (A) 0.1 k/uL (0-0.7); Eosinophils % (A) 1 %; HCT 38.1 % (39.0-53.0); HGB 12.6 gm/dL (13.0-17.5); Lymphocytes % (A) 11 %; MCH 32.1 pg (25.0-35.0); MCV 97.4 fL (80.0-100.0); Mean Platelet Volume 7.9; Monocytes # (A) 0.7 k/uL (0-1.0); Monocytes % (A) 8 %; Neutrophils # (A) 7.2 k/uL (1.3-7.7); Neutrophils % (A) 79 %; Platelet Count 187 k/uL (150-450); RBC 3.91 m/uL (4.30-5.90); RDW 14.4 % (11.5-15.5); WBC 9.1 k/uL (3.8-10.6)
[2024-03-16] MEDS: QUEtiapine 25 MG TAB PO STA (03:33)
[2024-03-16 04:02] LABS: ALT 9 U/L (4-49); AST 38 U/L (17-59); African American GFR (CKD) >90 (>60 ml/min/1.73 sqM); Albumin 3.5 g/dL (3.5-5.0); Alkaline Phosphatase 54 U/L (38-126); Anion Gap 5 mmol/L; Blood Urea Nitrogen 19 mg/dL (9-20); Calcium 8.8 mg/dL (8.4-10.2); Carbon Dioxide 27 mmol/L (22-30); Chloride 104 mmol/L (98-107); Glucose 91 mg/dL (74-99); Non-African American GFR(CKD) 80 (>60 ml/min/1.73 sqM); Potassium 4.5 mmol/L (3.5-5.1); Sodium 136 mmol/L (137-145); Total Bilirubin 1.5 mg/dL (0.2-1.3); Total Protein 6.1 g/dL (6.3-8.2)
[2024-03-16] MEDS: CHOLECALCIFEROL 25 MCG (1000 IU) TABLET PO SCH (10:34)
--- NOTE | 2024-03-16 14:08 | P.PN ---
Subjective Progress Note Date: 03/16/24 Principal diagnosis: Reported melena This a pleasant 88-year-old male with a medical history including bladder cancer, atrial fibrillation, cancer, CVA/TIA, GERD, hypertension, [place], osteoarthritis and thyroid disorder. Apparently patient was having urinary retention not able to void for 18 hours prior to coming into the emergency department. He was also constipated for several days and unable to have a bowel movement. He gave himself a enema and subsequently had large bowel movement which he states was black. He has had several more bowel movements since that time which he states were dark. He denies any bright red blood in his stool. He also has hematuria. Patient states with the last bowel movement he did have some pain in his rectum. Denies any abdominal pain, nausea or vomiting. Urology is on consultation. Gastroenterology got consulted for possible GI b leed. He denies any anticoagulation. WBC 12.7 hemoglobin 14.4 hematocrit 44 platelet count 225,000 sodium 138 potassium 4.4 BUN 15 creatinine 0.76 03/16/2024 Patient seen and examined today as a follow-up. He has a sitter at the bedside. Apparently the patient became confused through the night and was pulling at his Au catheter. Au catheter was removed. Patient had gross hematuria yes terday. He denies any abdominal pain, nausea or vomiting. States his bowel movements are normal brown. WBC 9.1 hemoglobin 12.6 hematocrit 38 platelet count 187,000 Objective - Vital Signs Vital signs: Vital Signs Temp 97.6 F 03/16/24 02:00 Pulse 59 L 03/16/24 02:00 Resp 17 03/15/24 14:13 BP 121/71 03/16/24 02:00 Pulse Ox 97 03/16/24 02:00 FiO2 Intake & Output 03/15/24 03/16/24 03/16/24 18:59 06:59 18:59 Intake Total 100 Output Total 100 625 Balance 0 -625 Weight 68.039 kg Intake: Oral 100 Output: Urine 625 Urine/Stool Mix 100 Other: Voiding Method Indwelling Catheter Indwelling Catheter # Bowel Movements 1 - Exam General appearance: The patient is alert, oriented, appears in no acute distre ss. HET: Head is normocephalic and atraumatic. Conjunctiva pink. Sclera anicteric. Neck: Supple without lymphadenopathy. Abdomen: Soft, nontender, nondistended. Extremities: Normal skin color and turgor. No pedal edema Skin: No rashes, no jaundice Neurological: No focal deficits. Alert and oriented. - Labs CBC & Chem 7: 03/16/24 02:35 03/16/24 02:31 Labs: Abnormal Lab Results - Last 24 Hours (Table) 03/15/24 03/16/24 03/16/24 Range/Units 20:35 02:31 02:35 RBC 3.91 L (4.30-5.90) m/uL Hgb 12.6 L (13.0-17.5) gm/dL Hct 38.1 L (39.0-53.0) % Sodium 136 L (137-145) mmol/L POC Glucose (mg/dL) 142 H (70-110) mg/dL Total Bilirubin 1.5 H (0.2-1.3) mg/dL Total Protein 6.1 L (6.3-8.2) g/dL Assessment and Plan Assessment: 1. Stool with positive occult blood. Patient continues to have normal brown bowel movement. No evidence of GI bleed. Drop in hemoglobin likely secondary to gross hematuria. 2. Constipation 3. Urinary retention 4. Hematuria 5. Bladder cancer Plan: 1. Continue symptomatic and supportive care 2. Continue with workup and recommendations from urology 3. Patient with no evidence of melena. Patient having normal brown stools. 4. No plans on endoscopic evaluation 5. No further workup indicated by gastroenterology Thank you for this consultation, patient is cleared by gastroenterology for discharge. We will sign off at this time. Dr. Chava Norton I agree with the dictator's note, documented as a scribe by Estelle Peacock.
[2024-03-16] MEDS ORDERED: QUEtiapine 25 MG TAB PO PRN (14:35)
--- NOTE | 2024-03-16 14:53 | P.PN ---
Subjective Progress Note Date: 03/16/24 History of present illness; Patient is a 88-year-old man with A-fib on Eliquis, hypertension, bladder cancer presenting with constipation and urinary retention. His symptoms began one week ago, he took Dulcolax which improved his symptoms for several days. Afterward his constipation worsened and he used suppository at home. He reports his stool appeared black, no blood in stool. He also states he has ongoing small amounts of hematuria. Typically without retention. He does seem confused as to when urinary retention began, chart states 18 hours before admission. He also states he has been feeling weak fatigued and nauseous. While in ER he had Au catheter inserted, which he subsequently pulled himself later. He had catheter reinserted. Today he is having frequent water diarrhea, non bloody, brown. He also had fall while standing in ER without trauma to head. He denies fever, chills, chest pain, and dyspnea. Labs completed in ER WBC 9.6, hemoglobin 15.8, APTT 27.9, sodium 138, potassium 4.2, bicarb 25, gap 12, BUN 13, creatinine 0.77, glucose 127, lactic acid venous 2.1, total bilirubin 1.7, troponin 0.023, lipase 30, UA positive for trace protein, blood large, urine RBC > 182, positive occult blood. 03/16/2024 Patient seen and examined at bedside. Overnight patient became increasingly confused. Patient was lethargic on examination likely from Seroquel. Reduce nightly Seroquel dose to 12.5 at bedtime as needed. Au catheter removed this morning. Has not urinated since removal. Bowel movement seemingly improved fully formed stool. Labs WBC 9.1 hemoglobin 12.6, sodium 136, potassium 4.5, bicarb 27, BUN 19, creatinine 0.80, total bilirubin 1.5, lactic acid 1.5. REVIEW OF SYSTEMS: Pertinent positives and negatives noted in HPI. PHYSICAL EXAMINATION: Vitals reviewed GENERAL: Lethargic. No acute distress. Well developed, well nourished. HEENT: Pupils are round and equally reacting to light. EOMI. No scleral icterus. Normocephalic, atraumatic. CARDIOVASCULAR: S1 and S2 present. No murmurs, rubs, or gallops. PULMONARY: Chest is clear to auscultation, no wheezing, rhonchi, or crackles. ABDOMEN: Soft, nontender, nondistended, normoactive bowel sounds. No palpable organomegaly. MUSCULOSKELETAL: No apparent joint swelling and deformities. EXTREMITIES: No apparent cyanosis, clubbing, or pedal edema. NEUROLOGICAL: The patient is alert, Gross neurological examination did not reveal any focal deficits. SKIN: No apparent rashes. Assessment and plan Patient is a 88-year-old man with A-fib on Eliquis, hypertension, bladder cancer not receiving treatment presenting with constipation and urinary retention. #Urinary retention #Hematuria - Initial traumatic self Au catheter removal Au catheter removed - resume home finasteride - begin Flomax Urology following #Altered bowel function, improved - continue NS @ 75cc/hr - begin metamucil - GI Consulted, will not pursue scope #Generalized weakness #Fall #Delirium -Reduce Seroquel 12.5 HS PRN for agitation/anxiety - PT/OT consulted - Fall precautions Chronic Medical Conditions # Essential hypertension - Resume home Tonny #Coronary artery disease #Afib - holding blood thinners - Resume home Statin - Resume home Metoprolol, Digoxin #Hypothyroidism - Resume home Synthroid #GERD - Resume home Pantoprazole, famotidine #BPH - Resume home meds F: IV Normal saline 75 mL/hr E: Replete as needed N: Heart healthy diet DVT ppx: holding due to hematuria Code status: No Code Anticipated discharge place: Pending clinical course Anticipated discharge time: Tomorrow Dictation was produced using [employer] dictation software. Please excuse any grammatical, word or spelling errors. Objective - Vital Signs Vital signs: Vital Signs Temp 96.7 F L 03/16/24 12:01 Pulse 77 03/16/24 12:01 Resp 18 03/16/24 12:01 BP 128/64 03/16/24 12:01 Pulse Ox 97 03/16/24 12:01 FiO2 Intake & Output 03/15/24 03/16/24 03/16/24 18:59 06:59 18:59 Intake Total 100 Output Total 100 625 Balance 0 -625 Weight 68.039 kg Intake: Oral 100 Output: Urine 625 Urine/Stool Mix 100 Other: Voiding Method Indwelling Catheter Indwelling Catheter Urinal # Voids 1 # Bowel Movements 1 1 - Labs CBC & Chem 7: 03/16/24 02:35 03/16/24 02:31 Labs: Abnormal Lab Results - Last 24 Hours (Table) 03/15/24 03/16/24 03/16/24 Range/Units 20:35 02:31 02:35 RBC 3.91 L (4.30-5.90) m/uL Hgb 12.6 L (13.0-17.5) gm/dL Hct 38.1 L (39.0-53.0) % Sodium 136 L (137-145) mmol/L POC Glucose (mg/dL) 142 H (70-110) mg/dL Total Bilirubin 1.5 H (0.2-1.3) mg/dL Total Protein 6.1 L (6.3-8.2) g/dL
[2024-03-16] MEDS ORDERED: QUEtiapine 25 MG TAB PO SCH (21:00)
[2024-03-16 21:08] VITALS: RESP 16
[2024-03-17 08:26] VITALS: BP 170/85; PULSE 75; TEMP 97.8
[2024-03-17 08:37] LABS: Basophils # (A) 0.11 X 10*3/uL (0.00-0.10); Basophils % (A) 1.5 %; Eosinophils # (A) 0.19 X 10*3/uL (0.04-0.35); Eosinophils % (A) 2.6 %; HCT 39.7 % (39.6-50.0); HGB 12.7 g/dL (13.0-17.0); Lymphocytes # (A) 1.03 X 10*3/uL (0.90-5.00); Lymphocytes % (A) 14.2 %; MCH 31.5 pg (27.0-32.0); MCV 98.5 FL (80.0-97.0); Mean Platelet Volume 10.2 FL (9.5-12.2); Monocytes % (A) 11.1 %; NRBC Per 100 WBC 0 X 10*3/uL (0.00-0.01); Neutrophils # (A) 5.08 X 10*3/uL (1.80-7.70); Neutrophils % (A) 70.3 %; Platelet Count 184 X 10*3/uL (140-440); RBC 4.03 X 10*6/uL (4.40-5.60); RDW 14.7 % (11.5-14.5); WBC 7.23 X 10*3/uL (4.50-10.00)
[2024-03-17 10:56] LABS: Blood Urea Nitrogen 17.1 mg/dL (9.0-27.0); Carbon Dioxide 24.6 mmol/L (21.6-31.8); Chloride 105 mmol/L (96-109); Glucose 100 mg/dL (70-110); Potassium 3.9 mmol/L (3.5-5.5); Sodium 140 mmol/L (135-145)
[2024-03-17 10:57] LABS: ALT 9 U/L (10-49); AST 46 U/L (14-35); Albumin 3.5 g/dL (3.8-4.9); Albumin/Globulin Ratio 1.46 Ratio (1.60-3.17); Alkaline Phosphatase 54 U/L (41-126); Calcium 8.5 mg/dL (8.7-10.3); Globulin 2.4 g/dL (1.6-3.3); Total Bilirubin 0.7 mg/dL (0.3-1.2); Total Protein 5.9 g/dL (6.2-8.2)
--- NOTE | 2024-03-17 11:10 | P.DS ---
Providers Date of admission: 03/14/24 23:28 Expected date of discharge: 03/17/24 Attending physician: Arsen Vega Consults: 03/14/24 23:43 Consult Physician Routine Consulting Provider: Tray Echavarria Consult Reason/Comments: acute urinary retention Do you want consulting provider notified?: Yes, Notify in am Primary care physician: Marciano Mercer [place] [facility] Course: Discharge diagnoses; #Urinary retention #Hematuria #Altered bowel function #Generalized weakness #Fall #Delirium # Essential hypertension #Coronary artery disease #Afib #Hypothyroidism #GERD #BPH Hospital course; Patient is stable for discharge to home. New medications given Flomax 0.4 mg daily and Benefiber 1 pack daily. Patient is to follow-up with PCP. History of present illness; Patient is a 88-year-old man with A-fib on Eliquis, hypertension, bladder cancer presenting with constipation and urinary retention. His symptoms began one week ago, he took Dulcolax which improved his symptoms for several days. Afterward his constipation worsened and he used suppository at home. He reports his stool appeared black, no blood in stool. He also states he has ongoing small amounts of hematuria. Typically without retention. He does seem confused as to when urinary retention began, chart states 18 hours before admission. He also states he has been feeling weak fatigued and nauseous. While in ER he had Au catheter inserted, which he subsequently pulled himself later. He had catheter reinserted. Today he is having frequent water diarrhea, non bloody, brown. He also had fall while standing in ER without trauma to head. He denies fever, chills, chest pain, and dyspnea. Labs completed in ER WBC 9.6, hemoglobin 15.8, APTT 27.9, sodium 138, potassium 4.2, bicarb 25, gap 12, BUN 13, creatinine 0.77, glucose 127, lactic acid venous 2.1, total bilirubin 1.7, troponin 0.023, lipase 30, UA positive for trace protein, blood large, urine RBC > 182, positive occult blood. During hospital stay patient had trouble sleeping and was given Seroquel. He was increasingly confused however later seem to return to his baseline mobility and mental state. He was followed by urology during stay. Constipation, transient diarrhea and urinary retention improved. Indwelling Au catheter not needed at this time. PHYSICAL EXAMINATION: Vitals reviewed GENERAL: No acute distress. Well developed, well nourished. HEENT: Pupils are round and equally reacting to light. EOMI. No scleral icterus. Normocephalic, atraumatic. CARDIOVASCULAR: S1 and S2 present. No murmurs, rubs, or gallops. PULMONARY: Chest is clear to auscultation, no wheezing, rhonchi, or crackles. ABDOMEN: Soft, nontender, nondistended, normoactive bowel sounds. No palpable organomegaly. MUSCULOSKELETAL: No apparent joint swelling and deformities. EXTREMITIES: No apparent cyanosis, clubbing, or pedal edema. NEUROLOGICAL: The patient is alert, Gross neurological examination did not reveal any focal deficits. SKIN: No apparent rashes. Dictation was produced using [employer] dictation software. please excuse any grammatical, word or spelling errors. Attestation I have seen and examined this patient with my resident , discussed the same with the resident/RANDA, and agree with the dictator's assessment and plan as written Dr. Anoop valdez Patient Condition at Discharge: Stable Plan - Discharge Summary Discharge Rx Participant: Yes New Discharge Prescriptions: New Wheat Dextrin [Benefiber] 1 packet PO DAILY #14 packet Tamsulosin [Flomax] 0.4 mg PO DAILY #30 cap Continue Levothyroxine Sodium [Synthroid] 100 mcg PO DAILY Triamcinolone 0.1% Cream [Kenalog 0.1% Cream] 1 applic TOPICAL BID Sacubitril/Valsartan [Entresto 24 mg-26 mg Tablet] 1 tab PO BID Cholecalciferol [Vitamin D3 (25 Mcg = 1000 Iu)] 25 mcg PO DAILY Ascorbic Acid [Vitamin C] 500 mg PO DAILY Atorvastatin [Lipitor] 40 mg PO DAILY Chlorhexidine Gluconate [Peridex] 15 ml MM BID Zinc Gluconate [Zinc] 50 mg PO DAILY Fluticasone Propionate [Flonase Allergy Relief] 1 spr EA NOSTRIL BID Finasteride [Proscar] 5 mg PO DAILY Digoxin [Digitek] 125 mcg PO DAILY Metoprolol Tartrate 12.5 mg PO BID Apixaban [Eliquis] 5 mg PO BID Cyanocobalamin (Vitamin B-12) [Vitamin B-12] 1,000 mcg PO DAILY Famotidine 20 mg PO BID PRN PRN Reason: Heartburn Pantoprazole [Protonix] 40 mg PO DAILY Discharge Medication List Levothyroxine Sodium [Synthroid] 100 mcg PO DAILY 02/12/17 [History] Sacubitril/Valsartan [Entresto 24 mg-26 mg Tablet] 1 tab PO BID 08/18/18 [History] Triamcinolone 0.1% Cream [Kenalog 0.1% Cream] 1 applic TOPICAL BID 08/18/18 [ History] Cholecalciferol [Vitamin D3 (25 Mcg = 1000 Iu)] 25 mcg PO DAILY 10/11/20 [History] Digoxin [Digitek] 125 mcg PO DAILY 10/11/20 [History] Finasteride [Proscar] 5 mg PO DAILY 10/11/20 [History] Fluticasone Propionate [Flonase Allergy Relief] 1 spr EA NOSTRIL BID 10/11/20 [History] Metoprolol Tartrate 12.5 mg PO BID 01/14/22 [History] Apixaban [Eliquis] 5 mg PO BID 06/15/23 [History] Ascorbic Acid [Vitamin C] 500 mg PO DAILY 03/15/24 [History] Atorvastatin [Lipitor] 40 mg PO DAILY 03/15/24 [History] Chlorhexidine Gluconate [Peridex] 15 ml MM BID 03/15/24 [History] Cyanocobalamin (Vitamin B-12) [Vitamin B-12] 1,000 mcg PO DAILY 03/15/24 [History] Famotidine 20 mg PO BID PRN 03/15/24 [History] Pantoprazole [Protonix] 40 mg PO DAILY 03/15/24 [History] Zinc Gluconate [Zinc] 50 mg PO DAILY 03/15/24 [History] Tamsulosin [Flomax] 0.4 mg PO DAILY #30 cap 03/17/24 [Rx] Wheat Dextrin [Benefiber] 1 packet PO DAILY #14 packet 03/17/24 [Rx] Follow up Appointment(s)/Referral(s): Marciano Mercer DO [Primary Care Provider] - 03/24/24 11:15 am (appointment w/ [facility]) Discharge Disposition: HOME SELF-CARE
--- NOTE | 2024-03-17 17:58 | P.PN ---
Subjective Progress Note Date: 03/17/24 No acute overnight event, denies any gross hematuria diarrhea or dysuria, his postvoid residual is 123 mL post catheter removal Objective - Vital Signs Vital signs: Vital Signs Temp 97.8 F 03/17/24 07:56 Pulse 75 03/17/24 07:56 Resp 16 03/17/24 07:56 BP 170/85 03/17/24 07:56 Pulse Ox 97 03/17/24 07:56 FiO2 Intake & Output 03/16/24 03/17/24 03/17/24 18:59 06:59 18:59 Intake Total 2024 Output Total 300 123 Balance -300 2024 - Intake: Intake, IV Titration 825 Amount Sodium Chloride 0.9% 1, 825 000 ml @ 75 mls/hr IV . [id number] [facility] Rx#:[id number] Oral 1200 Output: Urine 300 Post Void Residual 123 Other: Voiding Method Urinal Urinal # Voids 1 2 # Bowel Movements 1 1 - Constitutional General appearance: Present: no acute distress - Gastrointestinal General gastrointestinal: Present: soft. Absent: distended, tenderness - Labs CBC & Chem 7: 03/17/24 05:55 03/17/24 05:55 Labs: Abnormal Lab Results - Last 24 Hours (Table) 03/17/24 03/17/24 Range/Units 05:55 05:55 RBC 4.03 L (4.40-5.60) X 10*6/uL Hgb 12.7 L (13.0-17.0) g/dL MCV 98.5 H (80.0-97.0) FL RDW 14.7 H (11.5-14.5) % Basophils # 0.11 H (0.00-0.10) X 10*3/uL Calcium 8.5 L (8.7-10.3) mg/dL AST 46 H (14-35) U/L ALT 9 L (10-49) U/L Total Protein 5.9 L (6.2-8.2) g/dL Albumin 3.5 L (3.8-4.9) g/dL Albumin/Globulin Ratio 1.46 L (1.60-3.17) Ratio Assessment and Plan Assessment: 88-year-old male admitted to the hospital for urinary retention. He has been able to void without significant difficulties with catheter removal, his postvoid residuals 123 mL - continue Flomax -Can follow-up as an outpatient with Dr. Olivares for continued management of his bladder cancer
== END 2024-03-17 12:30 | disposition home or self-care (01) ==
LOC: EC 15:11 → 5NMEDONC 23:28 → 1SOBS 03-15 07:34 → 5NMEDONC 03-16 11:13
PROVIDERS: ADMIT Hospitalist; ATTEND Hospitalist
DX: N40.1 Benign prostatic hyperplasia with lower urinary tract symptoms (principal); R33.8 Other retention of urine; R31.0 Gross hematuria; K59.00 Constipation, unspecified; R41.0 Disorientation, unspecified; I48.91 Unspecified atrial fibrillation; I10 Essential (primary) hypertension; K21.9 Gastro-esophageal reflux disease without esophagitis; E03.9 Hypothyroidism, unspecified; R53.1 Weakness; I25.10 Atherosclerotic heart disease of native coronary artery without angina pectoris; I25.2 Old myocardial infarction; Z85.51 Personal history of malignant neoplasm of bladder; Z85.828 Personal history of other malignant neoplasm of skin; Z86.73 Personal history of transient ischemic attack (TIA), and cerebral infarction without residual deficits; Z87.891 Personal history of nicotine dependence; Z91.81 History of falling; Z79.01 Long term (current) use of anticoagulants; Z79.51 Long term (current) use of inhaled steroids; Z79.890 Hormone replacement therapy; Z79.899 Other long term (current) drug therapy
CPT/HCPCS: 96361 ×2; 96374; 96375; 99285; 51798; 36415; 93005; 97161; 97166; 86900; 86901; 80053 ×4; 83605 ×2; 83690; 83735; 84484; 85025 ×4; 85730; 86850; 82272; 81001; G0378 ×6; S0138 ×2; J1885; J1171

== ENCOUNTER 2024-10-07 14:56 | Emergency (ER) | payer MEDICARE ==
--- NOTE | 2024-10-07 15:29 | ED ---
Extremity Problem HPI - General Chief complaint: Recheck/Abnormal Lab/Rx Stated complaint: Abn labs Time Seen by Provider: 10/07/24 15:09 Source: patient, RN notes reviewed, old records reviewed Mode of arrival: ambulatory Limitations: no limitations - History of Present Illness Initial comments: This is a 89-year-old male presents with family member for evaluation of lower extremity edema and swelling. Patient with concern for lump on his chest. He has no shortness of breath no chest pain no recent fevers no nausea vomiting or diarrhea no weakness or fatigue. Patient states he feels well aside from leg swelling and pain MD Complaint: extremity pain, extremity swelling -: days(s) Location: left, right, bilateral lower extremity -: Yes arthralgia Severity scale (1-10): 3 Consistency: constant Improves with: nothing - Related Data Home Medications Medication Instructions Recorded Confirmed Levothyroxine Sodium [Synthroid] 100 mcg PO DAILY 02/12/17 03/15/24 Sacubitril/Valsartan [Entresto 24 1 tab PO BID 08/18/18 03/15/24 mg-26 mg Tablet] Triamcinolone 0.1% Cream [Kenalog 1 applic TOPICAL BID 08/18/18 03/15/24 0.1% Cream] Cholecalciferol [Vitamin D3 (25 25 mcg PO DAILY 10/11/20 03/15/24 Mcg = 1000 Iu)] Digoxin [Digitek] 125 mcg PO DAILY 10/11/20 03/15/24 Finasteride [Proscar] 5 mg PO DAILY 10/11/20 03/15/24 Fluticasone Propionate [Flonase 1 spr EA NOSTRIL BID 10/11/20 03/15/24 Allergy Relief] Metoprolol Tartrate 12.5 mg PO BID 01/14/22 03/15/24 Apixaban [Eliquis] 5 mg PO BID 06/15/23 03/15/24 Ascorbic Acid [Vitamin C] 500 mg PO DAILY 03/15/24 03/15/24 Atorvastatin [Lipitor] 40 mg PO DAILY 03/15/24 03/15/24 Chlorhexidine Gluconate [Peridex] 15 ml MM BID 03/15/24 03/15/24 Cyanocobalamin (Vitamin B-12) 1,000 mcg PO DAILY 12/11/24 12/11/24 [Vitamin B-12] Famotidine 20 mg PO BID PRN 03/15/24 03/15/24 Pantoprazole [Protonix] 40 mg PO DAILY 03/15/24 03/15/24 Zinc Gluconate [Zinc] 50 mg PO DAILY 03/15/24 03/15/24 Previous Rx's Medication Instructions Recorded Tamsulosin [Flomax] 0.4 mg PO DAILY #30 cap 03/17/24 Wheat Dextrin [Benefiber] 1 packet PO DAILY #14 packet 03/17/24 Allergies Allergy/AdvReac Type Severity Reaction Status Date / Time atorvastatin [From Lipitor] Allergy Nausea & Verified 10/07/24 15:06 Vomiting Review of Systems ROS Statement: Those systems with pertinent positive or pertinent negative responses have been documented in the HPI. ROS Other: All systems not noted in ROS Statement are negative. Past Medical History Past Medical History: Atrial Fibrillation, Cancer, CVA/TIA, GERD/Reflux, Hypertension, Myocardial Infarction (NE), Osteoarthritis (OA), Thyroid Disorder Additional Past Medical History / Comment(s): DYSPHAGIA. TIA possible CVA per pt, NE-per EKG, bronchitis, hypothyroid, skin cancer with removals Last Myocardial Infarction Date:: unk History of Any Multi-Drug Resistant Organisms: None Reported Past Surgical History: Hernia Repair, Orthopedic Surgery, Tonsillectomy Additional Past Surgical History / Comment(s): Bilateral cataract removal, arely inguinal hernia repair, hiatal hernia surgery, skin cancer (basal and squamous cell) removals, colonoscopy, arely carpal tunnel release, rt upper thigh inury has plastic INSERT UNDER SKIN Past Anesthesia/Blood Transfusion Reactions: No Reported Reaction Past Psychological History: No Psychological Hx Reported Smoking Status: Never smoker Past Alcohol Use History: None Reported Past Drug Use History: None Reported - Past Family History Father Family Medical History: Liver Disease Additional Family Medical History / Comment(s): Father was a drinker and had liver cirrhosis from which he of at the age of 52yrs. Mother Family Medical History: Cancer Additional Family Medical History / Comment(s): Mother had throat cancer and of this at the age of 87yrs. Sister(s) Family Medical History: Cancer Additional Family Medical History / Comment(s): STOMACH CANCER General Exam - General Exam Comments Initial Comments: Bilateral leg edema Limitations: no limitations General appearance: alert, in no apparent distress Head exam: Present: atraumatic, normocephalic, normal inspection Eye exam: Present: normal appearance, PERRL, EOMI. Absent: scleral icterus, conjunctival injection, periorbital swelling ENT exam: Present: normal exam, mucous membranes moist Neck exam: Present: normal inspection. Absent: tenderness, meningismus, lymphadenopathy Respiratory exam: Present: normal lung sounds bilaterally. Absent: respiratory distress, wheezes, rales, rhonchi, stridor Cardiovascular Exam: Present: regular rate, normal rhythm, normal heart sounds. Absent: systolic murmur, diastolic murmur, rubs, gallop, clicks GI/Abdominal exam: Present: soft, normal bowel sounds. Absent: distended, tenderness, guarding, rebound, rigid Extremities exam: Present: normal inspection, full ROM, normal capillary refill. Absent: tenderness, pedal edema, joint swelling, calf tenderness Back exam: Present: normal inspection Neurological exam: Present: alert, oriented X3, CN II-XII intact Psychiatric exam: Present: normal affect, normal mood Skin exam: Present: warm, dry, intact, normal color. Absent: rash Course Vital Signs 10/07/24 15:03 Temperature 98.2 F Pulse Rate 69 Respiratory 22 Rate Blood Pressure 142/78 O2 Sat by Pulse 99 Oximetry - Reevaluation(s) Reevaluation #1: 10/07/24 16:51 Medical records reviewed Reevaluation #2: 10/07/24 16:51 Patient symptoms unchanged Reevaluation #3: 10/07/24 16:51 Patient informed of results questions answered Reevaluation #4: Was pt. sent in by a medical professional or institution (, PA, [employer], urgent care, hospital, or care home...) When possible be specific @ -no Did you speak to anyone other than the patient for history (EMS, parent, family, police, friend...)? What history was obtained from this source @ -no Did you review nursing and triage notes (agree or disagree)? Why? @ -agree Are old charts reviewed (outside hosp., previous admission, EMS record, old EKG, old radiological studies, urgent care reports/EKG's, care home records)? Report findings @ -yes Differential Diagnosis (chest pain, altered mental status, abdominal pain women, abdominal pain men, vaginal bleeding, weakness, fever, dyspnea, syncope, headache, dizziness, GI bleed, back pain, seizure, CVA, palpatations, mental health, musculoskeletal)? @ -prior EKG interpreted by me (3pts min.). @ -yes X-rays interpreted by me (1pt min.). @ -yes negative for acute disease CT interpreted by me (1pt min.). @ -no U/S interpreted by me (1pt. min.). @ -no What testing was considered but not performed or refused? (CT, X-rays, U/S, labs)? Why? @ -none What meds were considered but not given or refused? Why? @ -none Did you discuss the management of the patient with other professionals (maranda forman i.e. , PA, [employer], lab, RT, psych nurse, social science analyst, hand drawer in helper, teacher, code enforcement officer, case operator)? Give summary @ -no Was smoking cessation discussed for >3mins.? @ -no Was critical care preformed (if so, how long)? @ -no Were there social determinants of health that impacted care today? How? (Homelessness, low income, unemployed, alcoholism, drug addiction, transportation, low edu. Level, literacy, decrease access to med. care, care home, rehab)? @ -none Was there de-escalation of care discussed even if they declined (Discuss DNR or withdrawal of care, Hospice)? DNR status @ -no What co-morbidities impacted this encounter? (DM, HTN, Smoking, COPD, CAD, Cancer, CVA, ARF, Chemo, Hep., AIDS, mental health diagnosis, sleep apnea, morbid obesity)? @ -none Was patient admitted / discharged? Hospital course, mention meds given and route, prescriptions, significant lab abnormalities, going to OR and other pertinent info. @ - Undiagnosed new problem with uncertain prognosis? @ -no Drug Therapy requiring intensive monitoring for toxicity (Heparin, Nitro, Insulin, Cardizem)? @ -no Were any procedures done? @ -no Diagnosis/symptom? @ - Acute, or Chronic, or Acute on Chronic? @ -Acute Uncomplicated (without systemic symptoms) or Complicated (systemic symptoms)? @ -Complicated Side effects of treatment? @ -no Exacerbation, Progression, or Severe Exacerbation? @ -exacerbation Poses a threat to life or bodily function? How? (Chest pain, USA, NE, pneumonia, PE, COPD, DKA, ARF, appy, cholecystitis, CVA, Diverticulitis, Homicidal, Suicidal, threat to staff... and all critical care pts) @ -yes Medical Decision Making - Medical Decision Making 89 male to the ER for evaluation of lower extremity edema and swelling significant extremity pain. Patient given diuresis here in the ER lab testing normal x-ray negative patient can be discharged home - Lab Data Result diagrams: 10/07/24 16:04 10/07/24 16:04 Lab Results 10/07/24 10/07/24 Range/Units 16:04 16:04 WBC 7.25 (4.50-10.00) 10*3/uL RBC 4.81 (4.40-5.60) 10*6/uL Hgb 14.9 (13.0-17.0) g/dL Hct 44.2 (39.6-50.0) % MCV 91.9 (80.0-97.0) fL MCH 31.0 (27.0-32.0) pg MCHC 33.7 (32.0-37.0) g/dL Plt Count 212 (140-440) 10*3/uL MPV 9.1 L (9.5-12.2) fL Immature Gran % (Auto) 0.3 % Neutrophils % 70.3 % Lymphocytes % 15.7 % Monocytes % 8.7 % Eosinophils % 3.3 % Basophils % 1.7 % Immature Gran # 0.02 (0.00-0.04) 10*3/uL Neutrophils # 5.10 (1.80-7.70) 10*3/uL Lymphocytes # 1.14 (0.90-5.00) 10*3/uL Monocytes # 0.63 (0.20-1.00) 10*3/uL Eosinophils # 0.24 (0.04-0.35) 10*3/uL Basophils # 0.12 H (0.00-0.10) 10*3/uL Sodium 139 (137-145) mmol/L Potassium 4.4 (3.5-5.1) mmol/L Chloride 106 (98-107) mmol/L Carbon Dioxide 23 (22-30) mmol/L Anion Gap 10 mmol/L BUN 14 (9-20) mg/dL Creatinine 0.71 (0.66-1.25) mg/dL Est GFR (CKD-EPI)AfAm >90 (>60 ml/min/1.73 sqM) Est GFR (CKD-EPI)NonAf 84 (>60 ml/min/1.73 sqM) Glucose 89 (74-99) mg/dL Calcium 9.4 (8.4-10.2) mg/dL Phosphorus 3.7 (2.5-4.5) mg/dL Magnesium 2.0 (1.6-2.3) mg/dL Total Bilirubin 1.0 (0.2-1.3) mg/dL AST 40 (17-59) U/L ALT 14 (4-49) U/L Alkaline Phosphatase 49 (38-126) U/L NT-Pro-B Natriuret Pep 1870 pg/mL Total Protein 6.7 (6.3-8.2) g/dL Albumin 3.9 (3.5-5.0) g/dL - EKG Data -: EKG Interpreted by Me (EKG is A-fib 67 QRS 135 QTc 422) - Radiology Data Radiology results: report reviewed (Chest x-ray is negative for acute disease), image reviewed Disposition Clinical Impression: Bilateral leg edema Disposition: HOME SELF-CARE Condition: Good Instructions (If sedation given, give patient instructions): Leg Edema (ED) Is patient prescribed a controlled substance at d/c from ED?: No Referrals: Marciano Mercer DO [Primary Care Provider] - 1-2 days Time of Disposition: 16:50
--- NOTE | 2024-10-07 15:52 | XR ---
EXAMINATION TYPE: XR chest 2V DATE OF EXAM: 10/07/2024 3:47 PM COMPARISON: Chest radiographs from 01/15/2022. CLINICAL INDICATION: Male, 89 years old with history of Weakness; TECHNIQUE: XR chest 2V Frontal and lateral views of the chest. FINDINGS: Lungs/Pleura: There is no evidence of pleural effusion, focal consolidation, or pneumothorax. Pulmonary vascularity: Unremarkable. Heart/mediastinum: Cardiomediastinal silhouette is unremarkable. Musculoskeletal: No acute osseous pathology. IMPRESSION: 1. No acute cardiopulmonary disease/process. 2. Elevated right diaphragm similar prior. [facility], , 10/07/2024 3:50 PM
[2024-10-07 16:12] LABS: Basophils # (A) 0.12 10*3/uL (0.00-0.10); Basophils % (A) 1.7 %; Eosinophils # (A) 0.24 10*3/uL (0.04-0.35); Eosinophils % (A) 3.3 %; HCT 44.2 % (39.6-50.0); HGB 14.9 g/dL (13.0-17.0); Lymphocytes # (A) 1.14 10*3/uL (0.90-5.00); Lymphocytes % (A) 15.7 %; MCH 31.0 pg (27.0-32.0); MCHC 33.7 g/dL (32.0-37.0); MCV 91.9 fL (80.0-97.0); Monocytes # (A) 0.63 10*3/uL (0.20-1.00); Monocytes % (A) 8.7 %; Neutrophils # (A) 5.10 10*3/uL (1.80-7.70); Neutrophils % (A) 70.3 %; Platelet Count 212 10*3/uL (140-440); RBC 4.81 10*6/uL (4.40-5.60); RDW 14.7 % (11.5-14.5); WBC 7.25 10*3/uL (4.50-10.00)
[2024-10-07 16:24] LABS: ALT 14 U/L (4-49); African American GFR (CKD) >90 (>60 ml/min/1.73 sqM); Albumin 3.9 g/dL (3.5-5.0); Anion Gap 10 mmol/L; Blood Urea Nitrogen 14 mg/dL (9-20); Calcium 9.4 mg/dL (8.4-10.2); Carbon Dioxide 23 mmol/L (22-30); Chloride 106 mmol/L (98-107); Glucose 89 mg/dL (74-99); Non-African American GFR(CKD) 84 (>60 ml/min/1.73 sqM); Sodium 139 mmol/L (137-145); Total Protein 6.7 g/dL (6.3-8.2)
[2024-10-07 16:26] LABS: AST 40 U/L (17-59); Alkaline Phosphatase 49 U/L (38-126); Magnesium 2.0 mg/dL (1.6-2.3); Potassium 4.4 mmol/L (3.5-5.1)
[2024-10-07 16:32] LABS: NT-Pro-B-Type Natriuretic Pept 1870 pg/mL
[2024-10-07] MEDS: FUROSEMIDE 10 MG/ML 4 ML VIAL IV STA (17:23)
[2024-10-07 18:08] VITALS: BP 135/78; PULSE 74; RESP 17; TEMP 98
== END 2024-10-07 17:30 | disposition home or self-care (01) ==
LOC: EC 14:56
DX: R60.0 Localized edema (principal); Z88.8 Allergy status to other drugs, medicaments and biological substances
CPT/HCPCS: 36415; 83880; 80053; 83735; 84100; 85025; 71046; 99284; 96374; J1938